=== PATIENT | female | born 1955 | race Caucasian/White ===

== ENCOUNTER 2019-03-02 10:37 | Emergency (ER) | payer BC, MEDICARE, OTHER ==
[2019-03-02 10:45] VITALS: BP 142/59; PULSE 68; RESP 18; TEMP 97.9
[2019-03-02] MEDS ORDERED: ERYTHROMYCIN 5 MG/GM OPHTH OINT 3.5 GM TUBE RIGHT EYE STA (10:59)
--- NOTE | 2019-03-02 11:01 | ED ---
Eye Problem HPI - General Chief complaint: Eye Problems Stated complaint: Eye Issues Time Seen by Provider: 03/02/19 10:48 Source: patient, RN notes reviewed, old records reviewed Mode of arrival: ambulatory Limitations: no limitations - History of Present Illness Initial comments: Patient is a 64-year-old female, she presents emergency department today with chief complaint of a red bump over her right eye for the past week. She was seen by primary care doctor and was told it was not a stye. Patient states she's been doing warm compresses with the pump seems to be getting bigger. Patient states that she has no eye pain. She denies any visual changes. - Related Data Allergies Allergy/AdvReac Type Severity Reaction Status Date / Time No Known Allergies Allergy Verified 03/02/19 10:39 Review of Systems ROS Statement: Those systems with pertinent positive or pertinent negative responses have been documented in the HPI. ROS Other: All systems not noted in ROS Statement are negative. Past Medical History Past Medical History: Cancer, Fibromyalgia, Hyperlipidemia Additional Past Medical History / Comment(s): lymphoma, esophageal CA History of Any Multi-Drug Resistant Organisms: None Reported Past Surgical History: Section, Cholecystectomy, Orthopedic Surgery, Tonsillectomy Additional Past Surgical History / Comment(s): replaced esophagus with stomach, Past Psychological History: Bipolar Smoking Status: Former smoker Past Alcohol Use History: None Reported Past Drug Use History: None Reported General Exam - General Exam Comments Initial Comments: Pleasant 64-year-old female. Alert and oriented 3. Limitations: no limitations General appearance: alert, in no apparent distress Head exam: Present: atraumatic Eye exam: Present: normal appearance, PERRL, EOMI, other (Patient has erythema and swelling over the lateral aspect of the right lower leg. The area is firm, concern for chalazion. No conjunctival injection or drainage is noted.). Absent: scleral icterus, conjunctival injection, periorbital swelling ENT exam: Present: normal exam, mucous membranes moist Neck exam: Present: normal inspection. Absent: tenderness, meningismus, lymphad enopathy Respiratory exam: Present: normal lung sounds bilaterally. Absent: respiratory distress, wheezes, rales, rhonchi, stridor Cardiovascular Exam: Present: regular rate, normal rhythm, normal heart sounds. Absent: systolic murmur, diastolic murmur, rubs, gallop, clicks Neurological exam: Present: alert, oriented X3 Psychiatric exam: Present: normal affect, normal mood Skin exam: Present: warm, dry, intact, normal color. Absent: rash Course Vital Signs 03/02/19 10:40 Temperature 97.9 F Pulse Rate 68 Respiratory 18 Rate Blood Pressure 142/59 O2 Sat by Pulse 100 Oximetry Medical Decision Making - Medical Decision Making 64-year-old female presents today for redness and swelling of her right lower eyelid. Patient reports she's had this for a week. She has a firm bump over the lower eyelid concern for [place]'s and. No signs of drainage or actual eye irritation. I discussed the Patient needs to use warm compresses. Discussed included a thin film of ice ointment however this is unlikely to treat for any infection but more prevent secondary infection and she continues to touch the area. I discussed she can follow-up with ophthalmology may need to have injection from the eye or have surgical removal. Patient understands treatment plan will comply. Return parameters were discussed. Disposition Clinical Impression: Chalazion of right eye Disposition: HOME SELF-CARE Condition: Good Instructions (If sedation given, give patient instructions): Vikasion (ED) Additional Instructions: Patient and follow-up with ophthalmology a after few weeks of symptoms continue to persist. Patient should continue to apply warm compresses frequently. Patient should discard all makeup that has been used. Is patient prescribed a controlled substance at d/c from ED?: No Referrals: Belen Finch MD [Primary Care Provider] - 1-2 days Frandy Montgomery MD [STAFF PHYSICIAN] - 1-2 days Time of Disposition: 10:59
== END 2019-03-02 11:09 | disposition home or self-care (01) ==
LOC: EC 10:37
DX: H00.12 Chalazion right lower eyelid (principal); Z87.891 Personal history of nicotine dependence; Z85.01 Personal history of malignant neoplasm of esophagus
CPT/HCPCS: 99283

== ENCOUNTER → 2019-03-02 | Outpatient (CLI) | payer BC, MEDICARE ==
--- NOTE | 2019-03-05 07:59 | PE ---
Nuclear medicine PET/CT HISTORY: Esophageal carcinoma, lymphoma, subsequent Patient received 12.6 mCi F-18 FDG intravenously in delayed scanning was performed from the skull bas e to the mid thighs. Localization and attenuation correction CT scan was performed. No comparisons Neck and chest: There is no evident cervical, supraclavicular, mediastinal, axillary, or hilar adenop athy. Dense coronary artery calcifications are present. Patient is status post esophagectomy and tucker lou pull-through. Port-A-Cath is present in the right pectoral region, tip of the catheter courses vi a the right subclavian approach to the level of the cavoatrial junction. There is no evident lung mas s. No pleural or pericardial effusion. No hypermetabolic uptake is evident. ABDOMEN: Adrenal glands are unremarkable. No evident liver mass or retroperitoneal adenopathy. Patien t is post cholecystectomy. Colonic interposition noted anterior to the liver. No suspicious hypermeta bolic uptake. Uptake along the bowel is likely physiologic. Dense atheromatous changes within the aor ta. There is an umbilical hernia containing fat. Osseous structures show degenerative disc change in the visualized spine. Facet arthropathy changes a lso noted the lower lumbar spine. No suspicious hypermetabolic uptake. IMPRESSION: No suspicious uptake is evident.
== END ==
LOC: RADPETMAIN 08:01
PROVIDERS: ATTEND Internal Medicine Hematology & Oncology
DX: C15.5 Malignant neoplasm of lower third of esophagus (principal); C83.30 Diffuse large B-cell lymphoma, unspecified site
CPT/HCPCS: 78815; A9552

== ENCOUNTER → 2019-03-27 | Outpatient (CLI) | payer BC, MEDICARE, OTHER | END | disposition home or self-care (01) | LOC: CPPFTMAIN 08:51 | PROVIDERS: ATTEND Internal Medicine Critical Care Medicine | DX: J98.4 Other disorders of lung (principal) | CPT/HCPCS: 94060; 94726; 94729 ==

== ENCOUNTER 2019-11-26 23:54 | Emergency (ER) | payer MEDICARE, BC ==
[2019-11-27] VITALS: BP 121/70; PULSE 80; RESP 16; TEMP 98.5
[2019-11-27] MEDS ORDERED: SODIUM CHLORIDE 0.9% 500 ML 500 ML IV STA (00:04)
[2019-11-27] MEDS ORDERED: MIDAZOLAM 2 MG/2 ML VIAL IV STA (00:04)
--- NOTE | 2019-11-27 00:43 | ED ---
Fall HPI - General Chief Complaint: Fall Stated Complaint: Fall Time Seen by Provider: 11/26/19 23:58 Source: patient, EMS Mode of arrival: EMS - History of Present Illness Initial Comments: Gege is a 64-year-old female who presents to ER today for evaluation of right shoulder pain. Patient reports that she was attempting to get some boxes off her front porch while trying to carefully keep her door shut to prevent her cast from getting out of her house. She reports that she turned and felt funny landing on her right shoulder. She did not strike her head she did not lose consciousness. She immediately felt pain in her right arm. - Related Data Allergies Allergy/AdvReac Type Severity Reaction Status Date / Time No Known Allergies Allergy Verified 11/27/19 00:00 Review of Systems ROS Statement: Those systems with pertinent positive or pertinent negative responses have been documented in the HPI. ROS Other: All systems not noted in ROS Statement are negative. Past Medical History Past Medical History: Cancer, Fibromyalgia, Hyperlipidemia Additional Past Medical History / Comment(s): lymphoma, esophageal CA History of Any Multi-Drug Resistant Organisms: None Reported Past Surgical History: Section, Cholecystectomy, Orthopedic Surgery, Tonsillectomy Additional Past Surgical History / Comment(s): replaced esophagus with stomach, R radial head and elbow "removed", port placement, 2CA surgeries lymphoma in brain and esophagous Past Psychological History: Bipolar Smoking Status: Former smoker Past Alcohol Use History: None Reported Past Drug Use History: None Reported General Exam - General Exam Comments Initial Comments: Physical Exam GENERAL: Patient is well-developed and well-nourished. Patient is nontoxic and well-hydrated and is in no distress. HENT: Normocephalic, Atraumatic. EYES: PERRL, EOMI PULMONARY: Unlabored respirations. CARDIOVASCULAR: RRR Warm and well perfused extremities ABDOMEN: Non-distended SKIN: No rashes or bruising : Deferred NEUROLOGIC: Alert and oriented Normal speech Normal gait MUSCULOSKELETAL: Decreased range of motion of the right shoulder secondary to pain, obvious deformity noted Right arm is neurovascularly intact PSYCHIATRIC: No SI/HI Limitations: no limitations Course Vital Signs 11/26/19 23:55 Temperature 98.5 F Pulse Rate 80 Respiratory 16 Rate Blood Pressure 121/70 O2 Sat by Pulse 97 Oximetry Medical Decision Making - Medical Decision Making Patient was seen and evaluated history is obtained from patient History and physical exam are concerning for injury to the right upper extremity X-ray confirmed a impacted humeral fracture Patient will be placed in a sling she was given Dilaudid for pain Patient currently has a pain contract with a pain management doctor and cannot accept prescription for pain medication, she will contact orthopedics and her pain management doctor tomorrow Disposition Clinical Impression: Closed right humeral fracture Disposition: HOME SELF-CARE Condition: Stable Instructions (If sedation given, give patient instructions): Proximal Humerus Fracture (ED) Is patient prescribed a controlled substance at d/c from ED?: No Referrals: Yari Astorga NPC [Primary Care Provider] - 1-2 days Cornelius Mcghee MD [STAFF PHYSICIAN] - 1-2 days
--- NOTE | 2019-11-27 00:57 | XR ---
EXAMINATION TYPE: XR shoulder complete RT DATE OF EXAM: 11/27/2019 COMPARISON: NONE HISTORY: Fall. Pain. TECHNIQUE: 3 views FINDINGS: There is impacted comminuted humeral neck fracture. There is no dislocation. There is proba kaushik 3 cm of impaction. There is right-sided central venous catheter. Scapula appears intact. IMPRESSION: Displaced impacted humeral neck fracture.
--- NOTE | 2019-11-27 01:01 | XR ---
EXAMINATION TYPE: XR chest 1V DATE OF EXAM: 11/27/2019 COMPARISON: NONE HISTORY: Fall. Pain. TECHNIQUE: Single view FINDINGS: There is no heart failure nor confluent pneumonic infiltrate. There is right-sided central venous catheter. There is slight blunting right costophrenic angle. Heart size is normal. There is im pacted right humeral neck fracture. There is no sign of a pneumothorax. There is old fracture right p osterior fifth rib. IMPRESSION: Slight elevation of the right diaphragm and pleural diaphragmatic reaction right lung bas e. No heart failure. Old right side healed rib fracture. Impacted right humeral neck fracture.
[2019-11-27] MEDS ORDERED: HYDROmorphone 1 MG/ML 1 ML SYRINGE IVP STA (01:13)
--- NOTE | 2019-11-28 06:05 | CDI ---
Dear Liset Velasquez, DO Please provide procedure done related to midazolam administered. Thank you, Rudy Alejandro Wood Caulker If you have any questions, please contact [facility] at [phone] [facility]
== END 2019-11-27 01:53 | disposition home or self-care (01) ==
LOC: EC 23:54
DX: S42.291A Other displaced fracture of upper end of right humerus, initial encounter for closed fracture (principal); Z85.01 Personal history of malignant neoplasm of esophagus; Z85.72 Personal history of non-Hodgkin lymphomas; Z87.891 Personal history of nicotine dependence; W19.XXXA Unspecified fall, initial encounter; Y92.009 Unspecified place in unspecified non-institutional (private) residence as the place of occurrence of the external cause; Y93.01 Activity, walking, marching and hiking
CPT/HCPCS: 99283; 96374; 96375; 96361; 73030; 71045; J2250; J1170

== ENCOUNTER → 2020-02-14 | Outpatient (CLI) | payer MEDICARE, BC ==
--- NOTE | 2020-02-14 16:26 | XR ---
EXAMINATION TYPE: XR elbow complete RT DATE OF EXAM: 02/14/2020 CLINICAL HISTORY: Fractured right humerus 2.5 months ago, persistent pain. History of radial head rem oval from fracture years ago. TECHNIQUE: Frontal, lateral and oblique images of the right elbow are obtained. COMPARISON: None FINDINGS: There is resection of the right radial head, consistent with patient history of prior inju ry and surgery. There is no acute fracture/dislocation evident in the right elbow. Osseous demineral ization. There is mild degenerative change of the medial elbow and olecranon fossa. No abnormal fat p ad signs are seen. The overlying soft tissue appears unremarkable. IMPRESSION: 1. No acute fracture or dislocation in the right elbow. 2. Postsurgical and degenerative changes. 3. Osseous demineralization.
--- NOTE | 2020-02-14 16:30 | XR ---
EXAMINATION TYPE: XR shoulder complete RT DATE OF EXAM: 02/14/2020 CLINICAL HISTORY: Fractured right humerus 2.5 months ago, persistent pain. TECHNIQUE: Three views of the right shoulder are obtained. COMPARISON: Right shoulder radiograph 11/27/2019 FINDINGS: There is redemonstrated incompletely healed impacted chronic fracture deformity of the rig ht humeral neck, with evidence of interval periosteal reaction and osseous bridging. There is no new acute fracture/dislocation evident in the right shoulder. The acromioclavicular and glenohumeral moises nt spaces appear within normal limits. The visualized ribs are intact and unremarkable. Right-sided MediPort incompletely visualized. IMPRESSION: Persistent impacted chronic fracture deformity of the right humerus, with evidence of sig nificant interval healing versus 11/27/2019. Fracture healing is incomplete.
== END | disposition home or self-care (01) ==
LOC: LABWHC1 08:26
PROVIDERS: ATTEND Orthopaedic Surgery Orthopaedic Trauma
DX: M19.021 Primary osteoarthritis, right elbow (principal); M84.421A Pathological fracture, right humerus, initial encounter for fracture; M21.921 Unspecified acquired deformity of right upper arm; Z98.890 Other specified postprocedural states

== ENCOUNTER → 2020-05-01 | Outpatient (CLI) | payer MEDICARE, BC ==
[2020-05-01 12:41] LABS: African American GFR (CKD) >90 (>60 ml/min/1.73 sqM); Blood Urea Nitrogen 19 mg/dL (7-17); Non-African American GFR(CKD) >90 (>60 ml/min/1.73 sqM)
--- NOTE | 2020-05-02 20:08 | CT ---
EXAMINATION TYPE: CT chest w con DATE OF EXAM: 05/01/2020 COMPARISON: PET/CT 03/02/2019. HISTORY: Non Hodgkin lymphoma. CT DLP: 561 mGycm Automated exposure control for dose reduction was used. CONTRAST: CT scan of the chest is performed with IV Contrast, patient injected with 100 mL of Isovue M300. FINDINGS: LUNGS: There is mild bibasilar linear opacities, consistent atelectasis and/or scarring. Otherwise no significant patchy airspace opacity, consolidation or suspicious nodules. There is no pleural effu torres or pneumothorax seen. The tracheobronchial tree is patent. MEDIASTINUM: There are no greater than 1 cm hilar or mediastinal lymph nodes. No pericardial effusi on is seen. There is mild thoracic aorta and moderate to advanced coronary atherosclerotic disease. OTHER: Redemonstrated are post surgical changes related to esophagectomy and gastric pull-up. Chroni c nonunion right proximal humeral fracture. There is a right IJ port catheter in place. IMPRESSION: No evidence of recurrent or metastatic disease. No acute cardiopulmonary abnormality. Stable esophagotomy and gastric pull-up.
== END | disposition home or self-care (01) ==
LOC: RADCTMAIN 11:49
PROVIDERS: ATTEND Internal Medicine Critical Care Medicine
DX: C85.90 Non-Hodgkin lymphoma, unspecified, unspecified site (principal)
CPT/HCPCS: 82565; 84520; 71260; 36415; Q9967

== ENCOUNTER → 2020-06-03 | Outpatient (CLI) | payer MEDICARE, BC | END | disposition home or self-care (01) | LOC: LABWHC1 12:26 | PROVIDERS: ATTEND Nurse Practitioner Family | DX: U07.1 COVID-19 (principal) | CPT/HCPCS: U0003; C9803; U0005 ==

== ENCOUNTER → 2020-06-26 | Outpatient (CLI) | payer MEDICARE, BC ==
--- NOTE | 2020-06-26 12:24 | PE ---
EXAMINATION TYPE: PET CT fusion skull to thigh DATE OF EXAM: 06/26/2020 COMPARISON: PET CT March 02, [address] May 01, 2020 HISTORY: Lymphoma and esophageal cancer TECHNIQUE: Following the intravenous administration of 10.733 mCi of F-18 FDG, whole body images are performed from the skull base to the midthigh. Images are reviewed on the computer in the coronal, axial, and sagittal planes. Reconstructed rotating images are created on independent workstation and reviewed on the computer. A localization and attenuation correction CT is performed in conjunction with the PET scan. Blood glucose level equals 107. SCAN: Subsequent Scan FINDINGS: SKULL BASE AND NECK: New hypermetabolic 9 x 10 mm left posterior cervical triangle lymph node at the inferior level of the maxillary sinuses above the hyoid bone axial image 36, max SUV is 7.93. Mild increased uptake right shoulder involving glenohumeral and acromioclavicular joints presumed inf lammatory, correlate clinically. CHEST, MEDIASTINUM, AND HILAR REGION: Surgical changes from esophagectomy and gastric pull-up redemon strated. No suspicious basilar pulmonary nodules greatest in the left lung base. For reference there is 9 x 8 mm posterior left basilar nodule axial image 92. Some misregistration at this level. One area shows a bnormal hypermetabolic uptake. Max SUV is 5.15 ABDOMEN AND PELVIS: New hypermetabolic hypodense masses in the liver, right-sided mass measures 3.8 c m long axis image 115, max SUV is 9.99. Just adjacent to this medial segment left hepatic lobe there is 3.6 cm irregular hypodense hypermetabolic mass on image 117, max SUV is 6.76. OSSEOUS STRUCTURES: New suspicious hypermetabolic subtle sclerotic lesion right axial image 24, max S UV is 6.26. OTHER CT: Mild to moderate generalized atrophy and chronic small vessel schema change in brain parenc hyma. Stable right subclavian Mediport catheter. Moderate to severe three-vessel coronary artery calcificat ion redemonstrated. Moderate to severe calcified plaque of the aorta extends into branch vessels. Sca ttered bilateral pelvic phleboliths. Slight scoliotic curvature. IMPRESSION: New metastatic disease. There is left-sided neck adenopathy, there are new hepatic metast atic lesions, there is osseous metastatic lesion right sacrum, there is early hematogenous metastatic disease to the lung bases.
== END | disposition home or self-care (01) ==
LOC: RADPETMAIN 08:56
PROVIDERS: ATTEND Internal Medicine Hematology & Oncology
DX: C78.00 Secondary malignant neoplasm of unspecified lung (principal); C78.7 Secondary malignant neoplasm of liver and intrahepatic bile duct; C79.51 Secondary malignant neoplasm of bone; C83.30 Diffuse large B-cell lymphoma, unspecified site; C15.5 Malignant neoplasm of lower third of esophagus
CPT/HCPCS: 78815; A9552

== ENCOUNTER 2020-07-06 09:42 | Day surgery (SDC) | payer MEDICARE, BC ==
[2020-07-06] MEDS ORDERED: ALPRAZolam 0.5 MG TAB PO STA (10:19)
[2020-07-06 10:38] VITALS: RESP 18; TEMP 97.7
--- NOTE | 2020-07-06 12:03 | US ---
ULTRASOUND GUIDED CORE BIOPSY LEFT NECK LYMPH NODE CLINICAL HISTORY: FINDINGS: The procedure was explained to the patient. The risks, complications, benefits and alternatives were discussed and any questions were answered. Informed consent was obtained. Patient was placed supin e on the ultrasound table and prepped and draped in the usual sterile fashion. Utilizing a 18-gauge needle, five passes were made into the left neck lymph node. Patient was stable throughout the procedure. Pathology is pending. All elements of maximal barrier technique were utilized. IMPRESSION: 1. Successful ultrasound guided core biopsy of left neck lymph node.
[2020-07-06 12:28] VITALS: BP 157/70; PULSE 77
== END 2020-07-06 12:00 | disposition home or self-care (01) ==
LOC: RADPROMAIN 09:42
PROVIDERS: ATTEND Internal Medicine Hematology & Oncology
DX: C83.30 Diffuse large B-cell lymphoma, unspecified site (principal); C15.5 Malignant neoplasm of lower third of esophagus; M06.9 Rheumatoid arthritis, unspecified; F31.9 Bipolar disorder, unspecified; Z79.899 Other long term (current) drug therapy; Z98.890 Other specified postprocedural states
CPT/HCPCS: 38505; 76942; 88305

== ENCOUNTER → 2020-08-04 | Outpatient (CLI) | payer MEDICARE, BC ==
[2020-08-04 14:42] LABS: HCT 45.4 % (34.0-46.0); HGB 14.9 gm/dL (11.4-16.0); MCH 31.2 pg (25.0-35.0); MCHC 32.9 g/dL (31.0-37.0); MCV 94.7 fL (80.0-100.0); Mean Platelet Volume 7.4; Platelet Count 173 k/uL (150-450); RBC 4.79 m/uL (3.80-5.40); WBC 4.8 k/uL (3.8-10.6)
[2020-08-04 14:50] LABS: Prothrombin Time 10.4 sec (9.0-12.0)
== END | disposition home or self-care (01) ==
LOC: LABWHC1 13:09
PROVIDERS: ATTEND Radiology Diagnostic Radiology
DX: R69 Illness, unspecified (principal)
CPT/HCPCS: 36415; 85027; 85610; 85730

== ENCOUNTER 2020-10-02 08:38 | Inpatient (IN) | payer MEDICARE, BC ==
[2020-10-02] MEDS ORDERED: ONDANSETRON 4 MG/2 ML VIAL IVP PRN (09:00)
[2020-10-02 10:27] LABS: Basophils % (A) 1 %; Eosinophils % (A) 1 %; HCT 37.4 % (34.0-46.0); HGB 12.4 gm/dL (11.4-16.0); Lymphocytes # (A) 0.4 k/uL (1.0-4.8); Lymphocytes % (A) 10 %; MCH 29.3 pg (25.0-35.0); MCHC 33.2 g/dL (31.0-37.0); MCV 88.3 fL (80.0-100.0); Mean Platelet Volume 7.1; Monocytes # (A) 0.4 k/uL (0-1.0); Monocytes % (A) 10 %; Neutrophils # (A) 2.9 k/uL (1.3-7.7); Neutrophils % (A) 76 %; Platelet Count 142 k/uL (150-450); RBC 4.24 m/uL (3.80-5.40); RDW 13.5 % (11.5-15.5); WBC 3.8 k/uL (3.8-10.6)
[2020-10-02 10:29] LABS: ALT <6 U/L (4-34); AST 15 U/L (14-36); African American GFR (CKD) >90 (>60 ml/min/1.73 sqM); Albumin 3.8 g/dL (3.5-5.0); Albumin/Globulin Ratio 1.7; Alkaline Phosphatase 55 U/L (38-126); Anion Gap 6 mmol/L; Blood Urea Nitrogen 9 mg/dL (7-17); Calcium 8.9 mg/dL (8.4-10.2); Carbon Dioxide 33 mmol/L (22-30); Chloride 94 mmol/L (98-107); Globulin 2.3 g/dL; Glucose 132 mg/dL (74-99); Non-African American GFR(CKD) >90 (>60 ml/min/1.73 sqM); Phosphorus 3.1 mg/dL (2.5-4.5); Potassium 4.3 mmol/L (3.5-5.1); Sodium 133 mmol/L (137-145); Total Bilirubin 0.5 mg/dL (0.2-1.3); Total Protein 6.1 g/dL (6.3-8.2); Uric Acid 2.8 mg/dL (3.7-7.4)
[2020-10-02] MEDS: FENOFIBRATE 160 MG TAB PO SCH (11:38)
[2020-10-02] MEDS: FOLIC ACID 1 MG TAB PO SCH (11:38)
[2020-10-02] MEDS: SODIUM CHLORIDE 0.9% 1,000 ML IV SCH ×2 (11:41→19:36)
[2020-10-02] MEDS: oxyCODONE ER 20 MG TAB.ER.12H PO SCH ×2 (12:08→19:36)
[2020-10-02] MEDS: PANTOPRAZOLE 40 MG TABLET PO SCH (12:09)
[2020-10-02] MEDS: PROPRANOLOL 40 MG TAB PO SCH (12:10)
[2020-10-02] MEDS: DEXAMETHASONE SOD PHOSPHATE 10 MG/ML 1 ML VIAL IV SCH (12:59)
[2020-10-02] MEDS: ONDANSETRON 16 MG in SODIUM CHLORIDE 0.9% 50 ML IVPB SCH (12:59)
[2020-10-02] MEDS: FAMOTIDINE 20 MG/2 ML VIAL IV SCH (12:59)
[2020-10-02] MEDS: ETOPOSIDE 180 MG in SODIUM CHLORIDE 0.9% 500 ML 500 ML IV SCH (13:18)
--- NOTE | 2020-10-02 17:07 | P.HPIM ---
History of Present Illness H&P Date: 10/02/20 Chief Complaint: relapsed diffuse large B-cell lymphoma. Admitted for high-dose chemo This is a 65 yr old WF, pt of Dr May, who was initially diagnosed with diffuse large B cell lymphoma,in 2008,when she presented with right large inguinal mass,she had 3 cycles of RCHOP followed by radiation therapy. In 2016,she had a new a new lesion in right popliteal fossa,which was positive for large B cell lymphoma,follicular center.She had treatment with BR regimen,completed on 01/12/2017 followed by XRT. A follow up PET scan in September/2017,identified a lesion at GE junction,EUS and biopsy confirmed adenocarcinoma of GEJ,she had esophgectomy on 12/18/2018,also the PET scan showed RML lung nodule. She was also diagnosed with RA and fibromyalgia. Her treatment were in [place] thus far. She moved to [place] on 01/18/[address] Muñiz on 01/25/2019 to establish with an oncologist locally. She had a PET scan on 03/02/2019 which was negative. On 06/26/2020,repeat PET sc an revealed suspicious uptake in left cervical node,new liver lesions and right sacrum. On 07/07/2020,U/S guided biopsy of left neck mass at [facility] was not diagnostic,she was referred to [facility],repeat biopsy on 08/11/2020 was positive for germinal center,DLBCL,double expressor. She reported feeling tired,she has her chronic generalized bone pain,no fever,chills or night sweats,her weight is relatively stable,no dysphagia, She was referred to the [facility], [place], and met with Dr Harris on 09/02/20. she also met with the bone marrow transplant team. It was recommended that she proceed with salvage R-ICE chemotherapy. She is being admitted for cycle #1 of the same. Review of Systems Constitutional: Reports chronic pain, Reports fatigue, Reports weakness Eyes: denies blurred vision, denies pain Ears: deny: decreased hearing, ear discharge, earache, tinnitus Ears, nose, mouth and throat: Denies headache, Denies sore throat Cardiovascular: Reports decreased exercise tolerance Respiratory: Denies cough Gastrointestinal: Denies abdominal pain, Denies diarrhea, Denies nausea, Denies vomiting Genitourinary: Denies dysuria, Denies hematuria Menstruation: Reports postmenopausal Musculoskeletal: Reports as per HPI, Reports muscle weakness Integumentary: Denies pruritus, Denies rash Neurological: Reports weakness Psychiatric: Denies anxiety, Denies depression Endocrine: Reports fatigue Hematologic/Lymphatic: Reports as per HPI, Reports easy bleeding Past Medical History Past Medical History: Cancer, COPD, Fibromyalgia, Hyperlipidemia, Osteoarthritis (OA) Additional Past Medical History / Comment(s): 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 06/2020 pet scan showed mets to L neck/liver/sacrum per pt. 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 History of Any Multi-Drug Resistant Organisms: None Reported Past Surgical History: Section, Cholecystectomy, Orthopedic Surgery, Tonsillectomy Additional Past Surgical History / Comment(s): 2008 R groin tumor removed, extensive esophageal surgery/esophagectomy/stomach brought up and attached, R sided port, R elbow fracture/radial head removed, colonoscopy. Past Anesthesia/Blood Transfusion Reactions: No Reported Reaction Additional Past Anesthesia/Blood Transfusion Reaction / Comment(s): Pt received blood with esophagectomy surgery without reaction. Smoking Status: Former smoker - Past Family History Mother History Unknown: Yes Additional Family Medical History / Comment(s): patient adopted and does not know family history Medications and Allergies Home Medications Medication Instructions Recorded Confirmed Type Atorvastatin [Lipitor] 20 mg PO HS 07/01/20 10/02/20 History Divalproex [Depakote] 1,000 mg PO HS 07/01/20 10/02/20 History Fenofibrate Nanocrystallized 145 mg PO DAILY 07/01/20 10/02/20 History [Tricor] Folic Acid 1 mg PO DAILY 07/01/20 10/02/20 History Omeprazole 40 mg PO DAILY 07/01/20 10/02/20 History Propranolol [Inderal] 40 mg PO DAILY@1200 07/01/20 10/02/20 History Cholecalciferol [Vitamin D3 (25 50 mcg PO DAILY 10/02/20 10/02/20 History Mcg = 1000 Iu)] FLUoxetine HCL [PROzac] 20 mg PO DAILY 10/02/20 10/02/20 History LORazepam [Ativan] 0.5 mg PO BID 10/02/20 10/02/20 History hydrOXYzine HCL [Atarax] 50 mg PO HS 10/02/20 10/02/20 History oxyCODONE HCL [OxyCONTIN] 20 mg PO Q8H 10/02/20 10/02/20 History traZODone HCL [Desyrel] 50 - 100 mg PO HS PRN 10/02/20 10/02/20 History Allergies Allergy/AdvReac Type Severity Reaction Status Date / Time [facility] AdvReac Itching Verified 10/02/20 09:17 Physical Exam Vitals: Vital Signs Temp Pulse Resp BP Pulse Ox 10/02/20 13:00 97.5 F L 63 16 154/61 100 10/02/20 09:00 97.6 F 68 12 129/80 98 Intake and Output 10/01/20 10/02/20 10/02/20 22:59 06:59 14:59 Other: Weight 76.7 kg - Constitutional General appearance: no acute distress - EENT Eyes: EOMI, PERRLA ENT: hearing grossly normal, normal oropharynx - Neck Neck: no lymphadenopathy Thyroid: bilateral: normal size - Respiratory Respiratory: bilateral: CTA - Cardiovascular Rhythm: regular Heart sounds: normal: S1, S2 - Gastrointestinal General gastrointestinal: normal bowel sounds, soft - Integumentary Integumentary: normal - Neurologic Neurologic: CNII-XII intact - Musculoskeletal Musculoskeletal: generalized weakness, strength equal bilaterally - Psychiatric Psychiatric: A&O x's 3, appropriate affect Results CBC & Chem 7: 10/02/20 09:50 10/02/20 09:50 Labs: Abnormal Lab Results - Last 24 Hours (Table) 10/02/20 10/02/20 Range/Units 09:50 09:50 Plt Count 142 L (150-450) k/uL Lymphocytes # 0.4 L (1.0-4.8) k/uL Sodium 133 L (137-145) mmol/L Chloride 94 L (98-107) mmol/L Carbon Dioxide 33 H (22-30) mmol/L Glucose 132 H (74-99) mg/dL Uric Acid 2.8 L (3.7-7.4) mg/dL Total Protein 6.1 L (6.3-8.2) g/dL Thrombosis Risk Factor Assmnt - DVT/VTE Prophylaxis DVT/VTE Prophylaxis: Pharmacologic Prophylaxis ordered - Choose All That Apply Any of the Below Risk Factors Present?: Yes Each Factor Represents 1 point: Abnormal pulmonary function (COPD) Other Risk Factors: Yes Each Risk Factor Represents 2 Points: Age 61-74 years, Malignancy Other congenital or acquired thrombophilia - If yes, enter type in comment: No Thrombosis Risk Factor Assessment Total Risk Factor Score: 5 Thrombosis Risk Factor Assessment Level: High Risk Assessment and Plan (1) Diffuse large B cell lymphoma Narrative/Plan: diagnostic and therapeutic circumstances as described. The patient is being admitted for relapsed diffuse large B-cell lymphoma, to receive high-dose infusional salvage chemotherapy with the R-ICE regimen. This is in accordance with recommendations from [facility]. - The patient received Rituxan yesterday in the office, and will receive ICE per protocol during this admission. She will be monitored with physical exam and labs, which have been ordered. Current Visit: Yes Status: Acute Code(s): C83.30 - DIFFUSE LARGE B-CELL LYMPHOMA, UNSPECIFIED SITE SNOMED Code(s): 215558781 Plan: The patient has multiple other medical problems, including chronic pain due to DJD and neuropathy, hypertension and hyperlipidemia. Home medications have been reconciled and re ordered - Consult [facility] hospitalist service for medical management DVT prophylaxis
[2020-10-02] MEDS: ACETAMINOPHEN TAB 500 MG TAB PO PRN (17:21)
[2020-10-02] MEDS: ENOXAPARIN 40 MG/0.4 ML SYRINGE SQ SCH (17:24)
[2020-10-02] MEDS: DIVALPROEX 500 MG TABLET.DR PO SCH (22:17)
[2020-10-02] MEDS: hydrOXYzine HCL 25 MG TAB PO SCH (22:17)
[2020-10-02] MEDS: traZODone HCL 100 MG TAB PO SCH (22:17)
[2020-10-02] MEDS: CHOLECALCIFEROL 25 MCG (1000 IU) TABLET PO SCH (22:17)
[2020-10-02] MEDS: ATORVASTATIN 20 MG TAB PO SCH (22:17)
[2020-10-02] MEDS: LORazepam 0.5 MG TAB PO SCH (22:17)
[2020-10-02] MEDS: FLUoxetine HCL 20 MG CAP PO SCH (22:17)
--- NOTE | 2020-10-02 23:30 | P.CONS ---
History of Present Illness - Reason for Consult Consult date: 10/02/20 medical management Requesting physician: Siva Pedro - Chief Complaint admission for chemotherapy - History of Present Illness 65 year old female with OA, and relapsing B cell lymphoma patient was first diagnosed with B cell lymphoma back in 2008 , she received treatment including chemo and radiation therapy while she was residing in [place] until 2018, after moving to [place], PET scan 02/2019 was negative. Jun 2020, her PET scan was suspicious for left cervical node, new liver lesion, and right sacrum . her biopsy was positive for relapse disease July 2020. patient reports night sweats, but denies any fever, or abd pain , weight has been stable , denies any changes in bowel habits or GI bleeding . Review of Systems Pertinent positives as noted in HPI. All other systems were reviewed and are negative Past Medical History Past Medical History: Cancer, COPD, Fibromyalgia, Hyperlipidemia, Osteoarthritis (OA) Additional Past Medical History / Comment(s): 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 06/2020 pet scan showed mets to L neck/liver/sacrum per pt. 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 History of Any Multi-Drug Resistant Organisms: None Reported Past Surgical History: Section, Cholecystectomy, Orthopedic Surgery, Tonsillectomy Additional Past Surgical History / Comment(s): 2008 R groin tumor removed, extensive esophageal surgery/esophagectomy/stomach brought up and attached, R sided port, R elbow fracture/radial head removed, colonoscopy. Past Anesthesia/Blood Transfusion Reactions: No Reported Reaction Additional Past Anesthesia/Blood Transfusion Reaction / Comm: Pt received blood with esophagectomy surgery without reaction. Smoking Status: Former smoker - Past Family History Mother History Unknown: Yes Additional Family Medical History / Comment(s): patient adopted and does not know family history Medications and Allergies Home Medications Medication Instructions Recorded Confirmed Type Atorvastatin [Lipitor] 20 mg PO HS 07/01/20 10/02/20 History Divalproex [Depakote] 1,000 mg PO HS 07/01/20 10/02/20 History Fenofibrate Nanocrystallized 145 mg PO DAILY 07/01/20 10/02/20 History [Tricor] Folic Acid 1 mg PO DAILY 07/01/20 10/02/20 History Omeprazole 40 mg PO DAILY 07/01/20 10/02/20 History Propranolol [Inderal] 40 mg PO DAILY@1200 07/01/20 10/02/20 History Cholecalciferol [Vitamin D3 (25 50 mcg PO DAILY 10/02/20 10/02/20 History Mcg = 1000 Iu)] FLUoxetine HCL [PROzac] 20 mg PO DAILY 10/02/20 10/02/20 History LORazepam [Ativan] 0.5 mg PO BID 10/02/20 10/02/20 History hydrOXYzine HCL [Atarax] 50 mg PO HS 10/02/20 10/02/20 History oxyCODONE HCL [OxyCONTIN] 20 mg PO Q8H 10/02/20 10/02/20 History traZODone HCL [Desyrel] 50 - 100 mg PO HS PRN 10/02/20 10/02/20 History Allergies Allergy/AdvReac Type Severity Reaction Status Date / Time bendamustine [From [facility]] AdvReac Itching Verified 10/02/20 09:17 Physical Exam Vitals: Vital Signs Temp Pulse Resp BP Pulse Ox 10/02/20 19:43 97.7 F 62 18 138/72 97 10/02/20 16:00 97.5 F L 64 16 153/84 96 10/02/20 13:00 97.5 F L 63 16 154/61 100 10/02/20 09:00 97.6 F 68 12 129/80 98 Intake and Output 10/02/20 10/02/20 10/02/20 06:59 14:59 22:59 Intake Total 1300 Balance 1300 Intake: Intake, IV Titration 1300 Amount Etoposide 180 mg In 500 Sodium Chloride 0.9% 500 ml 500 ml @ 509 mls/hr IV Q24H MARCELO Rx#:[id number] Sodium Chloride 0.9% 1, 800 000 ml @ 100 mls/hr IV . Q10H MARCELO Rx#:[id number] Other: # Voids 2 Weight 76.7 kg Constitutional: No acute distress, conversant, pleasant Eyes: Anicteric sclerae, moist conjunctiva, Pupils equal round reactive to light ENMT: NC/AT Oropharynx clear, no erythema, or exudates Neck: Supple, FROM, no masses, or JVD No carotid bruits No thyromegaly Lungs: Clear to auscultation Clear to percussion Normal respiratory effort, no accessory muscle use Cardiovascular: Heart regular in rate and rhythm, No murmurs, gallops, or rubs No peripheral edema Abdominal: Soft Nontender, no guarding, rebound or rigidity Abdomen moving with respiration Normoactive bowel sounds No hepatomegaly, No splenomegaly No palpable mass No abdominal wall hernia noted Skin: Normal temperature, tone, texture, turgor No induration No subcutaneous nodules No rash, lesions No ulcers Extremities: No digital cyanosis No clubbing Pedal pulses intact and symmetrical Radial pulses intact and symmetrical No calf tenderness Psychiatric: Alert and oriented to person, place and time Appropriate affect fair judgement Neuro Muscles Strength 5/5 in all 4 extremities Sensation to light touch grossly present throughout Cranial nerves II-XII grossly intact No focal sensory deficits Lymphatics: no palpable cervical or supraclavicular , or inguinal lymph nodes Results CBC & Chem 7: 10/02/20 09:50 10/02/20 09:50 Labs: Abnormal Lab Results - Last 24 Hours (Table) 10/02/20 10/02/20 Range/Units 09:50 09:50 Plt Count 142 L (150-450) k/uL Lymphocytes # 0.4 L (1.0-4.8) k/uL Sodium 133 L (137-145) mmol/L Chloride 94 L (98-107) mmol/L Carbon Dioxide 33 H (22-30) mmol/L Glucose 132 H (74-99) mg/dL Uric Acid 2.8 L (3.7-7.4) mg/dL Total Protein 6.1 L (6.3-8.2) g/dL Assessment and Plan Assessment: recurrent B cell lymphoma management per primary team chemo therapy monitor for side effects symptomatic control of side effects follow up electrolytes, uric acid and CBC OA pain control as needed hyperlipidemia resume homemeds possible COPD, compensated , not currently on treatment PRN duoneb if needed full code DVT PPX on heparin sc Thank you for allowing us to participate in the care of this patient. Do not hesitate to contact us with questions. Someone can be reached from the [facility]– [place]Note 2[place] hospitalist group at all hours of the day at [phone].
[2020-10-03] MEDS: oxyCODONE ER 20 MG TAB.ER.12H PO SCH ×3 (03:45→19:49)
[2020-10-03] MEDS: SODIUM CHLORIDE 0.9% 1,000 ML IV SCH ×2 (05:23→19:07)
[2020-10-03 05:29] LABS: Basophils % (A) 0 %; Eosinophils % (A) 0 %; HCT 38.6 % (34.0-46.0); HGB 12.5 gm/dL (11.4-16.0); Lymphocytes # (A) 0.5 k/uL (1.0-4.8); Lymphocytes % (A) 12 %; MCH 28.6 pg (25.0-35.0); MCHC 32.3 g/dL (31.0-37.0); MCV 88.4 fL (80.0-100.0); Monocytes # (A) 0.3 k/uL (0-1.0); Monocytes % (A) 7 %; Neutrophils % (A) 78 %; Platelet Count 154 k/uL (150-450); RBC 4.37 m/uL (3.80-5.40); RDW 13.6 % (11.5-15.5); WBC 3.8 k/uL (3.8-10.6)
[2020-10-03] MEDS: FENOFIBRATE 160 MG TAB PO SCH (08:59)
[2020-10-03] MEDS: ENOXAPARIN 40 MG/0.4 ML SYRINGE SQ SCH (08:59)
[2020-10-03] MEDS: PANTOPRAZOLE 40 MG TABLET PO SCH (09:00)
[2020-10-03] MEDS: FOLIC ACID 1 MG TAB PO SCH (09:00)
[2020-10-03 10:03] LABS: African American GFR (CKD) 105.4 (60.0-200.0); Albumin 4.2 g/dL (3.80-4.90); Albumin/Globulin Ratio 2.1 (1.60-3.17); BUN/Creat Ratio 11.43 Ratio (12.00-20.00); Non-African American GFR(CKD) 90.9 (60.0-200.0); Phosphorus 3.9 mg/dL (2.4-5.1); Potassium 4.6 mmol/L (3.5-5.5); Total Bilirubin 0.4 mg/dL (0.2-1.2); Total Protein 6.2 g/dL (6.2-8.2); Uric Acid 2.4 mg/dL (2.9-7.7)
[2020-10-03] MEDS: PROPRANOLOL 40 MG TAB PO SCH (11:42)
[2020-10-03] MEDS: DEXAMETHASONE SOD PHOSPHATE 10 MG/ML 1 ML VIAL IV SCH (12:25)
[2020-10-03] MEDS: ONDANSETRON 16 MG in SODIUM CHLORIDE 0.9% 50 ML IVPB SCH (12:25)
[2020-10-03] MEDS: FAMOTIDINE 20 MG/2 ML VIAL IV SCH (12:25)
[2020-10-03] MEDS ORDERED: SODIUM CHLORIDE 0.9% IV ONE ×3 (13:00→14:00)
[2020-10-03] MEDS ORDERED: CARBOPLATIN IV ONE (13:00)
[2020-10-03] MEDS: ETOPOSIDE 180 MG in SODIUM CHLORIDE 0.9% 500 ML 500 ML IV SCH (13:29)
--- NOTE | 2020-10-03 13:39 | P.PN ---
Subjective Progress Note Date: 10/03/20 Principal diagnosis: Lymphoma Patient doing well. No complaints currently. No new pain, no sob. No fevers or chills. No nausea or vomiting. Objective - Vital Signs Vital signs: Vital Signs Temp 98 F 10/03/20 12:00 Pulse 62 10/03/20 12:00 Resp 17 10/03/20 12:00 BP 118/72 10/03/20 12:00 Pulse Ox 100 10/03/20 12:00 Intake & Output 10/02/20 10/03/20 10/03/20 18:59 06:59 18:59 Intake Total 1300 2200 Balance 1300 2200 Weight 76.7 kg Intake: Intake, IV Titration 1300 1200 Amount Etoposide 180 mg In 500 Sodium Chloride 0.9% 500 ml 500 ml @ 509 mls/hr IV Q24H MARCELO Rx#:[id number] Sodium Chloride 0.9% 1, 800 1200 000 ml @ 100 mls/hr IV . Q10H MARCELO Rx#:[id number] Oral 1000 Other: Voiding Method Toilet Toilet # Voids 2 5 - Exam Constitutional: No acute distress, conversant, pleasant Eyes:Anicteric sclerae, moist conjunctiva, no lid-lag, PERRLA, ENMT: Oropharynx clear, no erythema, exudates Neck: Supple, FROM, no masses, or JVD, No carotid bruits, No thyromegaly Lungs: Clear to auscultation, Clear to percussion, Normal respiratory effort, no accessory muscle use Cardiovascular: Heart regular in rate and rhythm, No murmurs, gallops, or rubs, No peripheral edema Abdominal: Soft, no guarding, rebound or rigidity, Normoactive bowel sounds, No hepatomegaly, No splenomegaly, No palpable mass Skin: Normal temperature, tone, texture, turgor, no induration, No subcutaneous nodules, No rash, lesions, No ulcers Extremities: No digital cyanosis, No clubbing, Pedal pulses intact and symmetrical, Radial pulses intact and symmetrical, No calf tenderness Psychiatric: Alert and oriented to person, place and time, appropriate affect, intact judgement Neuro: Muscles Strength 5/5 in all 4 extremities, Sensation to light touch grossly present throughout, Cranial nerves II-XII grossly intact, no focal sensory deficits - Labs CBC & Chem 7: 10/03/20 05:15 10/03/20 05:15 Labs: Abnormal Lab Results - Last 24 Hours (Table) 10/03/20 10/03/20 Range/Units 05:15 05:15 Lymphocytes # 0.5 L (1.0-4.8) k/uL Carbon Dioxide 33.0 H (21.6-31.8) mmol/L BUN 8.0 L (9.0-27.0) mg/dL BUN/Creatinine Ratio 11.43 L (12.00-20.00) Ratio Glucose 148 H (70-110) mg/dL Uric Acid 2.4 L (2.9-7.7) mg/dL AST 11 L (13-35) U/L Assessment and Plan Plan: Recurrent diffuse large B cell lymphoma management per primary team Initiate chemo therapy monitor for side effects symptomatic control of side effects follow up electrolytes, uric acid and CBC OA pain control as needed hyperlipidemia resume homemeds possible COPD, compensated , not currently on treatment PRN duoneb if needed full code DVT PPX on heparin sc
[2020-10-03] MEDS ORDERED: IFOSFAMIDE IV ONE (14:00)
[2020-10-03] MEDS ORDERED: MESNA IV ONE (14:00)
[2020-10-03] MEDS: ACETAMINOPHEN TAB 500 MG TAB PO PRN (15:38)
--- NOTE | 2020-10-03 19:10 | PN ---
PROGRESS NOTE DATE OF SERVICE: 10/03/2020 CHIEF COMPLAINT: Muscle ache. Gege seen today as a followup. She has generalized muscle ache related to her known fibromyalgia, but otherwise she is tolerating chemotherapy fairly well. No nausea or vomiting and no fever or chills. MEDICATION: Her medication and chemotherapy reviewed in her electronic medical record. PHYSICAL EXAMINATION: She is alert, oriented x3. Does not appear to be in distress. Her vital signs: Temperature 98.4 afebrile, pulse 66 regular, respiration 18, blood pressure 134/81, pulse ox 97% on room air. HEENT: Normocephalic, atraumatic. No obvious icterus. NECK: Supple. CHEST: Equal expansion bilaterally. LUNGS: Clear to auscultation. HEART: Regular rate and rhythm. ABDOMEN: Soft. No tenderness or organomegaly. EXTREMITIES: Reveal no edema. IMPRESSION: 1. Recurrent diffuse large B-cell lymphoma, currently on salvage RICE regimen. She is tolerating it fairly well. 2. Previous history of early stage esophageal carcinoma status post surgery without any evidence of recurrence. 3. Fibromyalgia. RECOMMENDATION: 1. Proceed with chemotherapy as scheduled. 2. Continue to monitor blood count and electrolytes very closely. 3. Continue supportive care. 4. DVT prophylaxis. MMODL / IJN: [id number] /
[2020-10-03] MEDS: ATORVASTATIN 20 MG TAB PO SCH (19:49)
[2020-10-03] MEDS: CHOLECALCIFEROL 25 MCG (1000 IU) TABLET PO SCH (19:49)
[2020-10-03] MEDS: LORazepam 0.5 MG TAB PO SCH ×2 (21:57)
[2020-10-03] MEDS: hydrOXYzine HCL 25 MG TAB PO SCH (21:57)
[2020-10-03] MEDS: DIVALPROEX 500 MG TABLET.DR PO SCH (21:57)
[2020-10-03] MEDS: traZODone HCL 100 MG TAB PO SCH (21:58)
[2020-10-03] MEDS: FLUoxetine HCL 20 MG CAP PO SCH (21:58)
[2020-10-04] MEDS: SODIUM CHLORIDE 0.9% 1,000 ML IV SCH ×3 (01:00→19:40)
[2020-10-04] MEDS: oxyCODONE ER 20 MG TAB.ER.12H PO SCH ×3 (03:50→19:38)
[2020-10-04 06:04] LABS: Basophils % (A) 0 %; Eosinophils % (A) 0 %; HCT 34.5 % (34.0-46.0); HGB 11.5 gm/dL (11.4-16.0); Lymphocytes # (A) 0.5 k/uL (1.0-4.8); Lymphocytes % (A) 13 %; MCH 29.3 pg (25.0-35.0); MCHC 33.3 g/dL (31.0-37.0); MCV 88.2 fL (80.0-100.0); Monocytes # (A) 0.3 k/uL (0-1.0); Monocytes % (A) 8 %; Neutrophils # (A) 2.7 k/uL (1.3-7.7); Neutrophils % (A) 77 %; Platelet Count 135 k/uL (150-450); RBC 3.92 m/uL (3.80-5.40); WBC 3.5 k/uL (3.8-10.6)
[2020-10-04] MEDS: ENOXAPARIN 40 MG/0.4 ML SYRINGE SQ SCH (09:02)
[2020-10-04] MEDS: FOLIC ACID 1 MG TAB PO SCH (09:02)
[2020-10-04] MEDS: PANTOPRAZOLE 40 MG TABLET PO SCH (09:02)
[2020-10-04] MEDS: FENOFIBRATE 160 MG TAB PO SCH (09:03)
[2020-10-04 10:37] LABS: ALT <8 U/L (8-44); AST 9 U/L (13-35); African American GFR (CKD) 110.9 (60.0-200.0); Albumin/Globulin Ratio 2.17 (1.60-3.17); Alkaline Phosphatase 51 U/L (41-126); BUN/Creat Ratio 13.33 Ratio (12.00-20.00); Calcium 8.6 mg/dL (8.7-10.3); Carbon Dioxide 30.9 mmol/L (21.6-31.8); Chloride 98 mmol/L (96-109); Globulin 1.8 g/dL (1.6-3.3); Glucose 138 mg/dL (70-110); Non-African American GFR(CKD) 95.7 (60.0-200.0); Phosphorus 3.3 mg/dL (2.4-5.1); Potassium 4.1 mmol/L (3.5-5.5); Sodium 138 mmol/L (135-145); Total Bilirubin 0.4 mg/dL (0.2-1.2); Total Protein 5.7 g/dL (6.2-8.2); Uric Acid 1.8 mg/dL (2.9-7.7)
[2020-10-04] MEDS: PROPRANOLOL 40 MG TAB PO SCH (13:00)
[2020-10-04] MEDS ORDERED: LOPERAMIDE 2 MG CAP PO PRN (13:40)
[2020-10-04] MEDS: FAMOTIDINE 20 MG/2 ML VIAL IV SCH (15:38)
[2020-10-04] MEDS: ONDANSETRON 16 MG in SODIUM CHLORIDE 0.9% 50 ML IVPB SCH (15:39)
[2020-10-04] MEDS: DEXAMETHASONE SOD PHOSPHATE 10 MG/ML 1 ML VIAL IV SCH (15:39)
[2020-10-04] MEDS: ETOPOSIDE 180 MG in SODIUM CHLORIDE 0.9% 500 ML 500 ML IV SCH (16:10)
--- NOTE | 2020-10-04 16:46 | PN ---
PROGRESS NOTE DATE OF SERVICE: 10/04/2020 CHIEF COMPLAINT: Tired. Gege is seen today as a followup. She feels a little tired. She has some stable generalized musculoskeletal pain from her fibromyalgia. Otherwise, she is tolerating chemotherapy very well. No nausea or vomiting and no fever or chills. MEDICATION: Reviewed in her electronic medical record. PHYSICAL EXAMINATION: She is alert and oriented x3. She does not appear to be in distressed. VITAL SIGNS: Temperature 98.1 afebrile, pulse 57 regular, respiration 18, blood pressure 169/78, pulse ox 100% on room air. HEENT: Normocephalic, atraumatic. No icterus. NECK: Supple. CHEST: Equal expansion bilaterally. LUNGS: Clear to auscultation. HEART: Regular rate and rhythm. ABDOMEN: Soft. No tenderness. EXTREMITIES: Reveal no edema. LABORATORY DATA: From today, WBC of 3.5, hemoglobin 11.5, hematocrit 34.5, the platelets are 135. Sodium 138, potassium 4.1, chloride is 98, CO2 of 30.9, BUN is 8, creatinine 0.6, AST 9, ALT is 8 alkaline phosphate 5.1. IMPRESSION: 1. Recurrent diffuse large B-cell lymphoma, currently on salvage with RICE regimen. 2. Previous history of esophageal carcinoma, early stage, status post surgery without any recurrence. Of note, she has metastatic lymphoma to her liver. RECOMMENDATION: 1. Proceed with chemotherapy as scheduled. 2. Continue to monitor blood count. 3. Continue supportive care. 4. Continue DVT prophylaxis. MMODL / IJN: [id number] /
[2020-10-04] MEDS: ACETAMINOPHEN TAB 500 MG TAB PO PRN ×2 (17:02→22:38)
[2020-10-04] MEDS: LORazepam 0.5 MG TAB PO SCH ×2 (17:43→21:53)
--- NOTE | 2020-10-04 18:30 | P.PN ---
Subjective Progress Note Date: 10/04/20 (delayed charting seen at 1310) Principal diagnosis: chemo initiation Patient is a 65-year-old female with recurrent diffuse large B-cell lymphoma, osteoarthritis, dyslipidemia, and possible COPD who presented to the hospital for initiation of chemotherapy. Patient seen and examined at bedside. She reports that she has had 4 loose bowel movements today. She is feeling somewhat tired. Her appetite remains low but is still intact. She denies any chest pain, shortness of breath, or nausea. She is excited about the possibility of going home tomorrow. General: non toxic, no distress, appears at stated age Derm: warm, dry Head: atraumatic, normocephalic, symmetric Eyes: EOMI, no lid lag, anicteric sclera Mouth: no lip lesion, mucus membranes moist Cardiovascular: S1S2 reg, no murmur, positive posterior tibial pulse bilateral, Lungs: CTA bilateral, no rhonchi, no rales , no accessory muscle use Abdominal: soft, nontender to palpation, no guarding, no appreciable o rganomegaly Ext: no gross muscle atrophy, no edema, no contractures Neuro: CN II-XI grossly intact, no focal neuro deficits Psych: Alert, oriented, appropriate affect Recurrent diffuse large B cell lymphoma with intractable cancer pain -Management per oncology, on RICE for salvage therapry -Increasing amount of loose stools. Imodium added as needed - pain is well controlled on oral home regiment Thrombocytopenia, mild -Follow CBC, no indication for transfusion Osteoarthritis - prn pain medications Dyslipidemia - statin, fenofibrate Possible chronic COPD -When necessary DuoNeb Objective - Vital Signs Vital signs: Vital Signs Temp 97.8 F 10/04/20 16:00 Pulse 82 10/04/20 16:00 Resp 18 10/04/20 16:00 BP 123/72 10/04/20 16:00 Pulse Ox 96 10/04/20 16:00 Intake & Output 10/03/20 10/04/20 10/04/20 18:59 06:59 18:59 Intake Total 1200 1200 1200 Balance 1200 1200 1200 Intake: Intake, IV Titration 1200 1200 1200 Amount Sodium Chloride 0.9% 1, 1200 1200 1200 000 ml @ 100 mls/hr IV . Q10H MARCELO Rx#:[id number] Other: Voiding Method Toilet Toilet Toilet # Voids 3 5 3 - Labs CBC & Chem 7: 10/04/20 05:06 10/04/20 05:06 Labs: Abnormal Lab Results - Last 24 Hours (Table) 10/04/20 10/04/20 Range/Units 05:06 05:06 WBC 3.5 L (3.8-10.6) k/uL Plt Count 135 L (150-450) k/uL Lymphocytes # 0.5 L (1.0-4.8) k/uL BUN 8.0 L (9.0-27.0) mg/dL Glucose 138 H (70-110) mg/dL Uric Acid 1.8 L (2.9-7.7) mg/dL Calcium 8.6 L (8.7-10.3) mg/dL AST 9 L (13-35) U/L ALT <8 L (8-44) U/L Total Protein 5.7 L (6.2-8.2) g/dL
[2020-10-04] MEDS: CHOLECALCIFEROL 25 MCG (1000 IU) TABLET PO SCH (21:53)
[2020-10-04] MEDS: ATORVASTATIN 20 MG TAB PO SCH (21:53)
[2020-10-04] MEDS: DIVALPROEX 500 MG TABLET.DR PO SCH (21:54)
[2020-10-04] MEDS: hydrOXYzine HCL 25 MG TAB PO SCH (21:54)
[2020-10-04] MEDS: traZODone HCL 100 MG TAB PO SCH (21:55)
[2020-10-04] MEDS: FLUoxetine HCL 20 MG CAP PO SCH (22:38)
[2020-10-05] MEDS: oxyCODONE ER 20 MG TAB.ER.12H PO SCH ×2 (03:47→11:30)
[2020-10-05] MEDS: SODIUM CHLORIDE 0.9% 1,000 ML IV SCH (05:35)
[2020-10-05 06:15] LABS: Basophils % (A) 0 %; Eosinophils % (A) 0 %; HCT 35.1 % (34.0-46.0); HGB 11.7 gm/dL (11.4-16.0); Lymphocytes # (A) 0.5 k/uL (1.0-4.8); Lymphocytes % (A) 17 %; MCH 29.6 pg (25.0-35.0); MCHC 33.5 g/dL (31.0-37.0); MCV 88.3 fL (80.0-100.0); Mean Platelet Volume 7.3; Monocytes # (A) 0.2 k/uL (0-1.0); Monocytes % (A) 6 %; Neutrophils # (A) 2.1 k/uL (1.3-7.7); Neutrophils % (A) 76 %; Platelet Count 123 k/uL (150-450); RBC 3.97 m/uL (3.80-5.40); RDW 13.1 % (11.5-15.5); WBC 2.7 k/uL (3.8-10.6)
[2020-10-05] MEDS: LORazepam 0.5 MG TAB PO SCH (08:51)
[2020-10-05] MEDS: FENOFIBRATE 160 MG TAB PO SCH (08:51)
[2020-10-05] MEDS: ENOXAPARIN 40 MG/0.4 ML SYRINGE SQ SCH ×2 (08:51→08:52)
[2020-10-05] MEDS: PANTOPRAZOLE 40 MG TABLET PO SCH (08:51)
[2020-10-05] MEDS: FOLIC ACID 1 MG TAB PO SCH (08:51)
[2020-10-05 10:00] LABS: ALT <8 U/L (8-44); AST 9 U/L (13-35); African American GFR (CKD) 110.9 (60.0-200.0); Albumin/Globulin Ratio 1.89 (1.60-3.17); Alkaline Phosphatase 48 U/L (41-126); BUN/Creat Ratio 16.67 Ratio (12.00-20.00); Calcium 8.8 mg/dL (8.7-10.3); Chloride 100 mmol/L (96-109); Globulin 1.9 g/dL (1.6-3.3); Glucose 114 mg/dL (70-110); Non-African American GFR(CKD) 95.7 (60.0-200.0); Phosphorus 3.6 mg/dL (2.4-5.1); Potassium 4.3 mmol/L (3.5-5.5); Sodium 138 mmol/L (135-145); Total Bilirubin 0.7 mg/dL (0.2-1.2); Total Protein 5.5 g/dL (6.2-8.2); Uric Acid 2.1 mg/dL (2.9-7.7)
[2020-10-05] MEDS: PROPRANOLOL 40 MG TAB PO SCH (11:31)
[2020-10-05 12:10] VITALS: BP 164/78; PULSE 58; RESP 16; TEMP 97.4
--- NOTE | 2020-10-05 15:59 | P.PN ---
Subjective Progress Note Date: 10/05/20 (delayed charting seen at 0845) Principal diagnosis: chemo initiation Patient is a 65-year-old female with recurrent diffuse large B-cell lymphoma, osteoarthritis, dyslipidemia, and possible COPD who presented to the hospital for initiation of chemotherapy. Patient seen and examined at bedside. Imodium helped with loose stools, no chest pain, no nausea, no shortness of breath, + fatigued General: non toxic, no distress, appears at stated age Derm: warm, dry Head: atraumatic, normocephalic, symmetric Eyes: EOMI, no lid lag, anicteric sclera Mouth: no lip lesion, mucus membranes moist Cardiovascular: S1S2 reg, no murmur, positive posterior tibial pulse bilateral, Lungs: Decreased bs bilateral, no rhonchi, no rales , no accessory muscle use Abdominal: soft, nontender to palpation, no guarding, no appreciable organomegaly Ext: no gross muscle atrophy, no edema, no contractures Neuro: CN II-XI grossly intact, no focal neuro deficits Psych: Alert, oriented, appropriate affect Recurrent diffuse large B cell lymphoma with intractable cancer pain -Management per oncology, on RICE for salvage therapry -Increasing amount of loose stools. Imodium over the counter - pain is well controlled on oral home regiment Thrombocytopenia, mild -Follow CBC, no indication for transfusion Osteoarthritis - prn pain medications Dyslipidemia - statin, fenofibrate Possible chronic COPD -When necessary DuoNeb Objective - Vital Signs Vital signs: Vital Signs Temp 97.4 F L 10/05/20 12:00 Pulse 58 L 10/05/20 12:00 Resp 16 10/05/20 12:00 BP 164/78 10/05/20 12:00 Pulse Ox 97 10/05/20 12:00 Intake & Output 10/04/20 10/05/20 10/05/20 18:59 06:59 18:59 Intake Total 1200 2000 Balance 1200 2000 Intake: Intake, IV Titration 1200 1200 Amount Sodium Chloride 0.9% 1, 1200 1200 000 ml @ 100 mls/hr IV . Q10H MARCELO Rx#:[id number] Oral 800 Other: Voiding Method Toilet Toilet Toilet # Voids 3 4 # Bowel Movements 1 - Labs CBC & Chem 7: 10/05/20 05:21 10/05/20 05:21 Labs: Abnormal Lab Results - Last 24 Hours (Table) 10/05/20 10/05/20 Range/Units 05:21 05:21 WBC 2.7 L (3.8-10.6) k/uL Plt Count 123 L (150-450) k/uL Lymphocytes # 0.5 L (1.0-4.8) k/uL Glucose 114 H (70-110) mg/dL Uric Acid 2.1 L (2.9-7.7) mg/dL AST 9 L (13-35) U/L ALT <8 L (8-44) U/L Total Protein 5.5 L (6.2-8.2) g/dL Albumin 3.60 L (3.80-4.90) g/dL
--- NOTE | 2020-10-07 | P.DS ---
Providers Date of admission: 10/02/20 08:38 Expected date of discharge: 10/05/20 Attending physician: Yvonne Muñiz Consults: 10/02/20 17:07 Consult Physician Routine Consulting Provider: Trisha Haas Consult Reason/Comments: Medical management Do you want consulting provider notified?: Yes Primary care physician: Yvonne Muñiz - Discharge Diagnosis(es) (1) Diffuse large B cell lymphoma Status: Acute Hospital Course: This is a 65 yr old WF, pt of Dr Muñiz's, who was initially diagnosed with diffuse large B cell lymphoma,in 2008,when she presented with right large inguinal mass,she had 3 cycles of RCHOP followed by radiation therapy. In 2016,she had a new a new lesion in right popliteal fossa,which was positive for large B cell lymphoma,follicular center.She had treatment with BR regimen,completed on 01/12/2017 followed by XRT. A follow up PET scan in September/2017,identified a lesion at GE junction,EUS and bio psy confirmed adenocarcinoma of GEJ,she had esophgectomy on 12/18/2018,also the PET scan showed RML lung nodule. She was also diagnosed with RA and fibromyalgia. Her treatment were in [place] thus far. She moved to [place] on 01/18/[address] Muñiz on 01/25/2019 to establish with an oncologist locally. She had a PET scan on 03/02/2019 which was negative. On 06/26/2020,repeat PET scan revealed suspicious uptake in left cervical node,new liver lesions and right sacrum. On 07/07/2020,U/S guided biopsy of left neck mass at [facility] was not diagnostic,she was referred to [facility],repeat biopsy on 08/11/2020 was positive for germinal center,DLBCL,double expressor. She reported feeling tired,she has her chronic generalized bone pain,no fever,chills or night sweats,her weight is relatively stable,no dysphagia, She was referred to the [facility], [place], and met with Dr Harris on 09/02/20. she also met with the bone marrow transplant team. It was recommended that she proceed with salvage R-ICE chemotherapy. She was admitted for cycle #1 of the same. patient received treatment per protocol. She tolerated treatment overall well without any untoward side effects. She is monitored with physical exam and labs. No major abnormalities, including evidence of tumor lysis were noted. The patient continued to have complains of muscular skeletal pains, which chronic for her during her admission. After completion of chemotherapy to decided discharged home. she will follow- up in the office on 10/08/20 to receive PEG- G-CSF Assessment: vitals normal. Physical exam essentially stable compared to admission Procedures: high dose infusional chemotherapy Patient Condition at Discharge: Fair Plan - Discharge Summary Discharge Rx Participant: No New Discharge Prescriptions: New HYDROcodone/APAP 7.5-325MG [Lynco 7.5-325] 1 tab PO Q4H PRN 3 Days #18 tab PRN Reason: Pain No Action Propranolol [Inderal] 40 mg PO DAILY@1200 Omeprazole 40 mg PO DAILY Folic Acid 1 mg PO DAILY Divalproex [Depakote] 1,000 mg PO HS Fenofibrate Nanocrystallized [Tricor] 145 mg PO DAILY Atorvastatin [Lipitor] 20 mg PO HS traZODone HCL [Desyrel] 50 - 100 mg PO HS PRN PRN Reason: Insomnia hydrOXYzine HCL [Atarax] 50 mg PO HS Cholecalciferol [Vitamin D3 (25 Mcg = 1000 Iu)] 50 mcg PO DAILY oxyCODONE HCL [OxyCONTIN] 20 mg PO Q8H LORazepam [Ativan] 0.5 mg PO BID FLUoxetine HCL [PROzac] 20 mg PO DAILY Discharge Medication List Atorvastatin [Lipitor] 20 mg PO HS 07/01/20 [History] Divalproex [Depakote] 1,000 mg PO HS 07/01/20 [History] Fenofibrate Nanocrystallized [Tricor] 145 mg PO DAILY 07/01/20 [History] Folic Acid 1 mg PO DAILY 07/01/20 [History] Omeprazole 40 mg PO DAILY 07/01/20 [History] Propranolol [Inderal] 40 mg PO DAILY@1200 07/01/20 [History] Cholecalciferol [Vitamin D3 (25 Mcg = 1000 Iu)] 50 mcg PO DAILY 10/02/20 [History] FLUoxetine HCL [PROzac] 20 mg PO DAILY 10/02/20 [History] LORazepam [Ativan] 0.5 mg PO BID 10/02/20 [History] hydrOXYzine HCL [Atarax] 50 mg PO HS 10/02/20 [History] oxyCODONE HCL [OxyCONTIN] 20 mg PO Q8H 10/02/20 [History] traZODone HCL [Desyrel] 50 - 100 mg PO HS PRN 10/02/20 [History] HYDROcodone/APAP 7.5-325MG [Lynco 7.5-325] 1 tab PO Q4H PRN 3 Days #18 tab 10/05/20 [Rx] Follow up Appointment(s)/Referral(s): Siva Pedro MD [STAFF PHYSICIAN] - 10/06/20 9:30 am (This is at the [facility] 2nd floor. White blood cell booster shot. Pt will get more appts at that time. ) Discharge Disposition: HOME SELF-CARE Pending Studies Pending Results: none
== END 2020-10-05 14:38 | disposition home or self-care (01) | DRG 847 ==
LOC: 5NMEDONC 08:38
PROVIDERS: ADMIT Internal Medicine Hematology & Oncology; ATTEND Internal Medicine Hematology & Oncology
DX: Z51.11 Encounter for antineoplastic chemotherapy (principal); C78.7 Secondary malignant neoplasm of liver and intrahepatic bile duct; C83.30 Diffuse large B-cell lymphoma, unspecified site; D69.6 Thrombocytopenia, unspecified; E78.5 Hyperlipidemia, unspecified; G62.9 Polyneuropathy, unspecified; G89.3 Neoplasm related pain (acute) (chronic); I10 Essential (primary) hypertension; J44.9 Chronic obstructive pulmonary disease, unspecified; M19.90 Unspecified osteoarthritis, unspecified site; M79.7 Fibromyalgia; M85.80 Other specified disorders of bone density and structure, unspecified site; Z79.899 Other long term (current) drug therapy; Z85.01 Personal history of malignant neoplasm of esophagus; Z87.891 Personal history of nicotine dependence; Z90.89 Acquired absence of other organs; G56.03 Carpal tunnel syndrome, bilateral upper limbs; Z92.3 Personal history of irradiation; Z88.8 Allergy status to other drugs, medicaments and biological substances; Z90.49 Acquired absence of other specified parts of digestive tract; Z79.891 Long term (current) use of opiate analgesic
CPT/HCPCS: 80053; 84100; 84550; 85025

== ENCOUNTER 2020-10-30 08:30 | Inpatient (IN) | payer MEDICARE, BC ==
[~2020-10-30 08:30] MED LIST: SODIUM CHLORIDE 0.9% 1,000 ML IV SCH
[2020-10-30] MEDS ORDERED: HYDROcodone/APAP 7.5-325MG 1 EACH TAB PO PRN (09:52)
[2020-10-30] MEDS: SODIUM CHLORIDE 0.9% 1,000 ML IV SCH ×2 (10:17→23:32)
--- NOTE | 2020-10-30 10:22 | P.HPIM ---
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 In 2016,she had a new a new lesion in right popliteal fossa,which was positive for large B cell lymphoma,follicular center.She had treatment with BR regimen,completed on 01/12/2017 followed by XRT. A follow up PET scan in September/2017,identified a lesion at GE junction,EUS and biopsy confirmed adenocarcinoma of GEJ,she had esophgectomy on 12/18/2018,also the PET scan showed RML lung nodule. She was also diagnosed with RA and fibromyalgia. Her treatment were in [place] thus far. She moved to [place] on 01/18/[address] Muñiz on 01/25/2019 to establish with an oncologist locally. She had a PET scan on 03/02/2019 which was negative. On 06/26/2020,repeat PET scan revealed suspicious uptake in left cervical node,new liver lesions and right sacrum. On 07/07/2020,U/S guided biopsy of left neck mass at [facility] was not diagnostic,she was referred to [facility],repeat biopsy on 08/11/2020 was positive for germinal center,DLBCL,double expressor. She reported feeling tired,she has her chronic generalized bone pain,no fever,chills or night sweats,her weight is relatively stable,no dysphagia, She was referred to the [facility], [place], and met with Dr Harris on 09/02/20. she also met with the bone marrow transplant team. It was recommended that she proceed with salvage R-ICE chemotherapy. She is being admitted for cycle #2 of the same. She tolerated cycle one well, did have a decrease in platelet count near h er te, this will be monitored closely during follow-ups. Review of Systems All systems: negative Constitutional: Reports as per HPI Past Medical History Past Medical History: Cancer, COPD, Fibromyalgia, Hyperlipidemia, Osteoarthritis (OA) Additional Past Medical History / Comment(s): 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 06/2020 pet scan showed mets to L neck/liver/sacrum per pt. 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 History of Any Multi-Drug Resistant Organisms: None Reported Past Surgical History: Section, Cholecystectomy, Orthopedic Surgery, Tonsillectomy Additional Past Surgical History / Comment(s): 2008 R groin tumor removed, extensive esophageal surgery/esophagectomy/stomach brought up and attached, R sided port, R elbow fracture/radial head removed, colonoscopy. Past Anesthesia/Blood Transfusion Reactions: No Reported Reaction Additional Past Anesthesia/Blood Transfusion Reaction / Comment(s): Pt received blood with esophagectomy surgery without reaction. Smoking Status: Former smoker - Past Family History Mother History Unknown: Yes Additional Family Medical History / Comment(s): patient adopted and does not know family history Medications and Allergies Home Medications Medication Instructions Recorded Confirmed Type Atorvastatin [Lipitor] 20 mg PO HS 07/01/20 10/30/20 History Divalproex [Depakote] 1,000 mg PO HS 07/01/20 10/30/20 History Fenofibrate Nanocrystallized 145 mg PO DAILY 07/01/20 10/30/20 History [Tricor] Folic Acid 1 mg PO DAILY 07/01/20 10/30/20 History Omeprazole 40 mg PO DAILY 07/01/20 10/30/20 History Propranolol [Inderal] 40 mg PO DAILY@1200 07/01/20 10/30/20 History Cholecalciferol [Vitamin D3 (25 50 mcg PO DAILY 10/02/20 10/30/20 History Mcg = 1000 Iu)] FLUoxetine HCL [PROzac] 20 mg PO DAILY 10/02/20 10/30/20 History LORazepam [Ativan] 0.5 mg PO BID 10/02/20 10/30/20 History hydrOXYzine HCL [Atarax] 50 mg PO HS 10/02/20 10/30/20 History oxyCODONE HCL [OxyCONTIN] 20 mg PO Q8H 10/02/20 10/30/20 History traZODone HCL [Desyrel] 50 - 100 mg PO HS PRN 10/02/20 10/30/20 History HYDROcodone/APAP 7.5-325MG [[place] 1 tab PO Q4H PRN 3 Days #18 tab 10/05/20 10/30/20 Rx 7.5-325] Allergies Allergy/AdvReac Type Severity Reaction Status Date / Time bendamustine [From [facility]] AdvReac Itching Verified 10/02/20 09:17 Physical Exam Vitals: Vital Signs Temp Pulse Resp BP Pulse Ox 10/30/20 08:50 98.1 F 73 16 125/74 95 Intake and Output 10/29/20 10/30/20 10/30/20 22:59 06:59 14:59 Other: Weight 77.564 kg - Constitutional General appearance: no acute distress - EENT Eyes: EOMI, PERRLA ENT: hearing grossly normal, normal oropharynx - Neck Neck: no lymphadenopathy Thyroid: bilateral: normal size - Respiratory Respiratory: bilateral: CTA - Cardiovascular Rhythm: regular Heart sounds: normal: S1, S2 - Gastrointestinal General gastrointestinal: normal bowel sounds, soft - Integumentary Integumentary: normal - Neurologic Neurologic: CNII-XII intact - Musculoskeletal Musculoskeletal: generalized weakness, strength equal bilaterally - Psychiatric Psychiatric: A&O x's 3, appropriate affect Results CBC & Chem 7: 10/30/20 10:45 10/30/20 10:45 Thrombosis Risk Factor Assmnt - DVT/VTE Prophylaxis DVT/VTE Prophylaxis: Pharmacologic Prophylaxis ordered - Choose All That Apply Any of the Below Risk Factors Present?: Yes Each Factor Represents 1 point: Obesity (BMI >25) Other Risk Factors: Yes Each Risk Factor Represents 2 Points: Age 61-74 years, Malignancy Other congenital or acquired thrombophilia - If yes, enter type in comment: No Thrombosis Risk Factor Assessment Total Risk Factor Score: 5 Thrombosis Risk Factor Assessment Level: High Risk Assessment and Plan Plan: Diffuse large B cell lymphoma Diagnostic and therapeutic circumstances as in HPI The patient is being admitted for relapsed diffuse large B-cell lymphoma - Cycle Two of High Dose R-ICE salvage chemotherapy , this admission is for Cycle Number 2 Plan of care developed in accordance with recommendations from [facility]. - The patient received Rituxan yesterday in the office, and will receive ICE per protocol during this admission. She will be monitored with physical exam and labs, which have been ordered. Current Visit: Yes Status: Acute Code(s): C83.30 - DIFFUSE LARGE B-CELL LYMPHOMA, UNSPECIFIED SITE SNOMED Code(s): 010172434 Plan: - She will receive Neulasta injection in office on Monday - [facility] have been asked to follow along for medical management Physician Attest: I have completed the full history and physical and developed the complete impression and plan, agree with dictation, dictated as a ascribe.
[2020-10-30] MEDS: oxyCODONE ER 20 MG TAB.ER.12H PO SCH ×3 (10:28→23:31)
[2020-10-30 11:10] LABS: Basophils % (A) 0 %; Eosinophils % (A) 0 %; HCT 32.2 % (34.0-46.0); Lymphocytes # (A) 0.4 k/uL (1.0-4.8); Lymphocytes % (A) 7 %; MCH 30.8 pg (25.0-35.0); MCHC 34.2 g/dL (31.0-37.0); MCV 89.9 fL (80.0-100.0); Mean Platelet Volume 7.1; Monocytes # (A) 0.9 k/uL (0-1.0); Monocytes % (A) 15 %; Neutrophils # (A) 4.4 k/uL (1.3-7.7); Neutrophils % (A) 73 %; RBC 3.58 m/uL (3.80-5.40); RDW 15.7 % (11.5-15.5)
[2020-10-30] MEDS ORDERED: oxyCODONE ER 20 MG TAB.ER.12H PO STA (11:22)
[2020-10-30 11:29] LABS: Platelet Count 273 k/uL (150-450)
[2020-10-30 11:30] LABS: ALT 8 U/L (4-34); AST 16 U/L (14-36); African American GFR (CKD) >90 (>60 ml/min/1.73 sqM); Albumin 3.8 g/dL (3.5-5.0); Albumin/Globulin Ratio 1.7; Alkaline Phosphatase 57 U/L (38-126); Anion Gap 9 mmol/L; Blood Urea Nitrogen 9 mg/dL (7-17); Calcium 8.8 mg/dL (8.4-10.2); Carbon Dioxide 27 mmol/L (22-30); Chloride 95 mmol/L (98-107); Globulin 2.2 g/dL; Glucose 255 mg/dL (74-99); LDH 417 U/L (313-618); Magnesium 1.9 mg/dL (1.6-2.3); Non-African American GFR(CKD) >90 (>60 ml/min/1.73 sqM); Phosphorus 3.4 mg/dL (2.5-4.5); Potassium 4.1 mmol/L (3.5-5.1); Sodium 131 mmol/L (137-145); Total Bilirubin 0.6 mg/dL (0.2-1.3); Uric Acid 2.3 mg/dL (3.7-7.4)
[2020-10-30] MEDS: ONDANSETRON 16 MG in SODIUM CHLORIDE 0.9% 50 ML IVPB SCH (13:04)
[2020-10-30] MEDS: FAMOTIDINE 20 MG/2 ML VIAL IV SCH (13:04)
[2020-10-30] MEDS: DEXAMETHASONE SOD PHOSPHATE 10 MG/ML 1 ML VIAL IV SCH (13:04)
[2020-10-30] MEDS: PROPRANOLOL 20 MG TAB PO SCH (13:50)
[2020-10-30] MEDS: ETOPOSIDE 180 MG in SODIUM CHLORIDE 0.9% 500 ML 500 ML IV SCH (13:50)
[2020-10-30] MEDS: HYDROcodone/APAP 7.5-325MG 1 EACH TAB PO PRN ×3 (14:24→22:30)
[2020-10-30] MEDS: ONDANSETRON 4 MG/2 ML VIAL IVP PRN (16:58)
--- NOTE | 2020-10-30 17:52 | P.CONS ---
History of Present Illness - Reason for Consult Consult date: 10/30/20 HLD Requesting physician: Siva Pedro - Chief Complaint cancer - History of Present Illness Patient is a 65-year-old female with diffuse large B cell lymphoma, germinal center who is here for her second round of RICE chemotherapy. She is a direct admission to Dr. Pedro's service. Patient seen and examined at bedside. She is well-known to me from her last hospital stay here for initiation of her chemo. She reports that she has been doing well at home. She states that her appetite has been low but she has not had any weight loss. She denies any nausea, vomiting, diarrhea. She has not had any mouth sores. She states she's been doing most of her activities of daily living living without difficulty. She does have help with the major cooking and cleaning. She reports that her pain had been well controlled at home but she missed her dose of oxycodone this morning and her back pain is worse than usual. It is her chronic pain but just exacerbated. She denies any recent cough, cold, fever, flu Pertinent positives and negatives as discussed in HPI, a complete review of systems was performed and all other systems are negative. General: non toxic, no distress, appears at stated age Derm: warm, dry Head: atraumatic, normocephalic, symmetric Eyes: EOMI, no lid lag, anicteric sclera, pupils equal round reactive to light ENT: Nose and ears atraumatic, no thrush, no pharyngeal erythema Neck: No thyromegaly, no cervical lymphadenopathy, trachea midline, supple Mouth: no lip lesion, mucus membranes dry, no oral lesions Cardiovascular: S1S2 reg, no murmur, positive posterior tibial pulse bilateral, no edema, capillary refill less than 2 seconds Lungs: clear to ascultation bilateral, no ronchi, no rales, no wheeze, no accessory muscle use Abdominal: soft, nontender to palpation, no guarding, no appreciable organomegaly, normal bowel sounds Ext: no gross muscle atrophy, muscle strength muscle strength 5 out of 5 in all 4 extremities, no contractures Neuro: CN II-XI grossly intact, light touch intact all 4 extremities, finger to nose within normal limits, Psych: Alert, oriented, appropriate affect Diffuse large B cell lymphoma, recurrent -Being initiated on second round of R-ICE therapy with oncology -Continue with fluids, half antiemetics and pain medications ordered per oncology Hypertension -Continue with propranolol - follow BP Dyslipidemia -Continue with fenofibrate and statin COPD without exacerbation -When necessary bronchodilators Fibromyalgia -Continue chronic pain regimen Thank you for allowing us to participate in the care of this pleasant patient. Do not hesitate to contact us with questions. Someone can be reached from the [facility] [place] [facility] [place] hospitalist group all hours of the day at [phone] or via [employer]. 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 06/2020 pet scan showed mets to L neck/liver/sacrum per pt. 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 History of Any Multi-Drug Resistant Organisms: None Reported Past Surgical History: Section, Cholecystectomy, Orthopedic Surgery, Tonsillectomy Additional Past Surgical History / Comment(s): 2008 R groin tumor removed, extensive esophageal surgery/esophagectomy/stomach brought up and attached, R sided port, R elbow fracture/radial head removed, colonoscopy. Past Anesthesia/Blood Transfusion Reactions: No Reported Reaction Additional Past Anesthesia/Blood Transfusion Reaction / Comm: Pt received blood with esophagectomy surgery without reaction. Smoking Status: Former smoker Additional History: has help at home with cleaning and cooking - Past Family History Mother History Unknown: Yes Additional Family Medical History / Comment(s): patient adopted and does not know family history Medications and Allergies Home Medications Medication Instructions Recorded Confirmed Type Atorvastatin [Lipitor] 20 mg PO HS 07/01/20 10/30/20 History Divalproex [Depakote] 1,000 mg PO HS 07/01/20 10/30/20 History Fenofibrate Nanocrystallized 145 mg PO DAILY 07/01/20 10/30/20 History [Tricor] Folic Acid 1 mg PO DAILY 07/01/20 10/30/20 History Omeprazole 40 mg PO DAILY 07/01/20 10/30/20 History Propranolol [Inderal] 40 mg PO DAILY@1200 07/01/20 10/30/20 History Cholecalciferol [Vitamin D3 (25 50 mcg PO DAILY 10/02/20 10/30/20 History Mcg = 1000 Iu)] FLUoxetine HCL [PROzac] 20 mg PO DAILY 10/02/20 10/30/20 History LORazepam [Ativan] 0.5 mg PO BID 10/02/20 10/30/20 History hydrOXYzine HCL [Atarax] 50 mg PO HS 10/02/20 10/30/20 History oxyCODONE HCL [OxyCONTIN] 20 mg PO Q8H 10/02/20 10/30/20 History traZODone HCL [Desyrel] 50 - 100 mg PO HS PRN 10/02/20 10/30/20 History HYDROcodone/APAP 7.5-325MG [[place] 1 tab PO Q4H PRN 3 Days #18 tab 10/05/20 10/30/20 Rx 7.5-325] Allergies Allergy/AdvReac Type Severity Reaction Status Date / Time bendamustine [From [facility]] AdvReac Itching Verified 10/02/20 09:17 Physical Exam Osteopathic Statement: *. No significant issues noted on an osteopathic stru ctural exam other than those noted in the History and Physical/Consult. Vitals: Vital Signs Temp Pulse Resp BP Pulse Ox 10/30/20 14:00 97.6 F 68 16 128/75 98 10/30/20 08:50 98.1 F 73 16 125/74 95 Intake and Output 10/30/20 10/30/20 10/30/20 06:59 14:59 22:59 Intake Total 236 Balance 236 Intake: Oral 236 Other: Weight 77.564 kg Results CBC & Chem 7: 10/30/20 10:45 10/30/20 10:45 Labs: Abnormal Lab Results - Last 24 Hours (Table) 10/30/20 10/30/20 Range/Units 10:45 10:45 RBC 3.58 L (3.80-5.40) m/uL Hgb 11.0 L (11.4-16.0) gm/dL Hct 32.2 L (34.0-46.0) % RDW 15.7 H (11.5-15.5) % Lymphocytes # 0.4 L (1.0-4.8) k/uL Sodium 131 L (137-145) mmol/L Chloride 95 L (98-107) mmol/L Glucose 255 H (74-99) mg/dL Uric Acid 2.3 L (3.7-7.4) mg/dL Total Protein 6.0 L (6.3-8.2) g/dL
[2020-10-30] MEDS: DIVALPROEX 500 MG TABLET.DR PO SCH (19:56)
[2020-10-30] MEDS: hydrOXYzine HCL 25 MG TAB PO SCH (19:56)
[2020-10-30] MEDS: LORazepam 0.5 MG TAB PO SCH (19:56)
[2020-10-30] MEDS: SENNOSIDES-DOCUSATE SODIUM 1 EACH TAB PO SCH (19:56)
[2020-10-30] MEDS: ATORVASTATIN 20 MG TAB PO SCH (19:56)
[2020-10-31] MEDS: HYDROcodone/APAP 7.5-325MG 1 EACH TAB PO PRN ×6 (02:23→22:52)
[2020-10-31 04:39] LABS: Basophils % (A) 0 %; Eosinophils % (A) 0 %; HCT 29.2 % (34.0-46.0); Lymphocytes # (A) 0.6 k/uL (1.0-4.8); Lymphocytes % (A) 9 %; MCH 30.4 pg (25.0-35.0); MCHC 34.3 g/dL (31.0-37.0); MCV 88.7 fL (80.0-100.0); Mean Platelet Volume 7.3; Monocytes # (A) 0.5 k/uL (0-1.0); Monocytes % (A) 9 %; Neutrophils # (A) 4.8 k/uL (1.3-7.7); Neutrophils % (A) 80 %; Platelet Count 246 k/uL (150-450); RBC 3.29 m/uL (3.80-5.40); RDW 15.6 % (11.5-15.5); WBC 6.1 k/uL (3.8-10.6)
[2020-10-31] MEDS: LORazepam 0.5 MG TAB PO SCH ×2 (08:07→20:32)
[2020-10-31] MEDS: FENOFIBRATE 160 MG TAB PO SCH (08:07)
[2020-10-31] MEDS: oxyCODONE ER 20 MG TAB.ER.12H PO SCH ×3 (08:07→23:47)
[2020-10-31] MEDS: SENNOSIDES-DOCUSATE SODIUM 1 EACH TAB PO SCH ×2 (08:07→20:32)
[2020-10-31] MEDS: CHOLECALCIFEROL 25 MCG (1000 IU) TABLET PO SCH (08:08)
[2020-10-31] MEDS: FOLIC ACID 1 MG TAB PO SCH (08:08)
[2020-10-31] MEDS: PANTOPRAZOLE 40 MG TABLET PO SCH (08:08)
[2020-10-31] MEDS: FLUoxetine HCL 20 MG CAP PO SCH (08:08)
[2020-10-31] MEDS: ENOXAPARIN 40 MG/0.4 ML SYRINGE SQ SCH (08:09)
[2020-10-31] MEDS: ONDANSETRON 4 MG/2 ML VIAL IVP PRN (09:16)
[2020-10-31 09:55] LABS: African American GFR (CKD) 89.7 (60.0-200.0); Albumin 3.8 g/dL (3.80-4.90); Anion Gap 9.6 mmol/L (4.00-12.00); BUN/Creat Ratio 11.25 Ratio (12.00-20.00); Calcium 9.1 mg/dL (8.7-10.3); Carbon Dioxide 26.4 mmol/L (21.6-31.8); Globulin 1.9 g/dL (1.6-3.3); Magnesium 1.8 mg/dL (1.5-2.4); Non-African American GFR(CKD) 77.4 (60.0-200.0); Phosphorus 3.3 mg/dL (2.4-5.1); Potassium 4.5 mmol/L (3.5-5.5); Total Bilirubin 0.4 mg/dL (0.2-1.2); Total Protein 5.7 g/dL (6.2-8.2); Uric Acid 2.4 mg/dL (2.9-7.7)
--- NOTE | 2020-10-31 09:57 | P.PN ---
Subjective Progress Note Date: 10/31/20 Principal diagnosis: DLBCL Started ICE. Tolerating well except for nausea after eating. She did receive zofran today. Will plan zofran prior to meals. Objective - Vital Signs Vital signs: Vital Signs Temp 97.7 F 10/31/20 07:56 Pulse 62 10/31/20 07:56 Resp 18 10/31/20 07:56 BP 150/62 10/31/20 07:56 Pulse Ox 96 10/31/20 07:56 Intake & Output 10/30/20 10/31/20 10/31/20 18:59 06:59 18:59 Intake Total 1822 Balance 1822 Weight 77.564 kg Intake: Intake, IV Titration 1350 Amount Etoposide 180 mg In 500 Sodium Chloride 0.9% 500 ml 500 ml @ 509 mls/hr IV Q24H [facility] Rx#:[id number] Ondansetron 16 mg In 50 Sodium Chloride 0.9% 50 ml @ 232 mls/hr IVPB DAILY@1300 [facility] Rx#: [id number] Sodium Chloride 0.9% 1, 800 000 ml @ 100 mls/hr IV . Q10H [facility] Rx#:[id number] Oral 472 Other: Voiding Method Toilet # Voids 1 4 - Exam Gen: No acute distress HEENT: Conjunctival pallor. Neck: Supple Lungs: No respiratory distress Heart: Normal rate Abdomen: Soft MSK: No obvious deformities Neuro: Alert and oriented 3 Psych: Appropriate affect Skin: No jaundice - Labs CBC & Chem 7: 10/31/20 03:54 10/30/20 10:45 Labs: Abnormal Lab Results - Last 24 Hours (Table) 10/30/20 10/30/20 10/31/20 Range/Units 10:45 10:45 03:54 RBC 3.58 L 3.29 L (3.80-5.40) m/uL Hgb 11.0 L 10.0 L (11.4-16.0) gm/dL Hct 32.2 L 29.2 L (34.0-46.0) % RDW 15.7 H 15.6 H (11.5-15.5) % Lymphocytes # 0.4 L 0.6 L (1.0-4.8) k/uL Sodium 131 L (137-145) mmol/L Chloride 95 L (98-107) mmol/L Glucose 255 H (74-99) mg/dL Uric Acid 2.3 L (3.7-7.4) mg/dL Total Protein 6.0 L (6.3-8.2) g/dL Assessment and Plan Assessment: DLBCL Anemia due to chemotherapy HTN HLP COPD Fibromyalgia Plan: Ms. Malik is a very pleasant 65 yo female with a history of relapsed DL BCL who is here for cycle 2 of salvage chemotherapy with R-ICE. She received rituximab outpatient was admitted yesterday at which point chemo with ICE was started. She is tolerating this well so far except for nausea with food. Encouraged her to use zofran with meals. We'll continue chemotherapy as planned. Discharge Monday and outpatient Neulasta already arranged. Medical management as per internal medicine. Trazadone for sleep, pt's home medication. Discussed with patient she is agreeable to the plan. All of her questions were answered. Discussed with nursing staff.
[2020-10-31] MEDS ORDERED: PROCHLORPERAZINE INJ 10 MG/2 ML VIAL IVP PRN (09:58)
--- NOTE | 2020-10-31 10:11 | P.PN ---
Subjective Progress Note Date: 10/31/20 Principal diagnosis: Lymphoma Patient is a 65-year-old female with diffuse large B cell lymphoma, germinal center who is here for her second round of R-ICE chemotherapy. She is a direct admission to Dr. Pedro's service. Patient seen and examined at bedside. she is having some nausea today after eating breakfast. She does not have any nausea with her first round of R-ICE. She denies any chest pain or shortness of breath. No diarrhea. Her pain is at baseline. General: ill appearing, no distress, appears at stated age Derm: warm, dry Head: atraumatic, normocephalic, symmetric Eyes: EOMI, no lid lag, anicteric sclera Mouth: no lip lesion, mucus membranes moist Cardiovascular: S1S2 reg, no murmur, positive posterior tibial pulse bilateral, Lungs: Decreased bs bilateral, no rhonchi, no rales , no accessory muscle use Abdominal: soft, nontender to palpation, no guarding, no appreciable organomegaly Ext: no gross muscle atrophy, no edema, no contractures Neuro: CN II-XI grossly intact, no focal neuro deficits Psych: Alert, oriented, appropriate affect Diffuse large B cell lymphoma, recurrent - second round of R-ICE therapy with oncology -Continue with fluids, half antiemetics and pain medications ordered per oncology Hypertension -Continue with propranolol - follow BP Dyslipidemia -Continue with fenofibrate and statin COPD without exacerbation -When necessary bronchodilators Fibromyalgia -Continue chronic pain regimen Thank you for allowing us to participate in the care of this pleasant patient. Do not hesitate to contact us with questions. Someone can be reached from the [facility] hospitalist group all hours of the day at [phone] or via [employer]. Objective - Vital Signs Vital signs: Vital Signs Temp 97.7 F 10/31/20 07:56 Pulse 62 10/31/20 07:56 Resp 18 10/31/20 07:56 BP 150/62 10/31/20 07:56 Pulse Ox 96 10/31/20 07:56 Intake & Output 10/30/20 10/31/20 10/31/20 18:59 06:59 18:59 Intake Total 1822 Balance 1822 Weight 77.564 kg Intake: Intake, IV Titration 1350 Amount Etoposide 180 mg In 500 Sodium Chloride 0.9% 500 ml 500 ml @ 509 mls/hr IV Q24H [facility] Rx#:[id number] Ondansetron 16 mg In 50 Sodium Chloride 0.9% 50 ml @ 232 mls/hr IVPB DAILY@1300 [facility] Rx#: [id number] Sodium Chloride 0.9% 1, 800 000 ml @ 100 mls/hr IV . Q10H [facility] Rx#:[id number] Oral 472 Other: Voiding Method Toilet # Voids 1 4 - Labs CBC & Chem 7: 10/31/20 03:54 10/31/20 03:54 Labs: Abnormal Lab Results - Last 24 Hours (Table) 10/30/20 10/30/20 10/31/20 Range/Units 10:45 10:45 03:54 RBC 3.58 L (3.80-5.40) m/uL Hgb 11.0 L (11.4-16.0) gm/dL Hct 32.2 L (34.0-46.0) % RDW 15.7 H (11.5-15.5) % Lymphocytes # 0.4 L (1.0-4.8) k/uL Sodium 131 L 134 L (137-145) mmol/L Chloride 95 L (98-107) mmol/L BUN/Creatinine Ratio 11.25 L (12.00-20.00) Ratio Glucose 255 H 232 H (74-99) mg/dL Uric Acid 2.3 L 2.4 L (3.7-7.4) mg/dL AST 11 L (13-35) U/L Total Protein 6.0 L 5.7 L (6.3-8.2) g/dL 10/31/20 Range/Units 03:54 RBC 3.29 L (3.80-5.40) m/uL Hgb 10.0 L (11.4-16.0) gm/dL Hct 29.2 L (34.0-46.0) % RDW 15.6 H (11.5-15.5) % Lymphocytes # 0.6 L (1.0-4.8) k/uL Sodium (137-145) mmol/L Chloride (98-107) mmol/L BUN/Creatinine Ratio (12.00-20.00) Ratio Glucose (74-99) mg/dL Uric Acid (3.7-7.4) mg/dL AST (13-35) U/L Total Protein (6.3-8.2) g/dL
[2020-10-31 10:50] LABS: Appearance,Urine Clear (Clear); Bilirubin,Urine Negative (Negative); Blood,Urine Negative (Negative); Color,Urine Light Yellow; Glucose,Urine (UA) 4+ (Negative); Ketones,Urine Negative (Negative); Leukocyte Esterase,Urine Negative (Negative); Nitrite,Urine Negative (Negative); Protein,Urine Negative (Negative); Specific Gravity,Urine 1.008 (1.001-1.035); Urobilinogen,Urine <2.0 mg/dL (<2.0)
[2020-10-31] MEDS: ONDANSETRON 16 MG in SODIUM CHLORIDE 0.9% 50 ML IVPB SCH (13:22)
[2020-10-31] MEDS: DEXAMETHASONE SOD PHOSPHATE 10 MG/ML 1 ML VIAL IV SCH (13:22)
[2020-10-31] MEDS: FAMOTIDINE 20 MG/2 ML VIAL IV SCH (13:22)
[2020-10-31] MEDS: PROPRANOLOL 20 MG TAB PO SCH (13:24)
[2020-10-31] MEDS: SODIUM CHLORIDE 0.9% 1,000 ML IV SCH ×2 (13:24→16:42)
[2020-10-31] MEDS ORDERED: SODIUM CHLORIDE 0.9% IV ONE ×3 (14:30→15:30)
[2020-10-31] MEDS ORDERED: CARBOPLATIN IV ONE (14:30)
[2020-10-31] MEDS: ETOPOSIDE 180 MG in SODIUM CHLORIDE 0.9% 500 ML 500 ML IV SCH (14:51)
[2020-10-31] MEDS ORDERED: MESNA IV ONE (15:30)
[2020-10-31] MEDS ORDERED: IFOSFAMIDE IV ONE (15:30)
[2020-10-31] MEDS: hydrOXYzine HCL 25 MG TAB PO SCH (20:32)
[2020-10-31] MEDS: ATORVASTATIN 20 MG TAB PO SCH (20:32)
[2020-10-31] MEDS: DIVALPROEX 500 MG TABLET.DR PO SCH (20:32)
[2020-10-31] MEDS: traZODone HCL 50 MG TAB PO SCH (20:33)
[2020-11-01] MEDS: HYDROcodone/APAP 7.5-325MG 1 EACH TAB PO PRN ×6 (03:14→22:55)
[2020-11-01] MEDS: SODIUM CHLORIDE 0.9% 1,000 ML IV SCH ×2 (03:16→14:51)
[2020-11-01] MEDS: SENNOSIDES-DOCUSATE SODIUM 1 EACH TAB PO SCH ×3 (08:07→22:10)
[2020-11-01] MEDS: FENOFIBRATE 160 MG TAB PO SCH (08:07)
[2020-11-01] MEDS: ENOXAPARIN 40 MG/0.4 ML SYRINGE SQ SCH (08:07)
[2020-11-01] MEDS: CHOLECALCIFEROL 25 MCG (1000 IU) TABLET PO SCH (08:08)
[2020-11-01] MEDS: LORazepam 0.5 MG TAB PO SCH ×2 (08:08→22:08)
[2020-11-01] MEDS: FLUoxetine HCL 20 MG CAP PO SCH (08:08)
[2020-11-01] MEDS: oxyCODONE ER 20 MG TAB.ER.12H PO SCH ×2 (08:08→16:06)
[2020-11-01] MEDS: PANTOPRAZOLE 40 MG TABLET PO SCH (08:08)
[2020-11-01] MEDS: FOLIC ACID 1 MG TAB PO SCH (08:09)
--- NOTE | 2020-11-01 10:12 | P.PN ---
Subjective Progress Note Date: 11/01/20 Principal diagnosis: DLBCL Continuing chemo with ICE. Tolerating well except for nausea. Better with antiemetics. Objective - Vital Signs Vital signs: Vital Signs Temp 97.6 F 11/01/20 04:50 Pulse 64 11/01/20 04:50 Resp 20 11/01/20 04:50 BP 138/81 11/01/20 04:50 Pulse Ox 99 11/01/20 04:50 Intake & Output 10/31/20 11/01/20 11/01/20 18:59 06:59 18:59 Intake Total 240 100 Balance 240 100 Intake: Oral 240 100 Other: Voiding Method Toilet Toilet # Voids 5 4 - Exam Gen: No acute distress HEENT: Conjunctival pallor. Neck: Supple Lungs: No respiratory distress Heart: Normal rate Abdomen: Soft MSK: No obvious deformities Neuro: Alert and oriented 3 Psych: Appropriate affect Skin: No jaundice - Labs CBC & Chem 7: 10/31/20 03:54 10/31/20 03:54 Labs: Abnormal Lab Results - Last 24 Hours (Table) 10/31/20 10/31/20 Range/Units 03:54 10:46 Sodium 134 L (135-145) mmol/L BUN/Creatinine Ratio 11.25 L (12.00-20.00) Ratio Glucose 232 H (70-110) mg/dL Uric Acid 2.4 L (2.9-7.7) mg/dL AST 11 L (13-35) U/L Total Protein 5.7 L (6.2-8.2) g/dL Urine Glucose (UA) 4+ H (Negative) Assessment and Plan Assessment: DLBCL Anemia due to chemotherapy HTN HLP COPD Fibromyalgia Plan: Ms. Malik is a very pleasant 65 yo female with a history of relapsed DL BCL who is here for cycle 2 of salvage chemotherapy with R-ICE. She received rituximab outpatient was admitted on 10/30/20 at which point chemo with ICE was started. She is tolerating this well so far except for nausea, which seems to be better controlled with current antiemetic regimen. We'll continue chemotherapy as planned. Discharge tomorrow, Monday and outpatient Neulasta already arranged. Medical management as per internal medicine. Trazadone for sleep, pt's home medication. Discussed with patient she is agreeable to the plan. All of her questions were answered. Discussed with nursing staff.
[2020-11-01 11:12] LABS: HCT 29.5 % (34.0-46.0); HGB 10.1 gm/dL (11.4-16.0); MCH 30.7 pg (25.0-35.0); MCHC 34.3 g/dL (31.0-37.0); MCV 89.4 fL (80.0-100.0); Mean Platelet Volume 7.4; Platelet Count 213 k/uL (150-450); RDW 15.7 % (11.5-15.5); WBC 4.7 k/uL (3.8-10.6)
[2020-11-01 11:20] LABS: ALT 6 U/L (4-34); AST 11 U/L (14-36); African American GFR (CKD) >90 (>60 ml/min/1.73 sqM); Albumin 3.3 g/dL (3.5-5.0); Albumin/Globulin Ratio 1.4; Alkaline Phosphatase 47 U/L (38-126); Anion Gap 8 mmol/L; Blood Urea Nitrogen 6 mg/dL (7-17); Calcium 8.5 mg/dL (8.4-10.2); Carbon Dioxide 29 mmol/L (22-30); Chloride 100 mmol/L (98-107); Globulin 2.3 g/dL; Glucose 148 mg/dL (74-99); Non-African American GFR(CKD) >90 (>60 ml/min/1.73 sqM); Potassium 3.9 mmol/L (3.5-5.1); Sodium 137 mmol/L (137-145); Total Bilirubin 0.4 mg/dL (0.2-1.3); Total Protein 5.6 g/dL (6.3-8.2)
[2020-11-01] MEDS: PROPRANOLOL 20 MG TAB PO SCH (11:24)
--- NOTE | 2020-11-01 13:48 | P.PN ---
Subjective Progress Note Date: 11/01/20 (delayed charting seen at 1145) Principal diagnosis: Lymphoma Patient is a 65-year-old female with diffuse large B cell lymphoma, germinal center who is here for her second round of R-ICE chemotherapy. She is a direct admission to Dr. Pedro's service. Patient seen and examined at bedside. Nausea is resolved. No diarrhea. Her pain is tolerable at this times. General: non toxic, no distress, appears at stated age Derm: warm, dry Head: atraumatic, normocephalic, symmetric Eyes: EOMI, no lid lag, anicteric sclera Mouth: no lip lesion, mucus membranes moist Cardiovascular: S1S2 reg, no murmur, positive posterior tibial pulse bilateral, Lungs: Decreased bs bilateral, no rhonchi, no rales, no accessory muscle use Abdominal: soft, nontender to palpation, no guarding, no appreciable organomegaly Ext: no gross muscle atrophy, no edema, no contractures Neuro: CN II-XI grossly intact, no focal neuro deficits Psych: Alert, oriented, appropriate affect Diffuse large B cell lymphoma, recurrent -second round of R-ICE therapy with oncology -Continue with fluids, antiemetics and pain medications ordered per oncology Hypertension -Continue with propranolol - follow BP Dyslipidemia -Continue with fenofibrate and statin COPD without exacerbation -When necessary bronchodilators Fibromyalgia -Continue chronic pain regimen Thank you for allowing us to participate in the care of this pleasant patient. Do not hesitate to contact us with questions. Someone can be reached from the [facility] hospitalist group all hours of the day at [phone] or via [employer]. Objective - Vital Signs Vital signs: Vital Signs Temp 97.6 F 11/01/20 07:52 Pulse 56 L 11/01/20 08:00 Resp 18 11/01/20 08:00 BP 144/80 11/01/20 07:52 Pulse Ox 98 11/01/20 07:52 Intake & Output 10/31/20 11/01/20 11/01/20 18:59 06:59 18:59 Intake Total 240 100 Balance 240 100 Intake: Oral 240 100 Other: Voiding Method Toilet Toilet Toilet # Voids 5 4 2 - Labs CBC & Chem 7: 11/01/20 10:39 11/01/20 10:39 Labs: Abnormal Lab Results - Last 24 Hours (Table) 11/01/20 11/01/20 Range/Units 10:39 10:39 RBC 3.30 L (3.80-5.40) m/uL Hgb 10.1 L (11.4-16.0) gm/dL Hct 29.5 L (34.0-46.0) % RDW 15.7 H (11.5-15.5) % BUN 6 L (7-17) mg/dL Creatinine 0.51 L (0.52-1.04) mg/dL Glucose 148 H (74-99) mg/dL AST 11 L (14-36) U/L Total Protein 5.6 L (6.3-8.2) g/dL Albumin 3.3 L (3.5-5.0) g/dL
[2020-11-01] MEDS: ONDANSETRON 16 MG in SODIUM CHLORIDE 0.9% 50 ML IVPB SCH (15:04)
[2020-11-01] MEDS: DEXAMETHASONE SOD PHOSPHATE 10 MG/ML 1 ML VIAL IV SCH (15:04)
[2020-11-01] MEDS: FAMOTIDINE 20 MG/2 ML VIAL IV SCH (15:04)
[2020-11-01] MEDS: ETOPOSIDE 180 MG in SODIUM CHLORIDE 0.9% 500 ML 500 ML IV SCH (16:39)
[2020-11-01] MEDS: traZODone HCL 50 MG TAB PO SCH (22:08)
[2020-11-01] MEDS: hydrOXYzine HCL 25 MG TAB PO SCH (22:08)
[2020-11-01] MEDS: DIVALPROEX 500 MG TABLET.DR PO SCH (22:08)
[2020-11-01] MEDS: ATORVASTATIN 20 MG TAB PO SCH (22:09)
[2020-11-02] MEDS: oxyCODONE ER 20 MG TAB.ER.12H PO SCH ×3 (00:28→15:03)
[2020-11-02 00:35] VITALS: RESP 14
[2020-11-02] MEDS: HYDROcodone/APAP 7.5-325MG 1 EACH TAB PO PRN ×4 (04:25→15:02)
[2020-11-02] MEDS: SODIUM CHLORIDE 0.9% 1,000 ML IV SCH ×2 (05:30→08:04)
[2020-11-02 05:46] LABS: HCT 30.5 % (34.0-46.0); HGB 10.4 gm/dL (11.4-16.0); MCH 30.9 pg (25.0-35.0); MCHC 34.1 g/dL (31.0-37.0); MCV 90.6 fL (80.0-100.0); Mean Platelet Volume 7.3; Platelet Count 231 k/uL (150-450); RBC 3.37 m/uL (3.80-5.40); RDW 15.7 % (11.5-15.5); WBC 4.1 k/uL (3.8-10.6)
[2020-11-02] MEDS: LORazepam 0.5 MG TAB PO SCH (08:03)
[2020-11-02] MEDS: PANTOPRAZOLE 40 MG TABLET PO SCH (08:03)
[2020-11-02] MEDS: SENNOSIDES-DOCUSATE SODIUM 1 EACH TAB PO SCH (08:03)
[2020-11-02] MEDS: CHOLECALCIFEROL 25 MCG (1000 IU) TABLET PO SCH (08:03)
[2020-11-02] MEDS: FENOFIBRATE 160 MG TAB PO SCH (08:03)
[2020-11-02] MEDS: FOLIC ACID 1 MG TAB PO SCH (08:03)
[2020-11-02] MEDS: ENOXAPARIN 40 MG/0.4 ML SYRINGE SQ SCH ×2 (08:04→08:22)
[2020-11-02] MEDS: FLUoxetine HCL 20 MG CAP PO SCH (08:04)
[2020-11-02 09:25] LABS: African American GFR (CKD) 110.9 (60.0-200.0); Albumin 3.7 g/dL (3.80-4.90); Albumin/Globulin Ratio 2.06 (1.60-3.17); Anion Gap 5.6 mmol/L (4.00-12.00); BUN/Creat Ratio 13.33 Ratio (12.00-20.00); Calcium 8.5 mg/dL (8.7-10.3); Carbon Dioxide 27.4 mmol/L (21.6-31.8); Globulin 1.8 g/dL (1.6-3.3); Magnesium 1.7 mg/dL (1.5-2.4); Non-African American GFR(CKD) 95.7 (60.0-200.0); Potassium 4.3 mmol/L (3.5-5.5); Total Bilirubin 0.9 mg/dL (0.2-1.2); Total Protein 5.5 g/dL (6.2-8.2); Uric Acid 2.6 mg/dL (2.9-7.7)
--- NOTE | 2020-11-02 10:07 | P.PN ---
Subjective Progress Note Date: 11/02/20 Patient is doing well today. She does not have any complaints. Objective - Vital Signs Vital signs: Vital Signs Temp 98.1 F 11/02/20 04:36 Pulse 59 L 11/02/20 04:36 Resp 14 11/02/20 04:36 BP 136/80 11/02/20 04:36 Pulse Ox 98 11/02/20 04:36 Intake & Output 11/01/20 11/02/20 11/02/20 18:59 06:59 18:59 Intake Total 360 Balance 360 Intake: Oral 360 Other: Voiding Method Toilet Toilet # Voids 6 6 - Exam General: The patient is awake and alert, in no distress Eye: there is normal conjunctiva bilaterally. Neck: The neck is supple, there is no JVD. Cardiovascular: Normal S1-S2, no S3-S4, no murmurs. Respiratory: Lungs clear to auscultation bilaterally Gastrointestinal: Abdomen is soft, nontender Musculoskeletal: There is no pedal edema. Neurological:. Speech is normal. Skin: Skin is warm and dry - Labs CBC & Chem 7: 11/02/20 04:48 11/02/20 04:48 Labs: Abnormal Lab Results - Last 24 Hours (Table) 11/01/20 11/01/20 11/02/20 Range/Units 10:39 10:39 04:48 RBC 3.30 L 3.37 L (3.80-5.40) m/uL Hgb 10.1 L 10.4 L (11.4-16.0) gm/dL Hct 29.5 L 30.5 L (34.0-46.0) % RDW 15.7 H 15.7 H (11.5-15.5) % BUN 6 L (7-17) mg/dL Creatinine 0.51 L (0.52-1.04) mg/dL Glucose 148 H (74-99) mg/dL Uric Acid (2.9-7.7) mg/dL Calcium (8.7-10.3) mg/dL AST 11 L (14-36) U/L Total Protein 5.6 L (6.3-8.2) g/dL Albumin 3.3 L (3.5-5.0) g/dL 11/02/20 Range/Units 04:48 RBC (3.80-5.40) m/uL Hgb (11.4-16.0) gm/dL Hct (34.0-46.0) % RDW (11.5-15.5) % BUN 8.0 L (7-17) mg/dL Creatinine (0.52-1.04) mg/dL Glucose (74-99) mg/dL Uric Acid 2.6 L (2.9-7.7) mg/dL Calcium 8.5 L (8.7-10.3) mg/dL AST 11 L (14-36) U/L Total Protein 5.5 L (6.3-8.2) g/dL Albumin 3.70 L (3.5-5.0) g/dL Assessment and Plan Assessment: Patient is a 65-year-old female with diffuse large B cell lymphoma, germinal center who is here for her second round of R-ICE chemotherapy. She is a direct admission to Dr. Pedro's service. Diffuse large B cell lymphoma, recurrent -second round of R-ICE therapy with oncology -Continue with fluids, antiemetics and pain medications ordered per oncology Hypertension -Continue with propranolol - follow BP Dyslipidemia -Continue with fenofibrate and statin COPD without exacerbation -When necessary bronchodilators Fibromyalgia -Continue chronic pain regimen Discharge planning today per primary team
[2020-11-02 12:15] VITALS: BP 135/80; PULSE 58; TEMP 98.6
--- NOTE | 2020-11-02 12:59 | P.DS ---
Providers Date of admission: 10/30/20 08:30 Expected date of discharge: 11/02/20 Attending physician: Siva Pedro Consults: 10/30/20 10:11 Consult Physician Routine Consulting Provider: Trisha Haas Consult Reason/Comments: medical management Do you want consulting provider notified?: Yes Placement Type Exists?: Yes Primary care physician: Stated None Hospital Course: This is a 65 yr old WF, pt of Dr Muñiz's, who was initially diagnosed with diffuse large B cell lymphoma,in 2008,when she presented with right large inguinal mass,she had 3 cycles of RCHOP followed by radiation therapy. In 2016,she had a new a new lesion in right popliteal fossa,which was positive for large B cell lymphoma,follicular center.She had treatment with BR regimen,completed on 01/12/2017 followed by XRT. A follow up PET scan in September/2017,identified a lesion at GE junction,EUS and biopsy confirmed adenocarcinoma of GEJ,she had esophgectomy on 12/18/2018,also the PET scan showed RML lung nodule. She was also diagnosed with RA and fibromyalgia. Her treatment were in [place] thus far. She moved to [place] on 01/18/[address] Muñiz on 01/25/2019 to establish with an oncologist locally. She had a PET scan on 03/02/2019 which was negative. On 06/26/2020,repeat PET scan revealed suspicious uptake in left cervical node,new liver lesions and right sacrum. On 07/07/2020,U/S guided biopsy of left neck mass at [facility] was not diagnostic,she was referred to [facility],repeat biopsy on 08/11/2020 was positive for germinal center,DLBCL,double expressor. She reported feeling tired,she has her chronic generalized bone pain,no fever,chills or night sweats,her weight is relatively stable,no dysphagia, She was [facility] [place], and met with Dr Harris on 09/02/20. she also met with the bone marrow transplant team. It was recommended that she proceed with salvage R-ICE chemotherapy. She was admitted for cycle #2 of the same. She tolerated cycle one well, did have a decrease in platelet count near her te, this will be monitored closely during follow-ups. She complained of some nausea, however no other complaints. Assessment: Alert and Oriented NAD Head NCAT HR: RRR Lungs: CTA BIla NO rash COroperative Patient Condition at Discharge: Good Plan - Discharge Summary Discharge Rx Participant: No New Discharge Prescriptions: New traZODone HCL [Desyrel] 50 mg PO HS tab Sennosides-Docusate Sodium [Senokot-S] 1 each PO BID tab Continue Propranolol [Inderal] 40 mg PO DAILY@1200 Omeprazole 40 mg PO DAILY Folic Acid 1 mg PO DAILY Divalproex [Depakote] 1,000 mg PO HS Fenofibrate Nanocrystallized [Tricor] 145 mg PO DAILY Atorvastatin [Lipitor] 20 mg PO HS traZODone HCL [Desyrel] 50 - 100 mg PO HS PRN PRN Reason: Insomnia hydrOXYzine HCL [Atarax] 50 mg PO HS Cholecalciferol [Vitamin D3 (25 Mcg = 1000 Iu)] 50 mcg PO DAILY oxyCODONE HCL [OxyCONTIN] 20 mg PO Q8H LORazepam [Ativan] 0.5 mg PO BID FLUoxetine HCL [PROzac] 20 mg PO DAILY HYDROcodone/APAP 7.5-325MG [Marion 7.5-325] 1 tab PO Q4H PRN 3 Days #18 tab PRN Reason: Pain Discharge Medication List Atorvastatin [Lipitor] 20 mg PO HS 07/01/20 [History] Divalproex [Depakote] 1,000 mg PO HS 07/01/20 [History] Fenofibrate Nanocrystallized [Tricor] 145 mg PO DAILY 07/01/20 [History] Folic Acid 1 mg PO DAILY 07/01/20 [History] Omeprazole 40 mg PO DAILY 07/01/20 [History] Propranolol [Inderal] 40 mg PO DAILY@1200 07/01/20 [History] Cholecalciferol [Vitamin D3 (25 Mcg = 1000 Iu)] 50 mcg PO DAILY 10/02/20 [History] FLUoxetine HCL [PROzac] 20 mg PO DAILY 10/02/20 [History] LORazepam [Ativan] 0.5 mg PO BID 10/02/20 [History] hydrOXYzine HCL [Atarax] 50 mg PO HS 10/02/20 [History] oxyCODONE HCL [OxyCONTIN] 20 mg PO Q8H 10/02/20 [History] traZODone HCL [Desyrel] 50 - 100 mg PO HS PRN 10/02/20 [History] HYDROcodone/APAP 7.5-325MG [Marion 7.5-325] 1 tab PO Q4H PRN 3 Days #18 tab 10/05/20 [Rx] Sennosides-Docusate Sodium [Senokot-S] 1 each PO BID tab 11/02/20 [Rx] traZODone HCL [Desyrel] 50 mg PO HS tab 11/02/20 [Rx] Follow up Appointment(s)/Referral(s): Yvonne Muñiz MD [STAFF PHYSICIAN] - 11/03/20 10:00 am (Neulasta SHot) Discharge Disposition: HOME SELF-CARE Pending Studies Pending Results: Physician Attest: I have completed the full history and physical and agree with above discharge and outpatient plan. Patient will have neulasta in office tomorrow at 10am. Above dictation dictated as a scribe.
[2020-11-02] MEDS: PROPRANOLOL 20 MG TAB PO SCH (13:24)
== END 2020-11-02 15:10 | disposition home or self-care (01) | DRG 847 ==
LOC: 5NMEDONC 08:30
PROVIDERS: ADMIT Internal Medicine Hematology & Oncology; ATTEND Internal Medicine Hematology & Oncology
DX: Z51.11 Encounter for antineoplastic chemotherapy (principal); C83.30 Diffuse large B-cell lymphoma, unspecified site; D64.81 Anemia due to antineoplastic chemotherapy; T45.1X5A Adverse effect of antineoplastic and immunosuppressive drugs, initial encounter; E78.5 Hyperlipidemia, unspecified; G89.29 Other chronic pain; I10 Essential (primary) hypertension; M19.90 Unspecified osteoarthritis, unspecified site; J44.9 Chronic obstructive pulmonary disease, unspecified; M06.9 Rheumatoid arthritis, unspecified; K76.9 Liver disease, unspecified; M79.7 Fibromyalgia; M85.80 Other specified disorders of bone density and structure, unspecified site; Z85.01 Personal history of malignant neoplasm of esophagus; Z79.899 Other long term (current) drug therapy; Z87.891 Personal history of nicotine dependence; Z90.49 Acquired absence of other specified parts of digestive tract
CPT/HCPCS: 80053; 81003; 83615; 83735; 84100; 84550; 85025; 85027; 93005

== ENCOUNTER 2020-11-13 11:48 | Emergency (ER) | payer MEDICARE, BC ==
[2020-11-13 12:03] VITALS: RESP 18; TEMP 97.9
[2020-11-13] MEDS ORDERED: LIDOCAINE/EPINEPHR/TETRACAINE 5 ML BOTTLE TOPICAL ONE (12:05)
[2020-11-13] MEDS ORDERED: TOPICAL SKIN ADHESIVE 1 EACH AMP TOPICAL ONE (12:05)
--- NOTE | 2020-11-13 12:34 | ED ---
Fall HPI - General Chief Complaint: Fall Stated Complaint: Fall Time Seen by Provider: 11/13/20 11:57 Source: patient, RN notes reviewed Mode of arrival: wheelchair Limitations: no limitations - History of Present Illness Initial Comments: This a 65-year-old female presents emergency Department chief complaint of fall, injury. She states she is leaving the hospital after having a PET scan which she states she tripped over her foot on his service and states that she fell 4 she did strike her knee, do mild right knee pain but states that she is able to family, facial injury. She has a small laceration swelling on her left eye states is mildly painful no significant headache dizziness neck pain. Patient since up-to-date. Patient offers no complaints. - Related Data Home Medications Medication Instructions Recorded Confirmed Atorvastatin [Lipitor] 20 mg PO HS 07/01/20 11/13/20 Divalproex [Depakote] 1,000 mg PO HS 07/01/20 11/13/20 Fenofibrate Nanocrystallized 145 mg PO DAILY 07/01/20 11/13/20 [Tricor] Folic Acid 1 mg PO DAILY 07/01/20 11/13/20 Omeprazole 40 mg PO DAILY 07/01/20 11/13/20 Propranolol [Inderal] 40 mg PO DAILY@1200 07/01/20 11/13/20 Cholecalciferol [Vitamin D3 (25 50 mcg PO DAILY 10/02/20 11/13/20 Mcg = 1000 Iu)] FLUoxetine HCL [PROzac] 20 mg PO DAILY 10/02/20 11/13/20 LORazepam [Ativan] 0.5 mg PO BID 10/02/20 11/13/20 hydrOXYzine HCL [Atarax] 50 mg PO HS 10/02/20 11/13/20 oxyCODONE HCL [OxyCONTIN] 20 mg PO Q8H 10/02/20 11/13/20 traZODone HCL [Desyrel] 50 - 100 mg PO HS PRN 10/02/20 11/13/20 Sennosides-Docusate Sodium 1 tab PO BID 11/13/20 11/13/20 [Senokot-S] Allergies Allergy/AdvReac Type Severity Reaction Status Date / Time bendamustine [From Bendeka] AdvReac Itching Verified 11/13/20 13:13 Review of Systems ROS Statement: Those systems with pertinent positive or pertinent negative responses have been documented in the HPI. ROS Other: All systems not noted in ROS Statement are negative. 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 06/2020 pet scan showed mets to L neck/liver/sacrum per pt. 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 History of Any Multi-Drug Resistant Organisms: None Reported Past Surgical History: Section, Cholecystectomy, Orthopedic Surgery, Tonsillectomy Additional Past Surgical History / Comment(s): 2008 R groin tumor removed, extensive esophageal surgery/esophagectomy/stomach brought up and attached, R sided port, R elbow fracture/radial head removed, colonoscopy. Past Anesthesia/Blood Transfusion Reactions: No Reported Reaction Additional Past Anesthesia/Blood Transfusion Reaction / Comment(s): Pt received blood with esophagectomy surgery without reaction. Past Psychological History: Bipolar Smoking Status: Former smoker Past Alcohol Use History: None Reported Past Drug Use History: None Reported - Past Family History Mother History Unknown: Yes Additional Family Medical History / Comment(s): patient adopted and does not know family history General Exam Limitations: no limitations General appearance: alert, in no apparent distress Head exam: Present: atraumatic, normocephalic, normal inspection Eye exam: Present: PERRL, EOMI, periorbital swelling (Moderate left with superficial inferior laceration 2 cm), periorbital tenderness. Absent: normal appearance, scleral icterus, conjunctival injection ENT exam: Present: normal exam, mucous membranes moist Neck exam: Present: normal inspection, full ROM. Absent: tenderness, meningismus, lymphadenopathy Respiratory exam: Present: normal lung sounds bilaterally. Absent: respiratory distress, wheezes, rales, rhonchi, stridor Cardiovascular Exam: Present: regular rate, normal rhythm, normal heart sounds. Absent: systolic murmur, diastolic murmur, rubs, gallop, clicks Extremities exam: Present: other (Mild right knee pain no swelling for range of motion neurovascular intact no other extremity tenderness noted) Neurological exam: Present: alert, oriented X3, CN II-XII intact, reflexes normal. Absent: motor sensory deficit Skin exam: Present: warm, dry, intact, normal color. Absent: rash Course Vital Signs 11/13/20 11:51 Temperature 97.9 F Pulse Rate 76 Respiratory 18 Rate Blood Pressure 145/74 O2 Sat by Pulse 93 L Oximetry Procedures - Laceration Laceration #1 Consent Obtained: verbal consent Indication: laceration Site: face Size (cm): 2 Description: irregular Depth: simple, single layer Pre-repair: wound explored, irrigated extensively Size of Sutures: other (exofin dermal adhesive) Medical Decision Making - Medical Decision Making CTs are unremarkable. Patient has superficial laceration her face which was closed. Patient tolerated well no complications. Disposition Clinical Impression: Fall, Facial laceration, Facial contusion Disposition: HOME SELF-CARE Condition: Stable Instructions (If sedation given, give patient instructions): Head Injury (ED) Additional Instructions: Please return to the Emergency Department if symptoms worsen or any other concerns. Is patient prescribed a controlled substance at d/c from ED?: No Referrals: Yari Valverde MD [Primary Care Provider] - 1-2 days Time of Disposition: 13:31
--- NOTE | 2020-11-13 12:45 | XR ---
EXAMINATION TYPE: XR knee complete RT DATE OF EXAM: 11/13/2020 CLINICAL HISTORY: Pain after fall TECHNIQUE: Three views of the knee are obtained. COMPARISON: Right FINDINGS: There is no acute fracture/dislocation evident in right knee. There are degenerative scott es of the lateral and patellofemoral compartments. Vascular calcifications are present. IMPRESSION: There is no acute fracture or dislocation in the right knee. Degenerative changes of the lateral and patellofemoral compartments.
--- NOTE | 2020-11-13 12:57 | CT ---
EXAMINATION TYPE: CT brain gabbie wo con DATE OF EXAM: 11/13/2020 COMPARISON: None HISTORY: Fall CT DLP: 862.5 mGycm, Automated exposure control for dose reduction was used. CONTRAST: Patient injected with 0 mL of Isovue 300. CT of the brain is performed utilizing 3 mm thick sections through the posterior fossa and 3 mm thick sections through the remaining calvarium. Study is performed within 24 hours of arrival to the hospital. No abnormal hyperdensity is present to suggest an acute intracranial hemorrhage. No mass lesion is evident. No acute infarcts are evident. Ventricles and sulci are appropriate for the patient age. Paranasal sinuses and mastoid air cells within the oqoyq-or-chog are clear. IMPRESSIONS: 1. No acute intracranial process. CT cervical spine. COMPARISON: None CT of the cervical spine is performed in the axial plane at 2 mm thick sections. Reconstructed image s in the coronal, and sagittal plane are reviewed on the computer. No acute fractures are evident. There is minimal grade 1 retrolisthesis of C5 on C4. There is loss of disc height C4-5 C5-6 C6-7. Posterior endplate spurring is present C5-6. Uncovertebr al joint hypertrophy is present C4-5 with moderate right foraminal stenosis. Uncovertebral joint hype rtrophy at C5-6 and severe left foraminal stenosis. Uncovertebral joint hypertrophy at C6-7 is mild f oraminal narrowing. Vertebral body heights are preserved. No spinal canal stenosis is evident. No neural foraminal stenosis is evident. Next unnoticed made of the debris-filled esophagus.. IMPRESSIONS: 1. Degenerative disc changes C5-6 C6-7. Endplate spurring is present C5-6. 2. Minimal retrolisthesis of C5 on C4. 3. Uncovertebral joint hypertrophy contributing to foraminal narrowing.
--- NOTE | 2020-11-13 13:10 | CT ---
EXAMINATION TYPE: CT facial bones wo con DATE OF EXAM: 11/13/2020 COMPARISON: None HISTORY: Fall CT DLP: Included in 862.5 mGycm Automated exposure control for dose reduction was used. Contrast: None Technique: Axial images 0.8 mm thick sections. FINDINGS: Maxillary spine is intact. Nasal bone appears intact. Zygomatic arches are intact. Greater wings of t he sphenoid are normal. Medial orbital mcintosh are intact. Paranasal sinuses are clear right IMPRESSION: 1. NO ACUTE FRACTURES IDENTIFIED.
[2020-11-13 14:06] VITALS: BP 157/96; PULSE 85
== END 2020-11-13 13:40 | disposition home or self-care (01) ==
LOC: EC 11:48
DX: S01.81XA Laceration without foreign body of other part of head, initial encounter (principal); M25.561 Pain in right knee; J44.9 Chronic obstructive pulmonary disease, unspecified; E78.5 Hyperlipidemia, unspecified; M79.7 Fibromyalgia; Z87.891 Personal history of nicotine dependence; Z88.8 Allergy status to other drugs, medicaments and biological substances; Z79.899 Other long term (current) drug therapy; W01.198A Fall on same level from slipping, tripping and stumbling with subsequent striking against other object, initial encounter; Y92.238 Other place in hospital as the place of occurrence of the external cause
CPT/HCPCS: 12011; 70450; 70486; 72125; 99284

== ENCOUNTER → 2020-11-13 | Outpatient (CLI) | payer MEDICARE, BC ==
--- NOTE | 2020-11-17 11:05 | PE ---
EXAMINATION TYPE: PET CT fusion skull to thigh DATE OF EXAM: 11/13/2020 COMPARISON: CT chest 05/01/2020 Prior PET/CT: 06/26/2020 HISTORY: Lymphoma and esophageal cancer TECHNIQUE: Following the intravenous administration of 12.06 mCi of F-18 FDG, whole body images are performed from the skull base to the midthigh. Images are reviewed on the computer in the coronal, a xial, and sagittal planes. Reconstructed rotating images are created on independent workstation and reviewed on the computer. A localization and attenuation correction CT is performed in conjunction with the PET scan. DLP: 403.62 mGycm SCAN: Subsequent Scan Blood glucose: 151 mg/dL Average Mediastinum SUV: 2.09 Average Liver SUV: 2.3 FINDINGS: NECK: No abnormal uptake THORAX: No abnormal uptake ABDOMEN: No abnormal uptake PELVIS: There is a focus of radiotracer accumulation within the iliac chain region with an SUV 9.5 fi ndings suspicious for suspected distal ureter. Solitary lymph node is considered less likely. OSSEOUS STRUCTURES: Extensive diffuse uptake is present throughout the axial and visualized appendicu lar skeleton. Uptake specifically can be identified within focal areas suspicious for metastatic dise ase including the left superior acetabulum. Sacroiliac joints have increased uptake within the medial weightings. Some anterior superior iliac spine uptake is present. Sacral uptake is noted. There are multiple lumbar and thoracic vertebral body levels with increased uptake. Uptake is noted diffusely w ithin ribs. Focal uptake medially in the right humeral head. Uptake is present within the left scapul a at the glenoid within the medial left scapular spine. Uptake is noted within the bilateral proximal diaphyseal humeri greater on the right. Uptake is present within the bilateral femurs greater on the left. LOCALIZATION CT: A colonic interposition is evident. Descending thoracic aorta and pulmonary is 3.5 c m the main pulmonary lesions 2.6 cm. Coronary artery calcifications present. COMPARISON: Previous uptake within the left neck appears resolved. Uptake is within the liver is not identified currently. Extensive osseous metastasis are present. IMPRESSION: 1. New diffuse osseous metastasis. 2. Nonvisualization of the previous hepatic metastases. Additionally, previous left neck uptake is vi sualized currently. 3. Uptake within the right iliac chain region is felt more likely be related to distal ureter althoug h a small lymph node with metastasis should be considered within the differential.
== END | disposition home or self-care (01) ==
LOC: RADPETMAIN 09:40
PROVIDERS: ATTEND Internal Medicine Hematology & Oncology
DX: C83.38 Diffuse large B-cell lymphoma, lymph nodes of multiple sites (principal); C79.51 Secondary malignant neoplasm of bone; Z92.21 Personal history of antineoplastic chemotherapy
CPT/HCPCS: 78815; A9552

== ENCOUNTER 2021-02-12 13:28 | Emergency (ER) | payer MEDICARE, BC ==
[2021-02-12 13:42] VITALS: TEMP 97.7
[2021-02-12] MEDS ORDERED: SODIUM CHLORIDE 0.9% 1,000 ML IV STA (13:43)
--- NOTE | 2021-02-12 13:52 | ED ---
General Adult HPI - General Chief complaint: Weakness Stated complaint: Weakness Time Seen by Provider: 02/12/21 13:42 Source: patient, family, EMS Mode of arrival: EMS Limitations: no limitations - History of Present Illness Initial comments: Dictation was produced using [employer] dictation software. please excuse any grammatical, word or spelling errors. Chief Complaint: 66-year-old female past medical history of lymphoma, COPD 5 rhe umatology presents to the emergency department for weakness and body aches History of Present Illness: It is a 66-year-old female patient at the flu vaccine yesterday. This morning she woke up with severe body aches to her whole body. Patient has history of lymphoma. Earlier this year she had chemotherapy. She is planning on having chemotherapy urine the near future once cleared by her oncologist. Patient denies any fever. No chills. No chest pain or shortness of breath. No right nose. She states that she has body aches to shoulders, back, chest and legs. The ROS documented in this emergency department record has been reviewed and confirmed by me. Those systems with pertinent positive or negative responses have been documented in the HPI. All other systems are other negative and/or noncontributory. PHYSICAL EXAM: General Impression: Alert and oriented x3, mildly lethargic HEENT: Normocephalic atraumatic, extra-ocular movements intact, pupils equal and reactive to light bilaterally, dry mucous membranes Cardiovascular: Heart regular rate and rhythm Chest: Able to complete full sentences, no retractions, no tachypnea Abdomen: abdomen soft, non-tender, non-distended, no organomegaly Musculoskeletal: Pulses present and equal in all extremities, no peripheral edema Motor: no focal deficits noted Neurological: CN II-XII grossly intact, no focal motor or sensory deficits noted Skin: Intact with no visualized rashes Psych: Normal affect and mood ED course: 66-year-old female presents to the emergency department for body aches and increased weakness. Vital signs upon arrival shows findings within acceptable limits. Patient has no localizing symptoms. So likely secondary to immune reaction to the flu vaccine. However patient does appear to be slightly ill-appearing. Laboratory evaluation unremarkable. CBC is negative. Electrolytes are normal. No signs of dehydration. Patient observed in the emergency department for approximately 1 hour 30 minutes patient is reevaluated at bedside at 3 PM found to be in stable medical condition. Disposition options were discussed patient is agreeable at home. We do have our case management associate in the emergency room now. Patient is agreeable to have home health care nurse to check on her tomorrow. Home health care nurse will be arranged by Verónica our case management associate EKG interpretation: Ventricular rate 87, normal sinus rhythm, IA interval 150, QRS 84, QTC 433. No IA prolongation, no QTC prolongation, no ST or T-wave changes noted. Overall, this EKG is unremarkable - Related Data Home Medications Medication Instructions Recorded Confirmed Atorvastatin [Lipitor] 20 mg PO HS 07/01/20 11/13/20 Divalproex [Depakote] 1,000 mg PO HS 07/01/20 11/13/20 Fenofibrate Nanocrystallized 145 mg PO DAILY 07/01/20 11/13/20 [Tricor] Folic Acid 1 mg PO DAILY 07/01/20 11/13/20 Omeprazole 40 mg PO DAILY 07/01/20 11/13/20 Propranolol [Inderal] 40 mg PO DAILY@1200 07/01/20 11/13/20 Cholecalciferol [Vitamin D3 (25 50 mcg PO DAILY 10/02/20 11/13/20 Mcg = 1000 Iu)] FLUoxetine HCL [PROzac] 20 mg PO DAILY 10/02/20 11/13/20 LORazepam [Ativan] 0.5 mg PO BID 10/02/20 11/13/20 hydrOXYzine HCL [Atarax] 50 mg PO HS 10/02/20 11/13/20 oxyCODONE HCL [OxyCONTIN] 20 mg PO Q8H 10/02/20 11/13/20 traZODone HCL [Desyrel] 50 - 100 mg PO HS PRN 10/02/20 11/13/20 Sennosides-Docusate Sodium 1 tab PO BID 11/13/20 11/13/20 [Senokot-S] Allergies Allergy/AdvReac Type Severity Reaction Status Date / Time bendamustine [From Bendeka] AdvReac Itching Verified 11/13/20 13:13 Review of Systems ROS Statement: Those systems with pertinent positive or pertinent negative responses have been documented in the HPI. ROS Other: All systems not noted in ROS Statement are negative. 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 06/2020 pet scan showed mets to L neck/liver/sacrum per pt. 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 History of Any Multi-Drug Resistant Organisms: None Reported Past Surgical History: Section, Cholecystectomy, Orthopedic Surgery, Tonsillectomy Additional Past Surgical History / Comment(s): 2008 R groin tumor removed, extensive esophageal surgery/esophagectomy/stomach brought up and attached, R sided port, R elbow fracture/radial head removed, colonoscopy. Past Anesthesia/Blood Transfusion Reactions: No Reported Reaction Additional Past Anesthesia/Blood Transfusion Reaction / Comment(s): Pt received blood with esophagectomy surgery without reaction. Past Psychological History: Bipolar Smoking Status: Former smoker Past Alcohol Use History: None Reported Past Drug Use History: None Reported - Past Family History Mother History Unknown: Yes Additional Family Medical History / Comment(s): patient adopted and does not know family history General Exam Limitations: no limitations Course Vital Signs 02/12/21 13:36 Temperature 97.7 F Pulse Rate 92 Respiratory 20 Rate Blood Pressure 121/62 O2 Sat by Pulse 95 Oximetry Medical Decision Making - Lab Data Result diagrams: 02/12/21 14:00 02/12/21 14:00 Lab Results 02/12/21 02/12/21 02/12/21 Range/Units 14:00 14:00 14:00 WBC 4.0 (3.8-10.6) k/uL RBC 4.19 (3.80-5.40) m/uL Hgb 12.9 (11.4-16.0) gm/dL Hct 36.7 (34.0-46.0) % MCV 87.8 (80.0-100.0) fL MCH 30.8 (25.0-35.0) pg MCHC 35.1 (31.0-37.0) g/dL RDW 12.6 (11.5-15.5) % MPV 7.3 Sodium 134 L (137-145) mmol/L Potassium 3.5 (3.5-5.1) mmol/L Chloride 99 (98-107) mmol/L Carbon Dioxide 26 (22-30) mmol/L Anion Gap 9 mmol/L BUN 5 L (7-17) mg/dL Creatinine 0.62 (0.52-1.04) mg/dL Est GFR (CKD-EPI)AfAm >90 (>60 ml/min/1.73 sqM) Est GFR (CKD-EPI)NonAf >90 (>60 ml/min/1.73 sqM) Glucose 162 H (74-99) mg/dL Plasma Lactic Acid Med 2.0 (0.7-2.0) mmol/L Calcium 9.1 (8.4-10.2) mg/dL Magnesium 1.6 (1.6-2.3) mg/dL Disposition Clinical Impression: Weakness Disposition: HOME SELF-CARE Condition: Good Instructions (If sedation given, give patient instructions): Weakness (ED) Is patient prescribed a controlled substance at d/c from ED?: No Referrals: Yvonne Muñiz MD [STAFF PHYSICIAN] - 1-2 days
[2021-02-12 14:22] LABS: African American GFR (CKD) >90 (>60 ml/min/1.73 sqM); Anion Gap 9 mmol/L; Blood Urea Nitrogen 5 mg/dL (7-17); Calcium 9.1 mg/dL (8.4-10.2); Carbon Dioxide 26 mmol/L (22-30); Chloride 99 mmol/L (98-107); Glucose 162 mg/dL (74-99); Magnesium 1.6 mg/dL (1.6-2.3); Non-African American GFR(CKD) >90 (>60 ml/min/1.73 sqM); Potassium 3.5 mmol/L (3.5-5.1); Sodium 134 mmol/L (137-145)
[2021-02-12 14:28] LABS: HCT 36.7 % (34.0-46.0); HGB 12.9 gm/dL (11.4-16.0); MCH 30.8 pg (25.0-35.0); MCHC 35.1 g/dL (31.0-37.0); MCV 87.8 fL (80.0-100.0); Mean Platelet Volume 7.3; RBC 4.19 m/uL (3.80-5.40); RDW 12.6 % (11.5-15.5)
[2021-02-12] MEDS ORDERED: MORPHINE SULFATE 4 MG/ML SYRINGE IM STA (14:40)
[2021-02-12 15:05] LABS: Platelet Count 98 k/uL (150-450)
[2021-02-12 15:09] LABS: Band Neutrophils % 6 %; Eosinophils # (M) 0.24 k/uL (0-0.7); Lymphocytes # (M) 0.48 k/uL (1.0-4.8); Monocytes # (M) 0.12 k/uL (0-1.0); Neutrophils % (M) 73 %; Nucleated Red Blood Cells 0 /100 WBC (0-0); Total Cells Counted 100
[2021-02-12 17:25] VITALS: BP 128/82; PULSE 82; RESP 18
== END 2021-02-12 15:31 | disposition home or self-care (01) ==
LOC: EC 13:28
DX: R53.1 Weakness (principal); J44.9 Chronic obstructive pulmonary disease, unspecified; E78.5 Hyperlipidemia, unspecified; Z87.891 Personal history of nicotine dependence; Z88.8 Allergy status to other drugs, medicaments and biological substances; Z79.899 Other long term (current) drug therapy
CPT/HCPCS: 36415; 93005; 80048; 83605; 83735; 85025; 99285; 96360; 96372; J2270

== ENCOUNTER → 2021-02-19 | Outpatient (CLI) | payer MEDICARE, BC ==
--- NOTE | 2021-02-21 06:30 | PE ---
EXAMINATION TYPE: PET CT fusion skull to thigh DATE OF EXAM: 02/19/2021 COMPARISON: Most recent PET/CT November 13, 2020 and older studies HISTORY: History of diffuse large B-cell lymphoma right groin diagnosed 2009 and esophageal cancer di agnosed 2018 completed chemotherapy 6 months ago for adenopathy recurrence left neck. TECHNIQUE: Following the intravenous administration of 13.7 mCi of F-18 FDG, whole body images are p erformed from the skull base to the midthigh. Images are reviewed on the computer in the coronal, ax ial, and sagittal planes. Reconstructed rotating images are created on independent workstation and r eviewed on the computer. A localization and attenuation correction CT is performed in conjunction w ith the PET scan. Blood glucose level equals 127 SCAN: Subsequent Scan FINDINGS: SKULL BASE AND NECK: No suspicious abnormal hypermetabolic new lymph nodes. New uptake anterior cerv ical muscular level may be inflammatory. New uptake anterior tongue base presumed contamination. Symm etric uptake level of vocal cords may be product of phonation. CHEST, MEDIASTINUM, AND HILAR REGION: No new areas of abnormal hypermetabolic uptake ABDOMEN AND PELVIS: No new areas of abnormal hypermetabolic uptake. No recurrent suspicious areas of abnormal uptake in the liver. No suspicious persistent uptake in the right pelvis. OSSEOUS STRUCTURES: Mild uptake left proximal sternum consistent with healing or subacute fracture as there is sclerosis axial image 65, correlate clinically. Mild diffuse osseous uptake from prior PET shows improvement. OTHER CT: OTHER CT: Generalized frontal and temporal lobe atrophy in the visualized brain parenchyma. Stable right subclavian Mediport catheter. Moderate to severe three-vessel coronary artery calcificat ion redemonstrated. Postesophagectomy changes with gastric pull up procedure are redemonstrated. Moderate to severe calcified plaque of the aorta extends into branch vessels. Scattered bilateral pel andrea phleboliths. Slight scoliotic curvature is redemonstrated. IMPRESSION: No new areas of abnormal hypermetabolic uptake to suggest active neoplastic recurrence. S ubacute or healing proximal left sternal fracture new from most recent PET/CT. [facility] trauma.
== END | disposition home or self-care (01) ==
LOC: RADPETMAIN 15:06
PROVIDERS: ATTEND Internal Medicine Hematology & Oncology
DX: S22.20XA Unspecified fracture of sternum, initial encounter for closed fracture (principal); C83.80 Other non-follicular lymphoma, unspecified site; C15.5 Malignant neoplasm of lower third of esophagus; X58.XXXA Exposure to other specified factors, initial encounter
CPT/HCPCS: 78815; A9552

== ENCOUNTER 2021-05-27 10:35 | Emergency (ER) | payer MEDICARE, BC ==
[2021-05-27 10:46] VITALS: RESP 18; TEMP 98.2
[2021-05-27] MEDS ORDERED: LIDOCAINE 1% INJ 10MG/ML (20 ML MDV) SQ STA (11:48)
--- NOTE | 2021-05-27 11:59 | ED ---
Fall HPI - General Chief Complaint: Fall Stated Complaint: Fall Time Seen by Provider: 05/27/21 11:46 Source: patient, EMS Mode of arrival: EMS - History of Present Illness Initial Comments: This is a pleasant 66-year-old female who arrives via EMS after having a mechanical fall at home. Patient slipped in the bathtub and hit the back of her head on tile. She did sustain a laceration. There is no loss of consciousness. She denies any vision or hearing problems. She is complaining of some pain to the back or head and neck. Patient has severe osteoarthritis of her back and spine and is on chronic pain medications. Patient usually takes oxycodone at home but apparently took too many. She is out of the medication and does not get the refill until Monday. She denied any preceding symptomology. No syncopal episodes. No chest pain. No shortness of breath. No abdominal pain. No nausea or vomiting. when she urination. Patient does use a walker at home but has generalized weakness due to long-standing osteoarthritis and previous cancer. No focal weakness. No fever or chills. Tetanus up-to-date. MD Complaint: fall - Related Data Home Medications Medication Instructions Recorded Confirmed Atorvastatin [Lipitor] 20 mg PO HS 07/01/20 05/27/21 Divalproex [Depakote] 1,000 mg PO HS 07/01/20 05/27/21 Fenofibrate Nanocrystallized 145 mg PO DAILY 07/01/20 05/27/21 [Tricor] Folic Acid 1 mg PO DAILY 07/01/20 05/27/21 Omeprazole 40 mg PO DAILY 07/01/20 05/27/21 Propranolol [Inderal] 20 mg PO BID 07/01/20 05/27/21 Cholecalciferol [Vitamin D3 (25 50 mcg PO DAILY 10/02/20 05/27/21 Mcg = 1000 Iu)] FLUoxetine HCL [PROzac] 20 mg PO DAILY 10/02/20 05/27/21 oxyCODONE HCL [OxyCONTIN] 20 mg PO Q8H 10/02/20 05/27/21 traZODone HCL [Desyrel] 50 - 100 mg PO HS PRN 10/02/20 05/27/21 LORazepam [Ativan] 1 mg PO BID PRN 05/27/21 05/27/21 hydrOXYzine HCL [Atarax] 25 mg PO TID PRN 05/27/21 05/27/21 Allergies Allergy/AdvReac Type Severity Reaction Status Date / Time bendamustine [From Bendeka] AdvReac Itching Verified 05/27/21 12:18 Review of Systems ROS Statement: Those systems with pertinent positive or pertinent negative responses have been documented in the HPI. ROS Other: All systems not noted in ROS Statement are negative. 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 06/2020 pet scan showed mets to L neck/liver/sacrum per pt. 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 History of Any Multi-Drug Resistant Organisms: None Reported Past Surgical History: Section, Cholecystectomy, Orthopedic Surgery, Tonsillectomy Additional Past Surgical History / Comment(s): 2008 R groin tumor removed, extensive esophageal surgery/esophagectomy/stomach brought up and attached, R sided port, R elbow fracture/radial head removed, colonoscopy. Past Anesthesia/Blood Transfusion Reactions: No Reported Reaction Additional Past Anesthesia/Blood Transfusion Reaction / Comment(s): Pt received blood with esophagectomy surgery without reaction. Past Psychological History: Bipolar Smoking Status: Former smoker Past Alcohol Use History: None Reported Past Drug Use History: None Reported - Past Family History Mother History Unknown: Yes Additional Family Medical History / Comment(s): patient adopted and does not know family history General Exam - General Exam Comments Initial Comments: Patient does not appear to be ill or toxic. No evidence of focal neurologic deficit. Alert and oriented. Cranial nerves II-12 grossly intact Limitations: no limitations General appearance: alert, in no apparent distress, in distress Head exam: Present: atraumatic, normocephalic, normal inspection Eye exam: Present: normal appearance, PERRL, EOMI. Absent: scleral icterus, conjunctival injection, periorbital swelling ENT exam: Present: normal exam, mucous membranes moist Neck exam: Present: normal inspection, other (Mild cervical paraspinal midline tenderness. Cervical collar in place). Absent: tenderness, meningismus, lymphadenopathy Respiratory exam: Present: normal lung sounds bilaterally. Absent: respiratory distress, wheezes, rales, rhonchi, stridor Cardiovascular Exam: Present: regular rate, normal rhythm, normal heart sounds. Absent: systolic murmur, diastolic murmur, rubs, gallop, clicks GI/Abdominal exam: Present: soft, normal bowel sounds. Absent: distended, tenderness, guarding, rebound, rigid Extremities exam: Present: normal inspection, full ROM, normal capillary refill, other (No significant tenderness throughout the remainder [place] skeletal exam. No midline tenderness of thoracic or lumbar spine. Full range of motion all major joints. Full muscle strength on major muscle groups.). Absent: te nderness, pedal edema, joint swelling, calf tenderness Back exam: Present: normal inspection Neurological exam: Present: alert, oriented X3, CN II-XII intact, motor sensory deficit, other (No focal deficits. Kianna Coma Scale is 15.) Psychiatric exam: Present: normal affect, normal mood Skin exam: Present: warm, dry, intact, normal color. Absent: rash Course Vital Signs 05/27/21 10:39 Temperature 98.2 F Pulse Rate 82 Respiratory 18 Rate Blood Pressure 121/67 O2 Sat by Pulse 98 Oximetry - Reevaluation(s) Reevaluation #1: 05/27/21 13:[address] Patient neurologically intact. No change in neurologic status. Patient is complaining of pain to her neck. Note the patient is out of her oxycodone is likely having more pain than usual. I did order 1 dose of pain medication here. Patient will need to follow up with her pain management physician for any further pain control. Procedures - Laceration Laceration #1 Indication: laceration Site: scalp Size (cm): 2 Description: irregular Depth: simple, single layer Anesthetic Used: lidocaine 1% Anesthesia Technique: local infiltration Pre-repair: wound explored, irrigated extensively, deep structures intact, wound margins revised Type of Sutures: other (tessie, #4) Complications: pain Patient Tolerated Procedure: well, no complications Medical Decision Making - Medical Decision Making Patient percents after having a mechanical fall. Laceration posterior scalp and pain to the cervical spine area. Does not appear to have any other significant injuries. Tetanus status up-to-date. CT head and neck ordered. I did agree to give the patient 1 dose of pain medication here. However she is under pain management with her physician. She'll need to obtain further pain medications through her doctor at home. I did give the patient a dose of pain medication here. CT brain and cervical spine free of acute pathology. I did review the films myself. I told the patient and her significant other that they need to follow up with the pain management physician for further options for pain control. Patient did run short on her oxycodone. Head injury instructions discussed. All other questions answered. Fall precautions discussed. Patient told to use her walker at all times. I did offer admission to the patient. Both the patient and these other wanted to be discharged. Staple removal in 10 days. The case was discussed in detail with ED attending physician. Presentation, findings, treatment plan discussed in detail. Patient was told to return to the ER for any signs or symptoms worsen. Told to return immediately if any other problems arise. All questions answered. Treatment plan discussed. Patient in agreement Disposition Clinical Impression: Closed head injury, Fall, Occipital scalp laceration, Chronic pain Disposition: HOME SELF-CARE Condition: Good Instructions (If sedation given, give patient instructions): Fall Prevention for Older Adults (ED), Staple Care (ED), Laceration (ED) Additional Instructions: Follow-up with your regular physician as directed. Return to the ER immediately if any symptoms worsen, new symptoms arise, or any other problems develop. Call your pain management physician today for further pain control options. I can only give you one dose of pain medication here. Any further pain medication/controlled substances will need to be obtained 3 regular doctor. You can use regular Tylenol for pain control in the interim. Use the Tylenol as directed on the bottle. Make sure usual walker at all times. Review the head injury instructions and the fall precautions. Staple removal in 10 days. You can wash her hair gently with regular shampoo and water. Ensure that he did not pull the tessie out. Be very gentle with the area. Return immediately if any signs or symptoms of infection develop. Is patient prescribed a controlled substance at d/c from ED?: No Referrals: Yari Valverde MD [Primary Care Provider] - 1-2 days Decision Time: 13:33
--- NOTE | 2021-05-27 12:55 | CT ---
EXAMINATION TYPE: CT brain cspine wo con DATE OF EXAM: 05/27/2021 COMPARISON: Prior exam 11/13/2020 HISTORY: Fall, injury. Trauma and pain CT DLP: 1250.4 mGycm Automated exposure control for dose reduction was used. TECHNIQUE: CT scan of the head and cervical spine are performed without contrast. FINDINGS: There is no acute intracranial hemorrhage, mass effect, or midline shift identified. The ventricles and sulci are within normal limits in size. The globes are intact and the visualized sin uses are clear. There are cerebral vascular calcifications. Cortical atrophy is present. Periventricu lar white matter shows patchy low attenuation as on prior exam. Cervical spine is visualized in its entirety from C1 through upper thoracic levels and demonstrates s table alignment without evidence of acute fracture or dislocation, there is spondylosis, anterolisthe sis grade 1 C4-5 as on prior. Loss of disc height present C4-5, C5-6 and C6-7, there is multilevel sp ondylosis, associated facet arthropathy change multilevel foraminal encroachment. Prevertebral soft t issue appears within normal limits. The C1-C2 articulation is unremarkable. Right subclavian centra l venous port is present. Dense calcifications are present within the carotid bulb region on the left . There is postop change along the esophagus, gastric pull-through, partially visualized. IMPRESSION: 1. There is no acute fracture or dislocation evident in the cervical spine. 2. No acute intracranial hemorrhage, mass effect, or midline shift is seen. 3. Carotid artery atherosclerotic disease is present.
[2021-05-27] MEDS ORDERED: HYDROcodone/APAP 5-325MG 1 EACH TAB PO STA (13:11)
[2021-05-27 14:12] VITALS: BP 111/58; PULSE 69
== END 2021-05-27 14:12 | disposition home or self-care (01) ==
LOC: EC 10:35 → SUPCPDRO 10:35 → EC 14:12
DX: S09.90XA Unspecified injury of head, initial encounter (principal); S01.01XA Laceration without foreign body of scalp, initial encounter; J44.9 Chronic obstructive pulmonary disease, unspecified; E78.5 Hyperlipidemia, unspecified; Z88.8 Allergy status to other drugs, medicaments and biological substances; Z87.891 Personal history of nicotine dependence; Z79.899 Other long term (current) drug therapy; W18.2XXA Fall in (into) shower or empty bathtub, initial encounter; Y92.009 Unspecified place in unspecified non-institutional (private) residence as the place of occurrence of the external cause
CPT/HCPCS: 72125; 70450; 99284; 12001; J2001

== ENCOUNTER → 2021-06-18 | Outpatient (CLI) | payer MEDICARE, BC ==
--- NOTE | 2021-06-21 07:14 | PE ---
EXAMINATION TYPE: PET CT fusion skull to thigh DATE OF EXAM: 06/18/2021 COMPARISON: Prior PET/CT February 19, 2021 and older studies HISTORY: Diffuse B-cell lymphoma diagnosed right groin 2008 and esophageal cancer diagnosed 2018. TECHNIQUE: Following the intravenous administration of 7.65mCi of F-18 FDG, whole body images are pe rformed from the skull base to the midthigh. Images are reviewed on the computer in the coronal, axi al, and sagittal planes. Reconstructed rotating images are created on independent workstation and re viewed on the computer. A localization and attenuation correction CT is performed in conjunction wi th the PET scan. Blood glucose level equals 1:30 SCAN: Subsequent Scan FINDINGS: Mean SUV mediastinum: 1.28 Mean SUV liver: 3.03 SKULL BASE AND NECK: No suspicious abnormal hypermetabolic new lymph nodes or new abnormal hypermeta bolic uptake. CHEST, MEDIASTINUM, AND HILAR REGION: No new areas of abnormal hypermetabolic uptake. Surgical change s from esophagectomy and gastric pull up procedure are redemonstrated. ABDOMEN AND PELVIS: No new areas of abnormal hypermetabolic uptake. No recurrent suspicious areas of abnormal focal uptake in the liver. Mild diffuse uptake is present. No new abnormal uptake in the rig ht pelvis. OSSEOUS STRUCTURES: Interval resolution of mild uptake left proximal clavicle at sternoclavicular moises nt. Mild horizontal uptake superior L2 endplate corresponds to site of mild height loss consistent wi subacute compression type fracture. OTHER CT: Generalized frontal and temporal lobe atrophy in the visualized brain parenchyma redemonstr ated. Stable right subclavian Mediport catheter. Moderate to severe three-vessel coronary artery calcificat ion redemonstrated. Moderate to severe calcified plaque of the abdominal aorta extends into branch vessels. Colonic inter position. Scattered bilateral pelvic phleboliths. Scar tissue right groin. Slight scoliotic curvature is redemonstrated. IMPRESSION: No new areas of abnormal hypermetabolic uptake to suggest active neoplastic recurrence. S ubacute mild compression type fracture L2 level is new from prior PET/CT.
== END | disposition home or self-care (01) ==
LOC: RADPETMAIN 10:25
PROVIDERS: ATTEND Internal Medicine Hematology & Oncology
DX: C83.30 Diffuse large B-cell lymphoma, unspecified site (principal); Z85.01 Personal history of malignant neoplasm of esophagus; M48.56XA Collapsed vertebra, not elsewhere classified, lumbar region, initial encounter for fracture
CPT/HCPCS: 78815; A9552

== ENCOUNTER 2022-02-01 09:10 | Day surgery (SDC) | payer MEDICARE, BC ==
[~2022-02-01 09:10] MED LIST changes: +LACTATED RINGERS 1,000 ML IV SCH; +LIDOCAINE 1% (10MG/ML) FOR IV START INTRADERMA PRN; -SODIUM CHLORIDE 0.9% 1,000 ML IV SCH
[2022-02-01 10:02] VITALS: TEMP 97.3
[2022-02-01] MEDS ORDERED: PROPOFOL 10 MG/ML 20 ML VIAL IV ONE (10:29)
--- NOTE | 2022-02-01 10:35 | P.GSHP ---
History of Present Illness H&P Date: 02/01/22 Chief Complaint: Esophageal cancer 66-year-old female here today for upper endoscopy. Patient with history of esophagus cancer. This was treated with esophagectomy in 2018. No dysphagia. No significant reflux symptoms. Here for evaluation. 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 06/2020 pet scan showed mets to L neck/liver/sacrum per pt. 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 Pt states she takes inderal for shakes not BP. History of Any Multi-Drug Resistant Organisms: None Reported Past Surgical History: Section, Cholecystectomy, Orthopedic Surgery, Tonsillectomy Additional Past Surgical History / Comment(s): 2008 R groin tumor removed, extensive esophageal surgery/esophagectomy/stomach brought up and attached, R sided port, R elbow fracture/radial head removed, colonoscopy. Past Anesthesia/Blood Transfusion Reactions: No Reported Reaction Additional Past Anesthesia/Blood Transfusion Reaction / Comment(s): Pt received blood with esophagectomy surgery without reaction. Smoking Status: Former smoker - Past Family History Mother History Unknown: Yes Additional Family Medical History / Comment(s): patient adopted and does not know family history Medications and Allergies Home Medications Medication Instructions Recorded Confirmed Type Atorvastatin [Lipitor] 20 mg PO HS 07/01/20 02/01/22 History Divalproex [Depakote] 1,000 mg PO HS 07/01/20 02/01/22 History Fenofibrate Nanocrystallized 145 mg PO DAILY 07/01/20 02/01/22 History [Tricor] Folic Acid 1 mg PO DAILY 07/01/20 02/01/22 History Omeprazole 40 mg PO DAILY 07/01/20 02/01/22 History Propranolol [Inderal] 20 mg PO BID 07/01/20 02/01/22 History Cholecalciferol [Vitamin D3 (25 50 mcg PO DAILY 10/02/20 02/01/22 History Mcg = 1000 Iu)] oxyCODONE HCL [OxyCONTIN] 20 mg PO Q8H 10/02/20 02/01/22 History LORazepam [Ativan] 1 mg PO BID PRN 05/27/21 02/01/22 History hydrOXYzine HCL [Atarax] 25 mg PO TID PRN 05/27/21 02/01/22 History Cariprazine HCl [Vraylar] 1.5 mg PO DAILY 02/01/22 02/01/22 History Allergies Allergy/AdvReac Type Severity Reaction Status Date / Time bendamustine [From Bendeka] AdvReac Itching Verified 02/01/22 09:50 Surgical - Exam Vital Signs Temp Pulse Resp BP Pulse Ox 97.3 F L 63 16 156/72 99 02/01/22 09:55 02/01/22 09:55 02/01/22 09:55 02/01/22 09:55 02/01/22 09:55 Physical exam: General: Well-developed, well-nourished HEENT: Normocephalic, sclerae nonicteric Abdomen: Nontender, nondistended Extremities: No edema Neuro: Alert and oriented Assessment and Plan (1) Esophageal cancer Narrative/Plan: Will proceed with upper endoscopy Current Visit: Yes Status: Acute Code(s): C15.9 - MALIGNANT NEOPLASM OF ESOPHAGUS, UNSPECIFIED SNOMED Code(s): 021307388
--- NOTE | 2022-02-01 10:49 | P.PCN ---
Date of Procedure: 02/01/22 Procedure(s) Performed: Preoperative Dx: Esophageal cancer Postoperative Dx: Minimal gastritis Procedure: EGD with Bx Anesthesia: Sedation Endoscopist: Dr. Diaz Specimens: The antrum Endoscopic Procedure: The patient was on the endoscopy table in the left decubitus position. The Olympus gastroscope was inserted into the oropharynx and passed under direct visualization to the region of the third portion of the duodenum. From that point the scope was slowly withdrawn inspecting all surfaces carefully. There were no neoplastic inflammatory or polypoid lesions throughout the duodenum. The pylorus was widely patent. The stomach was carefully inspected. There was minimal gastritis present. A biopsy of the antrum took place. The patient had evidence of previous esophagogastrectomy. The proximal stomach was narrowed consistent with her previous surgery. The anastomosis to the proximal to mid esophagus was widely patent and without inflammatory changes or neoplastic changes. The patient was then taken to the recovery room in stable condition per anesthesia guidelines. Recommendations: Await biopsy results. Resume diet.
[2022-02-01 11:12] VITALS: BP 130/73; PULSE 63; RESP 15
== END 2022-02-01 11:26 | disposition home or self-care (01) ==
LOC: ORWHC2ENDO 09:10
PROVIDERS: ATTEND Surgery
DX: K29.50 Unspecified chronic gastritis without bleeding (principal); J44.9 Chronic obstructive pulmonary disease, unspecified; C83.30 Diffuse large B-cell lymphoma, unspecified site; M79.7 Fibromyalgia; E78.5 Hyperlipidemia, unspecified; M19.90 Unspecified osteoarthritis, unspecified site; G89.29 Other chronic pain; G62.9 Polyneuropathy, unspecified; M85.80 Other specified disorders of bone density and structure, unspecified site; G56.03 Carpal tunnel syndrome, bilateral upper limbs; Z98.891 History of uterine scar from previous surgery; Z90.89 Acquired absence of other organs; Z98.890 Other specified postprocedural states; Z87.891 Personal history of nicotine dependence; Z84.89 Family history of other specified conditions; Z79.899 Other long term (current) drug therapy; Z88.8 Allergy status to other drugs, medicaments and biological substances; Z92.21 Personal history of antineoplastic chemotherapy; Z85.01 Personal history of malignant neoplasm of esophagus
CPT/HCPCS: 88305; 43239; J2704

== ENCOUNTER → 2023-05-11 | Outpatient (CLI) | payer MEDICARE, BC ==
--- NOTE | 2023-05-15 16:55 | PE ---
EXAMINATION TYPE: PET CT fusion skull to thigh DATE OF EXAM: 05/11/2023 COMPARISON: No pertinent recent CT Prior PET/CT: 07/01/2022 HISTORY: Esophageal cancer TECHNIQUE: Following the intravenous administration of 11.84 mCi of F-18 FDG, whole body images are performed from the skull base to the midthigh. Images are reviewed on the computer in the coronal, a xial, and sagittal planes. Reconstructed rotating images are created on independent workstation and reviewed on the computer. A localization and attenuation correction CT is performed in conjunction with the PET scan. DLP: 689.41 mGycm SCAN: Subsequent Blood glucose: 155 mg/dL Average Mediastinum SUV: 2.72 Average Liver SUV: 3.91 FINDINGS: NECK: Note is made of some mild inflammatory change in the right maxillary sinus. THORAX: Some inflammatory change appears to be at the right shoulder glenohumeral junction. No suspicious uptake through the gastric pull-through/colonic interposition region. ABDOMEN: No abnormal uptake PELVIS: No abnormal uptake OSSEOUS STRUCTURES: There is some uptake within the posterior lateral right rib, image 88. SUV 3.[address]: Coronary artery calcification is present. Vascular calcifications through the aorta. Small periumbilical fat-containing hernia is present. Diverticular changes are within the colon COMPARISON: No significant interval change IMPRESSION: 1. No suspicious abnormality to suggest metastatic or recurrent esophageal cancer.
== END | disposition home or self-care (01) ==
LOC: RADPETMAIN 06:48
PROVIDERS: ATTEND Internal Medicine Hematology & Oncology
DX: C15.5 Malignant neoplasm of lower third of esophagus (principal)
CPT/HCPCS: 78815; A9552

== ENCOUNTER → 2023-08-31 | Outpatient (CLI) | payer MEDICARE, BC ==
[2023-08-31 16:01] LABS: African American GFR (CKD) >90 (>60 ml/min/1.73 sqM); Blood Urea Nitrogen 11 mg/dL (7-17); Non-African American GFR(CKD) 84 (>60 ml/min/1.73 sqM)
--- NOTE | 2023-09-01 08:15 | CT ---
EXAMINATION TYPE: CT ChestAbdPelvis w con DATE OF EXAM: 08/31/2023 COMPARISON: CT chest 05/01/[address] fusion 05/11/2023 HISTORY: esophagus ca CT DLP: 1240 mGycm CONTRAST: CT scan of the chest, abdomen and pelvis is performed with Oral Contrast and with IV Contrast, patien t injected with 100 mL of Isovue 300. CT Chest: LUNGS: The lungs are clear and free of infiltrate or atelectasis. No pulmonary nodule or mass is det ected. No pleural effusion or CT evidence of interstitial lung disease. Radiation therapy changes le ft upper lobe. MEDIASTINUM: There is evidence of esophagectomy with gastric pull-through procedure. No evidence for recurrent mass. Thoracic aorta is of normal caliber. The heart is not enlarged. No evidence for me diastinal mass or adenopathy. HILAR STRUCTURES: No evidence for mass. No hilar adenopathy is appreciated. OTHER: No significant abnormality. CONTRAST CT ABDOMEN AND PELVIS FINDINGS: LIVER/GB: Cholecystectomy with post cholecystectomy prominence of the intra and extrahepatic biliary tree. No space occupying hepatic lesion. PANCREAS: No inflammation. No distinct mass. SPLEEN: No splenic enlargement. No lesion seen. ADRENALS: No nodule. No thickening. KIDNEYS/BLADDER: No hydronephrosis. No nephrolithiasis. No disctinct renal mass. BOWEL: Normal appendix. Normal bowel caliber. No inflammation. GENITAL ORGANS: No gross abnormality. LYMPH NODES: No greater than 1cm abdominal or pelvic lymph nodes are appreciated. AORTA: No significant abnormality. OSSEOUS STRUCTURES: No significant abnormality is seen. OTHER: No significant additional abnormality is seen. IMPRESSION: 1. No evidence for tumor recurrence or metastatic disease.
== END | disposition home or self-care (01) ==
LOC: RADCTMAIN 14:50
PROVIDERS: ATTEND Internal Medicine Hematology & Oncology
DX: C15.5 Malignant neoplasm of lower third of esophagus (principal); C83.30 Diffuse large B-cell lymphoma, unspecified site; R91.1 Solitary pulmonary nodule; M06.9 Rheumatoid arthritis, unspecified; Z71.3 Dietary counseling and surveillance
CPT/HCPCS: 82565; 84520; 71260; 74177; 36415; Q9967

== ENCOUNTER 2023-09-04 10:15 | Emergency (ER) | payer MEDICARE, BC ==
[2023-09-04 10:33] VITALS: TEMP 98
--- NOTE | 2023-09-04 10:43 | ED ---
Fall HPI - General Chief Complaint: Fall Stated Complaint: Fall Time Seen by Provider: 09/04/23 10:18 Source: patient, EMS, RN notes reviewed Mode of arrival: EMS Limitations: no limitations - History of Present Illness Initial Comments: This is a 68 year old female who presents to the emergency department for a fall. Patient presents from home where she fell from a standing position, landing on her back. States that she tripped over her own feet. Denies any chest pain or shortness of breath prior to the fall. She also denies of any dizziness before the fall. She did hit her head. Denies any loss of consciousness. Not taking any blood thinners. Currently complaining of pain to her head, both shoulders, and both hips. MD Complaint: fall - Related Data Home Medications Medication Instructions Recorded Confirmed Divalproex [Depakote] 1,000 mg PO HS 07/01/20 09/01/23 Omeprazole 40 mg PO DAILY 07/01/20 09/01/23 Propranolol [Inderal] 20 mg PO BID 07/01/20 09/01/23 Cholecalciferol [Vitamin D3 (25 50 mcg PO DAILY 10/02/20 09/01/23 Mcg = 1000 Iu)] oxyCODONE HCL [OxyCONTIN] 20 mg PO Q8H 10/02/20 09/01/23 LORazepam [Ativan] 1 mg PO BID PRN 05/27/21 09/01/23 hydrOXYzine HCL [Atarax] 25 mg PO TID PRN 05/27/21 09/01/23 Cariprazine HCl [Vraylar] 1.5 mg PO DAILY 02/01/22 09/01/23 Allergies Allergy/AdvReac Type Severity Reaction Status Date / Time bendamustine [From Bendeka] AdvReac Itching Verified 09/01/23 09:26 Review of Systems ROS Statement: Those systems with pertinent positive or pertinent negative responses have been documented in the HPI. ROS Other: All systems not noted in ROS Statement are negative. 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 06/2020 pet scan showed mets to L neck/liver/sacrum per pt. 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 Pt states she takes inderal for shakes not BP. History of Any Multi-Drug Resistant Organisms: None Reported Past Surgical History: Section, Cholecystectomy, Orthopedic Surgery, Tonsillectomy Additional Past Surgical History / Comment(s): 2008 R groin tumor removed, extensive esophageal surgery/esophagectomy/stomach brought up and attached, R sided port, R elbow fracture/radial head removed, colonoscopy. Past Anesthesia/Blood Transfusion Reactions: No Reported Reaction Additional Past Anesthesia/Blood Transfusion Reaction / Comment(s): Pt received blood with esophagectomy surgery without reaction. Past Psychological History: Bipolar Smoking Status: Former smoker - Past Family History Mother History Unknown: Yes Additional Family Medical History / Comment(s): patient adopted and does not know family history General Exam Limitations: no limitations General appearance: alert, in no apparent distress Head exam: Present: other (Large hematoma over the occiput with superficial abrasion) Eye exam: Present: normal appearance, PERRL, EOMI. Absent: scleral icterus, conjunctival injection, periorbital swelling Respiratory exam: Present: normal lung sounds bilaterally. Absent: respiratory distress, wheezes, rales, rhonchi, stridor Cardiovascular Exam: Present: regular rate, normal rhythm, normal heart sounds. Absent: systolic murmur, diastolic murmur, rubs, gallop, clicks Extremities exam: Present: other (No deformities to the bilateral upper or lower extremities. Full ROM. 2+ radial pulses and 2+ DP and PT pulses bilaterally) Neurological exam: Present: alert, oriented X3, CN II-XII intact Psychiatric exam: Present: normal affect, normal mood Course Vital Signs 09/04/23 09/04/23 10:19 12:43 Temperature 98 F Pulse Rate 94 74 Respiratory 16 14 Rate Blood Pressure 108/59 103/64 O2 Sat by Pulse 95 97 Oximetry Medical Decision Making - Medical Decision Making This is a 68 year old female who presents to the emergency department for a fall. Was pt. sent in by a medical professional or institution? @ -No Did you speak to anyone other than the patient for history? @ -No Did you review nursing and triage notes? @ -Yes, and I agree, it is accurate with regards to the patient's symptoms. Were old charts reviewed? @ -No Differential Diagnosis? @ -Differential Diagnosis Head Injury: Contusion, hematoma, intracranial hemorrhage, skull fracture, whiplash, concussion, this is not meant to be an all-inclusive list. EKG interpreted by me (3pts min.)? @ -Not obtained X-rays interpreted by me (1pt min.)? @ -Stray of the bilateral shoulders and bilateral hips obtained. Interpretation identifies no acute fractures. Chest x-ray obtained as well. I interpretation identifies no acute rib fractures. CT interpreted by me (1pt min.)? @ -Computed tomography scan of the brain and c-spine obtained. My interpretation identifies no evidence of an acute intracranial hemorrhage, skull fracture, or cervical spine fracture.` U/S interpreted by me (1pt. min.)? @ -Not obtained What testing was considered but not performed? (CT, X-rays, U/S, labs)? Why? @ -None What meds were considered but not given? Why? @ -None Did you discuss the management of the patient with other professionals? @ -No Did you reconcile home meds? @ -No Was smoking cessation discussed for >3mins.? @ -No Was critical care preformed (if so, how long)? @ -No Were there social determinants of health that impacted care today? How? (Homelessness, low income, unemployed, alcoholism, drug addiction, transportation, low edu. Level, literacy, decrease access to med. care, care home, rehab)? @ -No Was there de-escalation of care discussed even if they declined? (Discuss DNR or withdrawal of care, Hospice)? @ -No What co-morbidities impacted this encounter? (DM, HTN, Smoking, COPD, CAD, Cancer, CVA, Hep., AIDS, mental health diagnosis, sleep apnea, morbid obesity)? @ -Fibromyalgia Was patient admitted / discharged? @ -Discharged. CT scan of the brain and c-spine obtained demonstrating a moderate right posterior scalp contusion without any signs of an acute intracranial process or cervical fracture identified. Patient's c-spine was cleared. Toradol and Tylenol administered for pain relief. X-ray of the chest, bilateral hips, and bilateral shoulders obtained revealing no acute process. Patient was able to ambulate on her own in the emergency department. She had a superficial abrasion to the hematoma, however no repair was required. Tetanus vaccine is up-to-date. Advised ibuprofen and Tylenol as needed for pain relief. Patient discharged home with in stable condition. Undiagnosed new problem with uncertain prognosis? @ -None Drug Therapy requiring intensive monitoring for toxicity (Heparin, Nitro, I nsulin, Cardizem)? @ -None Were any procedures done? @ -None Diagnosis/symptom? @ -Fall Acute, or Chronic, or Acute on Chronic? @ -Acute Uncomplicated (without systemic symptoms) or Complicated (systemic symptoms)? @ -Uncomplicated Side effects of treatment? @ -None Exacerbation, Progression, or Severe Exacerbation] @ -Not applicable Poses a threat to life or bodily function? @ -No Return precautions reviewed in depth, the patient is instructed to return to the emergency department with any new, worsening, or concerning symptoms. Patient verbalized understanding. This case was discussed in detail with the attending ED physician, Dr. Obrien. Presentation, findings, and treatment plan discussed in detail as well. - Radiology Data Radiology results: report reviewed, image reviewed Disposition Clinical Impression: Fall Disposition: HOME SELF-CARE Instructions (If sedation given, give patient instructions): Fall Prevention for Older Adults (ED) Additional Instructions: Return to the emergency department with any new, worsening, or concerning symptoms. Alternate with ibuprofen and Tylenol as needed for pain relief. Follow up with your primary care provider in 1-2 days. Is patient prescribed a controlled substance at d/c from ED?: No Referrals: Yari Valverde MD [Primary Care Provider] - 1-2 days Time of Disposition: 12:27
[2023-09-04] MEDS: ACETAMINOPHEN TAB 500 MG TAB PO STA (11:12)
[2023-09-04] MEDS: KETOROLAC 15 MG/ML 1 ML VIAL IM STA (11:14)
--- NOTE | 2023-09-04 11:23 | CT ---
EXAMINATION TYPE: CT brain gabbie zhang DATE OF EXAM: 09/04/2023 COMPARISON: None HISTORY: 68-year-old female with pain after fall, Fall, head injury CT DLP: 1483.6 mGycm Automated exposure control for dose reduction was used. Technique: Examination of the head was done in axial plane without intravenous contrast. Coronal and sagittal reconstructions performed. CT of the cervical spine was obtained in axial plane without intravenous injection of contrast mater ial. Coronal and sagittal reformatted images were obtained from the axial views for evaluation of f ractures, spinal alignment and canal. FINDINGS: Head: There is a moderate right posterior scalp contusion. No underlying calvarial fracture. Mild to moderate volume loss overlying the bilateral cerebral convexities. Mild patchy periventricula r white matter hypodensities in both cerebral hemispheres. There is no evidence of acute intracranial hemorrhage, acute ischemic changes, mass, mass-effect, or extra-axial fluid collection. There is no effacement of cerebral sulci or basal subarachnoid cister ns. There is no hydrocephalus. There is no midline shift. Kramer-white matter distinction is preserv ed. Some nonspecific minimal scattered fluid within the left mastoid air cells. Paranasal sinuses are wel l pneumatized. Orbits and globes are intact. Cervical spine: No craniocervical junction abnormality, predental space widening, or prevertebral soft tissue swellin g. Degenerative change at the C1 dens articulation. Moderate to advanced dislocation plate degenerative change especially C4-C7 levels. Disc osteophyte c omplexes contributing to mild to moderate narrowing of the spinal canal particularly at C4-C5 and C5 -C6. Degenerative grade 1 anterolisthesis C4-C5 and C7-T1. Moderate to advanced multilevel facet and uncovertebral joint arthropathy is also present. No acute fracture is identified. Moderate left-sided neuroforaminal stenosis C2-C3 and C5-C6 and C6-C7. Chronic appearing interstitial change in the visualized upper lungs. Additional partially visualized postsurgical change of esophagectomy and gastric pull-through procedure. Sagittal and coronal reformatted images confirm above findings. COMBINED IMPRESSION: 1. Moderate right posterior scalp contusion. No underlying calvarial fracture or acute intracranial a bnormality seen. 2. No acute fracture of the cervical spine. Moderate to advanced spondylotic change with degenerative grade 1 anterolisthesis at C4-C5 and C7-T1.
--- NOTE | 2023-09-04 12:14 | XR ---
EXAMINATION TYPE: XR chest 2V DATE OF EXAM: 09/04/2023 COMPARISON: 11/27/2019 INDICATION: Pain after fall TECHNIQUE: Frontal and lateral views of the chest are obtained. FINDINGS: The heart size is normal. The pulmonary vasculature is normal. The lungs are clear. Right-sided port is present with the tip in the superior vena cava region. Old humeral fracture changes are noted at the right shoulder IMPRESSION: 1. No acute pulmonary process. 2. Old right humeral neck fracture
--- NOTE | 2023-09-04 12:17 | XR ---
EXAMINATION TYPE: XR shoulder complete BILAT DATE OF EXAM: 09/04/2023 COMPARISON: NONE HISTORY: Pain fall TECHNIQUE: Bilateral shoulders are examined in 3 projections. FINDINGS: Right shoulder: The humeral head articulates with the glenoid. The acromio-clavicular junction is normal. No acute fractures or dislocations are evident. Old fracture is evident at the right humeral neck. Right-sided port is evident. Left shoulder: The humeral head articulates with the glenoid. The acromio-clavicular junction is normal. No acute fractures or dislocations are evident. A follow up study can be performed 7-10 days from acute trauma for continued pain. MRI can be perfor med if soft tissue evaluation would be of benefit. IMPRESSION: 1. Old right humeral neck fracture. 2. No acute osseous abnormalities left shoulder
--- NOTE | 2023-09-04 12:18 | XR ---
EXAMINATION TYPE: XR Hip Bilateral and AP pelvis DATE OF EXAM: 09/04/2023 COMPARISON: None HISTORY: Fall, pain TECHNIQUE: 2 view bilateral hips supplemented with an AP pelvis FINDINGS: Femoral heads articulate with the acetabulum. Joint spaces are preserved. No acute fracture s or dislocations evident. Symphysis pubis and sacroiliac joints are patent. Metallic foreign body overlies the L5 level. IMPRESSION: 1. No acute osseous abnormalities AP pelvis and bilateral hips
[2023-09-04 13:23] VITALS: BP 103/64; PULSE 74; RESP 14
== END 2023-09-04 12:48 | disposition home or self-care (01) ==
LOC: EC 10:15 → SUPCPDRO 10:15 → EC 12:48
DX: S00.03XA Contusion of scalp, initial encounter (principal); S49.92XA Unspecified injury of left shoulder and upper arm, initial encounter; S49.91XA Unspecified injury of right shoulder and upper arm, initial encounter; S79.912A Unspecified injury of left hip, initial encounter; S79.911A Unspecified injury of right hip, initial encounter; Z87.891 Personal history of nicotine dependence; Z88.8 Allergy status to other drugs, medicaments and biological substances; W01.0XXA Fall on same level from slipping, tripping and stumbling without subsequent striking against object, initial encounter; Y92.009 Unspecified place in unspecified non-institutional (private) residence as the place of occurrence of the external cause
CPT/HCPCS: 73030; 73521; 71046; 72125; 70450; 99284; 96372; J1885

== ENCOUNTER 2023-09-05 06:28 | Day surgery (SDC) | payer MEDICARE, BC ==
[2023-09-01 10:08] VITALS: BMI 28.7
[~2023-09-05 06:28] MED LIST changes: -LACTATED RINGERS 1,000 ML IV SCH
[2023-09-05 07:47] LABS: Glucose,Whole Blood 142 mg/dL (70-110)
[2023-09-05] MEDS: LACTATED RINGERS 1,000 ML IV SCH (07:49)
[2023-09-05] MEDS ORDERED: PROPOFOL 10 MG/ML 20 ML VIAL IV ONE (07:49)
[2023-09-05] MEDS: LIDOCAINE 2% INJ 20 MG/ML SQ ONE (07:57)
[2023-09-05 07:59] VITALS: TEMP 99.3
--- NOTE | 2023-09-05 08:39 | PCN ---
PROCEDURE NOTE PROCEDURE: Bone marrow aspirate and biopsy. INDICATION: Pancytopenia. DESCRIPTION OF PROCEDURE: After obtaining consent from the patient, the procedure was performed in the endoscopy suite under general anesthesia performed by anesthesia team. The patient was put in left lateral decubitus position. The right posterior iliac crest was localized. Skin was prepped with ChloraPrep, all sterile procedures were followed. A 2 mL of 2% xylocaine was used for local anesthetic. Jamshidi needle was inserted, anatomy did not permit obtaining a good sample. We tried 3 attempts, however, eventually 10 mL aspirate and a small core biopsy about 0.5 cm was obtained. Pressure applied afterwards. There was negligible blood loss. The patient tolerated procedure very well without any immediate complications. MMODL / IJN: [id number] /
[2023-09-05 08:43] VITALS: PULSE 81; RESP 16
[2023-09-05 08:57] LABS: Anisocytosis Slight; MCH 32.5 pg (25.0-35.0); MCHC 33.7 g/dL (31.0-37.0); MCV 96.5 fL (80.0-100.0); Mean Platelet Volume 10.7; RBC 2.04 m/uL (3.80-5.40); RDW 17.6 % (11.5-15.5); Reticulocyte % 2.4 % (0.5-2.0); WBC 2.3 k/uL (3.8-10.6)
[2023-09-05 09:27] VITALS: BP 93/55
[2023-09-05 09:51] LABS: HGB 6.6 gm/dL (11.4-16.0)
[2023-09-05 09:52] LABS: HCT 19.7 % (34.0-46.0); Platelet Count 28 k/uL (150-450)
[2023-09-05 10:30] LABS: Band Neutrophils % 1 %; Basophils # (M) 0.02 k/uL (0-0.2); Lymphocytes # (M) 0.69 k/uL (1.0-4.8); Monocytes # (M) 0.14 k/uL (0-1.0); Neutrophils % (M) 62 %; Nucleated Red Blood Cells 0 /100 WBC (0-0); Total Cells Counted 100
== END 2023-09-05 09:20 | disposition home or self-care (01) ==
LOC: OR 06:28
PROVIDERS: ATTEND Internal Medicine Hematology & Oncology
DX: D61.818 Other pancytopenia (principal); M06.9 Rheumatoid arthritis, unspecified; F31.9 Bipolar disorder, unspecified; J44.9 Chronic obstructive pulmonary disease, unspecified; E11.9 Type 2 diabetes mellitus without complications; M79.7 Fibromyalgia; Z88.8 Allergy status to other drugs, medicaments and biological substances; Z71.3 Dietary counseling and surveillance; Z87.891 Personal history of nicotine dependence; Z98.890 Other specified postprocedural states; Z90.89 Acquired absence of other organs; Z90.49 Acquired absence of other specified parts of digestive tract; Z79.899 Other long term (current) drug therapy; Z79.84 Long term (current) use of oral hypoglycemic drugs; Z79.51 Long term (current) use of inhaled steroids
CPT/HCPCS: 85025; 85045; 38222; J2001; J2704

== ENCOUNTER 2023-09-05 13:55 | Inpatient (IN) | payer MEDICARE, BC ==
--- NOTE | 2023-09-05 14:12 | ED ---
General Adult HPI - General Source: patient, family, RN notes reviewed, old records reviewed Mode of arrival: wheelchair Limitations: no limitations <Adele Coffey - Last Filed: 09/05/23 14:12> <Christian Bower - Last Filed: 09/05/23 17:45> - General Stated complaint: Needs blood transfusion Time Seen by Provider: 09/05/23 14:11 - History of Present Illness Initial comments: Quick note: 68-year-old female presented to the ER with chief complaint of low hemoglobin. Patient sent by Dr. Muñiz. Patient had biopsy and lab work done earlier today and was found to have a low hemoglobin. She states she is feeling weak, dizzy, lightheaded and fatigued. (Adele Coffey) Dictation was produced using [employer] dictation software. please excuse any grammatical, word or spelling errors. Chief Complaint: 68-year-old female history of lymphoma presents emergency department for anemia History of Present Illness: Patient is a 68-year-old female she has a remote history of lymphoma. She is not currently undergoing any sort of cancer treatment. She had blood test drawn by oncologist. She had a scheduled bone marrow biopsy today. She was told by her oncologist that she should come to the ER due to abnormal outpatient labs. She was found to be anemic in the sixes. Patient has been having symptoms of lightheadedness for the last several days. states that she does appear to be more pale. Denies any black or bloody stools. The ROS documented in this emergency department record has been reviewed and confirmed by me. Those systems with pertinent positive or negative responses have been documented in the HPI. All other systems are other negative and/or noncontributory. (Christian Bower) - Related Data Home Medications Medication Instructions Recorded Confirmed Divalproex [Depakote] 1,000 mg PO HS 07/01/20 09/05/23 Omeprazole 40 mg PO DAILY 07/01/20 09/05/23 Propranolol [Inderal] 20 mg PO BID 07/01/20 09/05/23 LORazepam [Ativan] 1 mg PO TID PRN 05/27/21 09/05/23 hydrOXYzine HCL [Atarax] 25 mg PO HS 05/27/21 09/05/23 Cariprazine HCl [Vraylar] 3 mg PO HS 09/05/23 09/05/23 Cholecalciferol (Vitamin D3) 50 mcg PO DAILY 09/05/23 09/05/23 [Vitamin D3 (50 Mcg = 2000 Iu)] Dicyclomine [Bentyl] 20 mg PO QID PRN 09/05/23 09/05/23 Umeclidinium Brm/Vilanterol Tr 1 puff INHALATION RT-DAILY PRN 09/05/23 09/05/23 [Anoro Ellipta 62.5-25 Mcg INH] oxyCODONE HCL [Oxycodone HCl] 20 mg PO TID 09/05/23 09/05/23 Allergies Allergy/AdvReac Type Severity Reaction Status Date / Time bendamustine [From Bendeka] AdvReac Itching Verified 09/05/23 16:04 Review of Systems ROS Other: All systems not noted in ROS Statement are negative. <Adele Coffey - Last Filed: 09/05/23 14:12> ROS Other: All systems not noted in ROS Statement are negative. <Christian Bower - Last Filed: 09/05/23 17:45> ROS Statement: Those systems with pertinent positive or pertinent negative responses have been documented in the HPI. 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 06/2020 pet scan showed mets to L neck/liver/sacrum per pt. 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 Pt states she takes inderal for shakes not BP. History of Any Multi-Drug Resistant Organisms: None Reported Past Surgical History: Section, Cholecystectomy, Orthopedic Surgery, Tonsillectomy Additional Past Surgical History / Comment(s): 2008 R groin tumor removed, extensive esophageal surgery/esophagectomy/stomach brought up and attached, R sided port, R elbow fracture/radial head removed, colonoscopy. Past Anesthesia/Blood Transfusion Reactions: No Reported Reaction Additional Past Anesthesia/Blood Transfusion Reaction / Comment(s): Pt received blood with esophagectomy surgery without reaction. Past Psychological History: Bipolar Smoking Status: Former smoker - Past Family History Mother History Unknown: Yes Additional Family Medical History / Comment(s): patient adopted and does not know family history <Adele Coffey - Last Filed: 09/05/23 14:12> General Exam <Adele Coffey - Last Filed: 09/05/23 14:12> <Christian Bower - Last Filed: 09/05/23 17:45> - General Exam Comments Initial Comments: Visual Physical Exam General: Ill-appearing and pale Head: Normocephalic, atraumatic Eyes: PERRLA, EOMI ENT: Airway patent Chest: Nonlabored breathing Skin: No visual rash, Neuro: Alert and oriented 3 Musculoskeletal: No gross abnormalities (Adele Coffey) PHYSICAL EXAM: General Impression: Alert and oriented x3, not in acute distress HEENT: Normocephalic atraumatic, extra-ocular movements intact, pupils equal and reactive to light bilaterally, mucous membranes moist. Cardiovascular: Heart regular rate and rhythm Chest: Able to complete full sentences, no retractions, no tachypnea Abdomen: abdomen soft, non-tender, non-distended, no organomegaly Musculoskeletal: Pulses present and equal in all extremities, no peripheral edema Motor: no focal deficits noted Neurological: CN II-XII grossly intact, no focal motor or sensory deficits noted Skin: Intact with no visualized rashes Psych: Normal affect and mood Exam: No gross blood (Christian Bower) Course Vital Signs 09/05/23 09/05/23 14:31 17:00 Temperature 98 F Pulse Rate 90 76 Respiratory 16 18 Rate Blood Pressure 87/59 104/54 O2 Sat by Pulse 97 97 Oximetry Medical Decision Making <Adele Coffey - Last Filed: 09/05/23 14:12> - Lab Data Result diagrams: 09/05/23 15:59 09/05/23 15:10 <Christian Bower - Last Filed: 09/05/23 17:45> - Medical Decision Making I performed the quick note portion of this chart. Electronically signed by Adele Coffey PA-C (Adele Coffey) Was pt. sent in by a medical professional or institution ([facility], SHEET CATCHER, urgent care, hospital, or shelter...) When possible be specific @ -No Did you speak to anyone other than the patient for history (EMS, parent, family, police, friend...)? What history was obtained from this source @ -No Did you review nursing and triage notes (agree or disagree)? Why? @ -I reviewed and agree with nursing and triage notes Were old charts reviewed (outside hosp., previous admission, EMS record, old EKG, old radiological studies, urgent care reports/EKG's, shelter records)? Report findings @ -No old charts were reviewed Differential Diagnosis (chest pain, altered mental status, abdominal pain women, abdominal pain men, vaginal bleeding, musculoskeletal, weakness, fever, dyspnea, syncope, headache, dizziness, GI bleed, back pain, seizure, CVA, palpatations, mental health)? @ -Differential Weakness: Hypoglycemia, shock, sepsis, hyponatremia, anemia, infection, [place], ETOH, adverse medicine reaction, overdose, stroke, this is not meant to be an all-inclusive list. EKG interpreted by me (3pts min.). @ -None done X-rays interpreted by me (1pt min.). @ -None done CT interpreted by me (1pt min.). @ -None done U/S interpreted by me (1pt. min.). @ -None done What testing was considered but not performed or refused? (CT, X-rays, U/S, labs)? Why? @ -None What meds were considered but not given or refused? Why? @ -None Did you discuss the management of the patient with other professionals (professionals i.e. [facility], SHEET CATCHER, lab, RT, psych nurse, high school social studies teacher, barbering instructor, teacher, lead security officer, pillowcase cleaner)? Give summary @ -Case discussed with hospitalist for admission Was smoking cessation discussed for >3mins.? @ -No Was critical care preformed (if so, how long)? @ -No Were there social determinants of health that impacted care today? How? (Homelessness, low income, unemployed, alcoholism, drug addiction, transportation, low edu. Level, literacy, decrease access to med. care, custodial, rehab)? @ -No Was there de-escalation of care discussed even if they declined (Discuss DNR or withdrawal of care, Hospice)? DNR status @ -No What co-morbidities impacted this encounter? (DM, HTN, Smoking, COPD, CAD, Cancer, CVA, ARF, Chemo, Hep., AIDS, mental health diagnosis, sleep apnea, morbid obesity)? @ -None Was patient admitted / discharged? Hospital course, mention meds given and route, prescriptions, significant lab abnormalities, going to OR and other pertinent info. @ -68-year-old female presents to the emergency department for abnormal outpatient lab. She is found to have a hemoglobin outpatient of 6.6. She was told to come here for blood transfusion. Initial repeat blood work showed hemoglobin of 12.1. Thought that this may have been an error repeat blood work shows hemoglobin of 6.0 which likely is patient's correct hemoglobin. Metabolic panel shows sodium of 129. So occult blood is negative. Patient ordered for 2 units of blood transfusion. Patient also given IV fluids will be admitted observation for further care. Undiagnosed new problem with uncertain prognosis? @ -No Drug Therapy requiring intensive monitoring for toxicity (Heparin, Nitro, Insulin, Cardizem)? @ -No Were any procedures done? @ -No Diagnosis/symptom? Acute, or Chronic, or Acute on Chronic? Uncomplicated (without systemic symptoms) or Complicated (systemic symptoms)? @ -Symptomatic anemia Side effects of treatment? @ -No Exacerbation, Progression, or Severe Exacerbation? @ -No Poses a threat to life or bodily function? How? (Chest pain, [place], [place], pneumonia, PE, COPD, DKA, ARF, appy, cholecystitis, CVA, Diverticulitis, Homicidal, Suicidal, threat to staff... and all critical care pts) @ -yes (Christian Bower) - Lab Data Lab Results 09/05/23 09/05/23 09/05/23 Range/Units 15:10 15:10 15:10 WBC 1.4 L* (3.8-10.6) k/uL RBC 3.72 L (3.80-5.40) m/uL Hgb 12.1 D (11.4-16.0) gm/dL Hct 36.5 (34.0-46.0) % MCV 98.1 (80.0-100.0) fL MCH 32.4 (25.0-35.0) pg MCHC 33.0 (31.0-37.0) g/dL RDW 17.4 H (11.5-15.5) % Plt Count 21 L (150-450) k/uL MPV 9.5 Neutrophils % (Manual) 67 % Band Neuts % (Manual) % Lymphocytes % (Manual) 28 % Monocytes % (Manual) 4 % Eosinophils % (Manual) % Basophils % (Manual) 1 % Neutrophils # (Manual) 0.94 L (1.3-7.7) k/uL Lymphocytes # (Manual) 0.39 L (1.0-4.8) k/uL Monocytes # (Manual) 0.06 (0-1.0) k/uL Eosinophils # (Manual) (0-0.7) k/uL Basophils # (Manual) 0.01 (0-0.2) k/uL Nucleated RBCs 0 (0-0) /100 WBC Manual Slide Review Performed Anisocytosis Slight Macrocytosis Slight PT (10.0-12.5) sec INR (<1.2) APTT (22.0-30.0) sec Sodium 129 L (137-145) mmol/L Potassium 4.4 (3.5-5.1) mmol/L Chloride 97 L (98-107) mmol/L Carbon Dioxide 31 H (22-30) mmol/L Anion Gap 1 mmol/L BUN 13 (7-17) mg/dL Creatinine 0.88 (0.52-1.04) mg/dL Est GFR (CKD-EPI)AfAm 79 (>60 ml/min/1.73 sqM) Est GFR (CKD-EPI)NonAf 68 (>60 ml/min/1.73 sqM) Glucose 149 H (74-99) mg/dL Calcium 8.0 L (8.4-10.2) mg/dL Total Bilirubin 0.7 (0.2-1.3) mg/dL AST 18 (14-36) U/L ALT 11 (4-34) U/L Alkaline Phosphatase 75 (38-126) U/L Total Protein 5.8 L (6.3-8.2) g/dL Albumin 3.2 L (3.5-5.0) g/dL Stool Occult Blood (Negative) Blood Type A Positive Blood Type Confirm Blood Type Recheck No Previous Record Bld Type Recheck Status CABO Indicated Antibody Screen NEGATIVE Spec Expiration Date 09/08/2023 - 230909/05/23 09/05/23 09/05/23 Range/Units 15:10 15:59 16:00 WBC 1.8 L (3.8-10.6) k/uL RBC 1.82 L (3.80-5.40) m/uL Hgb 6.0 L* D (11.4-16.0) gm/dL Hct 17.5 L* (34.0-46.0) % MCV 96.1 (80.0-100.0) fL MCH 33.1 (25.0-35.0) pg MCHC 34.4 (31.0-37.0) g/dL RDW 17.7 H (11.5-15.5) % Plt Count 25 L (150-450) k/uL MPV 10.0 Neutrophils % (Manual) 52 % Band Neuts % (Manual) 2 % Lymphocytes % (Manual) 35 % Monocytes % (Manual) 10 % Eosinophils % (Manual) 1 % Basophils % (Manual) % Neutrophils # (Manual) 0.90 L (1.3-7.7) k/uL Lymphocytes # (Manual) 0.63 L (1.0-4.8) k/uL Monocytes # (Manual) 0.18 (0-1.0) k/uL Eosinophils # (Manual) 0.02 (0-0.7) k/uL Basophils # (Manual) (0-0.2) k/uL Nucleated RBCs 0 (0-0) /100 WBC Manual Slide Review Performed Anisocytosis Slight Macrocytosis Slight PT 11.7 (10.0-12.5) sec INR 1.1 (<1.2) APTT 55.5 H (22.0-30.0) sec Sodium (137-145) mmol/L Potassium (3.5-5.1) mmol/L Chloride (98-107) mmol/L Carbon Dioxide (22-30) mmol/L Anion Gap mmol/L BUN (7-17) mg/dL Creatinine (0.52-1.04) mg/dL Est GFR (CKD-EPI)AfAm (>60 ml/min/1.73 sqM) Est GFR (CKD-EPI)NonAf (>60 ml/min/1.73 sqM) Glucose (74-99) mg/dL Calcium (8.4-10.2) mg/dL Total Bilirubin (0.2-1.3) mg/dL AST (14-36) U/L ALT (4-34) U/L Alkaline Phosphatase (38-126) U/L Total Protein (6.3-8.2) g/dL Albumin (3.5-5.0) g/dL Stool Occult Blood (Negative) Blood Type Blood Type Confirm A Positive Blood Type Recheck Bld Type Recheck Status Antibody Screen Spec Expiration Date 09/05/23 Range/Units 16:03 WBC (3.8-10.6) k/uL RBC (3.80-5.40) m/uL Hgb (11.4-16.0) gm/dL Hct (34.0-46.0) % MCV (80.0-100.0) fL MCH (25.0-35.0) pg MCHC (31.0-37.0) g/dL RDW (11.5-15.5) % Plt Count (150-450) k/uL MPV Neutrophils % (Manual) % Band Neuts % (Manual) % Lymphocytes % (Manual) % Monocytes % (Manual) % Eosinophils % (Manual) % Basophils % (Manual) % Neutrophils # (Manual) (1.3-7.7) k/uL Lymphocytes # (Manual) (1.0-4.8) k/uL Monocytes # (Manual) (0-1.0) k/uL Eosinophils # (Manual) (0-0.7) k/uL Basophils # (Manual) (0-0.2) k/uL Nucleated RBCs (0-0) /100 WBC Manual Slide Review Anisocytosis Macrocytosis PT (10.0-12.5) sec INR (<1.2) APTT (22.0-30.0) sec Sodium (137-145) mmol/L Potassium (3.5-5.1) mmol/L Chloride (98-107) mmol/L Carbon Dioxide (22-30) mmol/L Anion Gap mmol/L BUN (7-17) mg/dL Creatinine (0.52-1.04) mg/dL Est GFR (CKD-EPI)AfAm (>60 ml/min/1.73 sqM) Est GFR (CKD-EPI)NonAf (>60 ml/min/1.73 sqM) Glucose (74-99) mg/dL Calcium (8.4-10.2) mg/dL Total Bilirubin (0.2-1.3) mg/dL AST (14-36) U/L ALT (4-34) U/L Alkaline Phosphatase (38-126) U/L Total Protein (6.3-8.2) g/dL Albumin (3.5-5.0) g/dL Stool Occult Blood Negative (Negative) Blood Type Blood Type Confirm Blood Type Recheck Bld Type Recheck Status Antibody Screen Spec Expiration Date Disposition <Adele Coffey - Last Filed: 09/05/23 14:12> Decision Time: 17:45 <Christian Bower - Last Filed: 09/05/23 17:45> Clinical Impression: Anemia Disposition: ADMITTED IP TO THIS HOSP Condition: Fair Referrals: Yari Valverde MD [Primary Care Provider] - 1-2 days
[2023-09-05 15:26] LABS: ALT 11 U/L (4-34); AST 18 U/L (14-36); African American GFR (CKD) 79 (>60 ml/min/1.73 sqM); Albumin 3.2 g/dL (3.5-5.0); Alkaline Phosphatase 75 U/L (38-126); Anion Gap 1 mmol/L; Blood Urea Nitrogen 13 mg/dL (7-17); Carbon Dioxide 31 mmol/L (22-30); Chloride 97 mmol/L (98-107); Glucose 149 mg/dL (74-99); Non-African American GFR(CKD) 68 (>60 ml/min/1.73 sqM); Potassium 4.4 mmol/L (3.5-5.1); Sodium 129 mmol/L (137-145); Total Bilirubin 0.7 mg/dL (0.2-1.3); Total Protein 5.8 g/dL (6.3-8.2)
[2023-09-05 15:28] LABS: Anisocytosis Slight; HCT 36.5 % (34.0-46.0); MCH 32.4 pg (25.0-35.0); MCV 98.1 fL (80.0-100.0); Macrocytosis Slight; Mean Platelet Volume 9.5; Platelet Count 21 k/uL (150-450); RBC 3.72 m/uL (3.80-5.40); RDW 17.4 % (11.5-15.5)
[2023-09-05 15:41] LABS: WBC 1.4 k/uL (3.8-10.6)
[2023-09-05 16:01] LABS: INR 1.1 (<1.2); Partial Thromboplastin Time 55.5 sec (22.0-30.0); Prothrombin Time 11.7 sec (10.0-12.5)
[2023-09-05] MEDS: SODIUM CHLORIDE 0.9% 1,000 ML IV STA (16:03)
[2023-09-05 16:18] LABS: Anisocytosis Slight; MCH 33.1 pg (25.0-35.0); MCHC 34.4 g/dL (31.0-37.0); MCV 96.1 fL (80.0-100.0); Macrocytosis Slight; Platelet Count 25 k/uL (150-450); RBC 1.82 m/uL (3.80-5.40); RDW 17.7 % (11.5-15.5); WBC 1.8 k/uL (3.8-10.6)
[2023-09-05 16:43] LABS: HCT 17.5 % (34.0-46.0)
[2023-09-05 16:58] LABS: Basophils # (M) 0.01 k/uL (0-0.2); Lymphocytes # (M) 0.39 k/uL (1.0-4.8); Monocytes # (M) 0.06 k/uL (0-1.0); Neutrophils # (M) 0.94 k/uL (1.3-7.7); Neutrophils % (M) 67 %; Nucleated Red Blood Cells 0 /100 WBC (0-0); Total Cells Counted 100
[2023-09-05 17:05] LABS: HGB 12.1 gm/dL (11.4-16.0)
[2023-09-05 17:25] LABS: Band Neutrophils % 2 %; Eosinophils # (M) 0.02 k/uL (0-0.7); Lymphocytes # (M) 0.63 k/uL (1.0-4.8); Monocytes # (M) 0.18 k/uL (0-1.0); Neutrophils % (M) 52 %; Nucleated Red Blood Cells 0 /100 WBC (0-0); Total Cells Counted 100
[2023-09-05] MEDS ORDERED: NALOXONE 0.4 MG/ML 1 ML VIAL IV PRN (17:42)
[2023-09-05] MEDS: SODIUM CHLORIDE 0.9% 1,000 ML IV SCH (19:35)
[2023-09-05] MEDS ORDERED: LORazepam 1 MG TAB PO PRN (19:44)
[2023-09-05] MEDS ORDERED: DICYCLOMINE 20 MG TAB PO PRN (19:44)
[2023-09-05] MEDS ORDERED: FORMOTEROL FUMARATE 20 MCG/2 ML NEBU INHALATION PRN (19:44)
[2023-09-05] MEDS ORDERED: IPRATROPIUM 0.5 MG/2.5 ML NEBU INHALATION PRN (19:56)
[2023-09-05] MEDS: NON FORMULARY DRUG (Cariprazine Hcl [Vraylar] 3 MG Capsule) PO SCH (20:21)
[2023-09-05] MEDS: DIVALPROEX 500 MG TABLET.DR PO SCH (20:21)
[2023-09-05] MEDS: hydrOXYzine HCL 25 MG TAB PO SCH (20:37)
[2023-09-05] MEDS: PROPRANOLOL 20 MG TAB PO SCH (20:37)
--- NOTE | 2023-09-06 01:08 | P.HPIM ---
History of Present Illness H&P Date: 09/05/23 Chief Complaint: Abnormal blood work with hemoglobin of 6 68-year-old female overall healthy she has a history of lymphoma in the past not currently on chemotherapy is coming in for evaluation based on recommendations of oncology Dr. Muñiz as she was found to have very low hemoglobin white count and platelets with hemoglobin being 6 patient reports some symptoms of feeling dizzy lightheaded weak overall has been going on for several days denies any fevers chills nausea vomiting coughing shortness of breath or Patient denies tobacco smoking illicit drugs or heavy alcohol Patient considers self healthy review of systems Pertinent positives as noted in HPI. All other systems were reviewed and are negative on exam Constitutional: No acute distress, conversant, pleasant Eyes: Anicteric sclerae, moist conjunctiva, Pupils equal round reactive to light ENMT: NC/AT Oropharynx clear, no erythema, or exudates Neck: Supple, no masses, or JVD No carotid bruits No thyromegaly Lungs: Clear to auscultation Clear to percussion Normal respiratory effort, no accessory muscle use Cardiovascular: Heart regular in rate and rhythm, No murmurs, gallops, or rubs No peripheral edema Abdominal: Soft Nontender, no guarding, rebound or rigidity Abdomen moving with respiration Normoactive bowel sounds Extremities: No digital cyanosis No clubbing Pedal pulses intact and symmetrical Radial pulses intact and symmetrical No calf tenderness Psychiatric: Alert and oriented to person, place and time Appropriate affect fair judgement Neuro Muscles Strength 5/5 in all 4 extremities Sensation to light touch grossly present throughout Cranial nerves II-XII grossly intact Past Medical History Past Medical History: Cancer, COPD, Fibromyalgia, Hyperlipidemia, Osteoarthritis (OA) Additional Past Medical History / Comment(s): 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 06/2020 pet scan showed mets to L neck/liver/sacrum per pt. 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 Pt states she takes inderal for shakes not BP. History of Any Multi-Drug Resistant Organisms: None Reported Past Surgical History: Section, Cholecystectomy, Orthopedic Surgery, Tonsillectomy Additional Past Surgical History / Comment(s): 2009 R groin tumor removed, extensive esophageal surgery/esophagectomy/stomach brought up and attached, R sided port, R elbow fracture/radial head removed, colonoscopy. Past Anesthesia/Blood Transfusion Reactions: No Reported Reaction Additional Past Anesthesia/Blood Transfusion Reaction / Comment(s): Pt received blood with esophagectomy surgery without reaction. Past Psychological History: Bipolar Additional Psychological History / Comment(s): Pt resides with her spouse. She has a cane which she uses prn. She drives. Smoking Status: Former smoker Past Alcohol Use History: None Reported Additional Past Alcohol Use History / Comment(s): Pt started smoking in 1964 and quit in 2000 1 ppd Past Drug Use History: None Reported - Past Family History Mother History Unknown: Yes Additional Family Medical History / Comment(s): patient adopted and does not know family history Medications and Allergies Home Medications Medication Instructions Recorded Confirmed Type Divalproex [Depakote] 1,000 mg PO HS 07/01/20 09/05/23 History Omeprazole 40 mg PO DAILY 07/01/20 09/05/23 History Propranolol [Inderal] 20 mg PO BID 07/01/20 09/05/23 History LORazepam [Ativan] 1 mg PO TID PRN 05/27/21 09/05/23 History hydrOXYzine HCL [Atarax] 25 mg PO HS 05/27/21 09/05/23 History Cariprazine HCl [Vraylar] 3 mg PO HS 09/05/23 09/05/23 History Cholecalciferol (Vitamin D3) 50 mcg PO DAILY 09/05/23 09/05/23 History [Vitamin D3 (50 Mcg = 2000 Iu)] Dicyclomine [Bentyl] 20 mg PO QID PRN 09/05/23 09/05/23 History Umeclidinium Brm/Vilanterol Tr 1 puff INHALATION RT-DAILY PRN 09/05/23 09/05/23 History [Anoro Ellipta 62.5-25 Mcg INH] oxyCODONE HCL [Oxycodone HCl] 20 mg PO TID 09/05/23 09/05/23 History Allergies Allergy/AdvReac Type Severity Reaction Status Date / Time bendamustine [From Bendeka] AdvReac Itching Verified 09/05/23 16:04 Physical Exam Vitals: Vital Signs Temp Pulse Resp BP Pulse Ox 09/05/23 21:45 97.8 F 84 16 122/60 09/05/23 21:25 98 F 77 16 111/64 97 09/05/23 20:56 97.9 F 80 16 104/53 97 09/05/23 19:36 97.8 F 77 16 110/88 97 09/05/23 18:57 87 18 97 09/05/23 18:42 97.9 F 88 18 123/47 09/05/23 18:22 98.0 F 91 18 118/64 09/05/23 18:06 97.0 F L 82 18 111/59 09/05/23 17:00 76 18 104/54 97 09/05/23 14:31 98 F 90 16 87/59 97 Intake and Output 09/05/23 09/05/23 09/05/23 06:59 14:59 22:59 Intake Total 310 Balance 310 Intake: Blood Product 310 Rc As-1 Unit 310 [id number] Rc As-1 Unit 0 [id number] Other: Weight 80.739 kg 80.739 kg Results CBC & Chem 7: 09/05/23 15:59 09/05/23 15:10 Labs: Abnormal Lab Results - Last 24 Hours (Table) 09/05/23 09/05/23 09/05/23 Range/Units 15:10 15:10 15:10 WBC 1.4 L* (3.8-10.6) k/uL RBC 3.72 L (3.80-5.40) m/uL Hgb (11.4-16.0) gm/dL Hct (34.0-46.0) % RDW 17.4 H (11.5-15.5) % Plt Count 21 L (150-450) k/uL Neutrophils # (Manual) 0.94 L (1.3-7.7) k/uL Lymphocytes # (Manual) 0.39 L (1.0-4.8) k/uL APTT (22.0-30.0) sec Sodium 129 L (137-145) mmol/L Chloride 97 L (98-107) mmol/L Carbon Dioxide 31 H (22-30) mmol/L Glucose 149 H (74-99) mg/dL Calcium 8.0 L (8.4-10.2) mg/dL Total Protein 5.8 L (6.3-8.2) g/dL Albumin 3.2 L (3.5-5.0) g/dL Crossmatch See Detail 09/05/23 09/05/23 Range/Units 15:10 15:59 WBC 1.8 L (3.8-10.6) k/uL RBC 1.82 L (3.80-5.40) m/uL Hgb 6.0 L* D (11.4-16.0) gm/dL Hct 17.5 L* (34.0-46.0) % RDW 17.7 H (11.5-15.5) % Plt Count 25 L (150-450) k/uL Neutrophils # (Manual) 0.90 L (1.3-7.7) k/uL Lymphocytes # (Manual) 0.63 L (1.0-4.8) k/uL APTT 55.5 H (22.0-30.0) sec Sodium (137-145) mmol/L Chloride (98-107) mmol/L Carbon Dioxide (22-30) mmol/L Glucose (74-99) mg/dL Calcium (8.4-10.2) mg/dL Total Protein (6.3-8.2) g/dL Albumin (3.5-5.0) g/dL Crossmatch Thrombosis Risk Factor Assmnt - Choose All That Apply Each Factor Represents 1 point: Obesity (BMI >25) Each Risk Factor Represents 2 Points: Age 61-74 years Thrombosis Risk Factor Assessment Total Risk Factor Score: 3 Thrombosis Risk Factor Assessment Level: Moderate Risk Assessment and Plan Assessment: 68-year-old female coming in feeling generalized weakness dizziness and lighthea dedness she was found to be bradycardic with heart rate in the 40s I discussed the case with ED doctor and accepted the admission for possible placement with anticipated length of stay less than 2 midnights Sinus bradycardia symptomatic Cardiac monitoring Cardiology evaluation Troponin is negative Severe symptomatic anemia Pancytopenia Hemoglobin 6 White count 1.8 Platelets 25 Consult oncology known to patient Full code DVT prophylaxis mechanical due to severe thrombocytopenia
[2023-09-06] MEDS: ACETAMINOPHEN TAB 325 MG TAB PO PRN (02:03)
[2023-09-06 04:24] LABS: ALT 10 U/L (4-34); AST 19 U/L (14-36); African American GFR (CKD) >90 (>60 ml/min/1.73 sqM); Albumin 2.7 g/dL (3.5-5.0); Albumin/Globulin Ratio 1.2; Alkaline Phosphatase 72 U/L (38-126); Anion Gap 2 mmol/L; Blood Urea Nitrogen 12 mg/dL (7-17); Calcium 7.4 mg/dL (8.4-10.2); Carbon Dioxide 29 mmol/L (22-30); Chloride 101 mmol/L (98-107); Globulin 2.2 g/dL; Glucose 146 mg/dL (74-99); Non-African American GFR(CKD) 82 (>60 ml/min/1.73 sqM); Potassium 4.1 mmol/L (3.5-5.1); Sodium 132 mmol/L (137-145); Total Bilirubin 1.6 mg/dL (0.2-1.3); Total Protein 4.9 g/dL (6.3-8.2)
[2023-09-06 04:48] LABS: Anisocytosis Slight; HCT 25.2 % (34.0-46.0); MCH 32.1 pg (25.0-35.0); MCV 91.6 fL (80.0-100.0); Mean Platelet Volume 9.3; Platelet Count 21 k/uL (150-450); RBC 2.75 m/uL (3.80-5.40); RDW 18.1 % (11.5-15.5); WBC 2.8 k/uL (3.8-10.6)
[2023-09-06 04:50] LABS: HGB 8.8 gm/dL (11.4-16.0)
[2023-09-06 05:24] LABS: Anisocytosis (M) Present; Band Neutrophils % 19 %; Eosinophils # (M) 0.06 k/uL (0-0.7); Lymphocytes # (M) 0.45 k/uL (1.0-4.8); Monocytes # (M) 0.14 k/uL (0-1.0); Neutrophils % (M) 58 %; Nucleated Red Blood Cells 0 /100 WBC (0-0); Total Cells Counted 100
[2023-09-06 05:25] LABS: Polychromasia Present
[2023-09-06] MEDS: PANTOPRAZOLE 40 MG TABLET PO SCH (07:30)
[2023-09-06] MEDS: CHOLECALCIFEROL 25 MCG (1000 IU) TABLET PO SCH (08:22)
[2023-09-06] MEDS ORDERED: HYDROmorphone 2 MG TAB PO STA (14:46)
--- NOTE | 2023-09-06 15:01 | P.PN ---
Subjective Progress Note Date: 09/06/23 68 year old F with PMH of lymphoma, history of esophageal CA, fibromyalgia, HDL presents to the ED. Her Oncologist Dr. Muñiz recommended she come to the ED for abnormal lab work. Recently underwent bone marrow biopsy. Recently underwent PET scan and CT chest/abdomen/pelvis which did not show any signs of malignancy. She also reports generalized weakness and frequent falls leading to hitting her head from her legs giving in on her. She reports lightheadedness but no syncopal episodes. In the ED she underwent extensive evaluation. BP 87/59, HR 90, T 98F, RR 16, 97% on RA. CBC, Coag panel, CMP done significant for WBC 1.8, RBC 1.82, Hg 6.0, Hct 17.5, Plt 25, Na 129, Cl 97, bicarb 31, glu 149, Ca 8.0, alb 3.2. Stool occult blood negative. Patient was transfused 2 unit PRBC and admited for further workup and management. 09/05 Patient was seen and examined. Still complains of feeling very weak. Re ports increased pain in her head and both shoulders likely from falls prior to admission. She does take Oxycodone 20 mg PO TID for pain at home. CBC WBC 2.8, RBC 2.75, Hg 8.8, Hct 25.2, Plt 21. BMP Na 132, glu 146, Ca 7.4, T. Bili 1.6, alb 2.7. General: non toxic, no distress, appears at stated age Derm: warm, dry Head: atraumatic, normocephalic, symmetric Eyes: EOMI, no lid lag, pale sclera Mouth: no lip lesion, mucus membranes moist Cardiovascular: S1S2 reg, no murmur Lungs: CTA bilateral, no rhonchi, no rales , no accessory muscle use Ext: no gross muscle atrophy, no edema, no contractures Neuro: no focal neuro deficits Psych: Alert, oriented, appropriate affect Based on my assessment of this patient, this patient meets a high complexity level of care. Patient has an acute diagnosis of severe symptomatic anemia that poses a threat to life or bodily function. Pancytopenia: Being worked up by Oncology in the outpatient setting. Recently underwent bone marrow biopsy. Status post 2 unit PRBC. Repeat CBC tomorrow morning. Transfuse if Hg < 7. Oncology consulted. Frequent falls with head trauma: Fall precautions. PT and OT consult. Patient agreeable for CT head. Hyponatremia: Encourage hydration by mouth. Improving. Acute on chronic pain with h/o fibromyalgia and recent falls: Oxycodone 20 mg PO TID. Add Dilaudid 10 mg PO TID PRN for severe pain. History of lymphoma and esophageal CA: Oncology consult. CODE STATUS: FULL CODE. DVT Prophylaxis: SCD GI Prophylaxis: Protonix Designated medical POA if patient is not able to make medical decisions for themselves: I have reviewed the following field technical support consultant notes: I have reviewed the results of the following tests: CBC, BMP. I have ordered the following tests: CT head. I have discussed the care of this patient with the following independent historian: I have independently interpreted the following test below: I have discussed the management of this patient with the following physician: Objective - Vital Signs Vital signs: Vital Signs Temp 97.8 F 09/06/23 07:30 Pulse 78 09/06/23 12:30 Resp 16 09/06/23 12:30 BP 124/62 09/06/23 12:30 Pulse Ox 100 09/06/23 12:30 FiO2 Intake & Output 09/05/23 09/06/23 09/06/23 18:59 06:59 18:59 Intake Total 0 620 Balance 0 620 Weight 80.739 kg Intake: Blood Product 0 620 Rc As-1 Unit 0 310 [id number] Rc As-1 Unit 310 [id number] - Labs CBC & Chem 7: 09/06/23 03:45 09/06/23 03:45 Labs: Abnormal Lab Results - Last 24 Hours (Table) 09/05/23 09/05/23 09/05/23 Range/Units 15:10 15:10 15:10 WBC 1.4 L* (3.8-10.6) k/uL RBC 3.72 L (3.80-5.40) m/uL Hgb (11.4-16.0) gm/dL Hct (34.0-46.0) % RDW 17.4 H (11.5-15.5) % Plt Count 21 L (150-450) k/uL Neutrophils # (Manual) 0.94 L (1.3-7.7) k/uL Lymphocytes # (Manual) 0.39 L (1.0-4.8) k/uL APTT (22.0-30.0) sec Sodium 129 L (137-145) mmol/L Chloride 97 L (98-107) mmol/L Carbon Dioxide 31 H (22-30) mmol/L Glucose 149 H (74-99) mg/dL Calcium 8.0 L (8.4-10.2) mg/dL Total Bilirubin (0.2-1.3) mg/dL Total Protein 5.8 L (6.3-8.2) g/dL Albumin 3.2 L (3.5-5.0) g/dL Crossmatch See Detail 09/05/23 09/05/23 09/06/23 Range/Units 15:10 15:59 03:45 WBC 1.8 L 2.8 L (3.8-10.6) k/uL RBC 1.82 L 2.75 L (3.80-5.40) m/uL Hgb 6.0 L* D 8.8 L D (11.4-16.0) gm/dL Hct 17.5 L* 25.2 L (34.0-46.0) % RDW 17.7 H 18.1 H (11.5-15.5) % Plt Count 25 L 21 L (150-450) k/uL Neutrophils # (Manual) 0.90 L (1.3-7.7) k/uL Lymphocytes # (Manual) 0.63 L 0.45 L (1.0-4.8) k/uL APTT 55.5 H (22.0-30.0) sec Sodium (137-145) mmol/L Chloride (98-107) mmol/L Carbon Dioxide (22-30) mmol/L Glucose (74-99) mg/dL Calcium (8.4-10.2) mg/dL Total Bilirubin (0.2-1.3) mg/dL Total Protein (6.3-8.2) g/dL Albumin (3.5-5.0) g/dL Crossmatch 09/06/23 Range/Units 03:45 WBC (3.8-10.6) k/uL RBC (3.80-5.40) m/uL Hgb (11.4-16.0) gm/dL Hct (34.0-46.0) % RDW (11.5-15.5) % Plt Count (150-450) k/uL Neutrophils # (Manual) (1.3-7.7) k/uL Lymphocytes # (Manual) (1.0-4.8) k/uL APTT (22.0-30.0) sec Sodium 132 L (137-145) mmol/L Chloride (98-107) mmol/L Carbon Dioxide (22-30) mmol/L Glucose 146 H (74-99) mg/dL Calcium 7.4 L (8.4-10.2) mg/dL Total Bilirubin 1.6 H (0.2-1.3) mg/dL Total Protein 4.9 L (6.3-8.2) g/dL Albumin 2.7 L (3.5-5.0) g/dL Crossmatch
--- NOTE | 2023-09-06 15:51 | CT ---
EXAMINATION TYPE: CT brain wo con CT DLP: 1097.4 mGycm, Automated exposure control for dose reduction was used. DATE OF EXAM: 09/06/2023 3:15 PM COMPARISON: 09/04/2023. CLINICAL INDICATION:Female, 68 years old with history of fall , thrombocytopenia, fall , thrombocytop enia TECHNIQUE: Brain: Axial CT images of the brain were obtained with coronal and sagittal reformats created and rev iewed. Contrast used: None. Oral contrast used: None. FINDINGS: Brain: Extra-axial spaces: No abnormal extra-axial fluid collections. Ventricular system: Dilatation in proportion to cerebral atrophy. Cerebral parenchyma: Cerebral atrophy. No acute intraparenchymal hemorrhage or mass effect. The lombardo -white junction is well differentiated. Scattered hypoattenuating areas are seen within the white mat ter. Cerebellum: Unremarkable. Mass effect: No evidence of midline shift. Intracranial vasculature: Atherosclerotic calcifications of the intracranial vessels. Soft tissues: Posterior scalp hematoma noted on the right. Calvarium/osseous structures: No depressed skull fracture. Paranasal sinuses and mastoid air cells: Mild scattered paranasal sinus disease. Visualized orbits: Orbital contents are intact. IMPRESSION: 1. No acute intracranial process. 2. Right posterior scalp subcutaneous hematoma.
[2023-09-06] MEDS: HYDROmorphone 2 MG TAB PO STA (16:11)
[2023-09-06 18:08] LABS: Glucose,Whole Blood 180 mg/dL (70-110)
[2023-09-06] MEDS: HYDROmorphone 2 MG TAB PO PRN (20:49)
[2023-09-07 09:30] LABS: Basophils # (A) 0.04 X 10*3/uL (0.00-0.10); Basophils % (A) 1.9 %; Eosinophils # (A) 0.01 X 10*3/uL (0.04-0.35); Eosinophils % (A) 0.5 %; HCT 25.8 % (37.2-46.3); HGB 8.6 g/dL (12.0-15.0); Immature Platelet Fraction 7.1 % (1.1-6.1); Lymphocytes # (A) 0.67 X 10*3/uL (0.90-5.00); MCHC 33.3 g/dL (32.0-37.0); MCV 93.1 FL (80.0-97.0); Mean Platelet Volume 10.9 FL (9.5-12.2); Monocytes # (A) 0.28 X 10*3/uL (0.20-1.00); NRBC Per 100 WBC 0 X 10*3/uL (0.00-0.01); Neutrophils # (A) 1.09 X 10*3/uL (1.80-7.70); Neutrophils % (A) 50.4 %; Platelet Count 27 X 10*3/uL (140-440); RBC 2.77 X 10*6/uL (4.10-5.20); RDW 18.5 % (11.5-14.5); WBC 2.16 X 10*3/uL (4.50-10.00)
--- NOTE | 2023-09-07 11:09 | P.PN ---
Subjective Progress Note Date: 09/07/23 68 year old F with PMH of lymphoma, history of esophageal CA, fibromyalgia, HDL presents to the ED. Her Oncologist Dr. Muñiz recommended she come to the ED for abnormal lab work. Recently underwent bone marrow biopsy. Recently underwent PET scan and CT chest/abdomen/pelvis which did not show any signs of malignancy. She also reports generalized weakness and frequent falls leading to hitting her head from her legs giving in on her. She reports lightheadedness but no syncopal episodes. In the ED she underwent extensive evaluation. BP 87/59, HR 90, T 98F, RR 16, 97% on RA. CBC, Coag panel, CMP done significant for WBC 1.8, RBC 1.82, Hg 6.0, Hct 17.5, Plt 25, Na 129, Cl 97, bicarb 31, glu 149, Ca 8.0, alb 3.2. Stool occult blood negative. Patient was transfused 2 unit PRBC and admited for further workup and management. 09/05 Patient was seen and examined. Still complains of feeling very weak. Re ports increased pain in her head and both shoulders likely from falls prior to admission. She does take Oxycodone 20 mg PO TID for pain at home. CBC WBC 2.8, RBC 2.75, Hg 8.8, Hct 25.2, Plt 21. BMP Na 132, glu 146, Ca 7.4, T. Bili 1.6, alb 2.7. 09/06 Patient was seen and examined. She reports lightheadedness while sitting in bed eating breakfast. Also felt lightheaded when standing to use the commode. Orthostats obtained which were negative. CBC shows WBC 2.16 Hg 8.6 Hct 25.8 Plt 27. Oncology consult pending. Echocardiogram ordered and pending. CT brain done yesterday showed posterior scalp hematoma. General: non toxic, no distress, appears at stated age Derm: warm, dry Head: atraumatic, normocephalic, symmetric Eyes: EOMI, no lid lag, pale sclera Mouth: no lip lesion, mucus membranes moist Cardiovascular: S1S2 reg, no murmur Lungs: CTA bilateral, no rhonchi, no rales , no accessory muscle use Ext: no gross muscle atrophy, no edema, no contractures Neuro: no focal neuro deficits Psych: Alert, oriented, appropriate affect Based on my assessment of this patient, this patient meets a high complexity level of care. Patient has an acute diagnosis of severe symptomatic anemia that poses a threat to life or bodily function. Lightheadedness: Orthostats negative. CT head negative. Hg is stable. Telemetry monitoring ordered. Echo ordered. PT and OT consulted. Pancytopenia: Being worked up by Oncology in the outpatient setting. Recently underwent bone marrow biopsy. Status post 2 unit PRBC. Transfuse if Hg < 7. Oncology consulted. Frequent falls with head trauma: Fall precautions. PT and OT consult. Hyponatremia: Encourage hydration by mouth. Improving. Acute on chronic pain with h/o fibromyalgia and recent falls: Oxycodone 20 mg PO TID. Add Dilaudid 4 mg PO Q4H PRN for severe pain. History of lymphoma and esophageal CA: Oncology consult. CODE STATUS: FULL CODE. DVT Prophylaxis: SCD GI Prophylaxis: Protonix Designated medical POA if patient is not able to make medical decisions for themselves: I have reviewed the following career development consultant notes: I have reviewed the results of the following tests: CBC, CT head I have ordered the following tests: Orthostats. Echo. I have discussed the care of this patient with the following independent historian: MARGOTH. I have independently interpreted the following test below: I have discussed the management of this patient with the following physician: Objective - Vital Signs Vital signs: Vital Signs Temp 98.1 F 09/07/23 07:00 Pulse 81 09/07/23 09:57 Resp 18 09/07/23 07:00 BP 130/72 09/07/23 09:57 Pulse Ox 94 L 09/07/23 09:57 FiO2 Intake & Output 09/06/23 09/07/23 09/07/23 18:59 06:59 18:59 Intake Total 100 Balance 100 Weight 80.739 kg Intake: Oral 100 Other: # Voids 2 - Labs CBC & Chem 7: 09/07/23 06:04 09/06/23 03:45 Labs: Abnormal Lab Results - Last 24 Hours (Table) 09/06/23 09/07/23 09/07/23 Range/Units 18:07 06:04 09:37 WBC 2.16 L (4.50-10.00) X 10*3/uL RBC 2.77 L (4.10-5.20) X 10*6/uL Hgb 8.6 L (12.0-15.0) g/dL Hct 25.8 L (37.2-46.3) % RDW 18.5 H (11.5-14.5) % Plt Count 27 L (140-440) X 10*3/uL Immature Gran # 0.07 H (0.00-0.04) X 10*3/uL Neutrophils # 1.09 L (1.80-7.70) X 10*3/uL Lymphocytes # 0.67 L (0.90-5.00) X 10*3/uL Eosinophils # 0.01 L (0.04-0.35) X 10*3/uL Immature Plt Fraction 7.1 H (1.1-6.1) % Fibrinogen 609 H (200-500) mg/dL POC Glucose (mg/dL) 180 H (70-110) mg/dL
--- NOTE | 2023-09-07 17:20 | CA ---
Transthoracic Echo Report Name: Gege Malik Age: 68 Gender: F : 1955 Exam Date: 09/07/2023 14:26 Exam Location: [place] Echo Ht (in): 66 Wt (lb): 178 Ordering Physician: Ruperto Watson MD Attending/Referring Phys: Funeral Service Apprentice Priya Almanza RDCS Procedure CPT: Indications: lightheaded Cardiac Hx: Technical Quality: Fair Contrast 1: Total Dose (mL): Contrast 2: Total Dose (mL): MEASUREMENTS (Male / Female) Normal Values 2D ECHO LV Diastolic Diameter PLAX 3.9 cm 4.2 - 5.9 / 3.9 - 5.3 cm LV Systolic Diameter PLAX 2.5 cm IVS Diastolic Thickness 1.2 cm 0.6 - 1.0 / 0.6 - 0.9 cm LVPW Diastolic Thickness 1.1 cm 0.6 - 1.0 / 0.6 - 0.9 cm LV Relative Wall Thickness 0.6 RV Internal Dim ED PLAX 2.8 cm LA Volume 72.8 cm??? 18 - 58 / 22 - 52 cm??? LA Volume Index 37.1 cm???/m??? 16 - 28 cm???/m??? M-MODE Aortic Root Diameter MM 2.5 cm LA Systolic Diameter MM 4.0 cm LA Ao Ratio MM 1.6 AV Cusp Separation MM 1.7 cm DOPPLER AV Peak Velocity 160.6 cm/s AV Peak Gradient 10.3 mmHg AV Mean Velocity 105.8 cm/s AV Mean Gradient 5.2 mmHg AV Velocity Time Integral 30.2 cm LVOT Peak Velocity 107.0 cm/s LVOT Peak Gradient 4.6 mmHg LVOT Velocity Time Integral 20.6 cm MV Area PHT 3.9 cm??? Mitral E Point Velocity 121.2 cm/s Mitral A Point Velocity 127.8 cm/s Mitral E to A Ratio 0.9 MV Deceleration Time 194.4 ms MV E' Velocity 6.5 cm/s Mitral E to MV E' Ratio 18.7 TR Peak Velocity 347.4 cm/s TR Peak Gradient 48.3 mmHg Right Ventricular Systolic Press 53.0 mmHg FINDINGS Left Ventricle Mildly increased left ventricular wall thickness. Left ventricular cavity size normal. Normal left ventricular systolic function with no obvious regional wall motion abnormalities. Left ventricular ejection fraction is estimated at 55-60 %. Grade 2 diastolic dysfunction. Right Ventricle Normal right ventricular size and function. Moderate to severe pulmonary hypertension. Right ventricular systolic pressure estimated at 53 mm hg. Right Atrium Right atrium not well visualized. Left Atrium Moderately increased left atrial volume. Mildly increased left atrial area. Mitral Valve Mitral valve thickened. Mild mitral annular calcification. [id number] mitral regurgitation. Aortic Valve Trileaflet aortic valve. Thickened aortic valve without stenosis. Trace to mild aortic regurgitation. Tricuspid Valve Structurally normal tricuspid valve. Moderate tricuspid regurgitation. Pulmonic Valve Structurally normal pulmonic valve. Pericardium No pericardial effusion. Aorta Normal size aortic root and proximal ascending aorta. CONCLUSIONS Normal LV function Mild to moderate mitral regurgitation Trace aortic regurgitation Moderate tricuspid regurgitation Moderate to severe coronary hypertension Previewed by: Dr. Oneil Lua MD (Electronically Signed) Final Date: 07 September 2023 17:19
--- NOTE | 2023-09-07 19:07 | P.CONS ---
History of Present Illness - Reason for Consult Consult date: 09/07/23 pancytopenia Requesting physician: Ruperto Watson - Chief Complaint weak, falls - History of Present Illness Mrs. Rebolledo is a 68-year-old female patient of Dr. Muñiz, diagnosed with diffuse large B-cell lymphoma in 2008. She was treated with 3 cycles of R-CHOP followed by radiation. In 2016 she had a new lesion in the right popliteal fossa, positive for large B-cell lymphoma, follicular center. She had treatment with Bendamustine and Rituxan regimen, completed 01/12/2017, followed by radiation. 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 She had esophagectomy 12/18/2018. PET scan also showed a right middle lobe lung nodule. She has rheumatoid arthritis and fibromyalgia. All of her treatment took place in [place]. She established with Dr. Muñiz 01/25/2019. She had a PET scan 03/02/2019 that was negative. 06/26/2019 1 repeat PET scan revealed suspicious uptake in the left cervical node, new liver lesions and a right sacral lesion. 07/07/2020 biopsy of left neck mass was nondiagnostic. She had a repeat biopsy at [place] 08/11/2020, positive for germinal center diffuse large B-cell lymphoma, double expresser. Liver biopsy at [facility] was consistent with diffuse large B-cell lymphoma. She was seen by Dr. Harris, case presented at tumor board, recommended treatment with RICE followed by autologous stem cell transplant. She had 2 cycles, repeat PET scan 11/13/2020 showed a complete response to therapy. Transplant team felt that the patient had a poor performance status at that time so, she continued on follow-up. She continued having PET scans with no evidence of disease. Last scan 05/11/2023. She was at her primary care physician 08/22/2023, routine lab workup showed pancytopenia, B12 and folate were normal, thyroid test were normal CMP was unremarkable. Thought that possibly medications were contributing to low counts but, no toxic levels. CT CAP showed no evidence of lymphadenopathy. Patient had a bone marrow biopsy yesterday. She is currently admitted for weakness. She reports a recent fall at home, she does have a scalp hematoma. C/O dizziness, lightheadedness, she feels very weak when moving around. She reports feeling a little better after the transfusions. Denies any fevers, sweats, weight loss, acute changes in bowel or bladder habits. Review of Systems 10 point ROS is neg except as stated in HPI Past Medical History Past Medical History: Cancer, COPD, Fibromyalgia, Hyperlipidemia, Osteoarthritis (OA) Additional Past Medical History / Comment(s): 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 06/2020 pet scan showed mets to L neck/liver/sacrum per pt. 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 Pt states she takes inderal for shakes not BP. History of Any Multi-Drug Resistant Organisms: None Reported Past Surgical History: Section, Cholecystectomy, Orthopedic Surgery, Tonsillectomy Additional Past Surgical History / Comment(s): 2008 R groin tumor removed, extensive esophageal surgery/esophagectomy/stomach brought up and attached, R sided port, R elbow fracture/radial head removed, colonoscopy. Past Anesthesia/Blood Transfusion Reactions: No Reported Reaction Additional Past Anesthesia/Blood Transfusion Reaction / Comm: Pt received blood with esophagectomy surgery without reaction. Smoking Status: Former smoker - Past Family History Mother History Unknown: Yes Additional Family Medical History / Comment(s): patient adopted and does not know family history Medications and Allergies Home Medications Medication Instructions Recorded Confirmed Type Divalproex [Depakote] 1,000 mg PO HS 07/01/20 09/05/23 History Omeprazole 40 mg PO DAILY 07/01/20 09/05/23 History Propranolol [Inderal] 20 mg PO BID 07/01/20 09/05/23 History LORazepam [Ativan] 1 mg PO TID PRN 05/27/21 09/05/23 History hydrOXYzine HCL [Atarax] 25 mg PO HS 05/27/21 09/05/23 History Cariprazine HCl [Vraylar] 3 mg PO HS 09/05/23 09/05/23 History Cholecalciferol (Vitamin D3) 50 mcg PO DAILY 09/05/23 09/05/23 History [Vitamin D3 (50 Mcg = 2000 Iu)] Dicyclomine [Bentyl] 20 mg PO QID PRN 09/05/23 09/05/23 History Umeclidinium Brm/Vilanterol Tr 1 puff INHALATION RT-DAILY PRN 09/05/23 09/05/23 History [Anoro Ellipta 62.5-25 Mcg INH] oxyCODONE HCL [Oxycodone HCl] 20 mg PO TID 09/05/23 09/05/23 History Allergies Allergy/AdvReac Type Severity Reaction Status Date / Time bendamustine [From [facility]] AdvReac Itching Verified 09/05/23 16:04 Physical Exam Vitals: Vital Signs Temp Pulse Pulse Resp BP BP Pulse Ox 09/07/23 07:00 98.1 F 76 18 108/71 96 09/07/23 01:58 97.6 F 71 16 102/64 97 09/06/23 20:28 71 09/06/23 20:00 98.2 F 105 H 16 147/76 93 L 09/06/23 18:12 98 F 89 16 132/69 98 09/06/23 17:32 86 16 130/68 100 09/06/23 16:13 66 18 135/68 100 09/06/23 15:28 76 16 117/63 90 L 09/06/23 12:30 78 16 124/62 100 Intake and Output 09/06/23 09/07/23 09/07/23 22:59 06:59 14:59 Intake Total 100 Balance 100 Intake: Oral 100 Other: # Voids 1 2 Weight 80.739 kg - Constitutional General appearance: average body habitus, cooperative, no acute distress - EENT Eyes: anicteric sclerae, EOMI ENT: hearing grossly normal - Respiratory Respiratory: bilateral: CTA - Cardiovascular Rhythm: regular Heart sounds: normal: S1, S2 Abnormal Heart Sounds: no systolic murmur, no diastolic murmur, no rub, no S3 Gallop, no S4 Gallop, no click, no other leg Peripheral Edema: bilateral: Trace - Gastrointestinal General gastrointestinal: normal bowel sounds, soft - Neurologic Neurologic: CNII-XII intact - Musculoskeletal Musculoskeletal: generalized weakness - Psychiatric Psychiatric: A&O x's 3, appropriate affect, intact judgment & insight Results CBC & Chem 7: 09/07/23 06:04 09/06/23 03:45 Labs: Abnormal Lab Results - Last 24 Hours (Table) 09/06/23 09/07/23 Range/Units 18:07 06:04 WBC 2.16 L (4.50-10.00) X 10*3/uL RBC 2.77 L (4.10-5.20) X 10*6/uL Hgb 8.6 L (12.0-15.0) g/dL Hct 25.8 L (37.2-46.3) % RDW 18.5 H (11.5-14.5) % Plt Count 27 L (140-440) X 10*3/uL Immature Gran # 0.07 H (0.00-0.04) X 10*3/uL Neutrophils # 1.09 L (1.80-7.70) X 10*3/uL Lymphocytes # 0.67 L (0.90-5.00) X 10*3/uL Eosinophils # 0.01 L (0.04-0.35) X 10*3/uL Immature Plt Fraction 7.1 H (1.1-6.1) % POC Glucose (mg/dL) 180 H (70-110) mg/dL CT Scan - head: report reviewed Assessment and Plan (1) Pancytopenia Current Visit: Yes Status: Acute Priority: High Code(s): D61.818 - OTHER PANCYTOPENIA SNOMED Code(s): 048292183 (2) Diffuse large B cell lymphoma Current Visit: No Status: Chronic Priority: Low Code(s): C83.30 - DIFFUSE LARGE B-CELL LYMPHOMA, UNSPECIFIED SITE SNOMED Code(s): 197490796 Plan: Pancytopenia -New onset, unclear cause at this time -Status post bone marrow biopsy done yesterday. Patient has a follow-up with Dr. Muñiz scheduled next week for results WBC 2.1, no G-CSF at this time - hemoglobin 8.6 status post 2 units PRBCs. Transfuse for hemoglobin less than 7 or if patient is symptomatic -platelet count 27,000. No aspirin, NSAIDs or anticoagulation. Please use SCDs for DVT prophylaxis. -CBC monitoring while inpatient -Additional pancytopenia labs are ordered. DIC labs ordered. Once patient is stable she is okay from a hematology standpoint to be discharged. Her counts can be monitored in the outpatient setting. She will receive bone marrow biopsy results as soon as they are available.
[2023-09-07 21:09] LABS: HIV 2 AB Non-Reactive (Non-Reactive); HIV AB P24 Non-Reactive (Non-Reactive); HIV P24 AG Non-Reactive (Non-Reactive)
[2023-09-08 09:13] VITALS: RESP 16
--- NOTE | 2023-09-08 09:45 | P.GSCN ---
History of Present Illness Consult date: 09/08/23 Reason for Consult: Clogged Mediport Requesting physician: Ruperto Watson History of present illness: This is a pleasant 68-year-old female with a history of cancer who has a right chest Mediport placed. Patient sees Dr. Muñiz for history of diffuse large B- cell lymphoma and was sent in for anemia. Patient states it was placed 14 years ago in [place]. She gets frequent blood draws and is a difficult stick so she is kept it. Apparently they had tried to draw blood and were unable to. Vascular surgery was consulted for clogged Mediport. She does not use the Mediport for any other reason other than frequent blood draws at this time. Apparently they have not tried tPA through the Mediport. She denies any pain in her chest, no surrounding redness or drainage. Review of Systems A 14 point review systems was completed all pertinent positives and negatives as stated in the HPI. 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 06/2020 pet scan showed mets to L neck/liver/sacrum per pt. 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 Pt states she takes inderal for shakes not BP. History of Any Multi-Drug Resistant Organisms: None Reported Past Surgical History: Section, Cholecystectomy, Orthopedic Surgery, Tonsillectomy Additional Past Surgical History / Comment(s): 2008 R groin tumor removed, extensive esophageal surgery/esophagectomy/stomach brought up and attached, R sided port, R elbow fracture/radial head removed, colonoscopy. Past Anesthesia/Blood Transfusion Reactions: No Reported Reaction Additional Past Anesthesia/Blood Transfusion Reaction / Comm: Pt received blood with esophagectomy surgery without reaction. Smoking Status: Former smoker - Past Family History Mother History Unknown: Yes Additional Family Medical History / Comment(s): patient adopted and does not know family history Medications and Allergies Home Medications Medication Instructions Recorded Confirmed Type Divalproex [Depakote] 1,000 mg PO HS 07/01/20 09/05/23 History Omeprazole 40 mg PO DAILY 07/01/20 09/05/23 History Propranolol [Inderal] 20 mg PO BID 07/01/20 09/05/23 History LORazepam [Ativan] 1 mg PO TID PRN 05/27/21 09/05/23 History hydrOXYzine HCL [Atarax] 25 mg PO HS 05/27/21 09/05/23 History Cariprazine HCl [Vraylar] 3 mg PO HS 09/05/23 09/05/23 History Cholecalciferol (Vitamin D3) 50 mcg PO DAILY 09/05/23 09/05/23 History [Vitamin D3 (50 Mcg = 2000 Iu)] Dicyclomine [Bentyl] 20 mg PO QID PRN 09/05/23 09/05/23 History Umeclidinium Brm/Vilanterol Tr 1 puff INHALATION RT-DAILY PRN 09/05/23 09/05/23 History [Anoro Ellipta 62.5-25 Mcg INH] oxyCODONE HCL [oxyCODONE HCL (IR)] 20 mg PO TID 09/05/23 09/05/23 History Allergies Allergy/AdvReac Type Severity Reaction Status Date / Time bendamustine [From Bendeka] AdvReac Itching Verified 09/05/23 16:04 Surgical - Exam Vital Signs Temp Pulse Resp BP Pulse Ox 98 F 90 16 87/59 97 09/05/23 14:31 09/05/23 14:31 09/05/23 14:31 09/05/23 14:31 09/05/23 14:31 General appearance: The patient is alert, oriented, appears in no acute distress. HET: Head is normocephalic and atraumatic. Pupils are equal and reactive. Neck: Supple. Heart: Regular. Lungs: Equal expansion, normal respiratory effort. Chest: Right chest wall Mediport without any surrounding redness or drainage. Abdomen: Soft, nontender, nondistended. Extremities: Normal skin color and turgor. Neurological: No focal deficits. Strength and sensation are grossly intact. Results - Labs 09/08/23 09:49 09/06/23 03:45 Abnormal Lab Results - Last 24 Hours (Table) 09/07/23 09/07/23 Range/Units 06:04 09:37 WBC 2.16 L (4.50-10.00) X 10*3/uL RBC 2.77 L (4.10-5.20) X 10*6/uL Hgb 8.6 L (12.0-15.0) g/dL Hct 25.8 L (37.2-46.3) % RDW 18.5 H (11.5-14.5) % Plt Count 27 L (140-440) X 10*3/uL Immature Gran # 0.07 H (0.00-0.04) X 10*3/uL Neutrophils # 1.09 L (1.80-7.70) X 10*3/uL Lymphocytes # 0.67 L (0.90-5.00) X 10*3/uL Eosinophils # 0.01 L (0.04-0.35) X 10*3/uL Immature Plt Fraction 7.1 H (1.1-6.1) % Fibrinogen 609 H (200-500) mg/dL Assessment and Plan Assessment: 1. Clogged Mediport 2. Large B-cell lymphoma with Mediport 3. Pancytopenia Plan: 1. Patient with clogged Mediport used for blood draws only according to patient, Cathflo administered per Dr. Park to port. Port was easily flushed. No further intervention at this time. 2. If patient needs removal of Mediport can consult general surgery or patient can have done as an outpatient. Thank you for this consultation, we will sign off at this time. The impression and plan of care has been dictated as directed. Dr. Calhoun I performed a history and examination of this patient, discussed the same with the dictator. I agree with the dictator's note ,documented as a scribe. Any additional findings or plans will be noted.
[2023-09-08] MEDS: ALTEPLASE 2 MG VIAL (CATHFLO) IV STA (10:30)
--- NOTE | 2023-09-08 10:49 | P.DS ---
Providers Date of admission: 09/07/23 12:58 Expected date of discharge: 09/08/23 Attending physician: Agustin Resendiz MD Consults: 09/06/23 14:47 Consult Physician Routine Consulting Provider: Lb Bourgeois Consult Reason/Comments: Known patient Do you want consulting provider notified?: Yes 09/08/23 07:24 Consult Physician Routine Consulting Provider: Mary Dumont Consult Reason/Comments: clogged mediport Do you want consulting provider notified?: Yes Primary care physician: [facility] Course: 68 year old F with PMH of lymphoma, history of esophageal CA, fibromyalgia, HDL presents to the ED. Her Oncologist Dr. Muñiz recommended she come to the ED for abnormal lab work. Recently underwent bone marrow biopsy. Recently underwent PET scan and CT chest/abdomen/pelvis which did not show any signs of malignancy. She also reports generalized weakness and frequent falls leading to hitting her head from her legs giving in on her. She reports lightheadedness but no syncopal episodes. In the ED she underwent extensive evaluation. BP 87/59, HR 90, T 98F, RR 16, 97% on RA. CBC, Coag panel, CMP done significant for WBC 1.8, RBC 1.82, Hg 6.0, Hct 17.5, Plt 25, Na 129, Cl 97, bicarb 31, glu 149, Ca 8.0, alb 3.2. Stool occult blood negative. Patient was transfused 2 unit PRBC and admited for further workup and management. 09/05 Patient was seen and examined. Still complains of feeling very weak. Reports increased pain in her head and both shoulders likely from falls prior to admission. She does take Oxycodone 20 mg PO TID for pain at home. CBC WBC 2.8, RBC 2.75, Hg 8.8, Hct 25.2, Plt 21. BMP Na 132, glu 146, Ca 7.4, T. Bili 1.6, alb 2.7. 09/06 Patient was seen and examined. She reports lightheadedness while sitting in bed eating breakfast. Also felt lightheaded when standing to use the commode. Orthostats obtained which were negative. CBC shows WBC 2.16 Hg 8.6 Hct 25.8 Plt 27. Oncology consult pending. Echocardiogram ordered and pending. CT brain done yesterday showed posterior scalp hematoma. 09/07 Patient was seen and examined. She reports a clogged R chest Mediport that was inserted > 10 years ago. Vascular surgery consulted and alteplase ordered. Lightheadedness has resolved. Echo shows EF 55-60% G2DD mild-mod MR, trace AF, mod TR, mod-severe pulmonary HTN. Oncology recommends follow up with Dr. Muñiz for bone marrow biopsy results. Patient is looking forward to going home. Mediport was able to be de-clogged by Dr. Calhoun. General: non toxic, no distress, appears at stated age Derm: warm, dry Head: atraumatic, normocephalic, symmetric Eyes: EOMI, no lid lag, pale sclera Mouth: no lip lesion, mucus membranes moist Cardiovascular: S1S2 reg, no murmur, R chest Mediport Lungs: CTA bilateral, no rhonchi, no rales , no accessory muscle use Ext: no gross muscle atrophy, no edema, no contractures Neuro: no focal neuro deficits Psych: Alert, oriented, appropriate affect Discharge Diagnosis: Occluded Mediport Lightheadedness Pancytopenia Frequent falls with head trauma Hyponatremia Acute on chronic pain with h/o fibromyalgia and recent falls History of lymphoma and esophageal CA This complex discharge took 35 minutes to complete. Patient Condition at Discharge: Stable Plan - Discharge Summary Discharge Rx Participant: No New Discharge Prescriptions: Continue Propranolol [Inderal] 20 mg PO BID Omeprazole 40 mg PO DAILY Divalproex [Depakote] 1,000 mg PO HS oxyCODONE HCL [oxyCODONE HCL (IR)] 20 mg PO TID Umeclidinium Brm/Vilanterol Tr [Anoro Ellipta 62.5-25 Mcg INH] 1 puff INHALATION RT-DAILY PRN PRN Reason: Shortness Of Breath Cholecalciferol (Vitamin D3) [Vitamin D3 (50 Mcg = 2000 Iu)] 50 mcg PO DAILY Cariprazine HCl [Vraylar] 3 mg PO HS hydrOXYzine HCL [Atarax] 25 mg PO HS LORazepam [Ativan] 1 mg PO TID PRN PRN Reason: Anxiety Dicyclomine [Bentyl] 20 mg PO QID PRN PRN Reason: ABDOMINAL COLON SPASMS Discharge Medication List Divalproex [Depakote] 1,000 mg PO HS 07/01/20 [History] Omeprazole 40 mg PO DAILY 07/01/20 [History] Propranolol [Inderal] 20 mg PO BID 07/01/20 [History] LORazepam [Ativan] 1 mg PO TID PRN 05/27/21 [History] hydrOXYzine HCL [Atarax] 25 mg PO HS 05/27/21 [History] Cariprazine HCl [Vraylar] 3 mg PO HS 09/05/23 [History] Cholecalciferol (Vitamin D3) [Vitamin D3 (50 Mcg = 2000 Iu)] 50 mcg PO DAILY 09/05/23 [History] Dicyclomine [Bentyl] 20 mg PO QID PRN 09/05/23 [History] Umeclidinium Brm/Vilanterol Tr [Anoro Ellipta 62.5-25 Mcg INH] 1 puff INHALATION RT-DAILY PRN 09/05/23 [History] oxyCODONE HCL [oxyCODONE HCL (IR)] 20 mg PO TID 09/05/23 [History] Follow up Appointment(s)/Referral(s): Yari Valverde MD [Primary Care Provider] - 1-2 days Yvonne Muñiz MD [STAFF PHYSICIAN] - 09/18/23 10:45 am (This appt is at the office located in [facility], at the [facility]. [id number]) Discharge Disposition: HOME SELF-CARE
[2023-09-08 11:08] LABS: Anisocytosis Slight; HGB 9.6 gm/dL (11.4-16.0); MCH 31.1 pg (25.0-35.0); MCHC 33.1 g/dL (31.0-37.0); MCV 94.1 fL (80.0-100.0); Mean Platelet Volume 10.6; RBC 3.08 m/uL (3.80-5.40); RDW 17.3 % (11.5-15.5)
[2023-09-08 11:56] LABS: Platelet Count 25 k/uL (150-450)
[2023-09-08 14:21] VITALS: BP 112/77; PULSE 77; TEMP 97.8
--- NOTE | 2023-09-08 15:07 | XR ---
EXAMINATION TYPE: XR elbow complete RT DATE OF EXAM: 09/08/2023 3:03 PM CLINICAL INDICATION:Female, 68 years old with history of FALL, BRUISING AND SWELLING; [facility] COMPARISON: 02/14/2020 TECHNIQUE: XR elbow complete RT; elbow was examined in AP, lateral, and oblique projections. FINDINGS/IMPRESSION: Chronic deformity to the radial head with small joint effusion at the elbow. No evidence for acute fr acture.
--- NOTE | 2023-09-11 22:42 | CDI ---
Documentation Clarification Form Date: 09/11/2023 10:24:02 PM From: Sydney Ibrahim Phone: Admit Date: 09/07/2023 12:58:00 PM Patient Name: Gege Malik Visit Number: [id number] Discharge Date: 09/08/2023 05:33:00 PM ATTENTION: The Clinical Documentation Specialists (CDI) and [facility] Coding Staff appreciate your assistance in clarifying documentation. Please respond to the clarification below the line at the bottom and electronically sign. The CDI & [facility] Coding staff will review the response and follow-up if needed. Please note: Queries are made part of the Legal Health Record. If you have any questions, please contact the author of this message via ITS. Dr. Ruperto Watson Pancytopenia is documented per H&P. Additional clarification regarding the etiology of pancytopenia is requested. History/Risk factors: 68yo F, anemia, Hx chemo & rad, diffuse large B-cell lymphoma, frequent fallsposteriorscalp hematoma, hyponatremia, occludedMediport, pancytopenia, a/c painwith fibromyalgia Clinical indicators: WBC 2.1,noG-CSF at this time Hgb 8.6 Treatment: 2 units PRBCs. Transfusefor Hgb less than 7 or if patient is symptomatic; platelet count 27,000. No aspirin, NSAIDs or anticoagulation. Patient has af/uwith Dr. Muñiz scheduled next week for results Please clarify the etiology of pancytopenia, if known: [ ] Pancytopenia drug induced, specify drug [ x ] Pancytopenia due to other, please specify___myelodysplastic syndrome [ ] Anemia, please specify etiology [ ] Thrombocytopenia, please specify etiology [ ] Other condition, please specify ____ [ ] Unable to determine (Template Last Revised: July 2020) MTDD
== END 2023-09-08 17:33 | disposition home or self-care (01) | DRG 809 ==
LOC: EC 13:55 → 6NMEDSUR 17:43 → OBSVTOIN 09-07 12:58
PROVIDERS: ADMIT Student in an Organized Health Care Education/Training Program; ATTEND Student in an Organized Health Care Education/Training Program
PROC: 30233N1 Transfusion of Nonautologous Red Blood Cells into Peripheral Vein, Percutaneous Approach (ICD-10-PCS; principal; 2023-09-05)
DX: D61.818 Other pancytopenia (principal); C83.38 Diffuse large B-cell lymphoma, lymph nodes of multiple sites; E87.1 Hypo-osmolality and hyponatremia; T82.49XA Other complication of vascular dialysis catheter, initial encounter; I27.20 Pulmonary hypertension, unspecified; J44.9 Chronic obstructive pulmonary disease, unspecified; M06.9 Rheumatoid arthritis, unspecified; D46.Z Other myelodysplastic syndromes; D63.0 Anemia in neoplastic disease; I08.1 Rheumatic disorders of both mitral and tricuspid valves; R29.6 Repeated falls; E78.5 Hyperlipidemia, unspecified; M79.7 Fibromyalgia; G89.29 Other chronic pain; R00.1 Bradycardia, unspecified; S00.03XA Contusion of scalp, initial encounter; Y71.1 Therapeutic (nonsurgical) and rehabilitative cardiovascular devices associated with adverse incidents; Y92.009 Unspecified place in unspecified non-institutional (private) residence as the place of occurrence of the external cause; Z91.81 History of falling; Z85.01 Personal history of malignant neoplasm of esophagus; Z87.891 Personal history of nicotine dependence; Z85.028 Personal history of other malignant neoplasm of stomach; Z92.21 Personal history of antineoplastic chemotherapy; Z85.05 Personal history of malignant neoplasm of liver; Z85.830 Personal history of malignant neoplasm of bone; Z79.899 Other long term (current) drug therapy; Z92.3 Personal history of irradiation
CPT/HCPCS: 36415; 36430; 70450; 80053; 80164; 82272; 83921; 85025; 85027; 85384; 85610; 85730; 86850; 86900; 86901; 86920; 87390; 93306; 96360; 96361; 99285

== ENCOUNTER 2023-09-11 17:59 | Inpatient (IN) | payer MEDICARE, BC ==
--- NOTE | 2023-09-11 18:51 | ED ---
Recheck HPI - General Chief Complaint: Weakness Stated Complaint: Weakness, chest pain Time Seen by Provider: 09/11/23 18:31 Source: patient, RN notes reviewed, old records reviewed Mode of arrival: wheelchair Limitations: no limitations - History of Present Illness Initial Comments: This is a 68 female to ER for evaluation today. Patient presents today for evaluation regards to significant and persistent weakness and inability to ambulate, increasing weakness and lumbar with persistent weakness. Patient does have recent inpatient causation for anemia. MD Complaint: other (Persistent weakness and increasing weakness and debility) -: days(s) Symptoms Since Prior Visit: no new symptoms Associated Symptoms: none Treatments Prior to Arrival: home treatments - Related Data Home Medications Medication Instructions Recorded Confirmed Divalproex [Depakote] 1,000 mg PO HS 07/01/20 09/05/23 Omeprazole 40 mg PO DAILY 07/01/20 09/05/23 Propranolol [Inderal] 20 mg PO BID 07/01/20 09/05/23 hydrOXYzine HCL [Atarax] 25 mg PO HS 05/27/21 09/05/23 Cariprazine HCl [Vraylar] 3 mg PO HS 09/05/23 09/05/23 Cholecalciferol (Vitamin D3) 50 mcg PO DAILY 09/05/23 09/05/23 [Vitamin D3 (50 Mcg = 2000 Iu)] Dicyclomine [Bentyl] 20 mg PO QID PRN 09/05/23 09/05/23 Umeclidinium Brm/Vilanterol Tr 1 puff INHALATION RT-DAILY PRN 09/05/23 09/05/23 [Anoro Ellipta 62.5-25 Mcg INH] Previous Rx's Medication Instructions Recorded LORazepam [Ativan] 1 mg PO TID PRN #9 tab 09/15/23 oxyCODONE HCL [oxyCODONE HCL (IR)] 20 mg PO TID #9 tab 09/15/23 Allergies Allergy/AdvReac Type Severity Reaction Status Date / Time bendamustine [From Bendeka] AdvReac Itching Verified 09/12/23 09:03 Review of Systems ROS Statement: Those systems with pertinent positive or pertinent negative responses have been documented in the HPI. ROS Other: All systems not noted in ROS Statement are negative. 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 06/2020 pet scan showed mets to L neck/liver/sacrum per pt. 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 Pt states she takes inderal for shakes not BP. History of Any Multi-Drug Resistant Organisms: None Reported Past Surgical History: Section, Cholecystectomy, Orthopedic Surgery, Tonsillectomy Additional Past Surgical History / Comment(s): 2008 R groin tumor removed, extensive esophageal surgery/esophagectomy/stomach brought up and attached, R sided port, R elbow fracture/radial head removed, colonoscopy. Past Anesthesia/Blood Transfusion Reactions: No Reported Reaction Additional Past Anesthesia/Blood Transfusion Reaction / Comment(s): Pt received blood with esophagectomy surgery without reaction. Past Psychological History: Bipolar Smoking Status: Former smoker Past Alcohol Use History: None Reported Past Drug Use History: None Reported - Past Family History Mother History Unknown: Yes Additional Family Medical History / Comment(s): patient adopted and does not know family history General Exam Limitations: no limitations General appearance: alert, in no apparent distress, anxious Head exam: Present: atraumatic, normocephalic, normal inspection Eye exam: Present: normal appearance, PERRL, EOMI. Absent: scleral icterus, conjunctival injection, periorbital swelling ENT exam: Present: normal exam, mucous membranes moist Neck exam: Present: normal inspection. Absent: tenderness, meningismus, lymphadenopathy Respiratory exam: Present: normal lung sounds bilaterally. Absent: respiratory distress, wheezes, rales, rhonchi, stridor Cardiovascular Exam: Present: regular rate, normal rhythm, normal heart sounds. Absent: systolic murmur, diastolic murmur, rubs, gallop, clicks GI/Abdominal exam: Present: soft, normal bowel sounds. Absent: distended, tenderness, guarding, rebound, rigid Extremities exam: Present: normal inspection, full ROM, normal capillary refill. Absent: tenderness, pedal edema, joint swelling, calf tenderness Back exam: Present: normal inspection Neurological exam: Present: alert, oriented X3, CN II-XII intact Psychiatric exam: Present: normal affect, normal mood Skin exam: Present: warm, dry, intact, normal color. Absent: rash Course Vital Signs 09/11/23 09/11/23 09/11/23 18:01 20:07 23:13 Temperature 98 F 98.1 F Pulse Rate 69 86 101 H Respiratory 20 14 18 Rate Blood Pressure 140/69 107/71 125/78 O2 Sat by Pulse 99 100 99 Oximetry 09/12/23 09/12/23 09/12/23 05:00 07:00 08:00 Temperature 98.3 F 97.9 F Pulse Rate 84 87 82 Respiratory 16 16 16 Rate Blood Pressure 108/72 114/70 110/72 O2 Sat by Pulse 98 97 96 Oximetry 09/12/23 09/12/23 09:00 10:48 Temperature Pulse Rate 84 84 Respiratory 18 16 Rate Blood Pressure 104/64 112/56 O2 Sat by Pulse 95 94 L Oximetry - Reevaluation(s) Reevaluation #1: 09/11/23 23:14 Medical record is reviewed Reevaluation #2: 09/11/23 23:14 Patient symptoms are unchanged Reevaluation #3: 09/11/23 23:14 Patient informed of results and questions answered Reevaluation #4: Was pt. sent in by a medical professional or institution (, PA, [facility], urgent care, hospital, or [facility]...) When possible be specific @ -no Did you speak to anyone other than the patient for history (EMS, parent, family, police, friend...)? What history was obtained from this source @ -no Did you review nursing and triage notes (agree or disagree)? Why? @ -agree Are old charts reviewed (outside hosp., previous admission, EMS record, old EKG, old radiological studies, urgent care reports/EKG's, [facility] records)? Report findings @ -yes Differential Diagnosis (chest pain, altered mental status, abdominal pain women, abdominal pain men, vaginal bleeding, weakness, fever, dyspnea, syncope, h eadache, dizziness, GI bleed, back pain, seizure, CVA, palpatations, mental health, musculoskeletal)? @ -prior EKG interpreted by me (3pts min.). @ -yes X-rays interpreted by me (1pt min.). @ -yes negative for acute disease CT interpreted by me (1pt min.). @ -no U/S interpreted by me (1pt. min.). @ -no What testing was considered but not performed or refused? (CT, X-rays, U/S, labs)? Why? @ -none What meds were considered but not given or refused? Why? @ -none Did you discuss the management of the patient with other professionals (professionals i.e. Dr., PA, [facility], lab, RT, psych nurse, mental health social worker, teaching associate, teacher, chief fundraising officer, piano case and bench assembler)? Give summary @ -no Was smoking cessation discussed for >3mins.? @ -no Was critical care preformed (if so, how long)? @ -no Were there social determinants of health that impacted care today? How? (Homelessness, low income, unemployed, alcoholism, drug addiction, transportation, low edu. Level, literacy, decrease access to med. care, group home, rehab)? @ -none Was there de-escalation of care discussed even if they declined (Discuss DNR or withdrawal of care, Hospice)? DNR status @ -no What co-morbidities impacted this encounter? (DM, HTN, Smoking, COPD, CAD, Cancer, CVA, ARF, Chemo, Hep., AIDS, mental health diagnosis, sleep apnea, morbid obesity)? @ -none Was patient admitted / discharged? Hospital course, mention meds given and route, prescriptions, significant lab abnormalities, going to OR and other pertinent info. @ - 68 female to ER for evaluation of significant weakness and increasing debility. Patient will be admitted for PT OT and possible need for rehabilitation Admitted Undiagnosed new problem with uncertain prognosis? @ -no Drug Therapy requiring intensive monitoring for toxicity (Heparin, Nitro, Insulin, Cardizem)? @ -no Were any procedures done? @ -no Diagnosis/symptom? @ -Weakness with debility Acute, or Chronic, or Acute on Chronic? @ -Acute Uncomplicated (without systemic symptoms) or Complicated (systemic symptoms)? @ -Complicated Side effects of treatment? @ -no Exacerbation, Progression, or Severe Exacerbation? @ -exacerbation Poses a threat to life or bodily function? How? (Chest pain, USA, OK, pneumonia, PE, COPD, DKA, ARF, appy, cholecystitis, CVA, Diverticulitis, Homicidal, Suic idal, threat to staff... and all critical care pts) @ -yes extended debility and weakness Reevaluation #5: Differential Weakness: Hypoglycemia, shock, sepsis, hyponatremia, anemia, infection, OK, ETOH, adverse medicine reaction, overdose, stroke, this is not meant to be an all-inclusive list. - Consultations Consultation #1: With admitting physicians who agreed with this patient Medical Decision Making - Medical Decision Making 68 female to ER for evaluation of significant weakness and increasing debility. Patient will be admitted for PT OT and possible need for rehabilitation - Lab Data Result diagrams: 09/15/23 06:35 09/15/23 06:35 Lab Results 09/11/23 09/11/23 09/11/23 Range/Units 19:14 19:14 19:14 WBC 2.0 L (3.8-10.6) k/uL RBC 2.85 L (3.80-5.40) m/uL Hgb 9.0 L (11.4-16.0) gm/dL Hct 27.3 L (34.0-46.0) % MCV 95.6 (80.0-100.0) fL MCH 31.5 (25.0-35.0) pg MCHC 32.9 (31.0-37.0) g/dL RDW 16.8 H (11.5-15.5) % Plt Count 35 L (150-450) k/uL MPV 9.4 Neutrophils % (Manual) 55 % Band Neuts % (Manual) 3 % Lymphocytes % (Manual) 23 % Monocytes % (Manual) 18 % Eosinophils % (Manual) 1 % Basophils % (Manual) 1 % Neutrophils # (Manual) 1.10 L (1.3-7.7) k/uL Lymphocytes # (Manual) 0.46 L (1.0-4.8) k/uL Monocytes # (Manual) 0.36 (0-1.0) k/uL Eosinophils # (Manual) 0.02 (0-0.7) k/uL Basophils # (Manual) 0.02 (0-0.2) k/uL Nucleated RBCs 0 (0-0) /100 WBC Manual Slide Review Performed Anisocytosis Slight PT 10.7 (10.0-12.5) sec INR 1.0 (<1.2) APTT 23.7 (22.0-30.0) sec Sodium 134 L (137-145) mmol/L Potassium 3.3 L (3.5-5.1) mmol/L Chloride 98 (98-107) mmol/L Carbon Dioxide 31 H (22-30) mmol/L Anion Gap 5 mmol/L BUN 13 (7-17) mg/dL Creatinine 0.69 (0.52-1.04) mg/dL Est GFR (CKD-EPI)AfAm >90 (>60 ml/min/1.73 sqM) Est GFR (CKD-EPI)NonAf 90 (>60 ml/min/1.73 sqM) Glucose 138 H (74-99) mg/dL Plasma Lactic Acid Med (0.7-2.0) mmol/L Calcium 8.0 L (8.4-10.2) mg/dL Phosphorus 3.8 (2.5-4.5) mg/dL Magnesium 1.7 (1.6-2.3) mg/dL Total Bilirubin 0.9 (0.2-1.3) mg/dL AST 18 (14-36) U/L ALT 12 (4-34) U/L Alkaline Phosphatase 89 (38-126) U/L Troponin I (0.000-0.034) ng/mL NT-Pro-B Natriuret Pep 4540 pg/mL Total Protein 5.6 L (6.3-8.2) g/dL Albumin 3.2 L (3.5-5.0) g/dL TSH 6.940 H (0.465-4.680) mIU/L Free T4 (0.78-2.19) ng/dL Urine Color Urine Appearance (Clear) Urine pH (5.0-8.0) Ur Specific [place] (1.001-1.035) Urine Protein (Negative) Urine Glucose (UA) (Negative) Urine Ketones (Negative) Urine Blood (Negative) Urine Nitrite (Negative) Urine Bilirubin (Negative) Urine Urobilinogen (<2.0) mg/dL Ur Leukocyte Esterase (Negative) Urine RBC (0-5) /hpf Urine WBC (0-5) /hpf Ur Squamous Epith Cells (0-4) /hpf Urine Bacteria (None) /hpf Hyaline Casts (0-2) /lpf Urine Mucus (None) /hpf 09/11/23 09/11/23 09/11/23 Range/Units 19:14 19:14 19:14 WBC (3.8-10.6) k/uL RBC (3.80-5.40) m/uL Hgb (11.4-16.0) gm/dL Hct (34.0-46.0) % MCV (80.0-100.0) fL MCH (25.0-35.0) pg MCHC (31.0-37.0) g/dL RDW (11.5-15.5) % Plt Count (150-450) k/uL MPV Neutrophils % (Manual) % Band Neuts % (Manual) % Lymphocytes % (Manual) % Monocytes % (Manual) % Eosinophils % (Manual) % Basophils % (Manual) % Neutrophils # (Manual) (1.3-7.7) k/uL Lymphocytes # (Manual) (1.0-4.8) k/uL Monocytes # (Manual) (0-1.0) k/uL Eosinophils # (Manual) (0-0.7) k/uL Basophils # (Manual) (0-0.2) k/uL Nucleated RBCs (0-0) /100 WBC Manual Slide Review Anisocytosis PT (10.0-12.5) sec INR (<1.2) APTT (22.0-30.0) sec Sodium (137-145) mmol/L Potassium (3.5-5.1) mmol/L Chloride (98-107) mmol/L Carbon Dioxide (22-30) mmol/L Anion Gap mmol/L BUN (7-17) mg/dL Creatinine (0.52-1.04) mg/dL Est GFR (CKD-EPI)AfAm (>60 ml/min/1.73 sqM) Est GFR (CKD-EPI)NonAf (>60 ml/min/1.73 sqM) Glucose (74-99) mg/dL Plasma Lactic Acid Med 1.7 (0.7-2.0) mmol/L Calcium (8.4-10.2) mg/dL Phosphorus (2.5-4.5) mg/dL Magnesium (1.6-2.3) mg/dL Total Bilirubin (0.2-1.3) mg/dL AST (14-36) U/L ALT (4-34) U/L Alkaline Phosphatase (38-126) U/L Troponin I <0.012 (0.000-0.034) ng/mL NT-Pro-B Natriuret Pep pg/mL Total Protein (6.3-8.2) g/dL Albumin (3.5-5.0) g/dL TSH (0.465-4.680) mIU/L Free T4 1.42 (0.78-2.19) ng/dL Urine Color Urine Appearance (Clear) Urine pH (5.0-8.0) Ur Specific [place] (1.001-1.035) Urine Protein (Negative) Urine Glucose (UA) (Negative) Urine Ketones (Negative) Urine Blood (Negative) Urine Nitrite (Negative) Urine Bilirubin (Negative) Urine Urobilinogen (<2.0) mg/dL Ur Leukocyte Esterase (Negative) Urine RBC (0-5) /hpf Urine WBC (0-5) /hpf Ur Squamous Epith Cells (0-4) /hpf Urine Bacteria (None) /hpf Hyaline Casts (0-2) /lpf Urine Mucus (None) /hpf 09/11/23 09/12/23 09/12/23 Range/Units 21:29 07:45 07:45 WBC 1.5 L (3.8-10.6) k/uL RBC 2.47 L (3.80-5.40) m/uL Hgb 7.8 L (11.4-16.0) gm/dL Hct 23.2 L (34.0-46.0) % MCV 93.9 (80.0-100.0) fL MCH 31.6 (25.0-35.0) pg MCHC 33.7 (31.0-37.0) g/dL RDW 16.8 H (11.5-15.5) % Plt Count 26 L (150-450) k/uL MPV 9.4 Neutrophils % (Manual) 40 % Band Neuts % (Manual) 2 % Lymphocytes % (Manual) 43 % Monocytes % (Manual) 15 % Eosinophils % (Manual) % Basophils % (Manual) % Neutrophils # (Manual) 0.60 L (1.3-7.7) k/uL Lymphocytes # (Manual) 0.65 L (1.0-4.8) k/uL Monocytes # (Manual) 0.23 (0-1.0) k/uL Eosinophils # (Manual) (0-0.7) k/uL Basophils # (Manual) (0-0.2) k/uL Nucleated RBCs 0 (0-0) /100 WBC Manual Slide Review Performed Anisocytosis Slight PT (10.0-12.5) sec INR (<1.2) APTT (22.0-30.0) sec Sodium 129 L (137-145) mmol/L Potassium 3.7 (3.5-5.1) mmol/L Chloride 95 L (98-107) mmol/L Carbon Dioxide 32 H (22-30) mmol/L Anion Gap 2 mmol/L BUN 10 (7-17) mg/dL Creatinine 0.61 (0.52-1.04) mg/dL Est GFR (CKD-EPI)AfAm >90 (>60 ml/min/1.73 sqM) Est GFR (CKD-EPI)NonAf >90 (>60 ml/min/1.73 sqM) Glucose 110 H (74-99) mg/dL Plasma Lactic Acid Med (0.7-2.0) mmol/L Calcium 7.8 L (8.4-10.2) mg/dL Phosphorus 3.1 (2.5-4.5) mg/dL Magnesium 1.6 (1.6-2.3) mg/dL Total Bilirubin 0.9 (0.2-1.3) mg/dL AST 17 (14-36) U/L ALT 10 (4-34) U/L Alkaline Phosphatase 90 (38-126) U/L Troponin I (0.000-0.034) ng/mL NT-Pro-B Natriuret Pep pg/mL Total Protein 5.1 L (6.3-8.2) g/dL Albumin 2.8 L (3.5-5.0) g/dL TSH (0.465-4.680) mIU/L Free T4 (0.78-2.19) ng/dL Urine Color Yellow Urine Appearance Cloudy H (Clear) Urine pH 5.5 (5.0-8.0) Ur Specific [place] 1.023 (1.001-1.035) Urine Protein Trace H (Negative) Urine Glucose (UA) Trace H (Negative) Urine Ketones Negative (Negative) Urine Blood Negative (Negative) Urine Nitrite Negative (Negative) Urine Bilirubin Negative (Negative) Urine Urobilinogen 4.0 (<2.0) mg/dL Ur Leukocyte Esterase Trace H (Negative) Urine RBC 3 (0-5) /hpf Urine WBC 4 (0-5) /hpf Ur Squamous Epith Cells 4 (0-4) /hpf Urine Bacteria Occasional H (None) /hpf Hyaline Casts 17 H (0-2) /lpf Urine Mucus Rare H (None) /hpf - EKG Data -: EKG Interpreted by Ma - Radiology Data Radiology results: report reviewed (Chest x-ray is negative for acute disease), image reviewed Disposition Clinical Impression: Dehydration, Debility, Weakness, Anemia Disposition: ADMITTED IP TO [facility] Condition: Stable Is patient prescribed a controlled substance at d/c from ED?: No Time of Disposition: 21:55
[2023-09-11 19:32] LABS: Anisocytosis Slight; HCT 27.3 % (34.0-46.0); MCH 31.5 pg (25.0-35.0); MCHC 32.9 g/dL (31.0-37.0); MCV 95.6 fL (80.0-100.0); Mean Platelet Volume 9.4; RBC 2.85 m/uL (3.80-5.40); RDW 16.8 % (11.5-15.5)
--- NOTE | 2023-09-11 19:33 | XR ---
EXAMINATION TYPE: XR chest 2V DATE OF EXAM: 09/11/2023 COMPARISON: 09/04/2023 HISTORY: Weakness TECHNIQUE: Frontal and lateral views of the chest are obtained. FINDINGS: The graft there is a Mediport catheter on the right. The lungs are clear. There is no pleural effusion or pneumothorax. The heart and pulmonary vasculature are normal. There is a moderate hiatal hernia. There is marked deformity of the right humeral head otherwise the osseous structures are intact IMPRESSION: No acute cardiopulmonary process.
[2023-09-11 19:45] LABS: ALT 12 U/L (4-34); AST 18 U/L (14-36); African American GFR (CKD) >90 (>60 ml/min/1.73 sqM); Albumin 3.2 g/dL (3.5-5.0); Alkaline Phosphatase 89 U/L (38-126); Anion Gap 5 mmol/L; Blood Urea Nitrogen 13 mg/dL (7-17); Carbon Dioxide 31 mmol/L (22-30); Chloride 98 mmol/L (98-107); Glucose 138 mg/dL (74-99); Magnesium 1.7 mg/dL (1.6-2.3); Non-African American GFR(CKD) 90 (>60 ml/min/1.73 sqM); Phosphorus 3.8 mg/dL (2.5-4.5); Potassium 3.3 mmol/L (3.5-5.1); Sodium 134 mmol/L (137-145); Total Bilirubin 0.9 mg/dL (0.2-1.3); Total Protein 5.6 g/dL (6.3-8.2)
[2023-09-11 19:46] LABS: Partial Thromboplastin Time 23.7 sec (22.0-30.0); Prothrombin Time 10.7 sec (10.0-12.5)
[2023-09-11 19:53] LABS: NT-Pro-B-Type Natriuretic Pept 4540 pg/mL
[2023-09-11] MEDS: SODIUM CHLORIDE 0.9% 1,000 ML IV STA (20:02)
[2023-09-11 20:28] LABS: Band Neutrophils % 3 %; Basophils # (M) 0.02 k/uL (0-0.2); Eosinophils # (M) 0.02 k/uL (0-0.7); Lymphocytes # (M) 0.46 k/uL (1.0-4.8); Monocytes # (M) 0.36 k/uL (0-1.0); Neutrophils % (M) 55 %; Nucleated Red Blood Cells 0 /100 WBC (0-0); Total Cells Counted 200
[2023-09-11 20:29] LABS: Platelet Count 35 k/uL (150-450)
[2023-09-11] MEDS: POTASSIUM BICARBONATE/CIT AC 20 MEQ TABLET.EFF PO ONE (21:18)
[2023-09-11 21:37] LABS: Appearance,Urine Cloudy (Clear); Bacteria,Urine Occasional /hpf; Bilirubin,Urine Negative (Negative); Blood,Urine Negative (Negative); Color,Urine Yellow; Glucose,Urine (UA) Trace (Negative); Hyaline Casts,Urine 17 /lpf (0-2); Ketones,Urine Negative (Negative); Leukocyte Esterase,Urine Trace (Negative); Mucus,Urine Rare /hpf; Nitrite,Urine Negative (Negative); PH, Urine 5.5 (5.0-8.0); Protein,Urine Trace (Negative); RBC,Urine 3 /hpf (0-5); Specific Gravity,Urine 1.023 (1.001-1.035); Squamous Epithelial Cell,Urine 4 /hpf (0-4); WBC,Urine 4 /hpf (0-5)
[2023-09-11] MEDS ORDERED: NALOXONE 0.4 MG/ML 1 ML VIAL IV PRN (21:52)
[2023-09-11] MEDS: SODIUM CHLORIDE 0.9% 1,000 ML IV SCH (22:05)
[2023-09-11] MEDS: MORPHINE SULFATE 4 MG/ML SYRINGE IV PRN (23:09)
[2023-09-11] MEDS: ONDANSETRON 4 MG/2 ML VIAL IVP PRN (23:10)
--- NOTE | 2023-09-12 01:37 | P.HPIM ---
History of Present Illness H&P Date: 09/11/23 Chief Complaint: Generalized weakness 68-year-old female with history of COPD lymphoma. Patient coming to the hospital for evaluation of generalized weakness which got worse since her last discharge from the hospital. Patient was hospitalized earlier last week for severe anemia she was admitted and was given blood transfusion. Patient has no active source of bleeding, bone marrow biopsy suggestive of myelodysplastic syndrome Currently patient denies any headache changes in vision or hearing denies any focal neurodeficits denies any chest pain trouble breathing nausea vomiting abdominal pain changes in bowel or urinary habit denies any GI bleeding Patient denies tobacco smoking illicit drugs or heavy alcohol Patient having difficulty taking care of herself at home and her unable to help her or assist her she presented back to the hospital hoping for some placement or home care to help her gain some strength back review of systems Pertinent positives as noted in HPI. All other systems were reviewed and are negative on exam Constitutional: No acute distress, conversant, pleasant Eyes: Anicteric sclerae, moist conjunctiva, Pupils equal round reactive to light ENMT: NC/AT Oropharynx clear, no erythema, or exudates Neck: Supple, no masses, or JVD No carotid bruits No thyromegaly Lungs: Clear to auscultation Clear to percussion Normal respiratory effort, no accessory muscle use Cardiovascular: Heart regular in rate and rhythm, No murmurs, gallops, or rubs No peripheral edema Abdominal: Soft Nontender, no guarding, rebound or rigidity Abdomen moving with respiration Normoactive bowel sounds Extremities: No digital cyanosis No clubbing Pedal pulses intact and symmetrical Radial pulses intact and symmetrical No calf tenderness Psychiatric: Alert and oriented to person, place and time Appropriate affect fair judgement Neuro Muscles Strength 5/5 in all 4 extremities Sensation to light touch grossly present throughout Cranial nerves II-XII grossly intact Lymphatics: no palpable cervical or supraclavicular lymph nodes Past Medical History Past Medical History: Cancer, COPD, Fibromyalgia, Hyperlipidemia, Osteoarthritis (OA) Additional Past Medical History / Comment(s): 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 06/2020 pet scan showed mets to L neck/liver/sacrum per pt. 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 Pt states she takes inderal for shakes not BP. History of Any Multi-Drug Resistant Organisms: None Reported Past Surgical History: Section, Cholecystectomy, Orthopedic Surgery, Tonsillectomy Additional Past Surgical History / Comment(s): 2008 R groin tumor removed, extensive esophageal surgery/esophagectomy/stomach brought up and attached, R sided port, R elbow fracture/radial head removed, colonoscopy. Past Anesthesia/Blood Transfusion Reactions: No Reported Reaction Additional Past Anesthesia/Blood Transfusion Reaction / Comment(s): Pt received blood with esophagectomy surgery without reaction. Past Psychological History: Bipolar Smoking Status: Former smoker Past Alcohol Use History: None Reported Past Drug Use History: None Reported - Past Family History Mother History Unknown: Yes Additional Family Medical History / Comment(s): patient adopted and does not know family history Medications and Allergies Home Medications Medication Instructions Recorded Confirmed Type Divalproex [Depakote] 1,000 mg PO HS 07/01/20 09/05/23 History Omeprazole 40 mg PO DAILY 07/01/20 09/05/23 History Propranolol [Inderal] 20 mg PO BID 07/01/20 09/05/23 History LORazepam [Ativan] 1 mg PO TID PRN 05/27/21 09/05/23 History hydrOXYzine HCL [Atarax] 25 mg PO HS 05/27/21 09/05/23 History Cariprazine HCl [Vraylar] 3 mg PO HS 09/05/23 09/05/23 History Cholecalciferol (Vitamin D3) 50 mcg PO DAILY 09/05/23 09/05/23 History [Vitamin D3 (50 Mcg = 2000 Iu)] Dicyclomine [Bentyl] 20 mg PO QID PRN 09/05/23 09/05/23 History Umeclidinium Brm/Vilanterol Tr 1 puff INHALATION RT-DAILY PRN 09/05/23 09/05/23 History [Anoro Ellipta 62.5-25 Mcg INH] oxyCODONE HCL [oxyCODONE HCL (IR)] 20 mg PO TID 09/05/23 09/05/23 History Allergies Allergy/AdvReac Type Severity Reaction Status Date / Time bendamustine [From Bendeka] AdvReac Itching Verified 09/11/23 18:03 Physical Exam Vitals: Vital Signs Temp Pulse Resp BP Pulse Ox 09/11/23 23:13 101 H 18 125/78 99 09/11/23 20:07 98.1 F 86 14 107/71 100 09/11/23 18:01 98 F 69 20 140/69 99 Intake and Output 09/11/23 09/11/23 09/12/23 14:59 22:59 06:59 Other: Weight 79.379 kg Results CBC & Chem 7: 09/11/23 19:14 09/11/23 19:14 Labs: Abnormal Lab Results - Last 24 Hours (Table) 09/11/23 09/11/23 09/11/23 Range/Units 19:14 19:14 21:29 WBC 2.0 L (3.8-10.6) k/uL RBC 2.85 L (3.80-5.40) m/uL Hgb 9.0 L (11.4-16.0) gm/dL Hct 27.3 L (34.0-46.0) % RDW 16.8 H (11.5-15.5) % Plt Count 35 L (150-450) k/uL Neutrophils # (Manual) 1.10 L (1.3-7.7) k/uL Lymphocytes # (Manual) 0.46 L (1.0-4.8) k/uL Sodium 134 L (137-145) mmol/L Potassium 3.3 L (3.5-5.1) mmol/L Carbon Dioxide 31 H (22-30) mmol/L Glucose 138 H (74-99) mg/dL Calcium 8.0 L (8.4-10.2) mg/dL Total Protein 5.6 L (6.3-8.2) g/dL Albumin 3.2 L (3.5-5.0) g/dL TSH 6.940 H (0.465-4.680) mIU/L Urine Appearance Cloudy H (Clear) Urine Protein Trace H (Negative) Urine Glucose (UA) Trace H (Negative) Ur Leukocyte Esterase Trace H (Negative) Urine Bacteria Occasional H (None) /hpf Hyaline Casts 17 H (0-2) /lpf Urine Mucus Rare H (None) /hpf Assessment and Plan Assessment: 68-year-old female with myelodysplastic syndrome, COPD, history of lymphoma coming in for generalized weakness post recent hospital stay with symptoms getting worse over the past couple days I discussed the case with ED doctor and accepted the admission for debility and generalized weakness for PT/OT evaluation for possible placement with anticipated length of stay less than 2 midnights Generalized weakness high risk of falling Fall precautions PT OT evaluation Newly diagnosed myelodysplastic syndrome History of lymphoma Continue follow-up outpatient with oncology Current hemoglobin 9 above her baseline Pain controlled continue with home medication oxycodone COPD compensated continue with DuoNeb inhalers as needed Full code DVT prophylaxis mechanical secondary to thrombocytopenia Subclinical hypothyroidism with TSH of 6.9 however free T4 within normal limits 1.4 Hypokalemia Potassium 3.3 Replace orally and follow-up levels Renal function unremarkable sodium 134 BUN 13 creatinine 0.96
[2023-09-12] MEDS ORDERED: IPRATROPIUM-ALBUTEROL 3 ML NEB INHALATION PRN (01:39)
[2023-09-12] MEDS: DIVALPROEX 500 MG TABLET.DR PO SCH (02:21)
[2023-09-12] MEDS: PROPRANOLOL 20 MG TAB PO SCH (02:21)
[2023-09-12 08:06] LABS: Anisocytosis Slight; HCT 23.2 % (34.0-46.0); HGB 7.8 gm/dL (11.4-16.0); MCH 31.6 pg (25.0-35.0); MCHC 33.7 g/dL (31.0-37.0); MCV 93.9 fL (80.0-100.0); Mean Platelet Volume 9.4; RBC 2.47 m/uL (3.80-5.40); RDW 16.8 % (11.5-15.5); WBC 1.5 k/uL (3.8-10.6)
[2023-09-12] MEDS: PANTOPRAZOLE 40 MG TABLET PO SCH (08:06)
[2023-09-12 08:21] LABS: Platelet Count 26 k/uL (150-450)
[2023-09-12 09:16] LABS: ALT 10 U/L (4-34); AST 17 U/L (14-36); African American GFR (CKD) >90 (>60 ml/min/1.73 sqM); Albumin 2.8 g/dL (3.5-5.0); Alkaline Phosphatase 90 U/L (38-126); Anion Gap 2 mmol/L; Blood Urea Nitrogen 10 mg/dL (7-17); Calcium 7.8 mg/dL (8.4-10.2); Carbon Dioxide 32 mmol/L (22-30); Chloride 95 mmol/L (98-107); Glucose 110 mg/dL (74-99); Magnesium 1.6 mg/dL (1.6-2.3); Non-African American GFR(CKD) >90 (>60 ml/min/1.73 sqM); Phosphorus 3.1 mg/dL (2.5-4.5); Potassium 3.7 mmol/L (3.5-5.1); Sodium 129 mmol/L (137-145); Total Bilirubin 0.9 mg/dL (0.2-1.3); Total Protein 5.1 g/dL (6.3-8.2)
[2023-09-12 09:18] LABS: Band Neutrophils % 2 %; Lymphocytes # (M) 0.65 k/uL (1.0-4.8); Monocytes # (M) 0.23 k/uL (0-1.0); Neutrophils % (M) 40 %; Nucleated Red Blood Cells 0 /100 WBC (0-0); Total Cells Counted 100
--- NOTE | 2023-09-12 12:58 | P.PN ---
Subjective Progress Note Date: 09/12/23 68 year old F with PMH of lymphoma, history of esophageal CA, fibromyalgia, HDL presents to the ED. Recently admitted from 09/05-09/07 for symptomatic anemia with Hg of 6 requiring 2 unit PRBC. Recently underwent a bone marrow biopsy which shows myelodysplastic syndrome. She presents back to the ED for difficulty taking care of her ADL and IADLs. In the ED she underwent extensive evaluation. BP 140/69, HR 69, T98F, RR 20, 99% on RA. CBC, Coag panel, CMP performed significant for WBC 2, Hg 9, Hct 27.3, Plt 35, Na 134, K 3.3, bicarb 31, glu 138, Ca 8, alb 3.2. Troponin < 0.012. BNP 4540. TSH 6.94 FT4 1.42. UA trace LE with 4 WBCs. CXR negative. Patient is admitted for generalized weakness and PT/OT consult. 09/11 Patient was seen and examined. She reports generalized weakness. CBC WBC 1.5, Hg 7.8, Hct 23.2, Plt 26. BMP Na 129, Cl 95, bicarb 32, glu 110, alb 2.8. General: non toxic, no distress, appears at stated age Derm: warm, dry Head: atraumatic, normocephalic, symmetric Eyes: EOMI, no lid lag, pale sclera Mouth: no lip lesion, mucus membranes moist Cardiovascular: S1S2 reg, no murmur Lungs: CTA bilateral, no rhonchi, no rales , no accessory muscle use Ext: no gross muscle atrophy, no edema, no contractures Neuro: no focal neuro deficits Psych: Alert, oriented, appropriate affect Based on my assessment of this patient, this patient meets a high complexity level of care. Patient has an acute diagnosis of debility with inability to do her ADLs and IADLs that poses a threat to life or bodily function. Generalized weakness: Hg is stable. Fall precuations. Discussed with case management. PT and OT consulted. Pancytopenia due to myelodysplastic syndrome: Transfuse PRBC if Hg < 7. Monitor Hyponatremia: Discontinue IVF. Repeat BMP tomorrow. Acute on chronic pain with h/o fibromyalgia and recent falls: Oxycodone 20 mg PO TID. Morphine 4 mg IV Q4H PRN for severe pain. History of lymphoma and esophageal CA CODE STATUS: FULL CODE. DVT Prophylaxis: SCD GI Prophylaxis: Designated medical POA if patient is not able to make medical decisions for themselves: I have reviewed the following [employer] consultant notes: I have reviewed the results of the following tests: CBC, BMP. I have ordered the following tests: I have discussed the care of this patient with the following independent historian: I have independently interpreted the following test below: I have discussed the management of this patient with the following physician: Objective - Vital Signs Vital signs: Vital Signs Temp 97.9 F 09/12/23 07:00 Pulse 84 09/12/23 10:48 Resp 16 09/12/23 10:48 BP 112/56 09/12/23 10:48 Pulse Ox 94 L 09/12/23 10:48 FiO2 Intake & Output 09/11/23 09/12/23 09/12/23 18:59 06:59 18:59 Weight 79.379 kg - Labs CBC & Chem 7: 09/12/23 07:45 09/12/23 07:45 Labs: Abnormal Lab Results - Last 24 Hours (Table) 09/11/23 09/11/23 09/11/23 Range/Units 19:14 19:14 21:29 WBC 2.0 L (3.8-10.6) k/uL RBC 2.85 L (3.80-5.40) m/uL Hgb 9.0 L (11.4-16.0) gm/dL Hct 27.3 L (34.0-46.0) % RDW 16.8 H (11.5-15.5) % Plt Count 35 L (150-450) k/uL Neutrophils # (Manual) 1.10 L (1.3-7.7) k/uL Lymphocytes # (Manual) 0.46 L (1.0-4.8) k/uL Sodium 134 L (137-145) mmol/L Potassium 3.3 L (3.5-5.1) mmol/L Chloride (98-107) mmol/L Carbon Dioxide 31 H (22-30) mmol/L Glucose 138 H (74-99) mg/dL Calcium 8.0 L (8.4-10.2) mg/dL Total Protein 5.6 L (6.3-8.2) g/dL Albumin 3.2 L (3.5-5.0) g/dL TSH 6.940 H (0.465-4.680) mIU/L Urine Appearance Cloudy H (Clear) Urine Protein Trace H (Negative) Urine Glucose (UA) Trace H (Negative) Ur Leukocyte Esterase Trace H (Negative) Urine Bacteria Occasional H (None) /hpf Hyaline Casts 17 H (0-2) /lpf Urine Mucus Rare H (None) /hpf 09/12/23 09/12/23 Range/Units 07:45 07:45 WBC 1.5 L (3.8-10.6) k/uL RBC 2.47 L (3.80-5.40) m/uL Hgb 7.8 L (11.4-16.0) gm/dL Hct 23.2 L (34.0-46.0) % RDW 16.8 H (11.5-15.5) % Plt Count 26 L (150-450) k/uL Neutrophils # (Manual) 0.60 L (1.3-7.7) k/uL Lymphocytes # (Manual) 0.65 L (1.0-4.8) k/uL Sodium 129 L (137-145) mmol/L Potassium (3.5-5.1) mmol/L Chloride 95 L (98-107) mmol/L Carbon Dioxide 32 H (22-30) mmol/L Glucose 110 H (74-99) mg/dL Calcium 7.8 L (8.4-10.2) mg/dL Total Protein 5.1 L (6.3-8.2) g/dL Albumin 2.8 L (3.5-5.0) g/dL TSH (0.465-4.680) mIU/L Urine Appearance (Clear) Urine Protein (Negative) Urine Glucose (UA) (Negative) Ur Leukocyte Esterase (Negative) Urine Bacteria (None) /hpf Hyaline Casts (0-2) /lpf Urine Mucus (None) /hpf
[2023-09-13 09:47] LABS: Anisocytosis Slight; HGB 7.7 gm/dL (11.4-16.0); MCH 32.1 pg (25.0-35.0); MCHC 33.4 g/dL (31.0-37.0); MCV 96.3 fL (80.0-100.0); Macrocytosis Slight; Mean Platelet Volume 9.5; RBC 2.39 m/uL (3.80-5.40); WBC 2.9 k/uL (3.8-10.6)
[2023-09-13 09:56] LABS: Platelet Count 27 k/uL (150-450)
[2023-09-13 10:42] LABS: African American GFR (CKD) >90 (>60 ml/min/1.73 sqM); Anion Gap 6 mmol/L; Blood Urea Nitrogen 9 mg/dL (7-17); Calcium 7.7 mg/dL (8.4-10.2); Carbon Dioxide 29 mmol/L (22-30); Chloride 93 mmol/L (98-107); Glucose 175 mg/dL (74-99); Non-African American GFR(CKD) >90 (>60 ml/min/1.73 sqM); Potassium 3.6 mmol/L (3.5-5.1); Sodium 128 mmol/L (137-145)
--- NOTE | 2023-09-13 11:29 | P.PN ---
Subjective Progress Note Date: 09/13/23 68 year old F with PMH of lymphoma, history of esophageal CA, fibromyalgia, HDL presents to the ED. Recently admitted from 09/05-09/07 for symptomatic anemia with Hg of 6 requiring 2 unit PRBC. Recently underwent a bone marrow biopsy which shows myelodysplastic syndrome. She presents back to the ED for difficulty taking care of her ADL and IADLs. In the ED she underwent extensive evaluation. BP 140/69, HR 69, T98F, RR 20, 99% on RA. CBC, Coag panel, CMP performed significant for WBC 2, Hg 9, Hct 27.3, Plt 35, Na 134, K 3.3, bicarb 31, glu 138, Ca 8, alb 3.2. Troponin < 0.012. BNP 4540. TSH 6.94 FT4 1.42. UA trace LE with 4 WBCs. CXR negative. Patient is admitted for generalized weakness and PT/OT consult. 09/11 Patient was seen and examined. She reports generalized weakness. CBC WBC 1.5, Hg 7.8, Hct 23.2, Plt 26. BMP Na 129, Cl 95, bicarb 32, glu 110, alb 2.8. 09/12 Patient was seen and examined. She reports no complaints. CBC WBC 2.9, Hg 7.7, Hct 23, Plt 27. BMP Na 128, Cl 93, glu 175, Ca 7.7. General: non toxic, no distress, appears at stated age Derm: warm, dry Head: atraumatic, normocephalic, symmetric Eyes: EOMI, no lid lag, pale sclera Mouth: no lip lesion, mucus membranes moist Cardiovascular: good distal perfusion in all 4 extremities Lungs: breathing comfortably, no accessory muscle use Ext: no gross muscle atrophy, no edema, no contractures Neuro: no focal neuro deficits Psych: Alert, oriented, appropriate affect Based on my assessment of this patient, this patient meets a moderate complexity level of care. Patient has an acute diagnosis of debility with inability to do her ADLs and IADLs that poses a threat to life or bodily function. Generalized weakness: Hg is stable. Fall precuations. Discussed with case management. PT and OT consulted. Pancytopenia due to myelodysplastic syndrome: Transfuse PRBC if Hg < 7. Monitor Hyponatremia: Worsening. Start NS at 50 c/hr. Obtain serum Osm, urine Osm, urine Na. Repeat BMP tomorrow. Acute on chronic pain with h/o fibromyalgia and recent falls: Oxycodone 20 mg PO TID. Morphine 4 mg IV Q4H PRN for severe pain. History of lymphoma and esophageal CA CODE STATUS: FULL CODE. DVT Prophylaxis: Lovenox SQ GI Prophylaxis: Designated medical POA if patient is not able to make medical decisions for themselves: I have reviewed the following access consultant notes: I have reviewed the results of the following tests: CBC, BMP. I have ordered the following tests: Serum and Urine Osm, Urine Na. I have discussed the care of this patient with the following independent historian: . I have independently interpreted the following test below: I have discussed the management of this patient with the following physician: Objective - Vital Signs Vital signs: Vital Signs Temp 98.0 F 09/13/23 07:06 Pulse 103 H 09/13/23 07:06 Resp 18 09/13/23 07:06 BP 103/60 09/13/23 07:06 Pulse Ox 94 L 09/13/23 07:06 FiO2 Intake & Output 09/12/23 09/13/23 09/13/23 18:59 06:59 18:59 Intake Total 240 Balance 240 Weight 79.379 kg Intake: Oral 240 Other: Voiding Method Toilet # Voids 1 1 # Bowel Movements 1 - Labs CBC & Chem 7: 09/13/23 09:22 09/13/23 09:22 Labs: Abnormal Lab Results - Last 24 Hours (Table) 09/13/23 09/13/23 Range/Units 09:22 09:22 WBC 2.9 L (3.8-10.6) k/uL RBC 2.39 L (3.80-5.40) m/uL Hgb 7.7 L (11.4-16.0) gm/dL Hct 23.0 L (34.0-46.0) % RDW 17.0 H (11.5-15.5) % Plt Count 27 L (150-450) k/uL Sodium 128 L (137-145) mmol/L Chloride 93 L (98-107) mmol/L Glucose 175 H (74-99) mg/dL Calcium 7.7 L (8.4-10.2) mg/dL
--- NOTE | 2023-09-13 12:03 | XR ---
EXAMINATION TYPE: XR chest 1V portable DATE OF EXAM: 09/13/2023 Comparison: 09/11/2023 Clinical History: 68-year-old female with hypoxia and dizziness Findings: Right anterior chest wall injection port with subclavian access and catheter tip at the cavoatrial ju nction. Underlying moderate to large hiatal hernia redemonstrated projecting behind the heart. Some a symmetric elevation right hemidiaphragm may be positional. If concern for hemidiaphragmatic paralysis , a fluoroscopic sniff test could be performed. Old healed right posterior rib fracture deformities. The heart is borderline enlarged. Diffuse interstitial density persists. Old healed fracture deformit y proximal right humerus. Impression: 1. Some asymmetric elevation of the right hemidiaphragm. This may be positional. If concern for hemid iaphragmatic paralysis, a fluoroscopic sniff test may performed. 2. Similar interstitial densities, possible bronchitis or asthma. 3. Redemonstrated moderate to large hiatal hernia.
[2023-09-13] MEDS: SODIUM CHLORIDE 0.9% 1,000 ML IV SCH (17:04)
[2023-09-14] MEDS: ENOXAPARIN 40 MG/0.4 ML SYRINGE SQ SCH (08:40)
--- NOTE | 2023-09-14 12:47 | P.PN ---
Subjective Progress Note Date: 09/14/23 68 year old F with PMH of lymphoma, history of esophageal CA, fibromyalgia, HDL presents to the ED. Recently admitted from 09/05-09/07 for symptomatic anemia with Hg of 6 requiring 2 unit PRBC. Recently underwent a bone marrow biopsy which shows myelodysplastic syndrome. She presents back to the ED for difficulty taking care of her ADL and IADLs. In the ED she underwent extensive evaluation. BP 140/69, HR 69, T98F, RR 20, 99% on RA. CBC, Coag panel, CMP performed significant for WBC 2, Hg 9, Hct 27.3, Plt 35, Na 134, K 3.3, bicarb 31, glu 138, Ca 8, alb 3.2. Troponin < 0.012. BNP 4540. TSH 6.94 FT4 1.42. UA trace LE with 4 WBCs. CXR negative. Patient is admitted for generalized weakness and PT/OT consult. 09/11 Patient was seen and examined. She reports generalized weakness. CBC WBC 1.5, Hg 7.8, Hct 23.2, Plt 26. BMP Na 129, Cl 95, bicarb 32, glu 110, alb 2.8. 09/12 Patient was seen and examined. She reports no complaints. CBC WBC 2.9, Hg 7.7, Hct 23, Plt 27. BMP Na 128, Cl 93, glu 175, Ca 7.7. 09/13 Patient was seen and examined. No specific complaints. Wondering about bone marrow biopsy results. Serum Osm 276. Urine Osm 542. General: non toxic, no distress, appears at stated age Derm: warm, dry Head: atraumatic, normocephalic, symmetric Eyes: EOMI, no lid lag, pale sclera Mouth: no lip lesion, mucus membranes moist Cardiovascular: good distal perfusion in all 4 extremities Lungs: breathing comfortably, no accessory muscle use Ext: no gross muscle atrophy, no edema, no contractures Neuro: no focal neuro deficits Psych: Alert, oriented, appropriate affect Based on my assessment of this patient, this patient meets a moderate complexity level of care. Patient has an acute diagnosis of debility with inability to do her ADLs and IADLs that poses a threat to life or bodily function. Generalized weakness: Hg is stable. Fall precuations. Discussed with case management. PT and OT consulted. Pancytopenia due to myelodysplastic syndrome: Transfuse PRBC if Hg < 7. 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 Fluid restriction ordered. Repeat BMP tomorrow. Acute on chronic pain with h/o fibromyalgia and recent falls: Oxycodone 20 mg PO TID. Morphine 4 mg IV Q4H PRN for severe pain. History of lymphoma and esophageal CA CODE STATUS: FULL CODE. DVT Prophylaxis: Lovenox SQ GI Prophylaxis: Designated medical POA if patient is not able to make medical decisions for themselves: I have reviewed the following corporate consultant notes: I have reviewed the results of the following tests: Serum and Urine Osm I have ordered the following tests: Urine Na pending. CBC, BMP tomorrow morning. I have discussed the care of this patient with the following independent historian: I have independently interpreted the following test below: I have discussed the management of this patient with the following physician: Objective - Vital Signs Vital signs: Vital Signs Temp 98.3 F 09/14/23 06:54 Pulse 87 09/14/23 07:55 Resp 17 09/14/23 07:55 BP 110/71 09/14/23 06:54 Pulse Ox 93 L 09/14/23 06:54 FiO2 Intake & Output 09/13/23 09/14/23 09/14/23 18:59 06:59 18:59 Intake Total 950 Balance 950 Intake: Intake, IV Titration 50 Amount Sodium Chloride 0.9% 1, 50 000 ml @ 50 mls/hr IV . Q20H MARCELO Rx#:[id number] Oral 900 Other: Voiding Method Toilet Bedside Commode Bedside Commode # Voids 2 3 # Bowel Movements 0 - Labs CBC & Chem 7: 09/13/23 09:22 09/13/23 09:22
[2023-09-15 06:59] LABS: Anisocytosis Slight; HCT 22.1 % (34.0-46.0); HGB 7.2 gm/dL (11.4-16.0); MCH 31.1 pg (25.0-35.0); MCHC 32.6 g/dL (31.0-37.0); MCV 95.4 fL (80.0-100.0); Mean Platelet Volume 9.1; RBC 2.31 m/uL (3.80-5.40); RDW 16.9 % (11.5-15.5); WBC 2.7 k/uL (3.8-10.6)
[2023-09-15 07:09] LABS: Platelet Count 35 k/uL (150-450)
[2023-09-15 07:18] LABS: African American GFR (CKD) >90 (>60 ml/min/1.73 sqM); Anion Gap 3 mmol/L; Blood Urea Nitrogen 8 mg/dL (7-17); Carbon Dioxide 33 mmol/L (22-30); Chloride 93 mmol/L (98-107); Glucose 137 mg/dL (74-99); Non-African American GFR(CKD) >90 (>60 ml/min/1.73 sqM); Potassium 3.8 mmol/L (3.5-5.1); Sodium 129 mmol/L (137-145)
[2023-09-15 08:07] VITALS: RESP 18
--- NOTE | 2023-09-15 12:01 | P.DS ---
Providers Date of admission: 09/12/23 13:16 Expected date of discharge: 09/15/23 Attending physician: Tamie Jimenez MD Primary care physician: Y[facility] Course: 68 year old F with PMH of lymphoma, history of esophageal CA, fibromyalgia, HDL presents to the ED. Recently admitted from 09/05-09/07 for symptomatic anemia with Hg of 6 requiring 2 unit PRBC. Recently underwent a bone marrow biopsy which shows myelodysplastic syndrome. She presents back to the ED for difficulty taking care of her ADL and IADLs. In the ED she underwent extensive evaluation. BP 140/69, HR 69, T98F, RR 20, 99% on RA. CBC, Coag panel, CMP performed significant for WBC 2, Hg 9, Hct 27.3, Plt 35, Na 134, K 3.3, bicarb 31, glu 138, Ca 8, alb 3.2. Troponin < 0.012. BNP 4540. TSH 6.94 FT4 1.42. UA trace LE with 4 WBCs. CXR negative. Patient is admitted for generalized weakness and PT/OT consult. Patient was agreeable for SNF. She required a 3 midnight stay. Her sodium was noted to be persistently low. Serum Osm 276. Urine Osm 542. Thought to be SIADH from Depokote, she was started on fluid restriction. Sodium on the day of discharge was 129. Her Hg on the day of discharge is 7.2. I did discuss the diagnosis of myelodysplasia with the patient. She will need to follow up with Oncology in the outpatient setting for further workup and management of this conditions. Repeat CBC in 3 days to be followed up with the PCP. Advised 2L fluid restriction. 09/14 Patient was seen and examined. Unfortunately [facility] has 10 cases of COVID and given her immunocompromised state, she is hesitant about going there. [facility] is able to accept the patient. CBC WBC 2.7, Hg 7.2, Hct 22.1, Plt 35. BMP Na 129, Cl 93, bicarb 33, glu 137, Ca 8.0. Plans for discharge to SNF. Repeat CBC in 3 days. Follow up with Oncology within 1 week of discharge. Pat ient advised 2L fluid restriction. General: non toxic, no distress, appears at stated age Derm: warm, dry Head: atraumatic, normocephalic, symmetric Eyes: EOMI, no lid lag, pale sclera Mouth: no lip lesion, mucus membranes moist Cardiovascular: good distal perfusion in all 4 extremities Lungs: breathing comfortably, no accessory muscle use Ext: no gross muscle atrophy, no edema, no contractures Neuro: no focal neuro deficits Psych: Alert, oriented, appropriate affect Discharge Diagnosis: Generalized weakness Pancytopenia due to myelodysplastic syndrome Hyponatremia Acute on chronic pain with h/o fibromyalgia and recent falls History of lymphoma and esophageal CA This complex discharge took 35 minutes to complete. Patient Condition at Discharge: Stable Plan - Discharge Summary New Discharge Prescriptions: Continue Propranolol [Inderal] 20 mg PO BID Omeprazole 40 mg PO DAILY Divalproex [Depakote] 1,000 mg PO HS Umeclidinium Brm/Vilanterol Tr [Anoro Ellipta 62.5-25 Mcg INH] 1 puff INHALATION RT-DAILY PRN PRN Reason: Shortness Of Breath Cholecalciferol (Vitamin D3) [Vitamin D3 (50 Mcg = 2000 Iu)] 50 mcg PO DAILY Cariprazine HCl [Vraylar] 3 mg PO HS LORazepam [Ativan] 1 mg PO TID PRN #9 tab PRN Reason: Anxiety hydrOXYzine HCL [Atarax] 25 mg PO HS Dicyclomine [Bentyl] 20 mg PO QID PRN PRN Reason: ABDOMINAL COLON SPASMS oxyCODONE HCL [oxyCODONE HCL (IR)] 20 mg PO TID #9 tab Discharge Medication List Divalproex [Depakote] 1,000 mg PO HS 07/01/20 [History] Omeprazole 40 mg PO DAILY 07/01/20 [History] Propranolol [Inderal] 20 mg PO BID 07/01/20 [History] hydrOXYzine HCL [Atarax] 25 mg PO HS 05/27/21 [History] Cariprazine HCl [Vraylar] 3 mg PO HS 09/05/23 [History] Cholecalciferol (Vitamin D3) [Vitamin D3 (50 Mcg = 2000 Iu)] 50 mcg PO DAILY 09/05/23 [History] Dicyclomine [Bentyl] 20 mg PO QID PRN 09/05/23 [History] Umeclidinium Brm/Vilanterol Tr [Anoro Ellipta 62.5-25 Mcg INH] 1 puff INHALATION RT-DAILY PRN 09/05/23 [History] LORazepam [Ativan] 1 mg PO TID PRN #9 tab 09/15/23 [Rx] oxyCODONE HCL [oxyCODONE HCL (IR)] 20 mg PO TID #9 tab 09/15/23 [Rx] Follow up Appointment(s)/Referral(s): Siva Pedro [STAFF PHYSICIAN] - 1 Week Yari Valverde MD [Primary Care Provider] - 1-2 days Elaine Shafer [NON-STAFF] - As Needed Ambulatory/Diagnostic Orders: Complete Blood Count w/diff [LAB.AMB] Time Frame: 3 Days, Location: None Selected Activity/Diet/Wound Care/Special Instructions: 2L fluid restriction Discharge Disposition: TRANSFER TO SNF/ECF
[2023-09-15 14:58] VITALS: BP 104/69; PULSE 82; TEMP 98.2
--- NOTE | 2023-09-21 09:57 | CDI ---
Documentation Clarification Form Date: 09/21/23 From: Hafsa Bauer Admit Date: 09/12/2023 01:16:00 PM Patient Name: Gege Malik Visit Number: [id number] Discharge Date: 09/15/2023 06:11:00 PM ATTENTION: The Clinical Documentation Specialists (CDI) and [facility] Coding Staff appreciate your assistance in clarifying documentation. Please respond to the clarification below the line at the bottom and electronically sign. The CDI & [facility] Coding staff will review the response and follow-up if needed. Please note: Queries are made part of the Legal Health Record. If you have any questions, please contact the author of this message via ITS. Dr. Ruperto Watson, Conflicting documentation has been found in the medical record. As attending physician, please provide clarification Per your 09/13 PN- Hyponatremia:LikelySIADHfrom Depokote. Fluidrestrictionordered. RepeatBMP Per your discharge summary you document hyponatremia. History/Risk Factors: Hx of lymphoma and esophageal cancer. Acute on chronic pain with h/o fibromyalgia and recent falls, pancytopenia due to Clinical Indicators: Sodium: 134, 129, 128, 129 Treatment: IV hydration, Depakote was held and then continued at discharge. Please clarify which diagnosis is most appropriate: [ x ] SIADH due to Depakote [ ] Hyponatremia [ ] Other (please specify) [ ] Unable to determine MTDD
== END 2023-09-15 18:11 | DRG 644 ==
LOC: EC 17:59 → 5NMEDONC 21:53 → OBSVTOIN 09-12 13:16 → 1SOBS 09-12 14:39 → 4SSUR 09-13 17:37
PROVIDERS: ADMIT Internal Medicine; ATTEND Internal Medicine
DX: E22.2 Syndrome of inappropriate secretion of antidiuretic hormone (principal); C78.7 Secondary malignant neoplasm of liver and intrahepatic bile duct; D61.818 Other pancytopenia; D84.9 Immunodeficiency, unspecified; E86.0 Dehydration; D46.9 Myelodysplastic syndrome, unspecified; E03.8 Other specified hypothyroidism; F31.9 Bipolar disorder, unspecified; J44.9 Chronic obstructive pulmonary disease, unspecified; Z28.310 Unvaccinated for COVID-19; M79.7 Fibromyalgia; E78.5 Hyperlipidemia, unspecified; M85.80 Other specified disorders of bone density and structure, unspecified site; G62.9 Polyneuropathy, unspecified; E87.6 Hypokalemia; G89.29 Other chronic pain; G56.03 Carpal tunnel syndrome, bilateral upper limbs; R29.6 Repeated falls; S42.401D Unspecified fracture of lower end of right humerus, subsequent encounter for fracture with routine healing; M19.90 Unspecified osteoarthritis, unspecified site; Z79.891 Long term (current) use of opiate analgesic; Z79.899 Other long term (current) drug therapy; Z85.01 Personal history of malignant neoplasm of esophagus; Z85.72 Personal history of non-Hodgkin lymphomas; Z87.891 Personal history of nicotine dependence; Z88.8 Allergy status to other drugs, medicaments and biological substances
CPT/HCPCS: 36415; 71045; 71046; 80048; 80053; 81001; 83605; 83735; 83880; 83930; 83935; 84100; 84300; 84439; 84443; 84484; 85025; 85027; 85610; 85730; 93005; 96361; 96374; 96375; 96376; 99285

== ENCOUNTER 2023-09-23 00:04 | Emergency (ER) | payer MEDICARE, BC ==
[2023-09-23] MEDS: MORPHINE SULFATE 4 MG/ML SYRINGE IV STA (00:48)
[2023-09-23 01:43] LABS: Anisocytosis Slight; MCH 32.1 pg (25.0-35.0); MCHC 34.7 g/dL (31.0-37.0); MCV 92.5 fL (80.0-100.0); Mean Platelet Volume 8.8; RBC 2.02 m/uL (3.80-5.40); RDW 17.3 % (11.5-15.5); WBC 2.1 k/uL (3.8-10.6)
[2023-09-23 01:48] LABS: African American GFR (CKD) >90 (>60 ml/min/1.73 sqM); Anion Gap 0 mmol/L; Blood Urea Nitrogen 9 mg/dL (7-17); Calcium 7.4 mg/dL (8.4-10.2); Carbon Dioxide 35 mmol/L (22-30); Chloride 96 mmol/L (98-107); Glucose 166 mg/dL (74-99); Non-African American GFR(CKD) >90 (>60 ml/min/1.73 sqM); Potassium 3.6 mmol/L (3.5-5.1); Sodium 131 mmol/L (137-145)
[2023-09-23 02:20] LABS: HCT 18.7 % (34.0-46.0); HGB 6.5 gm/dL (11.4-16.0)
[2023-09-23 02:21] LABS: Platelet Count 31 k/uL (150-450)
[2023-09-23 03:23] VITALS: RESP 18
[2023-09-23 03:42] LABS: Band Neutrophils % 4 %; Eosinophils # (M) 0.02 k/uL (0-0.7); Metamyelocytes # (M) 0.02 k/uL (0); Metamyelocytes % 1 %; Monocytes # (M) 0.06 k/uL (0-1.0); Neutrophils % (M) 50 %; Nucleated Red Blood Cells 0 /100 WBC (0-0); Total Cells Counted 200
[2023-09-23 03:43] LABS: Ovalocytes Present
--- NOTE | 2023-09-23 04:05 | ED ---
Recheck HPI - General Chief Complaint: Recheck/Abnormal Lab/Rx Stated Complaint: Abnormal Labs Time Seen by Provider: 09/23/23 00:15 Source: EMS Mode of arrival: EMS - History of Present Illness Initial Comments: This patient is a 68-year-old woman who presents with complaint that they found her to have low hemoglobin routine follow-up blood testing from September 21. The patient has been having problems with anemia and therefore had scheduled blood draw. custodial was informed that her hemoglobin was below 7 so they sent her for further evaluation. Patient denies having any active bleeding. No bloody or tarry stools. She states she does have generalized fatigue. No chest pain, dyspnea, palpitations, diaphoresis. The patient is currently seeing oncology MD Complaint: abnormal lab Onset/Timin -: days(s) Returns Today for: Called Because of Abnormal Lab/Test Symptoms Since Prior Visit: no new symptoms Context: called for abnormal lab result Associated Symptoms: none - Related Data Home Medications Medication Instructions Recorded Confirmed Divalproex [Depakote] 1,000 mg PO HS 07/01/20 09/05/23 Omeprazole 40 mg PO DAILY 07/01/20 09/05/23 Propranolol [Inderal] 20 mg PO BID 07/01/20 09/05/23 hydrOXYzine HCL [Atarax] 25 mg PO HS 05/27/21 09/05/23 Cariprazine HCl [Vraylar] 3 mg PO HS 09/05/23 09/05/23 Cholecalciferol (Vitamin D3) 50 mcg PO DAILY 09/05/23 09/05/23 [Vitamin D3 (50 Mcg = 2000 Iu)] Dicyclomine [Bentyl] 20 mg PO QID PRN 09/05/23 09/05/23 Umeclidinium Brm/Vilanterol Tr 1 puff INHALATION RT-DAILY PRN 09/05/23 09/05/23 [Anoro Ellipta 62.5-25 Mcg INH] Previous Rx's Medication Instructions Recorded LORazepam [Ativan] 1 mg PO TID PRN #9 tab 09/15/23 oxyCODONE HCL [oxyCODONE HCL (IR)] 20 mg PO TID #9 tab 09/15/23 Allergies Allergy/AdvReac Type Severity Reaction Status Date / Time bendamustine [From Bendeka] AdvReac Itching Verified 09/25/23 03:09 Review of Systems ROS Statement: Those systems with pertinent positive or pertinent negative responses have been documented in the HPI. ROS Other: All systems not noted in ROS Statement are negative. Constitutional: Reports: weakness. Denies: fever, chills Respiratory: Denies: cough, dyspnea, wheezes Cardiovascular: Denies: chest pain, palpitations, orthopnea, edema Endocrine: Reports: fatigue Gastrointestinal: Denies: abdominal pain, diarrhea, melena, hematochezia Genitourinary: Denies: dysuria, hematuria Musculoskeletal: Reports: as per HPI, myalgia (Chronic). 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 06/2020 pet scan showed mets to L neck/liver/sacrum per pt. 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 Pt states she takes inderal for shakes not BP. 09/12/2023: Pt states last chemo "1 year ago". History of Any Multi-Drug Resistant Organisms: None Reported Past Surgical History: Section, Cholecystectomy, Orthopedic Surgery, Tonsillectomy Additional Past Surgical History / Comment(s): 2008 R groin tumor removed, extensive esophageal surgery/esophagectomy/stomach brought up and attached, R sided port, R elbow fracture/radial head removed, colonoscopy. Past Anesthesia/Blood Transfusion Reactions: No Reported Reaction Additional Past Anesthesia/Blood Transfusion Reaction / Comment(s): Pt received blood with esophagectomy surgery without reaction. Past Psychological History: Bipolar Smoking Status: Former smoker Past Alcohol Use History: None Reported Past Drug Use History: None Reported - Past Family History Mother History Unknown: Yes Additional Family Medical History / Comment(s): patient adopted and does not know family history General Exam General appearance: alert, in no apparent distress Head exam: Present: atraumatic, normocephalic Eye exam: Present: normal appearance ENT exam: Present: other (Mucosal pallor) Respiratory exam: Present: normal lung sounds bilaterally. Absent: respiratory distress, wheezes, rales, rhonchi, stridor, accessory muscle use Cardiovascular Exam: Present: regular rate, normal rhythm, normal heart sounds. Absent: systolic murmur, diastolic murmur, rubs, gallop GI/Abdominal exam: Present: soft. Absent: distended, tenderness, guarding, rebound, rigid, mass Extremities exam: Present: normal inspection, normal capillary refill. Absent: pedal edema, calf tenderness Neurological exam: Present: alert Skin exam: Present: warm, dry, intact, pallor. Absent: rash Course Vital Signs 09/23/23 09/23/23 09/23/23 00:08 01:00 02:50 Temperature 97.8 F Pulse Rate 101 H 96 87 Respiratory 18 17 18 Rate Blood Pressure 138/86 137/89 105/65 O2 Sat by Pulse 98 95 100 Oximetry 09/23/23 09/23/23 09/23/23 03:10 03:30 05:00 Temperature 98.4 F 98.5 F Pulse Rate 87 85 87 Respiratory 18 18 18 Rate Blood Pressure 108/55 112/57 125/52 O2 Sat by Pulse 96 95 Oximetry 09/23/23 09/23/23 05:53 05:55 Temperature 98.3 F Pulse Rate 78 86 Respiratory 18 18 Rate Blood Pressure 110/56 106/53 O2 Sat by Pulse 95 Oximetry Medical Decision Making - Medical Decision Making Patient is 68-year-old woman who is sent here to have evaluation in relation to worsening of chronic anemia. The patient is found to be significantly anemic and transfusion was ordered. The patient tolerated this well and stable for discharge back to long-term care facility. Was pt. sent in by a medical professional or institution (, PA, DATA ANALYST, urgent care, hospital, or assisted...) When possible be specific @ -Sent in by assisted Did you speak to anyone other than the patient for history (EMS, parent, family, police, friend...)? What history was obtained from this source @ -[No] Did you review nursing and triage notes (agree or disagree)? Why? @ -[I reviewed and agree with nursing and triage notes] Were old charts reviewed (outside hosp., previous admission, EMS record, old EKG, old radiological studies, urgent care reports/EKG's, assisted records)? Report findings @ -[The transfer paperwork was reviewed] Differential Diagnosis (chest pain, altered mental status, abdominal pain women, abdominal pain men, vaginal bleeding, weakness, fever, dyspnea, syncope, headache, dizziness, GI bleed, back pain, seizure, CVA, palpatations, mental health, musculoskeletal)? @ -[Differential Weakness: Hypoglycemia, shock, sepsis, hyponatremia, anemia, infection, UT, ETOH, adverse medicine reaction, overdose, stroke, this is not meant to be an all-inclusive list. EKG interpreted by me (3pts min.). @ -[As above] X-rays interpreted by me (1pt min.). @ -[None done] CT interpreted by me (1pt min.). @ -[None done] U/S interpreted by me (1pt. min.). @ -[None done] What testing was considered but not performed or refused? (CT, X-rays, U/S, labs)? Why? @ -[None] What meds were considered but not given or refused? Why? @ -[None] Did you discuss the management of the patient with other professionals (professionals i.e. , PA, DATA ANALYST, lab, RT, psych nurse, manager social responsibility, alterations workroom clerk, teacher, community relations officer, correctional case manager)? Give summary @ -[No] Was smoking cessation discussed for >3mins.? @ -[No] Was critical care preformed (if so, how long)? @ -[Yes, 30 minutes Were there social determinants of health that impacted care today? How? (Homelessness, low income, unemployed, alcoholism, drug addiction, transportation, low edu. Level, literacy, decrease access to med. care, group home, rehab)? @ -[No] Was there de-escalation of care discussed even if they declined (Discuss DNR or withdrawal of care, Hospice)? DNR status @ -[No] What co-morbidities impacted this encounter? (DM, HTN, Smoking, COPD, CAD, Cancer, CVA, ARF, Chemo, Hep., AIDS, mental health diagnosis, sleep apnea, morbid obesity)? @ -[None] Was patient admitted / discharged? Hospital course, mention meds given and route, prescriptions, significant lab abnormalities, going to OR and other pertinent info. @ -[As above Undiagnosed new problem with uncertain prognosis? @ -[No] Drug Therapy requiring intensive monitoring for toxicity (Heparin, Nitro, Insulin, Cardizem)? @ -[Transfusion administered requiring monitoring for reaction Were any procedures done? @ -[No] Diagnosis/symptom? @ -[Acute on chronic anemia Acute, or Chronic, or Acute on Chronic? @ -[default] Uncomplicated (without systemic symptoms) or Complicated (systemic symptoms)? @ -[Uncomplicated Side effects of treatment? @ -[No] Exacerbation, Progression, or Severe Exacerbation? @ -[No] Poses a threat to life or bodily function? How? (Chest pain, USA, UT, pneumonia, PE, COPD, DKA, ARF, appy, cholecystitis, CVA, Diverticulitis, Homicidal, Suicidal, threat to staff... and all critical care pts) @ -[No] - Lab Data Result diagrams: 09/23/23 00:22 09/23/23 00:22 Lab Results 09/23/23 09/23/23 09/23/23 Range/Units 00:18 00:22 00:22 WBC 2.1 L (3.8-10.6) k/uL RBC 2.02 L (3.80-5.40) m/uL Hgb 6.5 L* (11.4-16.0) gm/dL Hct 18.7 L* (34.0-46.0) % MCV 92.5 (80.0-100.0) fL MCH 32.1 (25.0-35.0) pg MCHC 34.7 (31.0-37.0) g/dL RDW 17.3 H (11.5-15.5) % Plt Count 31 L (150-450) k/uL MPV 8.8 Neutrophils % (Manual) 50 % Band Neuts % (Manual) 4 % Lymphocytes % (Manual) 43 % Monocytes % (Manual) 3 % Eosinophils % (Manual) 1 % Metamyelocytes % 1 % Neutrophils # (Manual) 1.10 L (1.3-7.7) k/uL Lymphocytes # (Manual) 0.90 L (1.0-4.8) k/uL Monocytes # (Manual) 0.06 (0-1.0) k/uL Eosinophils # (Manual) 0.02 (0-0.7) k/uL Metamyelocytes # (Man) 0.02 H (0) k/uL Nucleated RBCs 0 (0-0) /100 WBC Manual Slide Review Performed Anisocytosis Slight Ovalocytes Present Sodium 131 L (137-145) mmol/L Potassium 3.6 (3.5-5.1) mmol/L Chloride 96 L (98-107) mmol/L Carbon Dioxide 35 H (22-30) mmol/L Anion Gap 0 mmol/L BUN 9 (7-17) mg/dL Creatinine 0.52 (0.52-1.04) mg/dL Est GFR (CKD-EPI)AfAm >90 (>60 ml/min/1.73 sqM) Est GFR (CKD-EPI)NonAf >90 (>60 ml/min/1.73 sqM) Glucose 166 H (74-99) mg/dL Calcium 7.4 L (8.4-10.2) mg/dL Blood Type A Positive Blood Type Recheck A Pos Bld Type Recheck Status No Antibody Screen NEGATIVE Crossmatch See Detail Spec Expiration Date 09/26/20232317 Disposition Clinical Impression: Anemia Disposition: HOME SELF-CARE Condition: Fair Instructions (If sedation given, give patient instructions): Anemia (ED) Is patient prescribed a controlled substance at d/c from ED?: No Referrals: Miky Delgado [Primary Care Provider] - 1-2 days
[2023-09-23 06:16] VITALS: BP 106/53; PULSE 86; TEMP 98.3
== END 2023-09-23 06:30 | disposition home or self-care (01) ==
LOC: EC 00:04
DX: D64.9 Anemia, unspecified (principal); Z87.891 Personal history of nicotine dependence; Z90.49 Acquired absence of other specified parts of digestive tract; Z88.8 Allergy status to other drugs, medicaments and biological substances
CPT/HCPCS: 36415; 86900; 86901; 80048; 85025; 86850; 86920; 99291; 36430; P9016; J2270

== ENCOUNTER 2023-09-25 03:03 | Emergency (ER) | payer MEDICARE, BC ==
--- NOTE | 2023-09-25 03:17 | ED ---
Fall HPI - General Chief Complaint: Fall Stated Complaint: Fall Time Seen by Provider: 09/25/23 03:08 Source: EMS, RN notes reviewed, old records reviewed Mode of arrival: EMS Limitations: no limitations - History of Present Illness Initial Comments: This is a 68-year-old female to the ER for evaluation of fall fall in the bathroom fall in the bathtub. No significant traumatic injuries noted, patient sent in from extended-care facility for evaluation of hitting her head. 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 Witnessed: yes, by bystander Place Fall Occurred: home Loss of Consciousness: none Prolonged Down Time?: no Symptoms Prior to Fall: none Location: head, neck Severity: moderate Context: tripped/slipped Associated Symptoms: denies - Related Data Home Medications Medication Instructions Recorded Confirmed Divalproex [Depakote] 1,000 mg PO HS 07/01/20 09/05/23 Omeprazole 40 mg PO DAILY 07/01/20 09/05/23 Propranolol [Inderal] 20 mg PO BID 07/01/20 09/05/23 hydrOXYzine HCL [Atarax] 25 mg PO HS 05/27/21 09/05/23 Cariprazine HCl [Vraylar] 3 mg PO HS 09/05/23 09/05/23 Cholecalciferol (Vitamin D3) 50 mcg PO DAILY 09/05/23 09/05/23 [Vitamin D3 (50 Mcg = 2000 Iu)] Dicyclomine [Bentyl] 20 mg PO QID PRN 09/05/23 09/05/23 Umeclidinium Brm/Vilanterol Tr 1 puff INHALATION RT-DAILY PRN 09/05/23 09/05/23 [Anoro Ellipta 62.5-25 Mcg INH] Previous Rx's Medication Instructions Recorded LORazepam [Ativan] 1 mg PO TID PRN #9 tab 09/15/23 oxyCODONE HCL [oxyCODONE HCL (IR)] 20 mg PO TID #9 tab 09/15/23 Allergies Allergy/AdvReac Type Severity Reaction Status Date / Time bendamustine [From Bendeka] AdvReac Itching Verified 09/25/23 03:09 Review of Systems ROS Statement: Those systems with pertinent positive or pertinent negative responses have been documented in the HPI. ROS Other: All systems not noted in ROS Statement are negative. 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 06/2020 pet scan showed mets to L neck/liver/sacrum per pt. 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 Pt states she takes inderal for shakes not BP. 09/12/2023: Pt states last chemo "1 year ago". History of Any Multi-Drug Resistant Organisms: None Reported Past Surgical History: Section, Cholecystectomy, Orthopedic Surgery, Tonsillectomy Additional Past Surgical History / Comment(s): 2008 R groin tumor removed, extensive esophageal surgery/esophagectomy/stomach brought up and attached, R sided port, R elbow fracture/radial head removed, colonoscopy. Past Anesthesia/Blood Transfusion Reactions: No Reported Reaction Additional Past Anesthesia/Blood Transfusion Reaction / Comment(s): Pt received blood with esophagectomy surgery without reaction. Past Psychological History: Bipolar Smoking Status: Former smoker Past Alcohol Use History: None Reported Past Drug Use History: None Reported - Past Family History Mother History Unknown: Yes Additional Family Medical History / Comment(s): patient adopted and does not know family history General Exam Limitations: no limitations, altered mental status, physical limitation General appearance: alert, anxious, obtunded, in distress Head exam: Present: atraumatic, normocephalic, normal inspection Eye exam: Present: normal appearance, PERRL, EOMI. Absent: scleral icterus, conjunctival injection, periorbital swelling ENT exam: Present: normal exam, mucous membranes moist Neck exam: Present: normal inspection. Absent: tenderness, meningismus, lymphadenopathy Respiratory exam: Present: normal lung sounds bilaterally. Absent: respiratory distress, wheezes, rales, rhonchi, stridor Cardiovascular Exam: Present: regular rate, normal rhythm, normal heart sounds. Absent: systolic murmur, diastolic murmur, rubs, gallop, clicks GI/Abdominal exam: Present: soft, normal bowel sounds. Absent: distended, tenderness, guarding, rebound, rigid Extremities exam: Present: normal inspection, full ROM, normal capillary refill. Absent: tenderness, pedal edema, joint swelling, calf tenderness Back exam: Present: normal inspection Neurological exam: Present: alert, oriented X3, CN II-XII intact Psychiatric exam: Present: normal affect, normal mood Skin exam: Present: warm, dry, intact, normal color. Absent: rash Course Vital Signs 09/25/23 09/25/23 09/25/23 03:08 07:41 09:14 Temperature 97.9 F 97.5 F L 98.0 F Pulse Rate 97 80 86 Respiratory 18 16 18 Rate Blood Pressure 123/77 101/54 116/94 O2 Sat by Pulse 93 L 98 95 Oximetry - Reevaluation(s) Reevaluation #1: 09/25/23 03:15 Medical records reviewed Reevaluation #2: 09/25/23 06:45 Patient has no complaints here in the ER Reevaluation #3: 09/25/23 06:45 Patient informed of results and questions answered Reevaluation #4: Was pt. sent in by a medical professional or institution (, PA, VET ASSISTANT, urgent care, hospital, or [facility]...) When possible be specific @ -no Did you speak to anyone other than the patient for history (EMS, parent, family, police, friend...)? What history was obtained from this source @ -no Did you review nursing and triage notes (agree or disagree)? Why? @ -agree Are old charts reviewed (outside hosp., previous admission, EMS record, old EKG, old radiological studies, urgent care reports/EKG's, [facility] records)? Report findings @ -yes Differential Diagnosis (chest pain, altered mental status, abdominal pain women, abdominal pain men, vaginal bleeding, weakness, fever, dyspnea, syncope, headache, dizziness, GI bleed, back pain, seizure, CVA, palpatations, mental health, musculoskeletal)? @ -prior EKG interpreted by me (3pts min.). @ -yes X-rays interpreted by me (1pt min.). @ -yes negative for acute disease CT interpreted by me (1pt min.). @ -Yes positive for ICH U/S interpreted by me (1pt. min.). @ -no What testing was considered but not performed or refused? (CT, X-rays, U/S, labs)? Why? @ -none What meds were considered but not given or refused? Why? @ -none Did you discuss the management of the patient with other professionals (professionals i.e. , PA, VET ASSISTANT, lab, RT, psych nurse, social media editor, code enforcement supervisor, teacher, chief credit officer, high risk case manager)? Give summary @ -no Was smoking cessation discussed for >3mins.? @ -no Was critical care preformed (if so, how long)? @ -yes31 Were there social determinants of health that impacted care today? How? (Eileen elessness, low income, unemployed, alcoholism, drug addiction, transportation, low edu. Level, literacy, decrease access to med. care, prison, rehab)? @ -none Was there de-escalation of care discussed even if they declined (Discuss DNR or withdrawal of care, Hospice)? DNR status @ -no What co-morbidities impacted this encounter? (DM, HTN, Smoking, COPD, CAD, Cancer, CVA, ARF, Chemo, Hep., AIDS, mental health diagnosis, sleep apnea, morbid obesity)? @ -none Was patient admitted / discharged? Hospital course, mention meds given and route, prescriptions, significant lab abnormalities, going to OR and other pertinent info. @ - 68 female to ER for mechanical fall with subdural hematoma. Patient be transferred for neurosurgical evaluation and treatment Transferred for inpatient neurological surgical treatment Admitted Undiagnosed new problem with uncertain prognosis? @ -no Drug Therapy requiring intensive monitoring for toxicity (Heparin, Nitro, Insulin, Cardizem)? @ -no Were any procedures done? @ -no Diagnosis/symptom? @ -Subdural hematoma Acute, or Chronic, or Acute on Chronic? @ -Acute Uncomplicated (without systemic symptoms) or Complicated (systemic symptoms)? @ -Complicated Side effects of treatment? @ -no Exacerbation, Progression, or Severe Exacerbation? @ -exacerbation Poses a threat to life or bodily function? How? (Chest pain, [place], [place], pneumonia, PE, COPD, DKA, ARF, appy, cholecystitis, CVA, Diverticulitis, Homicidal, Suicidal, threat to staff... and all critical care pts) @ -yes with intracranial hemorrhage Reevaluation #5: Differential Headache: Migraine, tension, cluster, carbon monoxide, central venous thrombosis, pension karma temporal arteritis, acute closure glaucoma, intercranial hemorrhage, mastoiditis, sinusitis, head injury, this is not meant to be an all-inclusive list. - Consultations Consultation #1: Spoke with Carrie Romero who accept the patient for transfer Medical Decision Making - Medical Decision Making 68 female to ER for mechanical fall with subdural hematoma. Patient be transferred for neurosurgical evaluation and treatment - Lab Data Result diagrams: 09/25/23 07:12 09/25/23 07:12 Lab Results 09/25/23 09/25/23 09/25/23 Range/Units 07:12 07:12 07:12 WBC 2.1 L (3.8-10.6) k/uL RBC 2.41 L (3.80-5.40) m/uL Hgb 7.7 L (11.4-16.0) gm/dL Hct 22.4 L (34.0-46.0) % MCV 93.0 (80.0-100.0) fL MCH 32.2 (25.0-35.0) pg MCHC 34.6 (31.0-37.0) g/dL RDW 15.9 H (11.5-15.5) % Plt Count 28 L (150-450) k/uL MPV 8.5 Neutrophils % (Manual) 53 % Band Neuts % (Manual) 2 % Lymphocytes % (Manual) 31 % Monocytes % (Manual) 12 % Eosinophils % (Manual) 1 % Myelocytes % 3 % Neutrophils # (Manual) 1.10 L (1.3-7.7) k/uL Lymphocytes # (Manual) 0.65 L (1.0-4.8) k/uL Monocytes # (Manual) 0.25 (0-1.0) k/uL Eosinophils # (Manual) 0.02 (0-0.7) k/uL Myelocytes # (Manual) 0.06 H (0) k/uL Nucleated RBCs 0 (0-0) /100 WBC Manual Slide Review Performed PT 11.5 (10.0-12.5) sec INR 1.1 (<1.2) APTT 27.3 (22.0-30.0) sec Sodium 129 L (137-145) mmol/L Potassium 3.9 (3.5-5.1) mmol/L Chloride 94 L (98-107) mmol/L Carbon Dioxide 35 H (22-30) mmol/L Anion Gap 0 mmol/L BUN 13 (7-17) mg/dL Creatinine 0.63 (0.52-1.04) mg/dL Est GFR (CKD-EPI)AfAm >90 (>60 ml/min/1.73 sqM) Est GFR (CKD-EPI)NonAf >90 (>60 ml/min/1.73 sqM) Glucose 184 H (74-99) mg/dL Plasma Lactic Acid Med (0.7-2.0) mmol/L Calcium 7.9 L (8.4-10.2) mg/dL Total Bilirubin 0.9 (0.2-1.3) mg/dL AST 21 (14-36) U/L ALT 9 (4-34) U/L Alkaline Phosphatase 90 (38-126) U/L Troponin I (0.000-0.034) ng/mL Total Protein 4.6 L (6.3-8.2) g/dL Albumin 2.4 L (3.5-5.0) g/dL 09/25/23 09/25/23 Range/Units 07:12 07:12 WBC (3.8-10.6) k/uL RBC (3.80-5.40) m/uL Hgb (11.4-16.0) gm/dL Hct (34.0-46.0) % MCV (80.0-100.0) fL MCH (25.0-35.0) pg MCHC (31.0-37.0) g/dL RDW (11.5-15.5) % Plt Count (150-450) k/uL MPV Neutrophils % (Manual) % Band Neuts % (Manual) % Lymphocytes % (Manual) % Monocytes % (Manual) % Eosinophils % (Manual) % Myelocytes % % Neutrophils # (Manual) (1.3-7.7) k/uL Lymphocytes # (Manual) (1.0-4.8) k/uL Monocytes # (Manual) (0-1.0) k/uL Eosinophils # (Manual) (0-0.7) k/uL Myelocytes # (Manual) (0) k/uL Nucleated RBCs (0-0) /100 WBC Manual Slide Review PT (10.0-12.5) sec INR (<1.2) APTT (22.0-30.0) sec Sodium (137-145) mmol/L Potassium (3.5-5.1) mmol/L Chloride (98-107) mmol/L Carbon Dioxide (22-30) mmol/L Anion Gap mmol/L BUN (7-17) mg/dL Creatinine (0.52-1.04) mg/dL Est GFR (CKD-EPI)AfAm (>60 ml/min/1.73 sqM) Est GFR (CKD-EPI)NonAf (>60 ml/min/1.73 sqM) Glucose (74-99) mg/dL Plasma Lactic Acid Med 0.8 (0.7-2.0) mmol/L Calcium (8.4-10.2) mg/dL Total Bilirubin (0.2-1.3) mg/dL AST (14-36) U/L ALT (4-34) U/L Alkaline Phosphatase (38-126) U/L Troponin I 0.027 (0.000-0.034) ng/mL Total Protein (6.3-8.2) g/dL Albumin (3.5-5.0) g/dL - EKG Data -: EKG Interpreted by Me (EG is sinus 80 SD 156 QRS 84 QTc 391) - Radiology Data Radiology results: report reviewed (Brain and C-spine positive for subdural hematoma), image reviewed Critical Care Time Critical Care Time: Yes Total Critical Care Time: 31 Disposition Clinical Impression: Fall, Weakness, Debility, Subdural hematoma Disposition: OTHER INSTITUTION NOT DEFINED Condition: Serious Instructions (If sedation given, give patient instructions): Fall Prevention for Older Adults (ED) Is patient prescribed a controlled substance at d/c from ED?: No Referrals: Cm Lima DO [STAFF PHYSICIAN] - 1-2 days Time of Disposition: 06:40 - Out of Hospital Transfer - Req. Specs Out of Hospital Transfer - Requested Specifics: Other Emergency Center ([facility]
--- NOTE | 2023-09-25 06:30 | CT ---
EXAM: CT Head Without Intravenous Contrast CLINICAL HISTORY: ITS.REASON CT Reason: fall TECHNIQUE: Axial computed tomography images of the head/brain without intravenous contrast. CTDI is 57.4 mGy and DLP is 1202.1 mGy-cm. This CT exam was performed using one or more of the following dose reduction techniques: automated exposure control, adjustment of the mA and/or kV according to patient size, and/or use of iterative reconstruction technique. COMPARISON: No relevant prior studies available. FINDINGS: Brain: There is a tiny acute subdural hematoma over the right frontal convexity measuring 3.5 mm in diameter. Mild nonspecific white matter changes. No edema. Ventricles: Moderate ventriculomegaly. Bones/joints: Unremarkable. No acute fracture. Soft tissues: Mild soft tissue swelling about the right posterior occiput. Sinuses: Unremarkable as visualized. No acute sinusitis. Mastoid air cells: Unremarkable as visualized. No mastoid effusion. IMPRESSION: There is a tiny acute subdural hematoma over the right frontal convexity measuring 3.5 mm in diameter. Recommend short-term interval follow-up to evaluate for stability. EXAM: CT Cervical Spine Without Intravenous Contrast CLINICAL HISTORY: ITS.REASON CT Reason: fall TECHNIQUE: Axial computed tomography images of the cervical spine without intravenous contrast. CTDI is 15.7 mGy and DLP is 340.8 mGy-cm. This CT exam was performed using one or more of the following dose reduction techniques: automated exposure control, adjustment of the mA and/or kV according to patient size, and/or use of iterative reconstruction technique. COMPARISON: No relevant prior studies available. FINDINGS: Vertebrae: Unremarkable. No acute fracture. Discs/spinal canal/neural foramina: No acute findings. There is a severe spinal canal stenosis at C5-6. Soft tissues: Unremarkable. IMPRESSION: No evidence of acute cervical spine pathology. <MYCVCSECTION> Communications: 09/25/23 06:39 Call Doctor Regarding Above results, called Dr. Hendricks on 09/24 06:39 (-04:00)
[2023-09-25] MEDS: MORPHINE SULFATE 4 MG/ML SYRINGE IV STA (07:09)
[2023-09-25] MEDS: ONDANSETRON 4 MG/2 ML VIAL IVP STA (07:10)
[2023-09-25] MEDS: traMADol 50 MG TAB PO STA (07:10)
[2023-09-25] MEDS: SODIUM CHLORIDE 0.9% 1,000 ML IV STA (07:10)
[2023-09-25 07:42] LABS: INR 1.1 (<1.2); Partial Thromboplastin Time 27.3 sec (22.0-30.0); Prothrombin Time 11.5 sec (10.0-12.5)
[2023-09-25 07:48] LABS: ALT 9 U/L (4-34); AST 21 U/L (14-36); African American GFR (CKD) >90 (>60 ml/min/1.73 sqM); Albumin 2.4 g/dL (3.5-5.0); Alkaline Phosphatase 90 U/L (38-126); Anion Gap 0 mmol/L; Blood Urea Nitrogen 13 mg/dL (7-17); Calcium 7.9 mg/dL (8.4-10.2); Carbon Dioxide 35 mmol/L (22-30); Chloride 94 mmol/L (98-107); Glucose 184 mg/dL (74-99); Non-African American GFR(CKD) >90 (>60 ml/min/1.73 sqM); Potassium 3.9 mmol/L (3.5-5.1); Sodium 129 mmol/L (137-145); Total Bilirubin 0.9 mg/dL (0.2-1.3); Total Protein 4.6 g/dL (6.3-8.2)
[2023-09-25 08:03] LABS: HCT 22.4 % (34.0-46.0); HGB 7.7 gm/dL (11.4-16.0); MCH 32.2 pg (25.0-35.0); MCHC 34.6 g/dL (31.0-37.0); Mean Platelet Volume 8.5; RBC 2.41 m/uL (3.80-5.40); RDW 15.9 % (11.5-15.5); WBC 2.1 k/uL (3.8-10.6)
[2023-09-25 08:05] LABS: Platelet Count 28 k/uL (150-450)
[2023-09-25] MEDS: MORPHINE SULFATE 4 MG/ML SYRINGE IVP STA (09:11)
[2023-09-25 09:47] VITALS: BP 116/94; PULSE 86; RESP 18; TEMP 98
[2023-09-25 09:53] LABS: Band Neutrophils % 2 %; Eosinophils # (M) 0.02 k/uL (0-0.7); Lymphocytes # (M) 0.65 k/uL (1.0-4.8); Monocytes # (M) 0.25 k/uL (0-1.0); Myelocytes # (M) 0.06 k/uL (0); Myelocytes % 3 %; Neutrophils % (M) 53 %; Nucleated Red Blood Cells 0 /100 WBC (0-0); Total Cells Counted 200
== END 2023-09-25 09:19 | disposition other institution (70) ==
LOC: EC 03:03
DX: S06.5X0A Traumatic subdural hemorrhage without loss of consciousness, initial encounter (principal); Z87.891 Personal history of nicotine dependence; Z88.8 Allergy status to other drugs, medicaments and biological substances; W18.2XXA Fall in (into) shower or empty bathtub, initial encounter; Y92.002 Bathroom of unspecified non-institutional (private) residence as the place of occurrence of the external cause
CPT/HCPCS: 36415; 93005; 80053; 83605; 84484; 85025; 85610; 85730; 72125; 70450; 99291; 96374; 96375; 96376; 96361 ×2; J2270; J2405

== ENCOUNTER 2023-10-07 09:00 | Inpatient (IN) | payer MEDICARE, BC ==
--- NOTE | 2023-10-07 09:10 | ED ---
General Adult HPI - General Chief complaint: Recheck/Abnormal Lab/Rx Stated complaint: Abn labs Time Seen by Provider: 10/07/23 09:01 Source: patient, EMS, RN notes reviewed Mode of arrival: EMS Limitations: no limitations - History of Present Illness Initial comments: Patient is a 68-year-old female present to the emergency department with concerns for anemia. Patient had recent blood work and was told her blood level was 5.1. Patient does have history of myelodysplasia as well as lymphoma. Patient also complains of chronic bone pain. Patient states she is on morphine and oxycodone at home. Patient complains of feeling fatigued and having ex ertional dyspnea. Patient states her leg edema is chronic. Patient denies any bleeding. Patient denies any black tarry stools. - Related Data Home Medications Medication Instructions Recorded Confirmed Divalproex [Depakote] 1,000 mg PO HS 07/01/20 09/05/23 Omeprazole 40 mg PO DAILY 07/01/20 09/05/23 Propranolol [Inderal] 20 mg PO BID 07/01/20 09/05/23 hydrOXYzine HCL [Atarax] 25 mg PO HS 05/27/21 09/05/23 Cariprazine HCl [Vraylar] 3 mg PO HS 09/05/23 09/05/23 Cholecalciferol (Vitamin D3) 50 mcg PO DAILY 09/05/23 09/05/23 [Vitamin D3 (50 Mcg = 2000 Iu)] Dicyclomine [Bentyl] 20 mg PO QID PRN 09/05/23 09/05/23 Umeclidinium Brm/Vilanterol Tr 1 puff INHALATION RT-DAILY PRN 09/05/23 09/05/23 [Anoro Ellipta 62.5-25 Mcg INH] Previous Rx's Medication Instructions Recorded LORazepam [Ativan] 1 mg PO TID PRN #9 tab 09/15/23 oxyCODONE HCL [oxyCODONE HCL (IR)] 20 mg PO TID #9 tab 09/15/23 Allergies Allergy/AdvReac Type Severity Reaction Status Date / Time bendamustine [From [facility]] AdvReac Itching Verified 10/07/23 09:07 Review of Systems ROS Statement: Those systems with pertinent positive or pertinent negative responses have been documented in the HPI. ROS Other: All systems not noted in ROS Statement are negative. 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 06/2020 pet scan showed mets to L neck/liver/sacrum per pt. 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 Pt states she takes inderal for shakes not BP. 09/12/2023: Pt states last chemo "1 year ago". Anemia History of Any Multi-Drug Resistant Organisms: None Reported Past Surgical History: Section, Cholecystectomy, Orthopedic Surgery, Tonsillectomy Additional Past Surgical History / Comment(s): 2008 R groin tumor removed, extensive esophageal surgery/esophagectomy/stomach brought up and attached, R sided port, R elbow fracture/radial head removed, colonoscopy. Past Anesthesia/Blood Transfusion Reactions: No Reported Reaction Additional Past Anesthesia/Blood Transfusion Reaction / Comment(s): Pt received blood with esophagectomy surgery without reaction. Past Psychological History: Bipolar Smoking Status: Former smoker Past Alcohol Use History: None Reported Past Drug Use History: None Reported - Past Family History Mother History Unknown: Yes Additional Family Medical History / Comment(s): patient adopted and does not know family history General Exam Limitations: no limitations General appearance: alert, in no apparent distress Head exam: Present: normocephalic Eye exam: Present: normal appearance ENT exam: Present: mucous membranes dry Respiratory exam: Present: normal lung sounds bilaterally Cardiovascular Exam: Present: regular rate, normal rhythm GI/Abdominal exam: Present: soft. Absent: distended, tenderness Extremities exam: Present: pedal edema. Absent: calf tenderness Neurological exam: Present: alert Psychiatric exam: Present: normal affect, normal mood Skin exam: Present: pallor Course Vital Signs 10/07/23 10/07/2324 09:02 09:30 10:03 Temperature 98.4 F Pulse Rate 92 89 84 Respiratory 18 17 18 Rate Blood Pressure 111/50 94/60 98/53 O2 Sat by Pulse 95 96 97 Oximetry 10/07/23 10/07/23 11:10 12:03 Temperature Pulse Rate 82 84 Respiratory 17 17 Rate Blood Pressure 95/55 109/53 O2 Sat by Pulse 99 96 Oximetry EKG Findings - EKG Results: EKG: interpreted by ERMD, sinus rhythm, normal axis, normal QRS, normal ST/T Medical Decision Making - Medical Decision Making Was pt. sent in by a medical professional or institution (, PA, SUGAR [employer]E PLANTING EQUIPMENT OPERATOR, urgent care, hospital, or long-term...) When possible be specific @ -Patient was sent from nursing facility Did you speak to anyone other than the patient for history (EMS, parent, family, police, friend...)? What history was obtained from this source @ -No Did you review nursing and triage notes (agree or disagree)? Why? @ -I reviewed and agree with nursing and triage notes Were old charts reviewed (outside hosp., previous admission, EMS record, old EKG, old radiological studies, urgent care reports/EKG's, long-term records)? Report findings @ -Hemoglobin reviewed yesterday 5.7. Differential Diagnosis (chest pain, altered mental status, abdominal pain women, abdominal pain men, vaginal bleeding, weakness, fever, dyspnea, syncope, headache, dizziness, GI bleed, back pain, seizure, CVA, palpatations, mental health, musculoskeletal)? @ -Differential Weakness: Hypoglycemia, shock, sepsis, hyponatremia, anemia, infection, CA, ETOH, adverse medicine reaction, overdose, stroke, this is not meant to be an all-inclusive list. Chest x-ray does not reveal EKG interpreted by me (3pts min.). @ -As above X-rays interpreted by me (1pt min.). @ -Chest x-ray does not feel acute abnormality. Previous humeral fracture CT interpreted by me (1pt min.). @ -None done U/S interpreted by me (1pt. min.). @ -None done What testing was considered but not performed or refused? (CT, X-rays, U/S, labs)? Why? @ -Blood count still pending despite lab being called twice What meds were considered but not given or refused? Why? @ -None Did you discuss the management of the patient with other professionals (professionals i.e. Dr., PA, [employer]ANTING EQUIPMENT OPERATOR, lab, RT, psych nurse, nursing home social worker, radio interference investigator, te acher, conservation science officer, behavioral health case manager)? Give summary @ -Case was discussed with Dr. Mchugh who will admit covering Dr. Dick he Was smoking cessation discussed for >3mins.? @ -No Was critical care preformed (if so, how long)? @ -No Were there social determinants of health that impacted care today? How? (Homelessness, low income, unemployed, alcoholism, drug addiction, transportation, low edu. Level, literacy, decrease access to med. care, [facility], rehab)? @ -No Was there de-escalation of care discussed even if they declined (Discuss DNR or withdrawal of care, Hospice)? DNR status @ -No What co-morbidities impacted this encounter? (DM, HTN, Smoking, COPD, CAD, Cancer, CVA, ARF, Chemo, Hep., AIDS, mental health diagnosis, sleep apnea, morbid obesity)? @ -Recent diagnosis of dysplastic disease Was patient admitted / discharged? Hospital course, mention meds given and route, prescriptions, significant lab abnormalities, going to OR and other pertinent info. @ -Patient reevaluated and updated. Patient will be admitted and received blood transfusion. Platelet count still pending. Patient will be admitted with heme-onc consult. Blood transfusion ordered. Undiagnosed new problem with uncertain prognosis? @ -No Drug Therapy requiring intensive monitoring for toxicity (Heparin, Nitro, Insulin, Cardizem)? @ -Blood transfusion Were any procedures done? @ -No Diagnosis/symptom? @ -Anemia Acute, or Chronic, or Acute on Chronic? @ -Acute Uncomplicated (without systemic symptoms) or Complicated (systemic symptoms)? @ -Complicated with concerns for possible thrombocytopenia, platelet count pending. Side effects of treatment? @ -No Exacerbation, Progression, or Severe Exacerbation? @ -No Poses a threat to life or bodily function? How? (Chest pain, USA, CA, pneumonia, PE, COPD, DKA, ARF, appy, cholecystitis, CVA, Diverticulitis, Homicidal, Suicidal, threat to staff... and all critical care pts) @ -No - Lab Data Result diagrams: 10/07/23 09:24 10/07/23 09:24 Lab Results 10/07/23 10/07/23 10/07/23 Range/Units 09:20 09: 09:24 WBC 1.3 L* (3.8-10.6) k/uL RBC 2.13 L (3.80-5.40) m/uL Hgb 6.7 L* (11.4-16.0) gm/dL Hct 19.4 L* (34.0-46.0) % MCV 91.0 (80.0-100.0) fL MCH 31.4 (25.0-35.0) pg MCHC 34.5 (31.0-37.0) g/dL RDW 15.5 (11.5-15.5) % MPV 8.9 PT 10.9 (10.0-12.5) sec INR 1.0 (<1.2) APTT 26.1 (22.0-30.0) sec Sodium (137-145) mmol/L Potassium (3.5-5.1) mmol/L Chloride (98-107) mmol/L Carbon Dioxide (22-30) mmol/L Anion Gap mmol/L BUN (7-17) mg/dL Creatinine (0.52-1.04) mg/dL Est GFR (CKD-EPI)AfAm (>60 ml/min/1.73 sqM) Est GFR (CKD-EPI)NonAf (>60 ml/min/1.73 sqM) Glucose (74-99) mg/dL Plasma Lactic Acid Med (0.7-2.0) mmol/L Calcium (8.4-10.2) mg/dL Magnesium (1.6-2.3) mg/dL Total Bilirubin (0.2-1.3) mg/dL AST (14-36) U/L ALT (4-34) U/L Alkaline Phosphatase (38-126) U/L Total Protein (6.3-8.2) g/dL Albumin (3.5-5.0) g/dL Blood Type A Positive Blood Type Recheck A Pos Bld Type Recheck Status No Antibody Screen NEGATIVE Spec Expiration Date 10/10/2023231910/07/23 10/07/23 Range/Units 09:24 09:24 WBC (3.8-10.6) k/uL RBC (3.80-5.40) m/uL Hgb (11.4-16.0) gm/dL Hct (34.0-46.0) % MCV (80.0-100.0) fL MCH (25.0-35.0) pg MCHC (31.0-37.0) g/dL RDW (11.5-15.5) % MPV PT (10.0-12.5) sec INR (<1.2) APTT (22.0-30.0) sec Sodium 131 L (137-145) mmol/L Potassium 3.6 (3.5-5.1) mmol/L Chloride 98 (98-107) mmol/L Carbon Dioxide 32 H (22-30) mmol/L Anion Gap 1 mmol/L BUN 12 (7-17) mg/dL Creatinine 0.55 (0.52-1.04) mg/dL Est GFR (CKD-EPI)AfAm >90 (>60 ml/min/1.73 sqM) Est GFR (CKD-EPI)NonAf >90 (>60 ml/min/1.73 sqM) Glucose 275 H (74-99) mg/dL Plasma Lactic Acid Med 1.5 (0.7-2.0) mmol/L Calcium 7.7 L (8.4-10.2) mg/dL Magnesium 1.8 (1.6-2.3) mg/dL Total Bilirubin 0.9 (0.2-1.3) mg/dL AST 22 (14-36) U/L ALT 14 (4-34) U/L Alkaline Phosphatase 131 H (38-126) U/L Total Protein 5.0 L (6.3-8.2) g/dL Albumin 2.6 L (3.5-5.0) g/dL Blood Type Blood Type Recheck Bld Type Recheck Status Antibody Screen Spec Expiration Date Disposition Clinical Impression: Anemia Disposition: ADMITTED IP TO THIS HOSP Is patient prescribed a controlled substance at d/c from ED?: No Referrals: Yari Valverde MD [Primary Care Provider] - 1-2 days Time of Disposition: 12:13
[2023-10-07] MEDS: MORPHINE SULFATE 4 MG/ML SYRINGE IV STA (09:43)
[2023-10-07 09:55] LABS: MCH 31.4 pg (25.0-35.0); MCHC 34.5 g/dL (31.0-37.0); Mean Platelet Volume 8.9; RBC 2.13 m/uL (3.80-5.40); RDW 15.5 % (11.5-15.5)
[2023-10-07 10:07] LABS: Partial Thromboplastin Time 26.1 sec (22.0-30.0); Prothrombin Time 10.9 sec (10.0-12.5)
[2023-10-07 10:08] LABS: ALT 14 U/L (4-34); AST 22 U/L (14-36); African American GFR (CKD) >90 (>60 ml/min/1.73 sqM); Albumin 2.6 g/dL (3.5-5.0); Alkaline Phosphatase 131 U/L (38-126); Anion Gap 1 mmol/L; Blood Urea Nitrogen 12 mg/dL (7-17); Calcium 7.7 mg/dL (8.4-10.2); Carbon Dioxide 32 mmol/L (22-30); Chloride 98 mmol/L (98-107); Glucose 275 mg/dL (74-99); Magnesium 1.8 mg/dL (1.6-2.3); Non-African American GFR(CKD) >90 (>60 ml/min/1.73 sqM); Potassium 3.6 mmol/L (3.5-5.1); Sodium 131 mmol/L (137-145); Total Bilirubin 0.9 mg/dL (0.2-1.3)
--- NOTE | 2023-10-07 10:09 | XR ---
EXAMINATION TYPE: XR chest 2V DATE OF EXAM: 10/07/2023 9:37 AM CLINICAL INDICATION:Female, 68 years old with history of Weakness; [facility] COMPARISON: Chest radiographs from 09/13/2023 TECHNIQUE: XR chest 2V Frontal and lateral views of the chest. FINDINGS: Lungs/Pleura: There is no evidence of pleural effusion, focal consolidation, or pneumothorax. Pulmonary vascularity: Unremarkable. Heart/mediastinum: Cardiomediastinal silhouette is unremarkable. Musculoskeletal: No acute osseous pathology. Prior right proximal humerus fracture. Remote rib fractu res. Other findings: None Lines/Tubes: [id number] projecting over the right hemithorax with distal tip at the cavoatrial junction. IMPRESSION: No acute cardiopulmonary disease/process.
[2023-10-07 10:11] LABS: HCT 19.4 % (34.0-46.0); HGB 6.7 gm/dL (11.4-16.0); WBC 1.3 k/uL (3.8-10.6)
[2023-10-07 12:11] LABS: Platelet Count 21 k/uL (150-450)
[2023-10-07] MEDS ORDERED: NALOXONE 0.4 MG/ML 1 ML VIAL IV PRN (12:13)
[2023-10-07] MEDS: MORPHINE SULFATE 4 MG/ML SYRINGE IV PRN (12:27)
[2023-10-07 13:02] LABS: Band Neutrophils % 3 %; Basophils # (M) 0.01 k/uL (0-0.2); Lymphocytes # (M) 0.48 k/uL (1.0-4.8); Monocytes # (M) 0.13 k/uL (0-1.0); Neutrophils % (M) 49 %; Nucleated Red Blood Cells 0 /100 WBC (0-0); Total Cells Counted 100
[2023-10-07 13:03] LABS: RBC Morphology Normal
[2023-10-07] MEDS ORDERED: SENNOSIDES 8.6 MG TAB PO PRN (16:07)
[2023-10-07] MEDS ORDERED: DEXTROSE 50% SYRINGE 50 ML IVP PRN ×2 (16:11)
[2023-10-07] MEDS: LORazepam 0.5 MG TAB PO PRN (17:22)
[2023-10-07 17:40] LABS: Glucose,Whole Blood 131 mg/dL (70-110)
[2023-10-07] MEDS: INSULIN ASPART (NovoLOG) 100 UNIT/ML VIAL SQ SCH (17:50)
--- NOTE | 2023-10-07 18:19 | P.HPIM ---
History of Present Illness H&P Date: 10/07/23 Chief Complaint: Low hemoglobin Patient is a 68-year-old female with a past medical history of lymphoma status post chemotherapy and now in remission per family, chronic pain, myelodysplasia who presents from the care home due to low hemoglobin. At the care home patient's hemoglobin was apparently 5.1. In the ED on admission patient's hemoglobin was 6.7. 1 unit of PRBC was ordered. Per daughter patient has received at least 4 transfusions in the past 3 weeks. Per daughter the plan as per the oncologist is for bone transplant once patient's strength improves. 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 Eye: [PERRL, EOMI, normal conjunctiva]. HENT: [Normocephalic, clear tympanic membranes, normal hearing, moist oral mucosa, no scleral icterus, no sinus tenderness]. Neck: [Supple, non-tender, no carotid bruits, no JVD, no lymphadenopathy]. Lungs: [Clear to auscultation and percussion, non-labored respiration]. Heart: [Normal rate, regular rhythm, no murmur, gallop or edema]. Abdomen: [Soft, non-tender, non-distended, normal bowel sounds, no masses]. Musculoskeletal: [Normal range of motion and strength, no tenderness or swelling]. Skin: [Skin is warm, dry and pink, no rashes or lesions]. Neurologic: [Awake, alert, and oriented X3, CN II-XII intact]. Psychiatric: [Cooperative, appropriate mood and affect]. Assessment and plan Acute blood loss anemia Symptomatic anemia Myelodysplastic syndrome with pancytopenia Will transfuse 1 unit of PRBC Monitor CBC No indication for platelet transfusion Hematology consult Chronic pain Will resume patient's pain medications Anxiety Will continue with patient's Ativan History of lymphoma Per family this is in remission DVT prophylaxis: No anticoagulation in the setting of thrombocytopenia Past Medical History Past Medical History: Blood Disorder, Cancer, COPD, Fibromyalgia, Hyper lipidemia, Osteoarthritis (OA) Additional Past Medical History / Comment(s): 2008-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 2009-R groin cancerous tumor with surgical r emoval/chemo and radiation. 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 2016-esophageal cancer with surgery. 06/2020 pet scan showed mets to L neck/liver/sacrum-chemo/radiation. 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 Pt states she takes inderal for shakes not BP. 09/12/2023: Pt states last chemo "1 year ago". History of Any Multi-Drug Resistant Organisms: None Reported Past Surgical History: Section, Cholecystectomy, Orthopedic Surgery, Tonsillectomy Additional Past Surgical History / Comment(s): 2008 R groin tumor removed, extensive esophageal surgery/esophagectomy/stomach brought up and attached, R sided port, R elbow fracture/radial head removed, colonoscopy. Past Anesthesia/Blood Transfusion Reactions: No Reported Reaction Additional Past Anesthesia/Blood Transfusion Reaction / Comment(s): Pt received blood with esophagectomy surgery without reaction. Past Psychological History: Bipolar Additional Psychological History / Comment(s): Pt resides with her spouse. She has a cane which she uses prn. She drives. Smoking Status: Former smoker Past Alcohol Use History: None Reported Additional Past Alcohol Use History / Comment(s): Pt started smoking in 1964 and quit in 2000 1 ppd Past Drug Use History: None Reported - Past Family History Mother History Unknown: Yes Additional Family Medical History / Comment(s): patient adopted and does not know family history Medications and Allergies Home Medications Medication Instructions Recorded Confirmed Type Divalproex [Depakote] 500 mg PO TID 07/01/20 10/07/23 History Omeprazole 40 mg PO DAILY@0800 07/01/20 10/07/23 History Propranolol [Inderal] 20 mg PO BID@0800,1600 07/01/20 10/07/23 History Cariprazine HCl [Vraylar] 3 mg PO DAILY@0800 09/05/23 10/07/23 History Acetaminophen Tab [Tylenol] 975 mg PO Q8HR@0500,1300,2100 10/07/23 10/07/23 His tory Atorvastatin [Lipitor] 20 mg PO HS 10/07/23 10/07/23 History Gabapentin 600 mg PO TID 10/07/23 10/07/23 History LORazepam [Ativan] 0.5 mg PO TID 10/07/23 10/07/23 History Multivitamins, Thera [Multivitamin 1 tab PO DAILY@0800 10/07/23 10/07/23 History (formulary)] Naloxone HCl [Narcan] 4 mg NASAL DIRECTED PRN 10/07/23 10/07/23 History Nutritional Juice 1 dose PO BID-W/MEALS 10/07/23 10/07/23 History Ondansetron [Zofran] 4 mg PO Q6H PRN 10/07/23 10/07/23 History Sennosides [Senokot] 17.2 mg PO Q12H PRN 10/07/23 10/07/23 History oxyCODONE HCL [oxyCODONE HCL (IR)] 20 mg PO Q8H PRN 10/07/23 10/07/23 History Allergies Allergy/AdvReac Type Severity Reaction Status Date / Time bendamustine [From [facility]] AdvReac Itching Verified 10/07/23 13:25 Physical Exam Osteopathic Statement: *. No significant issues noted on an osteopathic structural exam other than those noted in the History and Physical/Consult. Vitals: Vital Signs Temp Pulse Pulse Resp BP BP Pulse Ox 10/07/23 15:50 97.5 F L 105 H 18 133/84 95 10/07/23 14:00 97.6 F 80 18 118/75 97 10/07/23 13:22 97.7 F 82 18 111/60 97 10/07/23 13:02 97.9 F 81 16 109/65 97 10/07/23 12:51 98.5 F 80 17 100/54 96 10/07/23 12:03 84 17 109/53 96 10/07/23 11:10 82 17 95/55 99 10/07/23 10:03 84 18 98/53 97 10/07/23 09:30 89 17 94/60 96 10/07/23 09:02 98.4 F 92 18 111/50 95 Intake and Output 10/07/23 10/07/23 10/07/23 06:59 14:59 22:59 Intake Total 0 310 Balance 0 310 Intake: Blood Product 0 310 Rc As-1 Unit 0 310 [id number] Other: Weight 79.379 kg Results CBC & Chem 7: 10/07/23 09:24 10/07/23 09:24 Labs: Abnormal Lab Results - Last 24 Hours (Table) 10/07/23 10/07/23 10/07/23 Range/Units 09:20 09:24 09:24 WBC 1.3 L* (3.8-10.6) k/uL RBC 2.13 L (3.80-5.40) m/uL Hgb 6.7 L* (11.4-16.0) gm/dL Hct 19.4 L* (34.0-46.0) % Plt Count 21 L (150-450) k/uL Neutrophils # (Manual) 0.60 L (1.3-7.7) k/uL Lymphocytes # (Manual) 0.48 L (1.0-4.8) k/uL Sodium 131 L (137-145) mmol/L Carbon Dioxide 32 H (22-30) mmol/L Glucose 275 H (74-99) mg/dL POC Glucose (mg/dL) (70-110) mg/dL Calcium 7.7 L (8.4-10.2) mg/dL Alkaline Phosphatase 131 H (38-126) U/L Total Protein 5.0 L (6.3-8.2) g/dL Albumin 2.6 L (3.5-5.0) g/dL Crossmatch See Detail 10/07/23 Range/Units 17:37 WBC (3.8-10.6) k/uL RBC (3.80-5.40) m/uL Hgb (11.4-16.0) gm/dL Hct (34.0-46.0) % Plt Count (150-450) k/uL Neutrophils # (Manual) (1.3-7.7) k/uL Lymphocytes # (Manual) (1.0-4.8) k/uL Sodium (137-145) mmol/L Carbon Dioxide (22-30) mmol/L Glucose (74-99) mg/dL POC Glucose (mg/dL) 131 H (70-110) mg/dL Calcium (8.4-10.2) mg/dL Alkaline Phosphatase (38-126) U/L Total Protein (6.3-8.2) g/dL Albumin (3.5-5.0) g/dL Crossmatch Thrombosis Risk Factor Assmnt - Choose All That Apply Any of the Below Risk Factors Present?: Yes Each Factor Represents 1 point: Abnormal pulmonary function (COPD), Obesity (BMI >25) Other Risk Factors: No Other congenital or acquired thrombophilia - If yes, enter type in comment: No Thrombosis Risk Factor Assessment Total Risk Factor Score: 2 Thrombosis Risk Factor Assessment Level: Low Risk
[2023-10-07] MEDS ORDERED: VANCOMYCIN IV PER PHARMACY 1 EACH MISC MISCELLANE PRN (18:21)
--- NOTE | 2023-10-07 18:21 | P.PN ---
Progress Note - Text Progress Note Date: 10/07/23 I was called by the nurse to evaluate the patient as patient is tachycardic after her blood transfusion. When I went to go evaluate the patient she was shaking. Patient did not have any fever or rash. I am concerned that patient could possibly be withdrawing as she is on Ativan. The nurse had just given the patient Ativan orally. I told the nurse to give an additional IV Ativan 0.25 mg. Also with the shaking and the tachycardia I am concerned about possible transfusion reaction. I will order for IV Solu-Medrol Benadryl. Will also rule out infection. Will obtain blood cultures and start the patient on cefepime. Patient does have a port so I will also start the patient on vancomycin.
[2023-10-07] MEDS: LORazepam 1 MG/0.5 ML VIAL IV STA (18:22)
[2023-10-07] MEDS: diphenhydrAMINE 50 MG/ML 1 ML VIAL IVP STA (18:28)
[2023-10-07] MEDS: methylPREDNISolone SOD SUCCI 125 MG/2 ML VIAL IV STA (18:28)
[2023-10-07] MEDS: CEFEPIME 2 GM in SODIUM CHLORIDE 0.9% 100 ML IVPB SCH (20:38)
[2023-10-07] MEDS: VANCOMYCIN 1,500 MG in SODIUM CHLORIDE 0.9% 500 ML 500 ML IVPB SCH (20:40)
[2023-10-07] MEDS: ATORVASTATIN 20 MG TAB PO SCH (20:42)
[2023-10-07] MEDS: ACETAMINOPHEN TAB 325 MG TAB PO SCH (20:42)
[2023-10-07] MEDS: GABAPENTIN 300 MG CAP PO SCH (20:43)
[2023-10-07] MEDS: DIVALPROEX 500 MG TABLET.DR PO SCH (20:43)
[2023-10-07 20:54] LABS: Glucose,Whole Blood 223 mg/dL (70-110)
[2023-10-07 21:18] LABS: Anisocytosis Slight; HCT 23.5 % (34.0-46.0); HGB 8.1 gm/dL (11.4-16.0); MCH 30.7 pg (25.0-35.0); MCHC 34.6 g/dL (31.0-37.0); MCV 88.8 fL (80.0-100.0); Mean Platelet Volume 9.2; RBC 2.64 m/uL (3.80-5.40); RDW 16.2 % (11.5-15.5); WBC 1.5 k/uL (3.8-10.6)
[2023-10-07 21:34] LABS: Platelet Count 18 k/uL (150-450)
[2023-10-08 07:02] LABS: Glucose,Whole Blood 327 mg/dL (70-110)
[2023-10-08] MEDS: PATIENT'S OWN (Cariprazine Hcl [Vraylar] 3 MG Capsule) PO SCH (08:40)
[2023-10-08] MEDS: PANTOPRAZOLE 40 MG TABLET PO SCH (08:50)
[2023-10-08] MEDS: MULTIVITAMINS, THERA 1 EACH TAB PO SCH (08:50)
[2023-10-08] MEDS: PROPRANOLOL 20 MG TAB PO SCH (08:51)
[2023-10-08 10:03] LABS: Basophils # (A) 0 X 10*3/uL (0.00-0.10); Basophils % (A) 0 %; Elliptocytes 2+; Eosinophils # (A) 0 X 10*3/uL (0.04-0.35); Eosinophils % (A) 0 %; HCT 20.2 % (37.2-46.3); HGB 6.7 g/dL (12.0-15.0); Immature Platelet Fraction 3.7 % (1.1-6.1); Lymphocytes # (A) 0.64 X 10*3/uL (0.90-5.00); Lymphocytes % (A) 38.6 %; MCH 29.5 pg (27.0-32.0); MCHC 33.2 g/dL (32.0-37.0); Monocytes # (A) 0.12 X 10*3/uL (0.20-1.00); Monocytes % (A) 7.2 %; NRBC Per 100 WBC 0 X 10*3/uL (0.00-0.01); Neutrophils # (A) 0.82 X 10*3/uL (1.80-7.70); Neutrophils % (A) 49.4 %; Platelet Count 16 X 10*3/uL (140-440); RBC 2.27 X 10*6/uL (4.10-5.20); RDW 16.1 % (11.5-14.5); WBC 1.66 X 10*3/uL (4.50-10.00)
[2023-10-08] MEDS ORDERED: ZINC OXIDE PASTE (Z-GUARD) 1 APPLIC TOPICAL PRN (11:23)
[2023-10-08 11:54] LABS: ALT 16 U/L (8-44); AST 28 U/L (13-35); Albumin 2.8 g/dL (3.8-4.9); Albumin/Globulin Ratio 1.47 Ratio (1.60-3.17); Alkaline Phosphatase 126 U/L (41-126); Blood Urea Nitrogen 13.2 mg/dL (9.0-27.0); Calcium 7.9 mg/dL (8.7-10.3); Carbon Dioxide 27.5 mmol/L (21.6-31.8); Chloride 97 mmol/L (96-109); Globulin 1.9 g/dL (1.6-3.3); Glucose 352 mg/dL (70-110); Potassium 4.8 mmol/L (3.5-5.5); Sodium 133 mmol/L (135-145); Total Bilirubin 0.6 mg/dL (0.3-1.2); Total Protein 4.7 g/dL (6.2-8.2)
--- NOTE | 2023-10-08 11:55 | P.PN ---
Subjective Progress Note Date: 10/08/23 Patient is a 68-year-old female with a past medical history of lymphoma status post chemotherapy and now in remission per family, chronic pain, myelodysplasia who presents from the [facility] due to low hemoglobin. At the [facility] patient's hemoglobin was apparently 5.1. In the ED on admission patient's hemoglobin was 6.7. 1 unit of PRBC was ordered. Per daughter patient has received at least 4 transfusions in the past 3 weeks. Per daughter the plan as per the oncologist is for bone transplant once patient's strength improves. Patient is complaining of fatigue tiredness. After patient received a unit of blood she started shaking and was tachycardic and was confused. I suspect patient may have had a blood transfusion reaction. Patient was given Solu- Medrol and Benadryl and her symptoms did improve. I also initiated infectious workup as well. I empirically started the patient on vancomycin and cefepime. Patient seen this morning. Patient is awake and alert. She states that she is doing much better overall. Physical exam General examination - Alert and Oriented 3 in NAD Heart - + S1S2 no murmurs Lungs - Clear to auscultation Abdomen soft NT ND +ve BS Extremities -chronic lower extremity edema bilaterally ALGEBRAIST - Moving all 4 extremities spontaneously Psych - Calm and cooperative Assessment and plan Acute blood loss anemia Symptomatic anemia Myelodysplastic syndrome with pancytopenia Patient was given 1 unit of PRBC on admission and hemoglobin did improve to 8.1. Hemoglobin this morning dropped down to 6.7 Monitor CBC Will defer platelet transfusion to hematology. Platelets are decreasing Hematology consult Episode of encephalopathy tachycardia and shaking after blood transfusion on 10/07/2023 Suspect transfusion reaction Symptoms improved with IV Solu-Medrol and Benadryl I empirically started the patient on vancomycin and cefepime as she met sepsis criteria If blood cultures are negative we will discontinue the antibiotics I notified blood bank about transfusion reaction Chronic pain Will resume patient's pain medications Anxiety Will continue with patient's Ativan History of lymphoma Per family this is in remission DVT prophylaxis: No anticoagulation in the setting of thrombocytopenia Objective - Vital Signs Vital signs: Vital Signs Temp 97.4 F L 10/08/23 07:45 Pulse 76 10/08/23 07:45 Resp 18 10/08/23 07:45 BP 96/59 10/08/23 07:45 Pulse Ox 96 10/08/23 07:45 FiO2 Intake & Output 10/07/23 10/08/23 10/08/23 18:59 06:59 18:59 Intake Total 460 710 Output Total 0 1000 Balance 460 -290 Weight 79.379 kg Intake: Oral 150 710 Blood Product 310 Rc As-1 Unit 310 [id number] Output: Urine 0 1000 Other: Voiding Method External Catheter External Catheter # Voids 1 # Bowel Movements 1 - Labs CBC & Chem 7: 10/08/23 03:25 10/07/23 09:24 Labs: Abnormal Lab Results - Last 24 Hours (Table) 10/07/23 10/07/23 10/07/23 Range/Units 09:20 09:24 17:37 WBC (3.8-10.6) k/uL RBC (3.80-5.40) m/uL Hgb (11.4-16.0) gm/dL Hct (34.0-46.0) % RDW (11.5-15.5) % Plt Count 21 L (150-450) k/uL Immature Gran # (0.00-0.04) X 10*3/uL Neutrophils # (1.80-7.70) X 10*3/uL Neutrophils # (Manual) 0.60 L (1.3-7.7) k/uL Lymphocytes # (0.90-5.00) X 10*3/uL Lymphocytes # (Manual) 0.48 L (1.0-4.8) k/uL Monocytes # (0.20-1.00) X 10*3/uL Eosinophils # (0.04-0.35) X 10*3/uL Elliptocytes POC Glucose (mg/dL) 131 H (70-110) mg/dL Hemoglobin A1c (<=6.0) % Crossmatch See Detail 10/07/23 10/07/23 10/08/23 Range/Units 20:24 20:53 03:25 WBC 1.5 L (3.8-10.6) k/uL RBC 2.64 L (3.80-5.40) m/uL Hgb 8.1 L (11.4-16.0) gm/dL Hct 23.5 L (34.0-46.0) % RDW 16.2 H (11.5-15.5) % Plt Count 18 L* (150-450) k/uL Immature Gran # (0.00-0.04) X 10*3/uL Neutrophils # (1.80-7.70) X 10*3/uL Neutrophils # (Manual) (1.3-7.7) k/uL Lymphocytes # (0.90-5.00) X 10*3/uL Lymphocytes # (Manual) (1.0-4.8) k/uL Monocytes # (0.20-1.00) X 10*3/uL Eosinophils # (0.04-0.35) X 10*3/uL Elliptocytes POC Glucose (mg/dL) 223 H (70-110) mg/dL Hemoglobin A1c 6.8 H (<=6.0) % Crossmatch 10/08/23 10/08/23 Range/Units 03:25 06:59 WBC 1.66 L (3.8-10.6) k/uL RBC 2.27 L (3.80-5.40) m/uL Hgb 6.7 A* (11.4-16.0) gm/dL Hct 20.2 L (34.0-46.0) % RDW 16.1 H (11.5-15.5) % Plt Count 16 A* (150-450) k/uL Immature Gran # 0.08 H (0.00-0.04) X 10*3/uL Neutrophils # 0.82 L (1.80-7.70) X 10*3/uL Neutrophils # (Manual) (1.3-7.7) k/uL Lymphocytes # 0.64 L (0.90-5.00) X 10*3/uL Lymphocytes # (Manual) (1.0-4.8) k/uL Monocytes # 0.12 L (0.20-1.00) X 10*3/uL Eosinophils # 0 L (0.04-0.35) X 10*3/uL Elliptocytes 2+ A POC Glucose (mg/dL) 327 H (70-110) mg/dL Hemoglobin A1c (<=6.0) % Crossmatch
[2023-10-08 12:47] LABS: Glucose,Whole Blood 301 mg/dL (70-110)
[2023-10-08] MEDS: methylPREDNISolone SOD SUCCI 125 MG/2 ML VIAL IV STA (15:15)
--- NOTE | 2023-10-08 15:28 | P.CONS ---
History of Present Illness - Reason for Consult Consult date: 10/08/23 MDS with EB-1 - Chief Complaint Fatigue - History of Present Illness Ms. 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 She does note having persistent fatigue. On presentation, she was noted to have tachycardia with heart rates in the 100s and systolic blood pressures ranging from the 90s to 100s and saturating well on room air. Labs noted WBC 1.3 (ANC 0.6), hemoglobin 6.7 (MCV 91), platelets 21. CMP noted blood glucose of 352 with no other acute metabolic abnormalities. Coagulation studies were within normal limits. Chest x-ray reviewed no acute cardiopulmonary process. She received 1 unit packed red blood cells and was admitted for additional management. Her hospital course was complicated by confusion along with chills/rigors during packed red blood cell transfusion concerning for transfusion reaction. She did receive Benadryl and Solu-Medrol with resolution of her symptoms and completed the 1 unit of packed red blood cells. Her hemoglobin did respond to 8.5, but is 6.7 on today's labs. Currently, she denies any fevers, chills, anorexia, lymphadenopathy, or focal bone pain. She did have some loose stool secondary to laxatives she was taking for constipation. She is at [facility], where she is doing physical rehabilitation. She did have a fall since her last hospitalization in August 2023 on 09/25/2023 revealing tiny subdural hematoma. She is continuing to gain strength overall while at [facility]. Review of Systems 14 point review of systems was conducted with pertinent positives negatives as noted per HPI Past Medical History Past Medical History: Blood Disorder, Cancer, COPD, Fibromyalgia, Hyperlipidemia, Osteoarthritis (OA) Additional Past Medical History / Comment(s): 2008-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 2017-esophageal cancer with surgery. 06/2020 pet scan showed mets to L neck/liver/sacrum-chemo/radiation. 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 Pt states she takes inderal for shakes not BP. 09/12/2023: Pt states last chemo "1 year ago". History of Any Multi-Drug Resistant Organisms: None Reported Past Surgical History: Section, Cholecystectomy, Orthopedic Surgery, Tonsillectomy Additional Past Surgical History / Comment(s): 2008 R groin tumor removed, extensive esophageal surgery/esophagectomy/stomach brought up and attached, R sided port, R elbow fracture/radial head removed, colonoscopy. Past Anesthesia/Blood Transfusion Reactions: No Reported Reaction Additional Past Anesthesia/Blood Transfusion Reaction / Comm: Pt received blood with esophagectomy surgery without reaction. Past Psychological History: Bipolar Additional Psychological History / Comment(s): Pt resides with her spouse. She has a cane which she uses prn. She drives. Smoking Status: Former smoker Past Alcohol Use History: None Reported Additional Past Alcohol Use History / Comment(s): Pt started smoking in 1964 and quit in 2000 1 ppd Past Drug Use History: None Reported - Past Family History Mother History Unknown: Yes Additional Family Medical History / Comment(s): patient adopted and does not know family history Medications and Allergies Home Medications Medication Instructions Recorded Confirmed Type Divalproex [Depakote] 500 mg PO TID 07/01/20 10/07/23 History Omeprazole 40 mg PO DAILY@0800 07/01/20 10/07/23 History Propranolol [Inderal] 20 mg PO BID@0800,1600 07/01/20 10/07/23 History Cariprazine HCl [Vraylar] 3 mg PO DAILY@0800 09/05/23 10/07/23 History Acetaminophen Tab [Tylenol] 975 mg PO Q8HR@0500,1300,2100 10/07/23 10/07/23 History Atorvastatin [Lipitor] 20 mg PO HS 10/07/23 10/07/23 History Gabapentin 600 mg PO TID 10/07/23 10/07/23 History LORazepam [Ativan] 0.5 mg PO TID 10/07/23 10/07/23 History Multivitamins, Thera [Multivitamin 1 tab PO DAILY@0800 10/07/23 10/07/23 History (formulary)] Naloxone HCl [Narcan] 4 mg NASAL DIRECTED PRN 10/07/23 10/07/23 History Nutritional Juice 1 dose PO BID-W/MEALS 10/07/23 10/07/23 History Ondansetron [Zofran] 4 mg PO Q6H PRN 10/07/23 10/07/23 History Sennosides [Senokot] 17.2 mg PO Q12H PRN 10/07/23 10/07/23 History oxyCODONE HCL [oxyCODONE HCL (IR)] 20 mg PO Q8H PRN 10/07/23 10/07/23 History Allergies Allergy/AdvReac Type Severity Reaction Status Date / Time bendamustine [From [facility]] AdvReac Itching Verified 10/07/23 13:25 Physical Exam Vitals: Vital Signs Temp Pulse Pulse Resp BP BP BP 10/08/23 12:04 97.9 F 83 18 107/64 10/08/23 07:45 97.4 F L 76 18 96/59 10/08/23 01:53 97.8 F 92 16 100/62 10/07/23 19:40 98.2 F 104 H 16 97/60 10/07/23 18:55 98.8 F 105 H 18 104/64 10/07/23 18:00 98.9 F 108 H 20 127/77 10/07/23 15:50 97.5 F L 105 H 18 133/84 10/07/23 14:00 97.6 F 80 18 118/75 10/07/23 13:22 97.7 F 82 18 111/60 Pulse Ox 10/08/23 12:04 99 10/08/23 07:45 96 10/08/23 01:53 91 L 10/07/23 19:40 100 10/07/23 18:55 98 10/07/23 18:00 95 10/07/23 15:50 95 10/07/23 14:00 97 10/07/23 13:22 97 Intake and Output 10/07/23 10/08/23 10/08/23 22:59 06:59 14:59 Intake Total 580 590 Output Total 0 1000 Balance 580 -410 Intake: Oral 270 590 Blood Product 310 Rc As-1 Unit 310 [id number] Output: Urine 0 1000 Other: Voiding Method External Catheter External Catheter # Voids 1 # Bowel Movements 1 - Constitutional General appearance: cooperative, no acute distress - EENT Eyes: EOMI ENT: normal oropharynx - Neck Neck: no lymphadenopathy - Respiratory Respiratory: bilateral: CTA - Cardiovascular Rhythm: regular Heart sounds: normal: S1, S2 leg Peripheral Edema: bilateral: 2+, Pitting - Gastrointestinal General gastrointestinal: no distended, normal bowel sounds, soft, no tenderness - Integumentary Petchiae in legs bilaterally Integumentary: pale, no rash - Neurologic Neurologic: CNII-XII intact Results CBC & Chem 7: 10/08/23 03:25 10/08/23 03:25 Labs: Abnormal Lab Results - Last 24 Hours (Table) 10/07/23 10/07/23 10/07/23 Range/Units 09:20 17:37 20:24 WBC 1.5 L (3.8-10.6) k/uL RBC 2.64 L (3.80-5.40) m/uL Hgb 8.1 L (11.4-16.0) gm/dL Hct 23.5 L (34.0-46.0) % RDW 16.2 H (11.5-15.5) % Plt Count 18 L* (150-450) k/uL Immature Gran # (0.00-0.04) X 10*3/uL Neutrophils # (1.80-7.70) X 10*3/uL Lymphocytes # (0.90-5.00) X 10*3/uL Monocytes # (0.20-1.00) X 10*3/uL Eosinophils # (0.04-0.35) X 10*3/uL Elliptocytes Sodium (135-145) mmol/L BUN/Creatinine Ratio (12.00-20.00) Ratio Glucose (70-110) mg/dL POC Glucose (mg/dL) 131 H (70-110) mg/dL Hemoglobin A1c (<=6.0) % Calcium (8.7-10.3) mg/dL Total Protein (6.2-8.2) g/dL Albumin (3.8-4.9) g/dL Albumin/Globulin Ratio (1.60-3.17) Ratio Crossmatch See Detail 10/07/23 10/08/23 10/08/23 Range/Units 20:53 03:25 03:25 WBC 1.66 L (3.8-10.6) k/uL RBC 2.27 L (3.80-5.40) m/uL Hgb 6.7 A* (11.4-16.0) gm/dL Hct 20.2 L (34.0-46.0) % RDW 16.1 H (11.5-15.5) % Plt Count 16 A* (150-450) k/uL Immature Gran # 0.08 H (0.00-0.04) X 10*3/uL Neutrophils # 0.82 L (1.80-7.70) X 10*3/uL Lymphocytes # 0.64 L (0.90-5.00) X 10*3/uL Monocytes # 0.12 L (0.20-1.00) X 10*3/uL Eosinophils # 0 L (0.04-0.35) X 10*3/uL Elliptocytes 2+ A Sodium (135-145) mmol/L BUN/Creatinine Ratio (12.00-20.00) Ratio Glucose (70-110) mg/dL POC Glucose (mg/dL) 223 H (70-110) mg/dL Hemoglobin A1c 6.8 H (<=6.0) % Calcium (8.7-10.3) mg/dL Total Protein (6.2-8.2) g/dL Albumin (3.8-4.9) g/dL Albumin/Globulin Ratio (1.60-3.17) Ratio Crossmatch 10/08/23 10/08/23 10/08/23 Range/Units 03:25 06:59 12:46 WBC (3.8-10.6) k/uL RBC (3.80-5.40) m/uL Hgb (11.4-16.0) gm/dL Hct (34.0-46.0) % RDW (11.5-15.5) % Plt Count (150-450) k/uL Immature Gran # (0.00-0.04) X 10*3/uL Neutrophils # (1.80-7.70) X 10*3/uL Lymphocytes # (0.90-5.00) X 10*3/uL Monocytes # (0.20-1.00) X 10*3/uL Eosinophils # (0.04-0.35) X 10*3/uL Elliptocytes Sodium 133 L (135-145) mmol/L BUN/Creatinine Ratio 22.00 H (12.00-20.00) Ratio Glucose 352 H (70-110) mg/dL POC Glucose (mg/dL) 327 H 301 H (70-110) mg/dL Hemoglobin A1c (<=6.0) % Calcium 7.9 L (8.7-10.3) mg/dL Total Protein 4.7 L (6.2-8.2) g/dL Albumin 2.8 L (3.8-4.9) g/dL Albumin/Globulin Ratio 1.47 L (1.60-3.17) Ratio Crossmatch Assessment and Plan Plan: #MDS EB-1, therapy related -Bone marrow biopsy performed on 09/05/2023 noted hypercellular bone marrow (50 to 6%) with 8 to 9% myeloblasts -NGS noted 2 TP53 mutations (VAF 34.3%, 9.9%) with PPM1D (VAF 1.6%) and TET2 (VAF 22.4%) and complex cytogenetics -IPPS-R score of 9, consistent with very high risk disease -4 units of pRBCs have been transfused since 09/05/2023 -Prior workup in August 2023 noted iron saturation around 14% -She is currently at [facility], where her strength is slowly improving. She did have a fall on 09/25/2023 resulting in a small subdural hematoma -They have spoken to their primary poultry hatchery laborer Dr. Muñiz. Clinical course was discussed with her daughter Amanda over the phone -Based on their discussion with Dr. Muñiz, she is of the understanding of trying to proceed with allogenic stem cell transplant -We discussed this is the ultimate goal, but typically we would proceed with treatment prior to this to obtain better disease control to enhance outcomes at transplant -We did discuss the need for treatment such as decitabine with venetoclax, which could be dose reduced due to decreased bone marrow reserve due to prior treatment -The treatment was outlined today with venetoclax being an oral pill for 14 to 21 days along with decitabine being an injectable medication for 5 days. Oral decitabine could also be considered -However, she is at [facility], which could complicate treatment as she would not be able to take venetoclax. Even if she were treated with decitabine inpatient, she would need frequent cell count checks and possible transfusions thereafter, which would be extremely difficult to arrange at [facility] -Will plan on discussing this further with her primary poultry hatchery laborer Dr. Muñiz -In the meantime, we will recheck iron studies. If her iron saturation remains low, IV iron can be given -She will likely need scheduled transfusions at least once a week given her requirements over the past month #Anemia, thrombocytopenia, mild neutropenia -Due to underlying MDS outlined above -Recommend transfusion for hemoglobin less than 7 and platelets less than or equal to 10,000 and/or bleeding -She did have likely transfusion reaction during her hospital course with transfusion workup pending -As she is already taking Tylenol, I did recommend adding Solu-Medrol 50 mg IV prior to packed red blood cell transfusion Riley Bourgeois MD Time with Patient: Greater than 30
[2023-10-08 17:28] LABS: Glucose,Whole Blood 250 mg/dL (70-110)
[2023-10-08 20:08] LABS: Glucose,Whole Blood 427 mg/dL (70-110)
[2023-10-08 23:32] LABS: % Iron Saturation 28.03 (12.00-45.00)
[2023-10-09 07:25] LABS: Glucose,Whole Blood 225 mg/dL (70-110)
[2023-10-09 10:34] LABS: HCT 28.4 % (37.2-46.3); HGB 9.4 g/dL (12.0-15.0); Immature Platelet Fraction 5.4 % (1.1-6.1); MCH 29.1 pg (27.0-32.0); MCHC 33.1 g/dL (32.0-37.0); MCV 87.9 FL (80.0-97.0); Mean Platelet Volume 11.1 FL (9.5-12.2); NRBC Per 100 WBC 0 X 10*3/uL (0.00-0.01); Platelet Count 21 X 10*3/uL (140-440); RBC 3.23 X 10*6/uL (4.10-5.20); RDW 15.7 % (11.5-14.5)
[2023-10-09 10:41] LABS: BUN/Creat Ratio 21.33 Ratio (12.00-20.00); Blood Urea Nitrogen 12.8 mg/dL (9.0-27.0); Calcium 8.5 mg/dL (8.7-10.3); Carbon Dioxide 28.8 mmol/L (21.6-31.8); Chloride 100 mmol/L (96-109); Glucose 195 mg/dL (70-110); Potassium 4.2 mmol/L (3.5-5.5); Sodium 136 mmol/L (135-145)
[2023-10-09 11:16] LABS: Basophils # (A) 0.01 X 10*3/uL (0.00-0.10); Basophils % (A) 0.5 %; Eosinophils # (A) 0 X 10*3/uL (0.04-0.35); Eosinophils % (A) 0 %; Lymphocytes # (A) 0.54 X 10*3/uL (0.90-5.00); Lymphocytes % (A) 25.7 %; Monocytes # (A) 0.22 X 10*3/uL (0.20-1.00); Monocytes % (A) 10.5 %; Neutrophils # (A) 1.24 X 10*3/uL (1.80-7.70); RBC Morphology Normal (Normal)
[2023-10-09 12:29] LABS: Glucose,Whole Blood 278 mg/dL (70-110)
--- NOTE | 2023-10-09 15:29 | P.PN ---
Subjective Progress Note Date: 10/09/23 Principal diagnosis: Anemia In follow-up today patient is sitting in the chair, she has no complaints. She did receive premeds prior to her blood transfusion with no complications. She is awaiting return to [facility]. Objective - Vital Signs Vital signs: Vital Signs Temp 97.5 F L 10/09/23 07:32 Pulse 80 10/09/23 07:32 Resp 18 10/09/23 07:32 BP 121/76 10/09/23 07:32 Pulse Ox 96 10/09/23 07:32 FiO2 Intake & Output 10/08/23 10/09/23 10/09/23 18:59 06:59 18:59 Intake Total 310 720 Output Total 750 Balance 310 -30 Intake: Oral 720 Blood Product 310 Rc As-1 Unit 310 [id number] Output: Urine 750 Other: Voiding Method External Catheter External Catheter # Voids 1 3 1 # Bowel Movements 1 - Constitutional General appearance: Present: average body habitus, cooperative, no acute distress - EENT Eyes: Present: anicteric sclerae, EOMI ENT: Present: hearing grossly normal - Respiratory Details: resp even and unlabored at rest - Cardiovascular Details: skin warm and dry, well perfused - Peripheral edema foot Peripheral Edema: bilateral: Trace - Integumentary Integumentary: Present: pale - Neurologic Neurologic: Present: CNII-XII intact - Musculoskeletal Musculoskeletal Comment(s): joint deformities of the toes - Psychiatric Psychiatric: Present: A&O x's 3, appropriate affect, intact judgment & insight - Labs CBC & Chem 7: 10/09/23 08:13 10/09/23 08:13 Labs: Abnormal Lab Results - Last 24 Hours (Table) 10/07/23 10/07/23 10/08/23 Range/Units 09:20 20:28 03:25 WBC (4.50-10.00) X 10*3/uL RBC (4.10-5.20) X 10*6/uL Hgb (12.0-15.0) g/dL Hct (37.2-46.3) % RDW (11.5-14.5) % Plt Count (140-440) X 10*3/uL Immature Gran # (0.00-0.04) X 10*3/uL Neutrophils # (1.80-7.70) X 10*3/uL Lymphocytes # (0.90-5.00) X 10*3/uL Eosinophils # (0.04-0.35) X 10*3/uL Sodium 133 L (135-145) mmol/L BUN/Creatinine Ratio 22.00 H (12.00-20.00) Ratio Glucose 352 H (70-110) mg/dL POC Glucose (mg/dL) (70-110) mg/dL Calcium 7.9 L (8.7-10.3) mg/dL Transferrin 171.0 L (204.0-354.0) mg/dL Ferritin 1041.0 H (10.0-291.0) ng/mL Total Protein 4.7 L (6.2-8.2) g/dL Albumin 2.8 L (3.8-4.9) g/dL Albumin/Globulin Ratio 1.47 L (1.60-3.17) Ratio Crossmatch See Detail 10/08/23 10/08/23 10/08/23 Range/Units 12:46 17:26 20:05 WBC (4.50-10.00) X 10*3/uL RBC (4.10-5.20) X 10*6/uL Hgb (12.0-15.0) g/dL Hct (37.2-46.3) % RDW (11.5-14.5) % Plt Count (140-440) X 10*3/uL Immature Gran # (0.00-0.04) X 10*3/uL Neutrophils # (1.80-7.70) X 10*3/uL Lymphocytes # (0.90-5.00) X 10*3/uL Eosinophils # (0.04-0.35) X 10*3/uL Sodium (135-145) mmol/L BUN/Creatinine Ratio (12.00-20.00) Ratio Glucose (70-110) mg/dL POC Glucose (mg/dL) 301 H 250 H 427 H (70-110) mg/dL Calcium (8.7-10.3) mg/dL Transferrin (204.0-354.0) mg/dL Ferritin (10.0-291.0) ng/mL Total Protein (6.2-8.2) g/dL Albumin (3.8-4.9) g/dL Albumin/Globulin Ratio (1.60-3.17) Ratio Crossmatch 10/09/23 10/09/23 10/09/23 Range/Units 07:23 08:13 08:13 WBC 2.10 L (4.50-10.00) X 10*3/uL RBC 3.23 L (4.10-5.20) X 10*6/uL Hgb 9.4 L (12.0-15.0) g/dL Hct 28.4 L (37.2-46.3) % RDW 15.7 H (11.5-14.5) % Plt Count 21 L (140-440) X 10*3/uL Immature Gran # 0.09 H (0.00-0.04) X 10*3/uL Neutrophils # 1.24 L (1.80-7.70) X 10*3/uL Lymphocytes # 0.54 L (0.90-5.00) X 10*3/uL Eosinophils # 0 L (0.04-0.35) X 10*3/uL Sodium (135-145) mmol/L BUN/Creatinine Ratio 21.33 H (12.00-20.00) Ratio Glucose 195 H (70-110) mg/dL POC Glucose (mg/dL) 225 H (70-110) mg/dL Calcium 8.5 L (8.7-10.3) mg/dL Transferrin (204.0-354.0) mg/dL Ferritin (10.0-291.0) ng/mL Total Protein (6.2-8.2) g/dL Albumin (3.8-4.9) g/dL Albumin/Globulin Ratio (1.60-3.17) Ratio Crossmatch Assessment and Plan (1) MDS (myelodysplastic syndrome) Current Visit: Yes Status: Acute Priority: High Code(s): D46.9 - MYELODYSPLASTIC SYNDROME, UNSPECIFIED SNOMED Code(s): 336411468 (2) Pancytopenia Current Visit: Yes Status: Acute Priority: High Code(s): D61.818 - OTHER PANCYTOPENIA SNOMED Code(s): 192946240 (3) Diffuse large B cell lymphoma Current Visit: No Status: Chronic Priority: Low Code(s): C83.30 - DIFFUSE LARGE B-CELL LYMPHOMA, UNSPECIFIED SITE SNOMED Code(s): 549221199 Plan: MDS EB-1, therapy related -Bone marrow biopsy performed on 09/05/2023 noted hypercellular bone marrow (50 to 6%) with 8 to 9% myeloblasts. NGS noted 2 TP53 mutations (VAF 34.3%, 9.9%) with PPM1D (VAF 1.6%) and TET2 (VAF 22.4%) and complex cytogenetics. IPPS-R score of 9, consistent with very high risk disease -Pt is currently transfusion dependent almost 1 unit weekly. -She is currently at [facility], where her strength is slowly improving. She did have a fall on 09/25/2023 resulting in a small subdural hematoma -Plan at this time is to get pt assessed by BMT and to proceed with allogenic stem cell transplant, if appropriate -Pt would need to start some kind of treatment to bridge her until transplant can be planned. This was discussed with her and her family previously. Treatment plan discussed: decitabine, injection or oral, days 1-5, venetoclax oral days 14 to 21. -Treatment cannot be started until pt is released from [facility]. -Recheck iron studies, no deficiency no, no iron at this time. General medical debility, rehab post subdural hematoma -Pt has been in rehab. She is hospitalized every time she needs a transfusion -Pt is going to be transfusion dependent for now. Have discussed with packaging manager-will see if CBC can be sched weekly and transfuse outpt vs being ad mitted each time as this is interfering with her rehab. Anemia, thrombocytopenia, mild neutropenia -Due to underlying MDS -Recommend transfusion for hemoglobin < 7 and platelets <10,000 or if symp tomatic -Pt had transfusion reaction. Plans for premeds prior to transfusions in the future. Doctor attests: I performed a history and physical examination of this patient, developed impression and plan of care. Discussed with dictator. I agree with dictators note, documented as a scribe.
[2023-10-09 17:20] LABS: Glucose,Whole Blood 216 mg/dL (70-110)
--- NOTE | 2023-10-09 17:40 | P.PN ---
Subjective Progress Note Date: 10/09/23 Hospital course: Patient is a very pleasant 68-year-old female with a past medical history of lymphoma status post chemotherapy and now in remission per family, chronic pain, and myelodysplasia. She presented to the emergency department on 10/07/2023 from the care home due to low hemoglobin. At the care home patient's hemoglobin was reported to be 5.1. Upon arrival to our facility, patient underwent evaluation in the emergency department. Vital signs upon arrival show blood pressure 111/50, heart rate 92, respiratory rate 18, temp 98.4 F, and SpO2 of 95% on room air. EKG was completed showing normal sinus rhythm at 86 bpm with T wave inversion in lead III and no other noted T wave or ST abnormalities showing no signs of acute ischemia upon personal review and interpretation. Chest x-ray completed negative for acute cardiopulmonary process. Labs completed and reviewed. CBC showing pancytopenia with WBC count of 1.3, hemoglobin 6.7, platelet count of 21 with neutrophils of 0.60. Patient profile was normal findings. BMP revealed hyponatremia with sodium of 131 and hypercarbia with bicarb of 32. Blood glucose was 275. Magnesium was 1.8. Liver profile showed elevated alkaline phosphatase of 131. Iron profile showing transferrin of 171.0 and ferritin of 1041.0. Orders were placed for transfusion of 1 unit PRBCs and patient was admitted under our services with consultation to oncology. Status post transfusion of RBCs patient had episode of tachycardia, shaking, and confusion, it was suspected patient had a reaction to the blood transfusion and was given Solu-Medrol and Benadryl resulting in resolution of her symptoms. At this time infectious workup was also initiated and patient was empirically started on IV antibiotics with vancomycin and cefepime. Physical exam: Vital signs reviewed and stable. General: Nontoxic, no distress and appears stated age. Derm: Skin warm and dry, normal coloration for ethnicity. Head: Atraumatic, normocephalic and symmetric. Eyes: EOMs intact, no lid lag, and anicteric sclera Mouth: no lip lesions, mucus membranes moist Cardiovascular: regular rate and rhythm with normal S1S2, no murmur, positive posterior tibial pulses bilaterally, and cap refill < 2 seconds. Lungs: Respirations even, regular, and unlabored on room air. Lungs CTA bilaterally, no rhonchi, no rales, no wheezing, and no accessory muscle usage. Abdominal: soft, nontender to palpation, no guarding, no appreciable organomegaly Ext: ROM intact. No gross muscle atrophy, no edema, no contractures Neuro: Speech clear, face symmetrical and CN II-XII grossly intact with no noted focal neuro deficits Psych: Alert and oriented to person, place, time, and situation. Appropriate and pleasant affect. Assessment and Plan of Care: Acute blood loss anemia Symptomatic anemia Myelodysplastic syndrome with pancytopenia -Status post transfusion of 2 units PRBCs, hemoglobin currently stable at 9.4. -Continued close monitoring of hemoglobin levels and transfuse as indicated for hemoglobin less than 7. -Per recommendations of hematology, platelets to be transfused if less than or equal to 10,000 and/or patient develops active bleeding. Currently platelets 21,000. -Hematology/oncology following. Episode of encephalopathy accompanied by tachycardia and shaking after blood transfusion on 10/07/2023 -Suspect transfusion reaction symptoms improved after administration of Solu- Medrol and Benadryl. -Patient was empirically started on vancomycin and cefepime. -Blood cultures obtained, if negative may discontinue IV antibiotics. -Blood bank was notified of suspected transfusion reaction. Chronic pain -Continue symptomatic care and pain management with Tylenol for mild pain and oxycodone for moderate to severe pain, Anxiety -Continue Ativan 0.5 mg 3 times daily as needed for anxiety. History of lymphoma -Per family, this is in remission Newly Diagnosed type II diabetes mellitus with hemoglobin A1c of 6.8%. -Patient will require being started on metformin at time of discharge along with glucometer and diabetes teaching. Data and imaging reviewed: Vital signs reviewed. Blood pressure 121/76, heart rate 80, respiratory rate 18, temp 97.5 F, and SpO2 of 96% on room air. Labs completed and reviewed. CBC showing pancytopenia with WBC count of 2.10, hemoglobin 9.4, platelet count of 21 with neutrophils of 1.24. Blood Cultures pending. CODE STATUS: Full Code DVT prophylaxis: LONNIE samuels and SCDs Anticipated discharge date: Clinical course to determine Anticipated discharge place: Clinical course to determine Patient was seen independently by Nurse Pracitioner. This document was prepared using [employer] dictation software. Please allow for errors in material control supervisor, while rare they do occur. Frankie Pino NP rendered care for this patient independently, reviewed the findings and plan as documented in the note above. I did not physically speak with or examine the patient on this date. Objective - Vital Signs Vital signs: Vital Signs Temp 97.5 F L 10/09/23 07:32 Pulse 80 10/09/23 07:32 Resp 18 10/09/23 07:32 BP 121/76 10/09/23 07:32 Pulse Ox 96 10/09/23 07:32 FiO2 Intake & Output 10/08/23 10/09/23 10/09/23 18:59 06:59 18:59 Intake Total 310 720 Output Total 750 Balance 310 -30 Intake: Oral 720 Blood Product 310 Rc As-1 Unit 310 [id number] Output: Urine 750 Other: Voiding Method External Catheter External Catheter # Voids 1 3 1 # Bowel Movements 1 - Labs CBC & Chem 7: 10/09/23 08:13 10/09/23 08:13 Labs: Abnormal Lab Results - Last 24 Hours (Table) 10/07/23 10/07/23 10/08/23 Range/Units 09:20 20:28 03:25 Sodium 133 L (135-145) mmol/L BUN/Creatinine Ratio 22.00 H (12.00-20.00) Ratio Glucose 352 H (70-110) mg/dL POC Glucose (mg/dL) (70-110) mg/dL Calcium 7.9 L (8.7-10.3) mg/dL Transferrin 171.0 L (204.0-354.0) mg/dL Ferritin 1041.0 H (10.0-291.0) ng/mL Total Protein 4.7 L (6.2-8.2) g/dL Albumin 2.8 L (3.8-4.9) g/dL Albumin/Globulin Ratio 1.47 L (1.60-3.17) Ratio Crossmatch See Detail 10/08/23 10/08/23 10/08/23 Range/Units 12:46 17:26 20:05 Sodium (135-145) mmol/L BUN/Creatinine Ratio (12.00-20.00) Ratio Glucose (70-110) mg/dL POC Glucose (mg/dL) 301 H 250 H 427 H (70-110) mg/dL Calcium (8.7-10.3) mg/dL Transferrin (204.0-354.0) mg/dL Ferritin (10.0-291.0) ng/mL Total Protein (6.2-8.2) g/dL Albumin (3.8-4.9) g/dL Albumin/Globulin Ratio (1.60-3.17) Ratio Crossmatch 10/09/23 Range/Units 07:23 Sodium (135-145) mmol/L BUN/Creatinine Ratio (12.00-20.00) Ratio Glucose (70-110) mg/dL POC Glucose (mg/dL) 225 H (70-110) mg/dL Calcium (8.7-10.3) mg/dL Transferrin (204.0-354.0) mg/dL Ferritin (10.0-291.0) ng/mL Total Protein (6.2-8.2) g/dL Albumin (3.8-4.9) g/dL Albumin/Globulin Ratio (1.60-3.17) Ratio Crossmatch
[2023-10-09] MEDS: VANCOMYCIN TROUGH DUE 1 EACH MISC MISCELLANE ONE (19:55)
[2023-10-09 20:23] LABS: Glucose,Whole Blood 224 mg/dL (70-110)
[2023-10-10 06:28] LABS: African American GFR (CKD) >90 (>60 ml/min/1.73 sqM); Non-African American GFR(CKD) >90 (>60 ml/min/1.73 sqM)
[2023-10-10 07:28] LABS: Glucose,Whole Blood 160 mg/dL (70-110)
[2023-10-10] MEDS: VANCOMYCIN 1,250 MG in SODIUM CHLORIDE 0.9% 250 ML IVPB SCH (08:56)
[2023-10-10] MEDS ORDERED: ALBUTEROL NEBULIZED 2.5 MG/3 ML INHALATION PRN (09:23)
[2023-10-10 12:08] LABS: Glucose,Whole Blood 209 mg/dL (70-110)
[2023-10-10 13:30] VITALS: BP 148/83; PULSE 86; RESP 18; TEMP 97.8
[2023-10-10 13:55] LABS: HCT 26.7 % (34.0-46.0); HGB 8.8 gm/dL (11.4-16.0); MCH 29.3 pg (25.0-35.0); MCV 88.8 fL (80.0-100.0); Mean Platelet Volume 8.7; RDW 15.4 % (11.5-15.5)
[2023-10-10 14:10] LABS: ALT 18 U/L (4-34); AST 20 U/L (14-36); African American GFR (CKD) >90 (>60 ml/min/1.73 sqM); Albumin 2.4 g/dL (3.5-5.0); Alkaline Phosphatase 125 U/L (38-126); Anion Gap 3 mmol/L; Blood Urea Nitrogen 11 mg/dL (7-17); Calcium 7.8 mg/dL (8.4-10.2); Carbon Dioxide 31 mmol/L (22-30); Chloride 99 mmol/L (98-107); Globulin 2.3 g/dL; Glucose 208 mg/dL (74-99); Magnesium 1.7 mg/dL (1.6-2.3); Non-African American GFR(CKD) >90 (>60 ml/min/1.73 sqM); Potassium 3.4 mmol/L (3.5-5.1); Sodium 133 mmol/L (137-145); Total Bilirubin 0.8 mg/dL (0.2-1.3); Total Protein 4.7 g/dL (6.3-8.2)
[2023-10-10 14:17] LABS: Platelet Count 19 k/uL (150-450); WBC 1.4 k/uL (3.8-10.6)
--- NOTE | 2023-10-10 14:57 | P.DS ---
Providers Date of admission: 10/09/23 11:16 Expected date of discharge: 10/10/23 Attending physician: Agustin Resendiz MD Consults: 10/07/23 12:13 Consult Physician Routine Consulting Provider: Siva Pedro Consult Reason/Comments: anemia Do you want consulting provider notified?: Yes Primary care physician: [facility] Course: Acute blood loss anemia Symptomatic anemia Myelodysplastic syndrome with pancytopenia Episode of encephalopathy accompanied by tachycardia and shaking after blood transfusion on 10/07/2023 Chronic pain Anxiety History of lymphoma Newly Diagnosed type II diabetes mellitus with hemoglobin A1c of 6.8%. Hospital course: Patient is a very pleasant 68-year-old female with a past medical history of lymphoma status post chemotherapy and now in remission per family, chronic pain, and myelodysplasia. She presented to the emergency department on 10/07/2023 from the detention due to low hemoglobin. At the detention patient's hemoglobin was reported to be 5.1. Upon arrival to our facility, patient underwent evaluation in the emergency department. Vital signs upon arrival show blood pressure 111/50, heart rate 92, respiratory rate 18, temp 98.4 F, and SpO2 of 95% on room air. EKG was completed showing normal sinus rhythm at 86 bpm with T wave inversion in lead III and no other noted T wave or ST abnormalities showing no signs of acute ischemia upon personal review and interpretation. Chest x-ray completed negative for acute cardiopulmonary process. Labs completed and reviewed. CBC showing pancytopenia with WBC count of 1.3, hemoglobin 6.7, platelet count of 21 with neutrophils of 0.60. Patient profile was normal findings. BMP revealed hyponatremia with sodium of 131 and hypercarbia with bicarb of 32. Blood glucose was 275. Magnesium was 1.8. Liver profile showed elevated alkaline phosphatase of 131. Iron profile showing transferrin of 171.0 and ferritin of 1041.0. Orders were placed for transfusion of 1 unit PRBCs and patient was admitted under our services with consultation to oncology. Status post transfusion of RBCs patient had episode of tachycardia, shaking, and confusion, it was suspected patient had a reaction to the blood transfusion and was given Solu-Medrol and Benadryl resulting in resolution of her symptoms. At this time infectious workup was also initiated and patient was empirically started on IV antibiotics with vancomycin and cefepime. Pt was noted to have NGTD on BCx and abx were de-esclated. Hgb remained stable after blood transfusion. Pt transferred back to SNF with plans to f/u with PCP and hematology. Physical exam: Gen: In NAD, non-toxic HEENT: normocephalic, atraumatic, hearing acuity is intant, mucous membranes moist CVS: perfusing all extremities well, no pitting edema, Respiratory: symmetric chest expansion, no accessory muscle use, GI: soft, NTTP, ND, : no suprapubic tenderness, no CVA tenderness MSK/Derm: no rashes, cyanosis Neuro: CN II-XII intact, no motor weakness, Psych: cooperative, euthymic mood, judgment and insight is intact Patient Condition at Discharge: Good Plan - Discharge Summary Discharge Rx Participant: No New Discharge Prescriptions: New Albuterol Nebulized [Ventolin Nebulized] 2.5 mg INHALATION RT-Q2H PRN ml PRN Reason: Shortness Of Breath Or Wheezing Continue Propranolol [Inderal] 20 mg PO BID@0800,1600 Omeprazole 40 mg PO DAILY@0800 Divalproex [Depakote] 500 mg PO TID Cariprazine HCl [Vraylar] 3 mg PO DAILY@0800 oxyCODONE HCL [oxyCODONE HCL (IR)] 20 mg PO Q8H PRN PRN Reason: Pain Naloxone HCl [Narcan] 4 mg NASAL DIRECTED PRN PRN Reason: Opioid Reversal Acetaminophen Tab [Tylenol] 975 mg PO Q8HR@0500,1300,2100 Nutritional Juice 1 dose PO BID-W/MEALS Atorvastatin [Lipitor] 20 mg PO HS Sennosides [Senokot] 17.2 mg PO Q12H PRN PRN Reason: Constipation Ondansetron [Zofran] 4 mg PO Q6H PRN PRN Reason: Nausea And Vomiting LORazepam [Ativan] 0.5 mg PO TID Gabapentin 600 mg PO TID Multivitamins, Thera [Multivitamin (formulary)] 1 tab PO DAILY@0800 Discharge Medication List Divalproex [Depakote] 500 mg PO TID 07/01/20 [History] Omeprazole 40 mg PO DAILY@0800 07/01/20 [History] Propranolol [Inderal] 20 mg PO BID@0800,1600 07/01/20 [History] Cariprazine HCl [Vraylar] 3 mg PO DAILY@0800 09/05/23 [History] Acetaminophen Tab [Tylenol] 975 mg PO Q8HR@0500,1300,2100 10/07/23 [History] Atorvastatin [Lipitor] 20 mg PO HS 10/07/23 [History] Gabapentin 600 mg PO TID 10/07/23 [History] LORazepam [Ativan] 0.5 mg PO TID 10/07/23 [History] Multivitamins, Thera [Multivitamin (formulary)] 1 tab PO DAILY@0800 10/07/23 [History] Naloxone HCl [Narcan] 4 mg NASAL DIRECTED PRN 10/07/23 [History] Nutritional Juice 1 dose PO BID-W/MEALS 10/07/23 [History] Ondansetron [Zofran] 4 mg PO Q6H PRN 10/07/23 [History] Sennosides [Senokot] 17.2 mg PO Q12H PRN 10/07/23 [History] oxyCODONE HCL [oxyCODONE HCL (IR)] 20 mg PO Q8H PRN 10/07/23 [History] Albuterol Nebulized [Ventolin Nebulized] 2.5 mg INHALATION RT-Q2H PRN ml 10/10/23 [Rx] Follow up Appointment(s)/Referral(s): Yari Valverde MD [Primary Care Provider] - 1-2 days Discharge Disposition: TRANSFER TO SNF/ECF
[2023-10-10 15:24] VITALS: BMI 28.2
--- NOTE | 2023-10-10 21:27 | P.PN ---
Subjective Progress Note Date: 10/10/23 Principal diagnosis: Anemia In follow-up today patient is anxiously awaiting to return to rehab. She has no acute physical complaints. She is tolerating oral intake. She is getting around fairly well. Objective - Vital Signs Vital signs: Vital Signs Temp 97.9 F 10/10/23 07:35 Pulse 85 10/10/23 07:35 Resp 20 10/10/23 07:35 BP 133/82 10/10/23 07:35 Pulse Ox 95 10/10/23 07:35 FiO2 Intake & Output 10/09/23 10/10/23 10/10/23 18:59 06:59 18:59 Intake Total 840 Balance 840 Intake: Intake, IV Titration 600 Amount Cefepime 2 gm In Sodium 100 Chloride 0.9% 100 ml @ 25 mls/hr IVPB Q12HR MARCELO Rx #:[id number] Vancomycin 1,500 mg In 500 Sodium Chloride 0.9% 500 ml 500 ml @ 167 mls/hr IVPB Q12H MARCELO Rx#: [id number] Oral 240 Other: Voiding Method External Catheter # Voids 1 1 1 - Constitutional General appearance: Present: average body habitus, cooperative, no acute distress - EENT Eyes: Present: anicteric sclerae, EOMI ENT: Present: hearing grossly normal - Respiratory Details: resp unlabored ambulating short distances - Peripheral edema foot Peripheral Edema: bilateral: 1+ - Integumentary Integumentary: Present: normal - Neurologic Neurologic: Present: CNII-XII intact - Musculoskeletal Musculoskeletal: Present: generalized weakness, strength equal bilaterally - Psychiatric Psychiatric: Present: A&O x's 3, appropriate affect, intact judgment & insight - Labs CBC & Chem 7: 10/10/23 13:40 10/10/23 13:40 Labs: Abnormal Lab Results - Last 24 Hours (Table) 10/09/23 10/09/23 10/09/23 Range/Units 08:13 12:29 17:19 Immature Gran # 0.09 H (0.00-0.04) X 10*3/uL Neutrophils # 1.24 L (1.80-7.70) X 10*3/uL Lymphocytes # 0.54 L (0.90-5.00) X 10*3/uL Eosinophils # 0 L (0.04-0.35) X 10*3/uL Creatinine (0.52-1.04) mg/dL POC Glucose (mg/dL) 278 H 216 H (70-110) mg/dL 10/09/23 10/10/23 10/10/23 Range/Units 20:22 06:00 07:28 Immature Gran # (0.00-0.04) X 10*3/uL Neutrophils # (1.80-7.70) X 10*3/uL Lymphocytes # (0.90-5.00) X 10*3/uL Eosinophils # (0.04-0.35) X 10*3/uL Creatinine 0.51 L (0.52-1.04) mg/dL POC Glucose (mg/dL) 224 H 160 H (70-110) mg/dL Microbiology - Last 24 Hours (Table) 10/07/23 16:23 Blood Culture - Preliminary Blood 10/07/23 20:28 Blood Culture - Preliminary Blood Assessment and Plan (1) MDS (myelodysplastic syndrome) Status: Acute Priority: High Code(s): D46.9 - MYELODYSPLASTIC SYNDROME, UNSPECIFIED SNOMED Code(s): 635221659 (2) Pancytopenia Status: Acute Priority: High Code(s): D61.818 - OTHER PANCYTOPENIA SNOMED Code(s): 769100800 (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 NGS noted 2 TP53 mutations (VAF 34.3%, 9.9%) with PPM1D (VAF 1.6%) and TET2 (VAF 22.4%) and complex cytogenetics. IPPS-R score of 9, consistent with very high risk disease -Pt is currently transfusion dependent almost 1 unit weekly. -She is currently at [facility], where her strength is slowly improving. She did have a fall on 09/25/2023 resulting in a small subdural hematoma -Plan at this time is to get pt assessed by BMT and to proceed with allogenic stem cell transplant, if appropriate -Pt would need to start some kind of treatment to bridge her until transplant can be planned. This was discussed with her and her family previously. Treatment plan discussed: decitabine, injection or oral, days 1-5, venetoclax oral days 14 to 21. -Treatment cannot be started until pt is released from [facility]. -Recheck iron studies, no deficiency, no iron at this time. General medical debility, rehab post subdural hematoma -Pt has been in rehab. She is hospitalized every time she needs a transfusion -credit department manager discussed with [facility]. They are agreeable to a scheduled CBC weekly on Monday. Transfusion parameters given. Plans for transfusion outpatient on if needed. -Once patient is discharged from rehab CBC monitoring can continue in the outpatient setting with outpatient transfusions as needed until patient has achieved some disease control on treatment. -Plan was explained to patient, she verbalized understanding and is in agreement with the same. Anemia, thrombocytopenia, mild neutropenia -Due to underlying MDS -Recommend transfusion for hemoglobin < 7 and platelets <10,000 or if symptomatic -Pt had transfusion reaction. Plans for premeds prior to transfusions in the future. Doctor attests: I performed a history and physical examination of this patient, developed impression and plan of care. Discussed with dictator. I agree with dictators note, documented as a scribe.
--- NOTE | 2023-10-11 22:24 | CDI ---
Documentation Clarification Form Date: 10/11/2023 09:58:36 PM From: Sydney Ibrahim Phone: Admit Date: 10/09/2023 11:16:00 AM Patient Name: Gege Malik Visit Number: [id number] Discharge Date: 10/10/2023 04:58:00 PM ATTENTION: The Clinical Documentation Specialists (CDI) and [facility] Coding Staff appreciate your assistance in clarifying documentation. Please respond to the clarification below the line at the bottom and electronically sign. The CDI & [facility] Coding staff will review the response and follow-up if needed. Please note: Queries are made part of the Legal Health Record. If you have any questions, please contact the author of this message via ITS. Dr. Maty Rice Pancytopenia, anemia, thrombocytopenia, and neutropenia is documented per H&P and Progress Notes. Additional clarification regarding the etiology of pancytopenia, anemia, thrombocytopenia, and neutropenia is requested. History/Risk factors: 68yo F, ABLA, myelodysplastic syndrome, post transfusion encephalopathy, tachycardia& shaking, chronic pain, anxiety, new NIDDMII w A1C of 6. 8%, Hx lymphoma sp chemo and radiation Clinical indicators: WBC count of 1. 3, Hgb 6. 7, Plt count of 21 with neutrophils of 0. 60. Pt. profile was normal findings. BMPrevealedhyponatremiawith sodium of 131 and hypercarbiawith bicarb of 32. Blood glucose was 275. Magnesium was 1.8. Liver profile showedelevated alkaline phosphataseof 131. Iron profile showing transferrin of 171. 0 and ferritin of 1041.0. Treatment: transfusion of 1 unit PRBCsand Pt. was admitted under our services with consultation to oncology. No anticoagulation in the setting of thrombocytopenia Please clarify the etiology of pancytopenia pancytopenia, Anemia, thrombocytopenia, and neutropenia, if known: Pancytopenia etiology [ ] Pancytopenia due to chemotherapy [x] Pancytopenia due to other, please specify MDS Anemia etiology [ ] Anemia due to chemotherapy [ ] Anemia, please specify etiology Neutropenia etiology [ ] Neutropenia due to chemotherapy [ ] Neutropenia due to other, please specify [ ] Other condition, please specify [ ] Unable to determine Thrombocytopenia etiology [ ] Thrombocytopenia, please specify etiology [ ] Other condition, please specify [ ] Unable to determine (Template Last Revised: July 2020) MTDD
--- NOTE | 2023-10-11 22:32 | CDI ---
Documentation Clarification Form Date: 10/11/2023 10:25:00 PM From: Sydney Ibrahim Phone: Admit Date: 10/09/2023 11:16:00 AM Patient Name: Gege Malik Visit Number: [id number] Discharge Date: 10/10/2023 04:58:00 PM ATTENTION: The Clinical Documentation Specialists (CDI) and [facility] Coding Staff appreciate your assistance in clarifying documentation. Please respond to the clarification below the line at the bottom and electronically sign. The CDI & [facility] Coding staff will review the response and follow-up if needed. Please note: Queries are made part of the Legal Health Record. If you have any questions, please contact the author of this message via ITS. Dr. Maty Rice Diabetes is documented per Progress Note 10/08. Additional specificity regarding the diabetes diagnosis is requested. History/Risk Factors: 68yo F, ABLA, myelodysplastic syndrome, post transfusion encephalopathy, tachycardia & shaking, chronic pain, anxiety, pancytopenia, anemia, thrombocytopenia, neutropenia, NIDDMII, Hx lymphoma sp chemo and radiation Clinical Indicators: A1C of 6. 8% Glucose: 10/06 131-275 10/07 131-352 10/08 195-427 10/09 160-278 Treatment: Patient will require being started on metformin at time of discharge along with glucometer anddiabetesteaching. Please clarify the type of diabetes, if known: [ ] Diabetes Type 1 hyperglycemia [x] Other, please specify Type II [ ] Unable to Determine (Template Last Revised: July 2020) MTDD
== END 2023-10-10 16:58 | DRG 812 ==
LOC: EC 09:00 → 5NMEDONC 12:13 → OBSVTOIN 10-09 11:16
PROVIDERS: ADMIT Student in an Organized Health Care Education/Training Program; ATTEND Student in an Organized Health Care Education/Training Program
PROC: 30233N1 Transfusion of Nonautologous Red Blood Cells into Peripheral Vein, Percutaneous Approach (ICD-10-PCS; principal; 2023-10-07)
DX: D62 Acute posthemorrhagic anemia (principal); G93.49 Other encephalopathy; E87.1 Hypo-osmolality and hyponatremia; T80.89XA Other complications following infusion, transfusion and therapeutic injection, initial encounter; D70.8 Other neutropenia; E11.42 Type 2 diabetes mellitus with diabetic polyneuropathy; J44.9 Chronic obstructive pulmonary disease, unspecified; E11.65 Type 2 diabetes mellitus with hyperglycemia; D46.Z Other myelodysplastic syndromes; D61.818 Other pancytopenia; D46.4 Refractory anemia, unspecified; D69.59 Other secondary thrombocytopenia; G89.29 Other chronic pain; M89.8X9 Other specified disorders of bone, unspecified site; E78.5 Hyperlipidemia, unspecified; M79.7 Fibromyalgia; F41.9 Anxiety disorder, unspecified; R53.81 Other malaise; R60.0 Localized edema; R06.89 Other abnormalities of breathing; R00.0 Tachycardia, unspecified; Z87.820 Personal history of traumatic brain injury; Z91.81 History of falling; Z85.72 Personal history of non-Hodgkin lymphomas; Z87.891 Personal history of nicotine dependence; Z92.21 Personal history of antineoplastic chemotherapy; Z85.01 Personal history of malignant neoplasm of esophagus; Z92.3 Personal history of irradiation; Z79.899 Other long term (current) drug therapy; Z88.8 Allergy status to other drugs, medicaments and biological substances; Z85.05 Personal history of malignant neoplasm of liver; Z85.830 Personal history of malignant neoplasm of bone; S42.301D Unspecified fracture of shaft of humerus, right arm, subsequent encounter for fracture with routine healing
CPT/HCPCS: 36415; 36430; 71046; 80048; 80053; 80202; 82565; 82728; 83036; 83540; 83550; 83605; 83735; 85025; 85027; 85610; 85730; 86850; 86880; 86900; 86901; 86920; 87040; 93005; 96374; 96376; 99285

== ENCOUNTER 2023-10-14 12:15 | Emergency (ER) | payer MEDICARE, BC ==
--- NOTE | 2023-10-14 13:05 | ED ---
General Adult HPI - General Chief complaint: Recheck/Abnormal Lab/Rx Stated complaint: abnormal bloodwork Time Seen by Provider: 10/14/23 12:20 Source: EMS Mode of arrival: EMS Limitations: no limitations - History of Present Illness Initial comments: 68-year-old female with past medical history of myelodysplastic syndrome who presents emergency department with abnormal labs. She is sent in by [facility]. Patient had abnormal blood work drawn yesterday which included her potassium, sodium and hemoglobin. Patient reports that she will occasionally get blood transfusions. Last blood transfusion was less than a week ago. Patient denies having any symptoms. No chest pain or shortness of breath. No abdominal pain. She has had difficulty ambulating but this is why she is at rehab. No other alleviating, precipitating or modifying factors - Related Data Home Medications Medication Instructions Recorded Confirmed Divalproex [Depakote] 500 mg PO TID 07/01/20 10/07/23 Omeprazole 40 mg PO DAILY@0800 07/01/20 10/07/23 Propranolol [Inderal] 20 mg PO BID@0800,1600 07/01/20 10/07/23 Cariprazine HCl [Vraylar] 3 mg PO DAILY@0800 09/05/23 10/07/23 Acetaminophen Tab [Tylenol] 975 mg PO Q8HR@0500,1300,2100 10/07/23 10/07/23 Atorvastatin [Lipitor] 20 mg PO HS 10/07/23 10/07/23 Multivitamins, Thera [Multivitamin 1 tab PO DAILY@0800 10/07/23 10/07/23 (formulary)] Naloxone HCl [Narcan] 4 mg NASAL DIRECTED PRN 10/07/23 10/07/23 Nutritional Juice 1 dose PO BID-W/MEALS 10/07/23 10/07/23 Ondansetron [Zofran] 4 mg PO Q6H PRN 10/07/23 10/07/23 Sennosides [Senokot] 17.2 mg PO Q12H PRN 10/07/23 10/07/23 Previous Rx's Medication Instructions Recorded Albuterol Nebulized [Ventolin 2.5 mg INHALATION RT-Q2H PRN ml 10/10/23 Nebulized] Gabapentin 600 mg PO TID #9 tab 10/10/23 LORazepam [Ativan] 0.5 mg PO TID #9 tab 10/10/23 oxyCODONE HCL [oxyCODONE HCL (IR)] 20 mg PO Q8H PRN #9 tab 10/10/23 Allergies Allergy/AdvReac Type Severity Reaction Status Date / Time bendamustine [From Bendeka] AdvReac Itching Verified 10/07/23 13:25 Review of Systems ROS Statement: Those systems with pertinent positive or pertinent negative responses have been documented in the HPI. ROS Other: All systems not noted in ROS Statement are negative. 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 2016-esophageal cancer with surgery. 06/2020 pet scan showed mets to L neck/liver/sacrum-chemo/radiation. 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 Pt states she takes inderal for shakes not BP. 09/12/2023: Pt states last chemo "1 year ago". History of Any Multi-Drug Resistant Organisms: None Reported Past Surgical History: Section, Cholecystectomy, Orthopedic Surgery, Tonsillectomy Additional Past Surgical History / Comment(s): 2008 R groin tumor removed, ex tensive esophageal surgery/esophagectomy/stomach brought up and attached, R sided port, R elbow fracture/radial head removed, colonoscopy. Past Anesthesia/Blood Transfusion Reactions: No Reported Reaction Additional Past Anesthesia/Blood Transfusion Reaction / Comment(s): Pt received blood with esophagectomy surgery without reaction. Past Psychological History: Bipolar Smoking Status: Former smoker Past Alcohol Use History: None Reported Past Drug Use History: None Reported - Past Family History Mother History Unknown: Yes Additional Family Medical History / Comment(s): patient adopted and does not know family history General Exam Limitations: no limitations General appearance: alert, in no apparent distress, other (Patient appears fatigued) Head exam: Present: atraumatic, normocephalic, normal inspection Eye exam: Present: normal appearance, PERRL, EOMI. Absent: scleral icterus, conjunctival injection, periorbital swelling ENT exam: Present: normal exam, mucous membranes moist Neck exam: Present: normal inspection. Absent: tenderness, meningismus, lymphadenopathy Respiratory exam: Present: normal lung sounds bilaterally. Absent: respiratory distress, wheezes, rales, rhonchi, stridor Cardiovascular Exam: Present: regular rate, normal rhythm, normal heart sounds. Absent: systolic murmur, diastolic murmur, rubs, gallop, clicks GI/Abdominal exam: Present: soft, normal bowel sounds. Absent: distended, ten derness, guarding, rebound, rigid Extremities exam: Present: normal inspection, full ROM, normal capillary refill. Absent: tenderness, pedal edema, joint swelling, calf tenderness Back exam: Present: normal inspection Neurological exam: Present: alert, oriented X3, CN II-XII intact Psychiatric exam: Present: normal affect, normal mood Skin exam: Present: warm, dry, intact, normal color. Absent: rash Course Vital Signs 10/14/23 10/14/23 10/14/23 12:17 12:34 15:37 Temperature 97.5 F L Pulse Rate 89 92 Respiratory 16 17 Rate Blood Pressure 97/52 O2 Sat by Pulse 88 L 97 97 Oximetry 10/14/23 16:24 Temperature 98.0 F Pulse Rate 88 Respiratory 20 Rate Blood Pressure 112/46 O2 Sat by Pulse 96 Oximetry Medical Decision Making - Medical Decision Making Was pt. sent in by a medical professional or institution (, PA, COLLISION REPAIR TECHNICIAN, urgent care, hospital, or fci...) When possible be specific @ -Patient was sent in from [facility] Did you speak to anyone other than the patient for history (EMS, parent, family, police, friend...)? What history was obtained from this source @ -I spoke with EMS for transfer Did you review nursing and triage notes (agree or disagree)? Why? @ -I reviewed and agree with nursing and triage notes Were old charts reviewed (outside hosp., previous admission, EMS record, old EKG, old radiological studies, urgent care reports/EKG's, fci records)? Report findings @ -I reviewed patient's discharge summary on 10/09 Differential Diagnosis (chest pain, altered mental status, abdominal pain women, abdominal pain men, vaginal bleeding, weakness, fever, dyspnea, syncope, headac he, dizziness, GI bleed, back pain, seizure, CVA, palpatations, mental health, musculoskeletal)? @ -Differential Weakness: Hypoglycemia, shock, sepsis, hyponatremia, anemia, infection, IN, ETOH, adverse medicine reaction, overdose, stroke, this is not meant to be an all-inclusive list. EKG interpreted by me (3pts min.). @ -Demonstrates sinus rhythm with a rate of 80. MO interval 137. QRS 87. QTc of 378. No acute ST segment elevations or depressions X-rays interpreted by me (1pt min.). @ -None done CT interpreted by me (1pt min.). @ -None done U/S interpreted by me (1pt. min.). @ -None done What testing was considered but not performed or refused? (CT, X-rays, U/S, labs)? Why? @ -None What meds were considered but not given or refused? Why? @ -None Did you discuss the management of the patient with other professionals (professionals i.e. , PA, COLLISION REPAIR TECHNICIAN, lab, RT, psych nurse, social contact worker, bone crusher, teacher, evp chief exploration officer, case operator)? Give summary @ -No Was smoking cessation discussed for >3mins.? @ -No Was critical care preformed (if so, how long)? @ -No Were there social determinants of health that impacted care today? How? (Homelessness, low income, unemployed, alcoholism, drug addiction, transportation, low edu. Level, literacy, decrease access to med. care, snf, rehab)? @ -No Was there de-escalation of care discussed even if they declined (Discuss DNR or withdrawal of care, Hospice)? DNR status @ -No What co-morbidities impacted this encounter? (DM, HTN, Smoking, COPD, CAD, Cancer, CVA, ARF, Chemo, Hep., AIDS, mental health diagnosis, sleep apnea, morbi d obesity)? @ -Myelodysplastic syndrome Was patient admitted / discharged? Hospital course, mention meds given and route, prescriptions, significant lab abnormalities, going to OR and other pertinent info. @ -Discharge. Upon arrival patient seen and evaluated in room 9. Thorough history and physical exam was performed. Laboratory studies are repeated. Patient's labs are at her baseline. Patient has no symptoms and wants to go home. She will be returned to [facility]. Recommended that they keep an eye on her blood work and should they have any concerns the patient can be transported back to the hospital Undiagnosed new problem with uncertain prognosis? @ -No Drug Therapy requiring intensive monitoring for toxicity (Heparin, Nitro, Insulin, Cardizem)? @ -No Were any procedures done? @ -No Diagnosis/symptom? @ -Chronic pancytopenia, myelodysplastic syndrome Acute, or Chronic, or Acute on Chronic? @ -Chronic Uncomplicated (without systemic symptoms) or Complicated (systemic symptoms)? @ -Complicated Side effects of treatment? @ -No Exacerbation, Progression, or Severe Exacerbation? @ -No Poses a threat to life or bodily function? How? (Chest pain, USA, [place], pneumonia, PE, COPD, DKA, ARF, appy, cholecystitis, CVA, Diverticulitis, Homicidal, Suicidal, threat to staff... and all critical care pts) @ -No - Lab Data Result diagrams: 10/14/23 12:45 10/14/23 12:45 Lab Results 10/14/23 10/14/23 10/14/23 Range/Units 12:45 12:45 12:45 WBC 1.2 L* (3.8-10.6) k/uL RBC 2.67 L (3.80-5.40) m/uL Hgb 7.8 L (11.4-16.0) gm/dL Hct 23.9 L (34.0-46.0) % MCV 89.3 (80.0-100.0) fL MCH 29.2 (25.0-35.0) pg MCHC 32.7 (31.0-37.0) g/dL RDW 15.0 (11.5-15.5) % Plt Count 21 L (150-450) k/uL MPV 8.0 Neutrophils % (Manual) 34 % Band Neuts % (Manual) 1 % Lymphocytes % (Manual) 50 % Monocytes % (Manual) 14 % Eosinophils % (Manual) 1 % Neutrophils # COLLISION REPAIR TECHNICIAN Neutrophils # (Manual) 0.40 L* (1.3-7.7) k/uL Lymphocytes # (Manual) 0.60 L (1.0-4.8) k/uL Monocytes # (Manual) 0.17 (0-1.0) k/uL Eosinophils # (Manual) 0.01 (0-0.7) k/uL Nucleated RBCs 0 (0-0) /100 WBC Manual Slide Review Performed PT 11.2 (10.0-12.5) sec INR 1.0 (<1.2) APTT 27.4 (22.0-30.0) sec Sodium 135 L (137-145) mmol/L Potassium 3.9 (3.5-5.1) mmol/L Chloride 100 (98-107) mmol/L Carbon Dioxide 35 H (22-30) mmol/L Anion Gap 0 mmol/L BUN 9 (7-17) mg/dL Creatinine 0.47 L (0.52-1.04) mg/dL Est GFR (CKD-EPI)AfAm >90 (>60 ml/min/1.73 sqM) Est GFR (CKD-EPI)NonAf >90 (>60 ml/min/1.73 sqM) Glucose 146 H (74-99) mg/dL Plasma Lactic Acid Med (0.7-2.0) mmol/L Calcium 7.4 L (8.4-10.2) mg/dL Magnesium 1.7 (1.6-2.3) mg/dL Total Bilirubin 0.8 (0.2-1.3) mg/dL AST 17 (14-36) U/L ALT 9 (4-34) U/L Alkaline Phosphatase 143 H (38-126) U/L Troponin I (0.000-0.034) ng/mL NT-Pro-B Natriuret Pep 3900 pg/mL Total Protein 4.7 L (6.3-8.2) g/dL Albumin 2.4 L (3.5-5.0) g/dL 10/14/23 10/14/23 Range/Units 12:45 12:45 WBC (3.8-10.6) k/uL RBC (3.80-5.40) m/uL Hgb (11.4-16.0) gm/dL Hct (34.0-46.0) % MCV (80.0-100.0) fL MCH (25.0-35.0) pg MCHC (31.0-37.0) g/dL RDW (11.5-15.5) % Plt Count (150-450) k/uL MPV Neutrophils % (Manual) % Band Neuts % (Manual) % Lymphocytes % (Manual) % Monocytes % (Manual) % Eosinophils % (Manual) % Neutrophils # Neutrophils # (Manual) (1.3-7.7) k/uL Lymphocytes # (Manual) (1.0-4.8) k/uL Monocytes # (Manual) (0-1.0) k/uL Eosinophils # (Manual) (0-0.7) k/uL Nucleated RBCs (0-0) /100 WBC Manual Slide Review PT (10.0-12.5) sec INR (<1.2) APTT (22.0-30.0) sec Sodium (137-145) mmol/L Potassium (3.5-5.1) mmol/L Chloride (98-107) mmol/L Carbon Dioxide (22-30) mmol/L Anion Gap mmol/L BUN (7-17) mg/dL Creatinine (0.52-1.04) mg/dL Est GFR (CKD-EPI)AfAm (>60 ml/min/1.73 sqM) Est GFR (CKD-EPI)NonAf (>60 ml/min/1.73 sqM) Glucose (74-99) mg/dL Plasma Lactic Acid Med 0.8 (0.7-2.0) mmol/L Calcium (8.4-10.2) mg/dL Magnesium (1.6-2.3) mg/dL Total Bilirubin (0.2-1.3) mg/dL AST (14-36) U/L ALT (4-34) U/L Alkaline Phosphatase (38-126) U/L Troponin I <0.012 (0.000-0.034) ng/mL NT-Pro-B Natriuret Pep pg/mL Total Protein (6.3-8.2) g/dL Albumin (3.5-5.0) g/dL Disposition Clinical Impression: Pancytopenia, MDS (myelodysplastic syndrome) Disposition: HOME SELF-CARE Condition: Stable Instructions (If sedation given, give patient instructions): Pancytopenia (DC) Additional Instructions: Your labs are stable at this time Is patient prescribed a controlled substance at d/c from ED?: No Referrals: Yari Valverde MD [Primary Care Provider] - 1-2 days Time of Disposition: 15:45
[2023-10-14 13:16] LABS: HCT 23.9 % (34.0-46.0); HGB 7.8 gm/dL (11.4-16.0); MCH 29.2 pg (25.0-35.0); MCHC 32.7 g/dL (31.0-37.0); MCV 89.3 fL (80.0-100.0); RBC 2.67 m/uL (3.80-5.40)
[2023-10-14 13:26] LABS: Partial Thromboplastin Time 27.4 sec (22.0-30.0); Prothrombin Time 11.2 sec (10.0-12.5)
[2023-10-14 13:40] LABS: ALT 9 U/L (4-34); AST 17 U/L (14-36); African American GFR (CKD) >90 (>60 ml/min/1.73 sqM); Albumin 2.4 g/dL (3.5-5.0); Alkaline Phosphatase 143 U/L (38-126); Anion Gap 0 mmol/L; Blood Urea Nitrogen 9 mg/dL (7-17); Calcium 7.4 mg/dL (8.4-10.2); Carbon Dioxide 35 mmol/L (22-30); Chloride 100 mmol/L (98-107); Glucose 146 mg/dL (74-99); Magnesium 1.7 mg/dL (1.6-2.3); Non-African American GFR(CKD) >90 (>60 ml/min/1.73 sqM); Potassium 3.9 mmol/L (3.5-5.1); Sodium 135 mmol/L (137-145); Total Bilirubin 0.8 mg/dL (0.2-1.3); Total Protein 4.7 g/dL (6.3-8.2)
[2023-10-14 13:47] LABS: NT-Pro-B-Type Natriuretic Pept 3900 pg/mL
[2023-10-14 14:19] LABS: WBC 1.2 k/uL (3.8-10.6)
[2023-10-14 14:40] LABS: Neutrophils % (M) 34 %
[2023-10-14 14:41] LABS: Band Neutrophils % 1 %; Eosinophils # (M) 0.01 k/uL (0-0.7); Monocytes # (M) 0.17 k/uL (0-1.0); Nucleated Red Blood Cells 0 /100 WBC (0-0); Total Cells Counted 100
[2023-10-14 14:42] LABS: Platelet Count 21 k/uL (150-450)
[2023-10-14 16:38] VITALS: BP 112/46; PULSE 88; RESP 20; TEMP 98
== END 2023-10-14 18:01 | disposition home or self-care (01) ==
LOC: EC 12:15
DX: D61.818 Other pancytopenia (principal); D46.9 Myelodysplastic syndrome, unspecified; Z88.8 Allergy status to other drugs, medicaments and biological substances; Z87.891 Personal history of nicotine dependence
CPT/HCPCS: 36415; 80053; 83605; 83735; 83880; 84484; 85025; 85610; 85730; 93005; 99284

== ENCOUNTER 2023-10-20 12:27 | Inpatient (IN) | payer MEDICARE, BC ==
--- NOTE | 2023-10-20 12:48 | ED ---
General Adult HPI - General Chief complaint: Weakness Stated complaint: Possible stroke Time Seen by Provider: 10/20/23 12:29 Source: EMS Mode of arrival: EMS Limitations: no limitations - History of Present Illness Initial comments: Dictation was produced using [employer] dictation software. please excuse any grammatical, word or spelling errors. Chief Complaint: 68-year-old female presents to the emergency department for episode of unresponsiveness History of Present Illness: Patient 60-year-old female she is alert only at baseline alert oriented x 4. Patient is a poor historian. States that her whole body hurts. Patient brought in from long-term by EMS. According to EMS patient became unresponsive with her eyes open staring out into space. Patient complains of total body pain. Denies any nausea vomiting. Unable to obtain ROS secondary to mental status - Related Data Home Medications Medication Instructions Recorded Confirmed Divalproex [Depakote] 500 mg PO TID 07/01/20 10/20/23 Omeprazole 40 mg PO DAILY 07/01/20 10/20/23 Propranolol [Inderal] 20 mg PO BID@0800,1600 07/01/20 10/20/23 Cariprazine HCl [Vraylar] 3 mg PO DAILY@0800 09/05/23 10/20/23 Acetaminophen Tab [Tylenol] 975 mg PO Q8HR@0500,1300,2100 10/07/23 10/20/23 Atorvastatin [Lipitor] 20 mg PO HS 10/07/23 10/20/23 Multivitamins, Thera [Multivitamin 1 tab PO DAILY@0800 10/07/23 10/20/23 (formulary)] Naloxone HCl [Narcan] 4 mg NASAL DIRECTED PRN 10/07/23 10/20/23 Ondansetron [Zofran] 4 mg PO Q6H PRN 10/07/23 10/20/23 Sennosides [Senokot] 17.2 mg PO Q12H PRN 10/07/23 10/20/23 INSULIN ASPART (NovoLOG) [NovoLOG See Protocol SQ ACHS 10/20/23 10/20/23 (formulary)] Previous Rx's Medication Instructions Recorded Albuterol Nebulized [Ventolin 2.5 mg INHALATION RT-Q2H PRN ml 10/10/23 Nebulized] Gabapentin 600 mg PO TID #9 tab 10/10/23 LORazepam [Ativan] 0.5 mg PO TID #9 tab 10/10/23 oxyCODONE HCL [oxyCODONE HCL (IR)] 20 mg PO Q8H PRN #9 tab 10/10/23 Allergies Allergy/AdvReac Type Severity Reaction Status Date / Time bendamustine [From [facility]] Allergy Itching Verified 10/20/23 12:36 Review of Systems ROS Statement: Those systems with pertinent positive or pertinent negative responses have been documented in the HPI. ROS Other: All systems not noted in ROS Statement are negative. 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 2016-esophageal cancer with surgery. 06/2020 pet scan showed mets to L neck/liver/sacrum-chemo/radiation. 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 Pt states she takes inderal for shakes not BP. 09/12/2023: Pt states last chemo "1 year ago". History of Any Multi-Drug Resistant Organisms: None Reported Past Surgical History: Section, Cholecystectomy, Orthopedic Surgery, Tonsillectomy Additional Past Surgical History / Comment(s): 2008 R groin tumor removed, extensive esophageal surgery/esophagectomy/stomach brought up and attached, R sided port, R elbow fracture/radial head removed, colonoscopy. Past Anesthesia/Blood Transfusion Reactions: No Reported Reaction Additional Past Anesthesia/Blood Transfusion Reaction / Comment(s): Pt received blood with esophagectomy surgery without reaction. Past Psychological History: Bipolar Smoking Status: Former smoker Past Alcohol Use History: None Reported Past Drug Use History: None Reported - Past Family History Mother History Unknown: Yes Additional Family Medical History / Comment(s): patient adopted and does not know family history General Exam - General Exam Comments Initial Comments: PHYSICAL EXAM: General Impression: Lethargic, arousable HEENT: Normocephalic atraumatic, extra-ocular movements intact, pupils equal and reactive to light bilaterally, mucous membranes Cardiovascular: Heart regular rate and rhythm Chest: no retractions, no tachypnea Abdomen: abdomen soft, non-tender, non-distended, no organomegaly Musculoskeletal: Pulses present and equal in all extremities, 1+ pitting edema to bilateral lower extremities Motor: no focal deficits noted Neurological: CN II-XII grossly intact, no focal motor or sensory deficits noted Skin: Intact with no visualized rashes Limitations: no limitations Course Vital Signs 10/20/23 10/20/23 12:29 12:45 Temperature 99.0 F 102.2 F H Pulse Rate 78 Respiratory 16 Rate Blood Pressure 104/68 O2 Sat by Pulse 98 Oximetry EKG Findings - EKG Comments: EKG Findings:: My EKG interpretation: Ventricular rate 94. Artifact makes interpretation difficult. Appears to be sinus. QRS 74, QTc 346. No FL prolongation, no QTC prolongation, no ST or T-wave changes noted. EKG compared to October 14, 2023 showing no changes. Overall, this EKG is unremarkable Medical Decision Making - Medical Decision Making Was pt. sent in by a medical professional or institution (, PA, ROLLING MACHINE OPERATOR, urgent care, hospital, or long-term...) When possible be specific @ -No Did you speak to anyone other than the patient for history (EMS, parent, family, police, friend...)? What history was obtained from this source @ -No Did you review nursing and triage notes (agree or disagree)? Why? @ -I reviewed and agree with nursing and triage notes Were old charts reviewed (outside hosp., previous admission, EMS record, old EKG, old radiological studies, urgent care reports/EKG's, long-term records)? Report findings @ -No old charts were reviewed Differential Diagnosis (chest pain, altered mental status, abdominal pain women, abdominal pain men, vaginal bleeding, musculoskeletal, weakness, fever, dyspnea, syncope, headache, dizziness, GI bleed, back pain, seizure, CVA, palpatations, mental health)? @ -Differential Fever: Pneumonia, viral URI, endocarditis, myocarditis, pericarditis, otitis, sinusitis, peritonsillar Abscess, retropharyngeal Abscess, epiglottitis, peritonitis, appendicitis, Mary cystitis, diverticulitis, hepatitis, colitis, UTI, PID, TOA, pyelonephritis, prostatitis, epididymitis, meningitis, encephalitis, pulmonary embolism, CVA, thyroid storm, pancreatitis, adrenal crisis, cavernous sinus thrombosis, this is not meant to be an all-inclusive list. EKG interpreted by me (3pts min.). @ -See above X-rays interpreted by me (1pt min.). @ -Chest x-ray is nonacute CT interpreted by me (1pt min.). @ -CT scan the brain is negative U/S interpreted by me (1pt. min.). @ -None done What testing was considered but not performed or refused? (CT, X-rays, U/S, labs)? Why? @ -None What meds were considered but not given or refused? Why? @ -None Did you discuss the management of the patient with other professionals (professionals i.e. , PA, ROLLING MACHINE OPERATOR, lab, RT, psych nurse, social work nurse, rotary drier operator, teacher, armed custom protection officer, case specialist)? Give summary @ -Case discussed with hospitalist for admission Was smoking cessation discussed for >3mins.? @ -No Was critical care preformed (if so, how long)? @ -Yes, 33 minutes Were there social determinants of health that impacted care today? How? (Homelessness, low income, unemployed, alcoholism, drug addiction, tr ansportation, low edu. Level, literacy, decrease access to med. care, [facility], rehab)? @ -No Was there de-escalation of care discussed even if they declined (Discuss DNR or withdrawal of care, Hospice)? DNR status @ -No What co-morbidities impacted this encounter? (DM, HTN, Smoking, COPD, CAD, Cancer, CVA, ARF, Chemo, Hep., AIDS, mental health diagnosis, sleep apnea, morbid obesity)? @ -History of MDS Was patient admitted / discharged? Hospital course, mention meds given and route, prescriptions, significant lab abnormalities, going to OR and other pertinent info. @ -68-year-old female history of MDS, chronic anemia presents to the ER for lethargy. Vital signs upon arrival shows temperature 102.2, rest of vital signs within acceptable limits. Laboratory evaluation obtained. Leukopenia 1.9, hemoglobin 6.4. Platelet count of 19. These are all are around patient's baseline labs. Coag panel metabolic panel is within acceptable limits. Viral testing is negative. Troponin is negative. Chest x-ray nonacute. CT brain is negative. Pending urinalysis. Patient meets SIRS criteria. Started on broad- spectrum antibiotics. Patient will be admitted consultation to infectious disease and hematology. Patient has pleural effusions suspicious for heart failure. At this point we will judiciously hydrate patient. Undiagnosed new problem with uncertain prognosis? @ -No Drug Therapy requiring intensive monitoring for toxicity (Heparin, Nitro, Insulin, Cardizem)? @ -No Were any procedures done? @ -No Diagnosis/symptom? Acute, or Chronic, or Acute on Chronic? Uncomplicated (wit hout systemic symptoms) or Complicated (systemic symptoms)? @ -SIRS Side effects of treatment? @ -No Exacerbation, Progression, or Severe Exacerbation? @ -No Poses a threat to life or bodily function? How? (Chest pain, USA, IA, pneumonia, PE, COPD, DKA, ARF, appy, cholecystitis, CVA, Diverticulitis, Homicidal, Suicidal, threat to staff... and all critical care pts) @ -yes - Lab Data Result diagrams: 10/20/23 12:48 10/20/23 12:48 Lab Results 10/20/23 10/20/23 10/20/23 Range/Units 12:45 12:48 12:48 WBC 1.9 L (3.8-10.6) k/uL RBC 2.24 L (3.80-5.40) m/uL Hgb 6.4 L* (11.4-16.0) gm/dL Hct 19.5 L* (34.0-46.0) % MCV 87.2 (80.0-100.0) fL MCH 28.5 (25.0-35.0) pg MCHC 32.7 (31.0-37.0) g/dL RDW 14.9 (11.5-15.5) % Plt Count 19 L* (150-450) k/uL MPV 8.8 Neutrophils % (Manual) 56 % Band Neuts % (Manual) 2 % Lymphocytes % (Manual) 36 % Monocytes % (Manual) 5 % Eosinophils % (Manual) 1 % Neutrophils # (Manual) 1.10 L (1.3-7.7) k/uL Lymphocytes # (Manual) 0.68 L (1.0-4.8) k/uL Monocytes # (Manual) 0.10 (0-1.0) k/uL Eosinophils # (Manual) 0.02 (0-0.7) k/uL Nucleated RBCs 0 (0-0) /100 WBC Manual Slide Review Performed RBC Morphology Normal PT 11.3 (10.0-12.5) sec INR 1.0 (<1.2) APTT 21.1 L (22.0-30.0) sec Sodium (137-145) mmol/L Potassium (3.5-5.1) mmol/L Chloride (98-107) mmol/L Carbon Dioxide (22-30) mmol/L Anion Gap mmol/L BUN (7-17) mg/dL Creatinine (0.52-1.04) mg/dL Est GFR (CKD-EPI)AfAm (>60 ml/min/1.73 sqM) Est GFR (CKD-EPI)NonAf (>60 ml/min/1.73 sqM) Glucose (74-99) mg/dL POC Glucose (mg/dL) (70-110) mg/dL POC Glu Diesel Electrician ID Plasma Lactic Acid Med (0.7-2.0) mmol/L Calcium (8.4-10.2) mg/dL Magnesium (1.6-2.3) mg/dL Total Bilirubin (0.2-1.3) mg/dL AST (14-36) U/L ALT (4-34) U/L Alkaline Phosphatase (38-126) U/L Troponin I (0.000-0.034) ng/mL Total Protein (6.3-8.2) g/dL Albumin (3.5-5.0) g/dL Influenza Type A (PCR) Not Detected (Not Detectd) Influenza Type B (PCR) Not Detected (Not Detectd) RSV (PCR) Not Detected (Not Detectd) SARS-CoV-2 (PCR) Not Detected (Not Detectd) 10/20/23 10/20/23 10/20/23 Range/Units 12:48 12:48 12:48 WBC (3.8-10.6) k/uL RBC (3.80-5.40) m/uL Hgb (11.4-16.0) gm/dL Hct (34.0-46.0) % MCV (80.0-100.0) fL MCH (25.0-35.0) pg MCHC (31.0-37.0) g/dL RDW (11.5-15.5) % Plt Count (150-450) k/uL MPV Neutrophils % (Manual) % Band Neuts % (Manual) % Lymphocytes % (Manual) % Monocytes % (Manual) % Eosinophils % (Manual) % Neutrophils # (Manual) (1.3-7.7) k/uL Lymphocytes # (Manual) (1.0-4.8) k/uL Monocytes # (Manual) (0-1.0) k/uL Eosinophils # (Manual) (0-0.7) k/uL Nucleated RBCs (0-0) /100 WBC Manual Slide Review RBC Morphology PT (10.0-12.5) sec INR (<1.2) APTT (22.0-30.0) sec Sodium 132 L (137-145) mmol/L Potassium 4.6 (3.5-5.1) mmol/L Chloride 97 L (98-107) mmol/L Carbon Dioxide 34 H (22-30) mmol/L Anion Gap 1 mmol/L BUN 15 (7-17) mg/dL Creatinine 0.65 (0.52-1.04) mg/dL Est GFR (CKD-EPI)AfAm >90 (>60 ml/min/1.73 sqM) Est GFR (CKD-EPI)NonAf >90 (>60 ml/min/1.73 sqM) Glucose 173 H (74-99) mg/dL POC Glucose (mg/dL) (70-110) mg/dL POC Glu Diesel Electrician ID Plasma Lactic Acid Med 1.4 (0.7-2.0) mmol/L Calcium 7.6 L (8.4-10.2) mg/dL Magnesium 1.8 (1.6-2.3) mg/dL Total Bilirubin 1.0 (0.2-1.3) mg/dL AST 19 (14-36) U/L ALT 8 (4-34) U/L Alkaline Phosphatase 193 H (38-126) U/L Troponin I <0.012 (0.000-0.034) ng/mL Total Protein 5.4 L (6.3-8.2) g/dL Albumin 3.0 L (3.5-5.0) g/dL Influenza Type A (PCR) (Not Detectd) Influenza Type B (PCR) (Not Detectd) RSV (PCR) (Not Detectd) SARS-CoV-2 (PCR) (Not Detectd) 10/20/23 Range/Units 12:56 WBC (3.8-10.6) k/uL RBC (3.80-5.40) m/uL Hgb (11.4-16.0) gm/dL Hct (34.0-46.0) % MCV (80.0-100.0) fL MCH (25.0-35.0) pg MCHC (31.0-37.0) g/dL RDW (11.5-15.5) % Plt Count (150-450) k/uL MPV Neutrophils % (Manual) % Band Neuts % (Manual) % Lymphocytes % (Manual) % Monocytes % (Manual) % Eosinophils % (Manual) % Neutrophils # (Manual) (1.3-7.7) k/uL Lymphocytes # (Manual) (1.0-4.8) k/uL Monocytes # (Manual) (0-1.0) k/uL Eosinophils # (Manual) (0-0.7) k/uL Nucleated RBCs (0-0) /100 WBC Manual Slide Review RBC Morphology PT (10.0-12.5) sec INR (<1.2) APTT (22.0-30.0) sec Sodium (137-145) mmol/L Potassium (3.5-5.1) mmol/L Chloride (98-107) mmol/L Carbon Dioxide (22-30) mmol/L Anion Gap mmol/L BUN (7-17) mg/dL Creatinine (0.52-1.04) mg/dL Est GFR (CKD-EPI)AfAm (>60 ml/min/1.73 sqM) Est GFR (CKD-EPI)NonAf (>60 ml/min/1.73 sqM) Glucose (74-99) mg/dL POC Glucose (mg/dL) 156 H (70-110) mg/dL POC Glu Diesel Electrician ID Natalie Cash Plasma Lactic Acid Med (0.7-2.0) mmol/L Calcium (8.4-10.2) mg/dL Magnesium (1.6-2.3) mg/dL Total Bilirubin (0.2-1.3) mg/dL AST (14-36) U/L ALT (4-34) U/L Alkaline Phosphatase (38-126) U/L Troponin I (0.000-0.034) ng/mL Total Protein (6.3-8.2) g/dL Albumin (3.5-5.0) g/dL Influenza Type A (PCR) (Not Detectd) Influenza Type B (PCR) (Not Detectd) RSV (PCR) (Not Detectd) SARS-CoV-2 (PCR) (Not Detectd) Disposition Clinical Impression: Fever Disposition: ADMITTED IP TO THIS HOSP Condition: Fair Referrals: Yari Valverde MD [Primary Care Provider] - 1-2 days Decision Time: 15:55
[2023-10-20 12:58] LABS: Glucose,Whole Blood 156 mg/dL (70-110)
--- NOTE | 2023-10-20 13:24 | CT ---
EXAMINATION TYPE: CT brain wo con DATE OF EXAM: 10/20/2023 COMPARISON: 09/25/2023 HISTORY: 68-year-old female lethargy TECHNIQUE: Examination was done in axial plane without intravenous contrast. Coronal and sagittal r econstructions performed. CT DLP: 1086.4 mGycm Automated exposure control for dose reduction was used. FINDINGS: There is no evidence of acute intracranial hemorrhage, acute ischemic changes, mass, mass-effect, or extra-axial fluid collection. There is no effacement of cerebral sulci or basal subarachnoid cister ns. Mild ventricular prominence likely due to central cerebral atrophy, unchanged. There is no midlin e shift. Kramer-white matter distinction is preserved. Mild bifrontal cerebral cortical atrophy. Moderate patchy periventricular white matter hypodensities. Paranasal sinuses well pneumatized. The globes are intact. Redemonstrated fluid opacification left mastoid air cells IMPRESSION: 1. Moderate supratentorial volume loss. Similar mild ventriculomegaly likely due to central cerebral atrophy. Moderate patchy burden of chronic small vessel ischemic disease. 2. No acute intracranial abnormality seen. 3. Ongoing fluid within the left mastoid air cells. Correlate for any mass or gauge exclude mastoidit is.
--- NOTE | 2023-10-20 13:26 | XR ---
EXAMINATION TYPE: XR chest 2V DATE OF EXAM: 10/20/2023 COMPARISON: 10/07/2023 TECHNIQUE: PA and lateral views submitted. HISTORY: Lethargy FINDINGS: No pneumothorax.. Heart size normal and no overt failure. Osseous structures demonstrate hypertrophi c and degenerative changes of the spine. Mediport catheter is seen with limited inspiration is chroni c rib deformities. Remote trauma the right humerus. Arthropathy of the shoulders with diffuse osteope maged. Diffuse interstitial pattern. Small right pleural effusion and tiny left pleural effusion. IMPRESSION: 1. Bilateral pleural effusion correlate for mild venous congestion otherwise consider interstitial pn eumonitis.
[2023-10-20] MEDS: ACETAMINOPHEN TAB 500 MG TAB PO STA (13:58)
[2023-10-20] MEDS: SODIUM CHLORIDE 0.9% 1,000 ML IV STA (14:01)
[2023-10-20 14:05] LABS: MCH 28.5 pg (25.0-35.0); MCHC 32.7 g/dL (31.0-37.0); MCV 87.2 fL (80.0-100.0); Mean Platelet Volume 8.8; RBC 2.24 m/uL (3.80-5.40); RDW 14.9 % (11.5-15.5); WBC 1.9 k/uL (3.8-10.6)
[2023-10-20 14:20] LABS: Prothrombin Time 11.3 sec (10.0-12.5)
[2023-10-20 14:24] LABS: Partial Thromboplastin Time 21.1 sec (22.0-30.0)
[2023-10-20 14:31] LABS: ALT 8 U/L (4-34); AST 19 U/L (14-36); African American GFR (CKD) >90 (>60 ml/min/1.73 sqM); Alkaline Phosphatase 193 U/L (38-126); Anion Gap 1 mmol/L; Blood Urea Nitrogen 15 mg/dL (7-17); Calcium 7.6 mg/dL (8.4-10.2); Carbon Dioxide 34 mmol/L (22-30); Chloride 97 mmol/L (98-107); Glucose 173 mg/dL (74-99); Magnesium 1.8 mg/dL (1.6-2.3); Non-African American GFR(CKD) >90 (>60 ml/min/1.73 sqM); Potassium 4.6 mmol/L (3.5-5.1); Sodium 132 mmol/L (137-145); Total Protein 5.4 g/dL (6.3-8.2)
[2023-10-20 14:40] LABS: HGB 6.4 gm/dL (11.4-16.0)
[2023-10-20 14:41] LABS: HCT 19.5 % (34.0-46.0)
[2023-10-20 15:19] LABS: Band Neutrophils % 2 %; Eosinophils # (M) 0.02 k/uL (0-0.7); Lymphocytes # (M) 0.68 k/uL (1.0-4.8); Neutrophils % (M) 56 %; Nucleated Red Blood Cells 0 /100 WBC (0-0); Total Cells Counted 100
[2023-10-20 15:30] LABS: Platelet Count 19 k/uL (150-450); RBC Morphology Normal
[2023-10-20] MEDS ORDERED: VANCOMYCIN IV PER PHARMACY 1 EACH MISC MISCELLANE PRN (15:34)
[2023-10-20] MEDS ORDERED: ONDANSETRON 4 MG/2 ML VIAL IVP PRN (15:52)
[2023-10-20] MEDS ORDERED: NALOXONE 0.4 MG/ML 1 ML VIAL IV PRN (15:52)
[2023-10-20 15:57] LABS: Appearance,Urine Clear (Clear); Bilirubin,Urine Negative (Negative); Blood,Urine Negative (Negative); Color,Urine Yellow; Glucose,Urine (UA) Trace (Negative); Ketones,Urine Trace (Negative); Leukocyte Esterase,Urine Negative (Negative); Nitrite,Urine Negative (Negative); Protein,Urine Trace (Negative); Specific Gravity,Urine 1.017 (1.001-1.035); Urobilinogen,Urine >12.0 mg/dL (<2.0)
[2023-10-20] MEDS ORDERED: LORazepam 0.5 MG TAB PO PRN (16:48)
[2023-10-20] MEDS ORDERED: ALBUTEROL NEBULIZED 2.5 MG/3 ML INHALATION PRN (16:48)
[2023-10-20] MEDS ORDERED: DEXTROSE 50% SYRINGE 50 ML IVP PRN ×2 (16:54)
--- NOTE | 2023-10-20 16:58 | P.HPIM ---
History of Present Illness H&P Date: 10/20/23 Chief Complaint: syncope Patient is a 68-year-old female with a past medical history of lymphoma status postchemotherapy and now in remission per family, chronic pain, myelodysplasia who has required multiple transfusions in the past month. Patient currently tells me that she does not know why she is in the hospital. Reviewing the patient's chart it appears that patient was brought in by EMS because she was found to be unresponsive with her eyes open staring out into space. In the ED patient had a fever of 102.2, WBC 1.9, hemoglobin 6.4, platelets 19, UA negative for UTI, 4 Plex negative, chest x-ray showed bilateral pleural effusion. Patient is denying any cough dysuria. ROS: 10 ROS reviewed and are negative except as noted in HPI Physical exam General: [Alert and oriented, well nourished, no acute distress, ill-appearing and chronically debilitated]. Eye: [PERRL, EOMI, normal conjunctiva]. HENT: [Normocephalic, clear tympanic membranes, normal hearing, moist oral mucosa, no scleral icterus, no sinus tenderness]. Neck: [Supple, non-tender, no carotid bruits, no JVD, no lymphadenopathy]. Lungs: [Clear to auscultation and percussion, non-labored respiration, + Mediport in the right upper chest with no surrounding erythema or tenderness to palpation]. Heart: [Normal rate, regular rhythm, no murmur, gallop, + +3 pitting edema in bilateral lower extremities]. Abdomen: [Soft, non-tender, non-distended, normal bowel sounds, no masses]. Musculoskeletal: [Normal range of motion and strength, no tenderness or swelling]. Skin: [Petechial rash in all extremities]. Neurologic: [Awake, alert, and oriented X3, CN II-XII intact]. Psychiatric: [Cooperative, appropriate mood and affect]. Assessment and plan Pancytopenia Myelodysplastic syndrome Hemoglobin is 6.4 so we will order 1 unit of PRBC Will consult hematology Patient has no overt signs of bleeding so no clear indication for platelet transfusion Prognosis guarded SIRS criteria Patient had a fever of 102.2 and patient leukopenic UA negative for UTI Chest x-ray shows no pneumonia Patient does have a Mediport but no signs of infection Blood cultures ordered Patient empirically started on vancomycin and Zosyn Infectious disease consult Syncope episode This was reported by EMS I suspect this is due to infection as well as patient chronic debility Will treat as above Volume overload I suspect this is due to multiple blood transfusions and hypoalbuminemia Will give a one-time dose of IV Lasix 20 mg Chronic pain Continue with home pain meds Anxiety Will continue with Ativan Diabetes mellitus Sliding scale insulin Psych disorder Continue with home meds DVT prophylaxis: No anticoagulation in the setting of thrombocytopenia Past Medical History Past Medical History: Blood Disorder, Cancer, COPD, Fibromyalgia, Hyp erlipidemia, Osteoarthritis (OA) Additional Past Medical History / Comment(s): 2008-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 2016-esophageal cancer with surgery. 06/2020 pet scan showed mets to L neck/liver/sacrum-chemo/radiation. 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 Pt states she takes inderal for shakes not BP. 09/12/2023: Pt states last chemo "1 year ago". History of Any Multi-Drug Resistant Organisms: None Reported Past Surgical History: Section, Cholecystectomy, Orthopedic Surgery, Tonsillectomy Additional Past Surgical History / Comment(s): 2008 R groin tumor removed, extensive esophageal surgery/esophagectomy/stomach brought up and attached, R sided port, R elbow fracture/radial head removed, colonoscopy. Past Anesthesia/Blood Transfusion Reactions: No Reported Reaction Additional Past Anesthesia/Blood Transfusion Reaction / Comment(s): Pt received blood with esophagectomy surgery without reaction. Past Psychological History: Bipolar Smoking Status: Former smoker Past Alcohol Use History: None Reported Past Drug Use History: None Reported - Past Family History Mother History Unknown: Yes Additional Family Medical History / Comment(s): patient adopted and does not know family history Medications and Allergies Home Medications Medication Instructions Recorded Confirmed Type Divalproex [Depakote] 500 mg PO TID 07/01/20 10/20/23 History Omeprazole 40 mg PO DAILY 07/01/20 10/20/23 History Propranolol [Inderal] 20 mg PO BID@0800,1600 07/01/20 10/20/23 History Cariprazine HCl [Vraylar] 3 mg PO DAILY@0800 09/05/23 10/20/23 History Acetaminophen Tab [Tylenol] 975 mg PO Q8HR@0500,1300,2100 10/07/23 10/20/23 History Atorvastatin [Lipitor] 20 mg PO HS 10/07/23 10/20/23 History Multivitamins, Thera [Multivitamin 1 tab PO DAILY@0800 10/07/23 10/20/23 History (formulary)] Naloxone HCl [Narcan] 4 mg NASAL DIRECTED PRN 10/07/23 10/20/23 History Ondansetron [Zofran] 4 mg PO Q6H PRN 10/07/23 10/20/23 History Sennosides [Senokot] 17.2 mg PO Q12H PRN 10/07/23 10/20/23 History Albuterol Nebulized [Ventolin 2.5 mg INHALATION RT-Q2H PRN ml 10/10/23 10/20/23 Rx Nebulized] Gabapentin 600 mg PO TID #9 tab 10/10/23 10/20/23 Rx LORazepam [Ativan] 0.5 mg PO TID #9 tab 10/10/23 10/20/23 Rx oxyCODONE HCL [oxyCODONE HCL (IR)] 20 mg PO Q8H PRN #9 tab 10/10/23 10/20/23 Rx INSULIN ASPART (NovoLOG) [NovoLOG See Protocol SQ ACHS 10/20/23 10/20/23 History (formulary)] Allergies Allergy/AdvReac Type Severity Reaction Status Date / Time bendamustine [From [facility]] Allergy Itching Verified 10/20/23 12:36 Physical Exam Osteopathic Statement: *. No significant issues noted on an osteopathic structural exam other than those noted in the History and Physical/Consult. Vitals: Vital Signs Temp Pulse Resp BP Pulse Ox 10/20/23 12:45 102.2 F H 10/20/23 12:29 99.0 F 78 16 104/68 98 Intake and Output 10/20/23 10/20/23 10/20/23 06:59 14:59 22:59 Other: Weight 72.575 kg Results CBC & Chem 7: 10/20/23 12:48 10/20/23 12:48 Labs: Abnormal Lab Results - Last 24 Hours (Table) 10/20/23 10/20/23 10/20/23 Range/Units 12:48 12:48 12:48 WBC 1.9 L (3.8-10.6) k/uL RBC 2.24 L (3.80-5.40) m/uL Hgb 6.4 L* (11.4-16.0) gm/dL Hct 19.5 L* (34.0-46.0) % Plt Count 19 L* (150-450) k/uL Neutrophils # (Manual) 1.10 L (1.3-7.7) k/uL Lymphocytes # (Manual) 0.68 L (1.0-4.8) k/uL APTT 21.1 L (22.0-30.0) sec Sodium (137-145) mmol/L Chloride (98-107) mmol/L Carbon Dioxide (22-30) mmol/L Glucose (74-99) mg/dL POC Glucose (mg/dL) (70-110) mg/dL Calcium (8.4-10.2) mg/dL Alkaline Phosphatase (38-126) U/L Total Protein (6.3-8.2) g/dL Albumin (3.5-5.0) g/dL Urine Protein Trace H (Negative) Urine Glucose (UA) Trace H (Negative) Urine Ketones Trace H (Negative) 10/20/23 10/20/23 Range/Units 12:48 12:56 WBC (3.8-10.6) k/uL RBC (3.80-5.40) m/uL Hgb (11.4-16.0) gm/dL Hct (34.0-46.0) % Plt Count (150-450) k/uL Neutrophils # (Manual) (1.3-7.7) k/uL Lymphocytes # (Manual) (1.0-4.8) k/uL APTT (22.0-30.0) sec Sodium 132 L (137-145) mmol/L Chloride 97 L (98-107) mmol/L Carbon Dioxide 34 H (22-30) mmol/L Glucose 173 H (74-99) mg/dL POC Glucose (mg/dL) 156 H (70-110) mg/dL Calcium 7.6 L (8.4-10.2) mg/dL Alkaline Phosphatase 193 H (38-126) U/L Total Protein 5.4 L (6.3-8.2) g/dL Albumin 3.0 L (3.5-5.0) g/dL Urine Protein (Negative) Urine Glucose (UA) (Negative) Urine Ketones (Negative)
[2023-10-20] MEDS: PANTOPRAZOLE 40 MG/10 ML VIAL IVP STA (17:14)
[2023-10-20] MEDS: VANCOMYCIN 1,250 MG in SODIUM CHLORIDE 0.9% 250 ML IVPB STA (18:27)
[2023-10-20] MEDS: SODIUM CHLORIDE 0.9% 1,000 ML IV SCH (18:32)
[2023-10-20 18:49] LABS: Glucose,Whole Blood 240 mg/dL (70-110)
[2023-10-20] MEDS: FUROSEMIDE 10 MG/ML 2 ML VIAL IV ONE (19:01)
[2023-10-20] MEDS: INSULIN ASPART (NovoLOG) 100 UNIT/ML VIAL SQ SCH (19:01)
[2023-10-20] MEDS: PIPERACILLIN-TAZOBACTAM 3.375 GM in SODIUM CHLORIDE 0.9% 100 ML IVPB SCH (20:02)
[2023-10-20 20:58] LABS: Glucose,Whole Blood 279 mg/dL (70-110)
[2023-10-20] MEDS: DIVALPROEX 500 MG TABLET.DR PO SCH (21:08)
[2023-10-20] MEDS: GABAPENTIN 300 MG CAP PO SCH (21:09)
[2023-10-20] MEDS: ATORVASTATIN 20 MG TAB PO SCH (21:09)
--- NOTE | 2023-10-20 22:41 | P.CONS ---
History of Present Illness - Reason for Consult Consult date: 10/20/23 SIRS Requesting physician: Christian Bower - Chief Complaint Weakness and generalized bodyaches x 1 day - History of Present Illness Patient is a 68-year-old female with a past medical history significant for hyperlipidemia osteomyelitis fibromyalgia COPD patient did have a diffuse large B-cell lymphoma did have a right chest wall Mediport last use about a week ago for infusion patient presenting to the hospital concerning for generalized bodyaches apparently on arrival of EMS the patient was noticed to be unresponsive with her eyes open and staring out into space patient has been brought into the hospital no clear history of any fever and chills at home however the patient did have a temperature of 102.2 F while in the ER patient was tachycardic not hypotensive or hypoxic and no need for supplemental oxygen did have white count 1.9 hemoglobin of 6.4 creatinine 0.65 liver enzymes are normal urine is negative influenza RSV COVID testing was negative patient did have a chest x-ray bilateral effusion mild venous congestion otherwise consider interstitial pneumonitis patient was started on vancomycin and Zoalhajin infectious disease was consulted for further management, patient is time my evaluation is awake and alert she knows that she is in the hospital patient denies having any headache or URI symptoms no chest pain shortness of breath or cough no nausea vomiting abdominal pain or diarrhea no urinary symptoms no focal weakness Review of Systems Positive point and negatives has been mentioned in the HPI, complete review of systems was performed and all other systems are negative Past Medical History Past Medical History: Blood Disorder, Cancer, COPD, Fibromyalgia, Hyper lipidemia, Osteoarthritis (OA) Additional Past Medical History / Comment(s): 2008-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 2016-esophageal cancer with surgery. 06/2020 pet scan showed mets to L neck/liver/sacrum-chemo/radiation. 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 Pt states she takes inderal for shakes not BP. 09/12/2023: Pt states last chemo "1 year ago". History of Any Multi-Drug Resistant Organisms: None Reported Past Surgical History: Section, Cholecystectomy, Orthopedic Surgery, Tonsillectomy Additional Past Surgical History / Comment(s): 2009 R groin tumor removed, extensive esophageal surgery/esophagectomy/stomach brought up and attached, R sided port, R elbow fracture/radial head removed, colonoscopy. Past Anesthesia/Blood Transfusion Reactions: No Reported Reaction Additional Past Anesthesia/Blood Transfusion Reaction / Comm: Pt received blood with esophagectomy surgery without reaction. Past Psychological History: Bipolar Smoking Status: Former smoker Past Alcohol Use History: None Reported Past Drug Use History: None Reported - Past Family History Mother History Unknown: Yes Additional Family Medical History / Comment(s): patient adopted and does not know family history Medications and Allergies Home Medications Medication Instructions Recorded Confirmed Type Omeprazole 40 mg PO DAILY 07/01/20 10/20/23 History Propranolol [Inderal] 20 mg PO BID@0800,1600 07/01/20 10/20/23 History Cariprazine HCl [Vraylar] 3 mg PO DAILY@0800 09/05/23 10/20/23 History Acetaminophen Tab [Tylenol] 975 mg PO Q8HR@0500,1300,2100 10/07/23 10/20/23 History Atorvastatin [Lipitor] 20 mg PO HS 10/07/23 10/20/23 History Multivitamins, Thera [Multivitamin 1 tab PO DAILY@0800 10/07/23 10/20/23 History (formulary)] Naloxone HCl [Narcan] 4 mg NASAL DIRECTED PRN 10/07/23 10/20/23 History Ondansetron [Zofran] 4 mg PO Q6H PRN 10/07/23 10/20/23 History Sennosides [Senokot] 17.2 mg PO Q12H PRN 10/07/23 10/20/23 History Albuterol Nebulized [Ventolin 2.5 mg INHALATION RT-Q2H PRN ml 10/10/23 10/20/23 Rx Nebulized] INSULIN ASPART (NovoLOG) [NovoLOG See Protocol SQ ACHS 10/20/23 10/20/23 History (formulary)] Cyanocobalamin [Vitamin B-12] 1,000 mcg PO DAILY tab 10/25/23 Rx Divalproex [Depakote] 500 mg PO BID tab 10/25/23 Rx Folic Acid 1 mg PO DAILY tab 10/25/23 Rx Gabapentin 600 mg PO TID #9 tab 10/25/23 Rx Insulin Detemir (Levemir) [Levemir] 10 unit SQ HS each 10/25/23 Rx LORazepam [Ativan] 0.5 mg PO TID #9 tab 10/25/23 Rx cefUROXime axetiL [Ceftin] 500 mg PO BID 5 Days #10 tab 10/25/23 Rx oxyCODONE HCL [oxyCODONE HCL (IR)] 20 mg PO Q8H PRN #9 tab 10/25/23 Rx Allergies Allergy/AdvReac Type Severity Reaction Status Date / Time bendamustine [From [facility]] Allergy Itching Verified 10/20/23 12:36 Physical Exam Vitals: Vital Signs Temp Pulse Resp BP Pulse Ox 10/20/23 12:45 102.2 F H 10/20/23 12:29 99.0 F 78 16 104/68 98 Intake and Output 10/20/23 10/20/23 10/20/23 06:59 14:59 22:59 Other: Weight 72.575 kg GENERAL DESCRIPTION: Elderly female lying in bed, no distress. No tachypnea or a ccessory muscle of respiration use. HEENT: Shows Pallor , no scleral icterus. Oral mucous membrane is dry. No pharyngeal erythema or thrush NECK: Trachea central, no thyromegaly. LUNGS: Unlabored breathing. Clear to auscultation anteriorly. No wheeze or crackle. HEART: S1, S2, regular rate and rhythm. No loud murmur ABDOMEN: Soft, no tenderness , guarding or rigidity, no organomegaly EXTREMITIES: No edema of feet. SKIN: No rash, no masses palpable. NEUROLOGICAL: The patient is awake, alert, oriented x3, mood and affect normal. Results CBC & Chem 7: 10/25/23 10:42 10/25/23 10:42 Labs: Abnormal Lab Results - Last 24 Hours (Table) 10/20/23 10/20/23 10/20/23 Range/Units 12:48 12:48 12:48 WBC 1.9 L (3.8-10.6) k/uL RBC 2.24 L (3.80-5.40) m/uL Hgb 6.4 L* (11.4-16.0) gm/dL Hct 19.5 L* (34.0-46.0) % Plt Count 19 L* (150-450) k/uL Neutrophils # (Manual) 1.10 L (1.3-7.7) k/uL Lymphocytes # (Manual) 0.68 L (1.0-4.8) k/uL APTT 21.1 L (22.0-30.0) sec Sodium (137-145) mmol/L Chloride (98-107) mmol/L Carbon Dioxide (22-30) mmol/L Glucose (74-99) mg/dL POC Glucose (mg/dL) (70-110) mg/dL Calcium (8.4-10.2) mg/dL Alkaline Phosphatase (38-126) U/L Total Protein (6.3-8.2) g/dL Albumin (3.5-5.0) g/dL Urine Protein Trace H (Negative) Urine Glucose (UA) Trace H (Negative) Urine Ketones Trace H (Negative) 10/20/23 10/20/23 Range/Units 12:48 12:56 WBC (3.8-10.6) k/uL RBC (3.80-5.40) m/uL Hgb (11.4-16.0) gm/dL Hct (34.0-46.0) % Plt Count (150-450) k/uL Neutrophils # (Manual) (1.3-7.7) k/uL Lymphocytes # (Manual) (1.0-4.8) k/uL APTT (22.0-30.0) sec Sodium 132 L (137-145) mmol/L Chloride 97 L (98-107) mmol/L Carbon Dioxide 34 H (22-30) mmol/L Glucose 173 H (74-99) mg/dL POC Glucose (mg/dL) 156 H (70-110) mg/dL Calcium 7.6 L (8.4-10.2) mg/dL Alkaline Phosphatase 193 H (38-126) U/L Total Protein 5.4 L (6.3-8.2) g/dL Albumin 3.0 L (3.5-5.0) g/dL Urine Protein (Negative) Urine Glucose (UA) (Negative) Urine Ketones (Negative) Assessment and Plan (1) Pancytopenia Status: Acute Priority: High Code(s): D61.818 - OTHER PANCYTOPENIA SNOMED Code(s): 858274592 (2) Fever Status: Resolved Priority: High Code(s): R50.9 - FEVER, UNSPECIFIED SNOMED Code(s): 897374121 Plan: 1patient presented to hospital with sepsis/SIRS and this patient who did have a fever tachycardia leukopenia with initial workup negative including a negative chest x-ray UA has been negative abdominal has been soft medical examination with a source questionably Mediport site infection last was about a week ago. 2we will obtain blood cultures from the port peripheral culture has already been obtained results will be followed. 3continue with the vancomycin however switch Zosyn to cefepime due to risk of nephrotoxicity Daughter at the bedside questions were answered We will follow on clinical condition and cultures to further adjust medication if needed Thank you for this consultation we will follow the patient along with you Dictation was produced using [employer] dictation software. please excuse any grammatical, word or spelling errors. Time with Patient: Greater than 30
[2023-10-21] MEDS: CEFEPIME 2 GM in SODIUM CHLORIDE 0.9% 100 ML IVPB SCH (00:21)
[2023-10-21] MEDS: ACETAMINOPHEN TAB 325 MG TAB PO PRN (04:53)
[2023-10-21 06:06] LABS: Glucose,Whole Blood 201 mg/dL (70-110)
[2023-10-21] MEDS: PANTOPRAZOLE 40 MG TABLET PO SCH (06:35)
[2023-10-21] MEDS: VANCOMYCIN 1,250 MG in SODIUM CHLORIDE 0.9% 250 ML IVPB SCH (06:55)
[2023-10-21] MEDS: Cariprazine Hcl [Vraylar] 3 MG Capsule PO SCH (08:46)
[2023-10-21] MEDS: MULTIVITAMINS, THERA 1 EACH TAB PO SCH (08:46)
[2023-10-21] MEDS: PROPRANOLOL 20 MG TAB PO SCH (08:46)
[2023-10-21 10:25] LABS: MCH 29.6 pg (25.0-35.0); MCHC 33.2 g/dL (31.0-37.0); Mean Platelet Volume 8.3; RBC 2.12 m/uL (3.80-5.40); RDW 14.6 % (11.5-15.5); WBC 1.8 k/uL (3.8-10.6)
[2023-10-21 10:34] LABS: Platelet Count 17 k/uL (150-450)
[2023-10-21 10:35] LABS: HGB 6.3 gm/dL (11.4-16.0)
[2023-10-21 10:36] LABS: HCT 18.8 % (34.0-46.0)
[2023-10-21 10:47] LABS: Eosinophils # (M) 0.02 k/uL (0-0.7); Lymphocytes # (M) 0.72 k/uL (1.0-4.8); Monocytes # (M) 0.14 k/uL (0-1.0); Neutrophils # (M) 0.92 k/uL (1.3-7.7); Neutrophils % (M) 51 %; Nucleated Red Blood Cells 0 /100 WBC (0-0); Total Cells Counted 100
[2023-10-21 10:57] LABS: African American GFR (CKD) >90 (>60 ml/min/1.73 sqM); Anion Gap 4 mmol/L; Blood Urea Nitrogen 12 mg/dL (7-17); Calcium 7.2 mg/dL (8.4-10.2); Carbon Dioxide 29 mmol/L (22-30); Chloride 98 mmol/L (98-107); Glucose 315 mg/dL (74-99); Non-African American GFR(CKD) >90 (>60 ml/min/1.73 sqM); Potassium 3.6 mmol/L (3.5-5.1); Sodium 131 mmol/L (137-145)
[2023-10-21 11:26] LABS: C Reactive Protein 15.1 mg/dL (<1.0)
[2023-10-21 11:37] LABS: Glucose,Whole Blood 337 mg/dL (70-110)
--- NOTE | 2023-10-21 13:48 | P.CONS ---
History of Present Illness - Reason for Consult Consult date: 10/21/23 Fever, pancytopenia due to MDS - History of Present Illness Ms. 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 The patient has not been able to start any specific treatment for the MDS, due to other medical events, including hospital admission in mid 10/12 with tachycardia with heart rates in the 100s and systolic blood pressures ranging from the 90s to 100s and saturating well on room air. Labs noted WBC 1.3 (ANC 0.6), hemoglobin 6.7 (MCV 91), platelets 21. CMP noted blood glucose of 352 with no other acute metabolic abnormalities. Coagulation studies were within normal limits. Chest x-ray reviewed no acute cardiopulmonary process. She received 1 unit packed red blood cells and was admitted for additional management. Her hospital course was complicated by confusion along with chills/rigors during packed red blood cell transfusion concerning for transfusion reaction. She did receive Benadryl and Solu-Medrol with resolution of her symptoms. She also had a fall causing subdural hematoma in early 10/12. The patient is currently in an ECF. She was brought in because of decreased responsiveness and progressive weakness. In the ER she had a fever of 101.2. Pancytopenia was again noted, with ANC in the high 1000 range, platelets of 17,000, and hemoglobin of 6.3. At the time of my evaluation, the patient was more alert, and was aware that she was in the hospital, and had come in from ECF. She denies any signs or symptoms localizing for infection. No unusual bleeding. She has significant swelling of her lower abdomen and lower extremities. Review of Systems Constitutional: Reports fatigue, Reports fever, Reports poor appetite, Reports weakness Eyes: denies blurred vision, denies pain Ears: deny: decreased hearing, ear discharge, earache, tinnitus Ears, nose, mouth and throat: Denies headache, Denies sore throat Cardiovascular: Reports decreased exercise tolerance Respiratory: Denies cough Gastrointestinal: Denies abdominal pain, Denies diarrhea, Denies nausea, Denies vomiting Genitourinary: Reports as per HPI Menstruation: Reports postmenopausal Musculoskeletal: Reports muscle weakness Integumentary: Reports unusual bruising (Scattered, overall minor, on lower extremities) Neurological: Reports change in mentation, Reports weakness Psychiatric: Reports confusion Endocrine: Reports fatigue Past Medical History Past Medical History: Blood Disorder, Cancer, COPD, Fibromyalgia, Hyperlipidemia, Osteoarthritis (OA) Additional Past Medical History / Comment(s): 2008-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 2016-esophageal cancer with surgery. 06/2020 pet scan showed mets to L neck/liver/sacrum-chemo/radiation. 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 Pt states she takes inderal for shakes not BP. 09/12/2023: Pt states last chemo "1 year ago". History of Any Multi-Drug Resistant Organisms: None Reported Past Surgical History: Section, Cholecystectomy, Orthopedic Surgery, Tonsillectomy Additional Past Surgical History / Comment(s): 2008 R groin tumor removed, extensive esophageal surgery/esophagectomy/stomach brought up and attached, R sided port, R elbow fracture/radial head removed, colonoscopy. Past Anesthesia/Blood Transfusion Reactions: No Reported Reaction Additional Past Anesthesia/Blood Transfusion Reaction / Comm: Pt received blood with esophagectomy surgery without reaction. Past Psychological History: Bipolar Smoking Status: Former smoker Past Alcohol Use History: None Reported Past Drug Use History: None Reported - Past Family History Mother History Unknown: Yes Additional Family Medical History / Comment(s): patient adopted and does not know family history Medications and Allergies Home Medications Medication Instructions Recorded Confirmed Type Divalproex [Depakote] 500 mg PO TID 07/01/20 10/20/23 History Omeprazole 40 mg PO DAILY 07/01/20 10/20/23 History Propranolol [Inderal] 20 mg PO BID@0800,1600 07/01/20 10/20/23 History Cariprazine HCl [Vraylar] 3 mg PO DAILY@0800 09/05/23 10/20/23 History Acetaminophen Tab [Tylenol] 975 mg PO Q8HR@0500,1300,2100 10/07/23 10/20/23 History Atorvastatin [Lipitor] 20 mg PO HS 10/07/23 10/20/23 History Multivitamins, Thera [Multivitamin 1 tab PO DAILY@0800 10/07/23 10/20/23 History (formulary)] Naloxone HCl [Narcan] 4 mg NASAL DIRECTED PRN 10/07/23 10/20/23 History Ondansetron [Zofran] 4 mg PO Q6H PRN 10/07/23 10/20/23 History Sennosides [Senokot] 17.2 mg PO Q12H PRN 10/07/23 10/20/23 History Albuterol Nebulized [Ventolin 2.5 mg INHALATION RT-Q2H PRN ml 10/10/23 10/20/23 Rx Nebulized] Gabapentin 600 mg PO TID #9 tab 10/10/23 10/20/23 Rx LORazepam [Ativan] 0.5 mg PO TID #9 tab 10/10/23 10/20/23 Rx oxyCODONE HCL [oxyCODONE HCL (IR)] 20 mg PO Q8H PRN #9 tab 10/10/23 10/20/23 Rx INSULIN ASPART (NovoLOG) [NovoLOG See Protocol SQ ACHS 10/20/23 10/20/23 History (formulary)] Allergies Allergy/AdvReac Type Severity Reaction Status Date / Time bendamustine [From [facility]] Allergy Itching Verified 10/20/23 12:36 Physical Exam Vitals: Vital Signs Temp Pulse Pulse Resp BP BP Pulse Ox 10/21/23 08:00 97.7 F 111 H 16 114/67 94 L 10/21/23 04:00 100.6 F H 18 113/51 93 L 10/21/23 02:00 16 10/21/23 00:00 99.1 F 16 97/56 97 10/20/23 21:03 98.3 F 88 18 107/68 98 10/20/23 21:00 18 10/20/23 20:30 98 19 98/57 98 10/20/23 19:51 98.7 F 102 H 18 102/80 97 10/20/23 19:31 97.8 F 111 H 18 113/65 98 10/20/23 19:21 97.8 F 120 H 20 119/54 96 10/20/23 18:04 98.7 F 91 16 101/51 100 10/20/23 12:45 102.2 F H 10/20/23 12:29 99.0 F 78 16 104/68 98 Intake and Output 10/20/23 10/21/23 10/21/23 22:59 06:59 14:59 Intake Total 428 Output Total 600 Balance 428 -600 Intake: Oral 118 Blood Product 310 Rc As-1 Unit 310 [id number] Output: Urine 600 Other: Voiding Method External Catheter External Catheter External Catheter Weight 72.575 kg - Constitutional General appearance: no acute distress - EENT Eyes: EOMI, PERRLA ENT: hearing grossly normal, normal oropharynx - Respiratory Respiratory: bilateral: CTA - Cardiovascular Rhythm: regular Heart sounds: normal: S1, S2 - Gastrointestinal General gastrointestinal: normal bowel sounds, soft - Integumentary Significant soft tissue edema, involving lower abdomen, and both lower extremities, with scattered bruising. Degree of bruising is overall minor - Neurologic Neurologic: CNII-XII intact - Musculoskeletal Musculoskeletal: generalized weakness, strength equal bilaterally - Psychiatric Psychiatric: A&O x's 3, appropriate affect Results CBC & Chem 7: 10/21/23 10:15 10/21/23 10:15 Labs: Abnormal Lab Results - Last 24 Hours (Table) 10/20/23 10/20/23 10/20/23 Range/Units 12:48 12:48 12:48 WBC 1.9 L (3.8-10.6) k/uL RBC 2.24 L (3.80-5.40) m/uL Hgb 6.4 L* (11.4-16.0) gm/dL Hct 19.5 L* (34.0-46.0) % Plt Count 19 L* (150-450) k/uL Neutrophils # (Manual) 1.10 L (1.3-7.7) k/uL Lymphocytes # (Manual) 0.68 L (1.0-4.8) k/uL APTT 21.1 L (22.0-30.0) sec Sodium (137-145) mmol/L Chloride (98-107) mmol/L Carbon Dioxide (22-30) mmol/L Glucose (74-99) mg/dL POC Glucose (mg/dL) (70-110) mg/dL Calcium (8.4-10.2) mg/dL Alkaline Phosphatase (38-126) U/L C-Reactive Protein (<1.0) mg/dL Total Protein (6.3-8.2) g/dL Albumin (3.5-5.0) g/dL Urine Protein Trace H (Negative) Urine Glucose (UA) Trace H (Negative) Urine Ketones Trace H (Negative) Crossmatch 10/20/23 10/20/23 10/20/23 Range/Units 12:48 12:56 15:01 WBC (3.8-10.6) k/uL RBC (3.80-5.40) m/uL Hgb (11.4-16.0) gm/dL Hct (34.0-46.0) % Plt Count (150-450) k/uL Neutrophils # (Manual) (1.3-7.7) k/uL Lymphocytes # (Manual) (1.0-4.8) k/uL APTT (22.0-30.0) sec Sodium 132 L (137-145) mmol/L Chloride 97 L (98-107) mmol/L Carbon Dioxide 34 H (22-30) mmol/L Glucose 173 H (74-99) mg/dL POC Glucose (mg/dL) 156 H (70-110) mg/dL Calcium 7.6 L (8.4-10.2) mg/dL Alkaline Phosphatase 193 H (38-126) U/L C-Reactive Protein (<1.0) mg/dL Total Protein 5.4 L (6.3-8.2) g/dL Albumin 3.0 L (3.5-5.0) g/dL Urine Protein (Negative) Urine Glucose (UA) (Negative) Urine Ketones (Negative) Crossmatch See Detail 10/20/23 10/20/23 10/21/23 Range/Units 18:47 20:57 06:05 WBC (3.8-10.6) k/uL RBC (3.80-5.40) m/uL Hgb (11.4-16.0) gm/dL Hct (34.0-46.0) % Plt Count (150-450) k/uL Neutrophils # (Manual) (1.3-7.7) k/uL Lymphocytes # (Manual) (1.0-4.8) k/uL APTT (22.0-30.0) sec Sodium (137-145) mmol/L Chloride (98-107) mmol/L Carbon Dioxide (22-30) mmol/L Glucose (74-99) mg/dL POC Glucose (mg/dL) 240 H 279 H 201 H (70-110) mg/dL Calcium (8.4-10.2) mg/dL Alkaline Phosphatase (38-126) U/L C-Reactive Protein (<1.0) mg/dL Total Protein (6.3-8.2) g/dL Albumin (3.5-5.0) g/dL Urine Protein (Negative) Urine Glucose (UA) (Negative) Urine Ketones (Negative) Crossmatch 10/21/23 10/21/23 10/21/23 Range/Units 10:15 10:15 11:36 WBC 1.8 L (3.8-10.6) k/uL RBC 2.12 L (3.80-5.40) m/uL Hgb 6.3 L* (11.4-16.0) gm/dL Hct 18.8 L* (34.0-46.0) % Plt Count 17 L* (150-450) k/uL Neutrophils # (Manual) 0.92 L (1.3-7.7) k/uL Lymphocytes # (Manual) 0.72 L (1.0-4.8) k/uL APTT (22.0-30.0) sec Sodium 131 L (137-145) mmol/L Chloride (98-107) mmol/L Carbon Dioxide (22-30) mmol/L Glucose 315 H (74-99) mg/dL POC Glucose (mg/dL) 337 H (70-110) mg/dL Calcium 7.2 L (8.4-10.2) mg/dL Alkaline Phosphatase (38-126) U/L C-Reactive Protein 15.1 H (<1.0) mg/dL Total Protein (6.3-8.2) g/dL Albumin (3.5-5.0) g/dL Urine Protein (Negative) Urine Glucose (UA) (Negative) Urine Ketones (Negative) Crossmatch Chest x-ray: report reviewed CT Scan - head: report reviewed Assessment and Plan (1) Fever Narrative/Plan: The patient does not have any localizing symptoms. She has been seen by ID, and is on broad-spectrum antibiotics, with concern for possible central venous access related infection. Will await results of cultures. Urine and chest x- ray did not show any definite evidence of infection. -It was discussed with the patient that if infection workup is negative, and fevers persist despite antibiotics, we would need to consider progression of her primary marrow process as a possible etiology. Current Visit: Yes Status: Acute Code(s): R50.9 - FEVER, UNSPECIFIED SNOMED Code(s): 341332338 (2) Pancytopenia Narrative/Plan: Due to myelodysplastic syndrome. Case discussed in detail with the admitting service. Patient is receiving 1 unit of PRBC for hemoglobin of 6.3. Her platelets were 17,000. She did have an intracranial bleed in early 10/12, but that was after a specific trauma. Her current CAT scan shows no evidence of bleed, with resolution of prior hematoma. Therefore at this time a target platelet count of 10,000 is felt to be appropriate. -Continue to monitor, and transfuse to keep hemoglobin greater than 7, and platelets greater than 10 -Her ANC is in the 900 range, which is most likely adequate. The patient is not an appropriate candidate for G-CSF, given her underlying marrow condition Current Visit: No Status: Acute Priority: High Code(s): D61.818 - OTHER PANCYTOPENIA SNOMED Code(s): 329247927 (3) MDS (myelodysplastic syndrome) Narrative/Plan: Diagnostic circumstances as per HPI. The patient has not been on specific treatment so far, due to other medical events as described. Her performance status at this time continues to be poor. Current Visit: No Status: Acute Priority: High Code(s): D46.9 - MYELODYSPLASTIC SYNDROME, UNSPECIFIED SNOMED Code(s): 431513503
--- NOTE | 2023-10-21 14:40 | P.PN ---
Subjective Progress Note Date: 10/21/23 Principal diagnosis: Reason for follow-up is fever Patient is a 68-year-old female with a past medical history significant for hyperlipidemia osteomyelitis fibromyalgia COPD patient did have a diffuse large B-cell lymphoma did have a right chest wall Mediport last use about a week ago for infusion patient presenting to the hospital concerning for generalized bodyaches, patient was noted to be febrile prompting this consultation. On today's evaluation that is 10/21/2023 patient did have improvement her fever pattern, last temperature was 100.6 around 4 AM the patient is afebrile since then, the patient is breathing comfortably currently on room air denies any ches t pain or shortness with occasional cough no nausea vomiting no abdominal pain or diarrhea. Patient did have a white count of 1.8 creatinine 0.56 cultures currently pending Objective - Vital Signs Vital signs: Vital Signs Temp 97.7 F 10/21/23 08:00 Pulse 111 H 10/21/23 08:00 Resp 16 10/21/23 08:00 BP 114/67 10/21/23 08:00 Pulse Ox 94 L 10/21/23 08:00 FiO2 Intake & Output 10/20/23 10/21/23 10/21/23 18:59 06:59 18:59 Intake Total 428 Output Total 600 Balance -172 Weight 72.575 kg 72.575 kg Intake: Oral 118 Blood Product 310 Rc As-1 Unit 310 [id number] Output: Urine 600 Other: Voiding Method External Catheter External Catheter - Exam GENERAL DESCRIPTION: An elderly female lying in bed in no distress RESPIRATORY SYSTEM: Unlabored breathing , decreased breath sounds at bases HEART: S1 S2 regular rate and rhythm , ABDOMEN: Soft , no tenderness EXTREMITIES: No edema feet - Labs CBC & Chem 7: 10/21/23 10:15 10/21/23 10:15 Labs: Abnormal Lab Results - Last 24 Hours (Table) 10/20/23 10/20/23 10/20/23 Range/Units 12:48 12:48 12:48 WBC 1.9 L (3.8-10.6) k/uL RBC 2.24 L (3.80-5.40) m/uL Hgb 6.4 L* (11.4-16.0) gm/dL Hct 19.5 L* (34.0-46.0) % Plt Count 19 L* (150-450) k/uL Neutrophils # (Manual) 1.10 L (1.3-7.7) k/uL Lymphocytes # (Manual) 0.68 L (1.0-4.8) k/uL APTT 21.1 L (22.0-30.0) sec Sodium (137-145) mmol/L Chloride (98-107) mmol/L Carbon Dioxide (22-30) mmol/L Glucose (74-99) mg/dL POC Glucose (mg/dL) (70-110) mg/dL Calcium (8.4-10.2) mg/dL Alkaline Phosphatase (38-126) U/L C-Reactive Protein (<1.0) mg/dL Total Protein (6.3-8.2) g/dL Albumin (3.5-5.0) g/dL Urine Protein Trace H (Negative) Urine Glucose (UA) Trace H (Negative) Urine Ketones Trace H (Negative) Crossmatch 10/20/23 10/20/23 10/20/23 Range/Units 12:48 12:56 15:01 WBC (3.8-10.6) k/uL RBC (3.80-5.40) m/uL Hgb (11.4-16.0) gm/dL Hct (34.0-46.0) % Plt Count (150-450) k/uL Neutrophils # (Manual) (1.3-7.7) k/uL Lymphocytes # (Manual) (1.0-4.8) k/uL APTT (22.0-30.0) sec Sodium 132 L (137-145) mmol/L Chloride 97 L (98-107) mmol/L Carbon Dioxide 34 H (22-30) mmol/L Glucose 173 H (74-99) mg/dL POC Glucose (mg/dL) 156 H (70-110) mg/dL Calcium 7.6 L (8.4-10.2) mg/dL Alkaline Phosphatase 193 H (38-126) U/L C-Reactive Protein (<1.0) mg/dL Total Protein 5.4 L (6.3-8.2) g/dL Albumin 3.0 L (3.5-5.0) g/dL Urine Protein (Negative) Urine Glucose (UA) (Negative) Urine Ketones (Negative) Crossmatch See Detail 10/20/23 10/20/23 10/21/23 Range/Units 18:47 20:57 06:05 WBC (3.8-10.6) k/uL RBC (3.80-5.40) m/uL Hgb (11.4-16.0) gm/dL Hct (34.0-46.0) % Plt Count (150-450) k/uL Neutrophils # (Manual) (1.3-7.7) k/uL Lymphocytes # (Manual) (1.0-4.8) k/uL APTT (22.0-30.0) sec Sodium (137-145) mmol/L Chloride (98-107) mmol/L Carbon Dioxide (22-30) mmol/L Glucose (74-99) mg/dL POC Glucose (mg/dL) 240 H 279 H 201 H (70-110) mg/dL Calcium (8.4-10.2) mg/dL Alkaline Phosphatase (38-126) U/L C-Reactive Protein (<1.0) mg/dL Total Protein (6.3-8.2) g/dL Albumin (3.5-5.0) g/dL Urine Protein (Negative) Urine Glucose (UA) (Negative) Urine Ketones (Negative) Crossmatch 10/21/23 10/21/23 10/21/23 Range/Units 10:15 10:15 11:36 WBC 1.8 L (3.8-10.6) k/uL RBC 2.12 L (3.80-5.40) m/uL Hgb 6.3 L* (11.4-16.0) gm/dL Hct 18.8 L* (34.0-46.0) % Plt Count 17 L* (150-450) k/uL Neutrophils # (Manual) 0.92 L (1.3-7.7) k/uL Lymphocytes # (Manual) 0.72 L (1.0-4.8) k/uL APTT (22.0-30.0) sec Sodium 131 L (137-145) mmol/L Chloride (98-107) mmol/L Carbon Dioxide (22-30) mmol/L Glucose 315 H (74-99) mg/dL POC Glucose (mg/dL) 337 H (70-110) mg/dL Calcium 7.2 L (8.4-10.2) mg/dL Alkaline Phosphatase (38-126) U/L C-Reactive Protein 15.1 H (<1.0) mg/dL Total Protein (6.3-8.2) g/dL Albumin (3.5-5.0) g/dL Urine Protein (Negative) Urine Glucose (UA) (Negative) Urine Ketones (Negative) Crossmatch Assessment and Plan (1) Fever Current Visit: Yes Status: Acute Code(s): R50.9 - FEVER, UNSPECIFIED SNOMED Code(s): 058009578 (2) Pancytopenia Current Visit: No Status: Acute Priority: High Code(s): D61.818 - OTHER PANCYTOPENIA SNOMED Code(s): 501601487 Plan: 1patient presented to hospital with sepsis/SIRS and this patient who did have a fever tachycardia leukopenia with initial workup negative including a negative chest x-ray UA has been negative abdominal has been soft medical examination with a source questionably Mediport site infection last was about a week ago. 2 blood cultures has been obtained from the port as well as peripheral results are currently pending 3patient to continue with the vancomycin and cefepime while waiting for the workup to be completed Dictation was produced using [employer] dictation software. please excuse any grammatical, word or spelling errors. Time with Patient: Less than 30
--- NOTE | 2023-10-21 14:45 | P.PN ---
Subjective Progress Note Date: 10/21/23 (delayed charting seen at 1020) Patient is a 68-year-old female with a history of myelodysplastic syndrome, lymphedema, recent subdural hematoma 09/25/2023, COPD, fibromyalgia, and multiple other comorbid conditions who [facility] due to an episode of unresponsiveness. In the ER she underwent an extensive evaluation. Rectal temperature was found to be 102.2. The remainder of her vital signs were normal. Initial laboratory analysis demonstrated white blood cell count 1.9, hemoglobin 6.3, platelets 19, sodium 132. Urinalysis was negative. Influenza A/B/RSV/COVID-[address] head was completed which showed moderate small vessel ischemic disease, no acute intracranial abnormality and ongoing fluid collection within the left mastoid air cells. Chest x-ray demonstrated bilateral pleural effusions consistent with CHF. Patient was admitted due to fevers in the setting of pancytopenia and myelodysplastic syndrome. 1 unit of packed red blood cells was ordered. Patient was started on vancomycin and Zosyn. Infectious disease and hematology oncology were consulted. Patient seen and examined at bedside. She is unsure why she is here in the hospital. She denies any chest pain, shortness of breath, nausea, vomiting, diarrhea, dysuria. She feels as an her normal state of health. She endorses that she has had significant lower extremity edema for the last several months. She is unsure why she is here. Vital signs reviewed General: Nontoxic, no distress, appears at stated age Cardiovascular: S1S2 reg, no murmur Lungs: CTA bilateral, no rhonchi, no rales, no accessory muscle use Abdominal: Soft, nontender to palpation, no guarding Ext: No gross muscle atrophy, 4+ bilateral lower extremity edema, no contrac tures, Mediport evaluated with no signs of erythema or fluctuance Neuro: CN II-XI grossly intact, no focal neuro deficits Psych: Alert, oriented, flat affect Assessment/Plan: Episode of unresponsiveness. -On thorough record review completed patient had similar episode noted on blood transfusion 10/10/2023. -Will consult neurology as there is a concern that this could possibly be related to seizure disorder. -Patient did have subdural hematoma on 09/25/2023 necessitating transfer to [facility] and neurosurgical evaluation -Patient completed echocardiogram on 09/07/2023 which showed ejection fraction 55 to 60% with grade 2 diastolic dysfunction, moderate to severe pulmonary hypertension, moderate tricuspid regurgitation, and severe pulmonary hypertension. - neuro checks q 4 hours, tele - check orthostatic vital signs Fever of unknown etiology/ SIRS Pancytopenia secondary to myelodysplastic syndrome History of large B cell lymphoma -Cefepime 2 g IV piggyback every 8 hours day #2, vancomycin IV piggyback dosing via creatinine and vancomycin trough day #12 -Infectious disease consultation reviewed: It appears patient may have had concerns of possible Mediport infection. -Case discussed with Dr. Pedro given the fact that patient had recent subdural hematoma, this was traumatic induced from a fall. Given that her CT head shows no evidence of continued hematoma appears most appropriate to only transfuse for platelets less than 10. -1 unit of packed red blood cells, and also received 1 unit of packed red blood cells on 10/20/2023 -Urinalysis negative, chest x-ray negative -Blood cultures pending -Patient does have mildly elevated CRP at 15.1. Diabetes mellitus type 2 -A1c 6.8 -Sliding scale insulin -Start Levemir 10 units at night -Follow blood sugars Chronic: Fibromyalgia COPD without exacerbation Imaging: None new Data Review: Labs reviewed from today include CBC which is remarkable for white blood cell count 1.8, hemoglobin 6.3, platelets 17, sodium 131, glucose 315. DVT prophylaxis: SCDs Anticipated discharge date: Pending Clinical Course Anticipated discharge place: Pending Clinical Course This dictation was prepared using [employer] voice recognition software. Though every attempt is made to correct errors during dictation some may still exist. Objective - Vital Signs Vital signs: Vital Signs Temp 98.0 F 10/21/23 13:06 Pulse 112 H 10/21/23 14:00 Resp 14 10/21/23 14:00 BP 117/67 10/21/23 13:06 Pulse Ox 99 10/21/23 13:06 FiO2 Intake & Output 10/20/23 10/21/23 10/21/23 18:59 06:59 18:59 Intake Total 428 1750 Output Total 600 Balance -172 1750 Weight 72.575 kg 72.575 kg Intake: Intake, IV Titration 870 Amount Cefepime 2 gm In Sodium 100 Chloride 0.9% 100 ml @ 25 mls/hr IVPB Q8HR [facility] Rx# :[id number] Sodium Chloride 0.9% 1, 520 000 ml @ 50 mls/hr IV . Q20H [facility] Rx#:[id number] Vancomycin 1,250 mg In 250 Sodium Chloride 0.9% 250 ml @ 125 mls/hr IVPB Q12H [facility] Rx#:[id number] Oral 118 880 Blood Product 310 0 Rc As-1 Unit 0 [id number] Rc As-1 Unit 310 [id number] Output: Urine 600 Other: Voiding Method External Catheter External Catheter - Labs CBC & Chem 7: 10/21/23 10:15 10/21/23 10:15 Labs: Abnormal Lab Results - Last 24 Hours (Table) 10/20/23 10/20/23 10/20/23 Range/Units 12:48 12:48 15:01 WBC (3.8-10.6) k/uL RBC (3.80-5.40) m/uL Hgb (11.4-16.0) gm/dL Hct (34.0-46.0) % Plt Count 19 L* (150-450) k/uL Neutrophils # (Manual) 1.10 L (1.3-7.7) k/uL Lymphocytes # (Manual) 0.68 L (1.0-4.8) k/uL Sodium (137-145) mmol/L Glucose (74-99) mg/dL POC Glucose (mg/dL) (70-110) mg/dL Calcium (8.4-10.2) mg/dL C-Reactive Protein (<1.0) mg/dL Urine Protein Trace H (Negative) Urine Glucose (UA) Trace H (Negative) Urine Ketones Trace H (Negative) Crossmatch See Detail 10/20/23 10/20/23 10/21/23 Range/Units 18:47 20:57 06:05 WBC (3.8-10.6) k/uL RBC (3.80-5.40) m/uL Hgb (11.4-16.0) gm/dL Hct (34.0-46.0) % Plt Count (150-450) k/uL Neutrophils # (Manual) (1.3-7.7) k/uL Lymphocytes # (Manual) (1.0-4.8) k/uL Sodium (137-145) mmol/L Glucose (74-99) mg/dL POC Glucose (mg/dL) 240 H 279 H 201 H (70-110) mg/dL Calcium (8.4-10.2) mg/dL C-Reactive Protein (<1.0) mg/dL Urine Protein (Negative) Urine Glucose (UA) (Negative) Urine Ketones (Negative) Crossmatch 10/21/23 10/21/23 10/21/23 Range/Units 10:15 10:15 11:36 WBC 1.8 L (3.8-10.6) k/uL RBC 2.12 L (3.80-5.40) m/uL Hgb 6.3 L* (11.4-16.0) gm/dL Hct 18.8 L* (34.0-46.0) % Plt Count 17 L* (150-450) k/uL Neutrophils # (Manual) 0.92 L (1.3-7.7) k/uL Lymphocytes # (Manual) 0.72 L (1.0-4.8) k/uL Sodium 131 L (137-145) mmol/L Glucose 315 H (74-99) mg/dL POC Glucose (mg/dL) 337 H (70-110) mg/dL Calcium 7.2 L (8.4-10.2) mg/dL C-Reactive Protein 15.1 H (<1.0) mg/dL Urine Protein (Negative) Urine Glucose (UA) (Negative) Urine Ketones (Negative) Crossmatch
[2023-10-21 16:59] LABS: Glucose,Whole Blood 228 mg/dL (70-110)
[2023-10-21 21:09] LABS: Glucose,Whole Blood 244 mg/dL (70-110)
[2023-10-21] MEDS: INSULIN DETEMIR (LEVEMIR) 100 UNIT/ML SYR SQ SCH (21:09)
[2023-10-22 05:42] LABS: HCT 20.9 % (34.0-46.0); MCH 29.1 pg (25.0-35.0); MCHC 33.4 g/dL (31.0-37.0); MCV 87.3 fL (80.0-100.0); Mean Platelet Volume 8.7; RDW 14.8 % (11.5-15.5); WBC 1.5 k/uL (3.8-10.6)
[2023-10-22 05:57] LABS: Platelet Count 14 k/uL (150-450)
[2023-10-22 05:59] LABS: African American GFR (CKD) >90 (>60 ml/min/1.73 sqM); Non-African American GFR(CKD) >90 (>60 ml/min/1.73 sqM)
[2023-10-22 06:01] LABS: ALT 8 U/L (4-34); AST 18 U/L (14-36); African American GFR (CKD) >90 (>60 ml/min/1.73 sqM); Albumin 2.3 g/dL (3.5-5.0); Alkaline Phosphatase 138 U/L (38-126); Anion Gap 1 mmol/L; Blood Urea Nitrogen 12 mg/dL (7-17); Calcium 7.3 mg/dL (8.4-10.2); Carbon Dioxide 31 mmol/L (22-30); Chloride 100 mmol/L (98-107); Glucose 164 mg/dL (74-99); Non-African American GFR(CKD) >90 (>60 ml/min/1.73 sqM); Potassium 3.5 mmol/L (3.5-5.1); Sodium 132 mmol/L (137-145); Total Bilirubin 0.9 mg/dL (0.2-1.3); Total Protein 4.5 g/dL (6.3-8.2)
[2023-10-22 06:10] LABS: Glucose,Whole Blood 180 mg/dL (70-110)
[2023-10-22 06:17] LABS: Prothrombin Time 11.3 sec (10.0-12.5)
[2023-10-22 06:18] LABS: Partial Thromboplastin Time 24.8 sec (22.0-30.0)
[2023-10-22] MEDS: VANCOMYCIN TROUGH DUE 1 EACH MISC MISCELLANE ONE (06:35)
[2023-10-22] MEDS: ACETAMINOPHEN IV (For NPO) 1,000 MG in EMPTY BAG 1 BAG IVPB ONE (09:37)
[2023-10-22 11:42] LABS: Glucose,Whole Blood 177 mg/dL (70-110)
[2023-10-22] MEDS: FUROSEMIDE 10 MG/ML 4 ML VIAL IV STA (11:53)
--- NOTE | 2023-10-22 14:19 | P.PN ---
Subjective Progress Note Date: 10/22/23 Patient still continues to spike temperatures, without any obvious localizing symptoms for infection. He is continuing on broad-spectrum antibiotics. No obvious bleeding. No change in mental status Objective - Vital Signs Vital signs: Vital Signs Temp 97.9 F 10/22/23 11:50 Pulse 85 10/22/23 11:50 Resp 18 10/22/23 11:50 BP 92/53 10/22/23 11:50 Pulse Ox 98 10/22/23 11:50 FiO2 Intake & Output 10/21/23 10/22/23 10/22/23 18:59 06:59 18:59 Intake Total 2540 480 Output Total 661 052 6562 Balance 1840 -400 -870 Intake: Intake, IV Titration 870 Amount Cefepime 2 gm In Sodium 100 Chloride 0.9% 100 ml @ 25 mls/hr IVPB Q8HR [facility] Rx# :[id number] Sodium Chloride 0.9% 1, 520 000 ml @ 50 mls/hr IV . Q20H [facility] Rx#:[id number] Vancomycin 1,250 mg In 250 Sodium Chloride 0.9% 250 ml @ 125 mls/hr IVPB Q12H [facility] Rx#:[id number] Oral 1360 480 Blood Product 310 Rc As-1 Unit 310 [id number] Output: Urine 858 990 1594 Other: Voiding Method External Catheter External Catheter External Catheter # Voids 2 - Constitutional General appearance: Present: no acute distress - EENT Eyes: Present: EOMI ENT: Present: hearing grossly normal, normal oropharynx - Respiratory Respiratory: bilateral: CTA - Cardiovascular Rhythm: regular Heart sounds: normal: S1, S2 - Gastrointestinal General gastrointestinal: Present: normal bowel sounds, soft - Integumentary Integumentary: Present: normal, pale - Neurologic Neurologic: Present: CNII-XII intact - Musculoskeletal Musculoskeletal: Present: generalized weakness, strength equal bilaterally - Psychiatric Psychiatric: Present: A&O x's 3, appropriate affect - Labs CBC & Chem 7: 10/22/23 05:11 10/22/23 05:11 Labs: Abnormal Lab Results - Last 24 Hours (Table) 10/20/23 10/21/23 10/21/23 Range/Units 15:01 10:14 10:15 WBC (3.8-10.6) k/uL RBC (3.80-5.40) m/uL Hgb (11.4-16.0) gm/dL Hct (34.0-46.0) % Plt Count (150-450) k/uL Sodium (137-145) mmol/L Carbon Dioxide (22-30) mmol/L Glucose (74-99) mg/dL POC Glucose (mg/dL) (70-110) mg/dL Hemoglobin A1c 7.5 H (<=6.0) % Calcium (8.4-10.2) mg/dL Alkaline Phosphatase (38-126) U/L Total Protein (6.3-8.2) g/dL Albumin (3.5-5.0) g/dL Procalcitonin 0.14 H (0.02-0.09) ng/mL Crossmatch See Detail 10/21/23 10/21/23 10/22/23 Range/Units 16:55 21:07 05:11 WBC 1.5 L (3.8-10.6) k/uL RBC 2.40 L (3.80-5.40) m/uL Hgb 7.0 L (11.4-16.0) gm/dL Hct 20.9 L (34.0-46.0) % Plt Count 14 L* (150-450) k/uL Sodium (137-145) mmol/L Carbon Dioxide (22-30) mmol/L Glucose (74-99) mg/dL POC Glucose (mg/dL) 228 H 244 H (70-110) mg/dL Hemoglobin A1c (<=6.0) % Calcium (8.4-10.2) mg/dL Alkaline Phosphatase (38-126) U/L Total Protein (6.3-8.2) g/dL Albumin (3.5-5.0) g/dL Procalcitonin (0.02-0.09) ng/mL Crossmatch 10/22/23 10/22/23 10/22/23 Range/Units 05:11 06:08 11:41 WBC (3.8-10.6) k/uL RBC (3.80-5.40) m/uL Hgb (11.4-16.0) gm/dL Hct (34.0-46.0) % Plt Count (150-450) k/uL Sodium 132 L (137-145) mmol/L Carbon Dioxide 31 H (22-30) mmol/L Glucose 164 H (74-99) mg/dL POC Glucose (mg/dL) 180 H 177 H (70-110) mg/dL Hemoglobin A1c (<=6.0) % Calcium 7.3 L (8.4-10.2) mg/dL Alkaline Phosphatase 138 H (38-126) U/L Total Protein 4.5 L (6.3-8.2) g/dL Albumin 2.3 L (3.5-5.0) g/dL Procalcitonin (0.02-0.09) ng/mL Crossmatch Microbiology - Last 24 Hours (Table) 10/20/23 12:48 Blood Culture - Preliminary Blood Assessment and Plan (1) Fever Narrative/Plan: Cultures are negative so far. As noted previously, based on signs and symptoms, there is no definite source. Patient is continuing on broad-spectrum antibiotics, with antifungal coverage added. -Case discussed with IM. If the cultures remain negative, and patient continues to spike despite 3 to 4 days of appropriate antibiotic coverage, then the possibility of fever related to her underlying marrow condition probably becomes more likely. Current Visit: Yes Status: Acute Code(s): R50.9 - FEVER, UNSPECIFIED SNOMED Code(s): 612905990 (2) Pancytopenia Narrative/Plan: Counts essentially in the same range, with hemoglobin 7 and platelets greater than 10. Transfuse if hemoglobin falls less than 7, and platelets less than 10. Current Visit: No Status: Acute Priority: High Code(s): D61.818 - OTHER PANCYTOPENIA SNOMED Code(s): 533244581 (3) MDS (myelodysplastic syndrome) Narrative/Plan: Her current situation was discussed in detail with the admitting service, and then subsequently with the patient. She had been quite upset and anxious about the fact that she had not started treatment for her MDS yet. The patient was advised that at this time we cannot initiate treatment, because of her poor performance status, that requires ECF stay, as well as her other medical events, including intracranial hemorrhage, and subsequent fever with suspected infection. We discussed the increased risk, versus benefit, of initiating cancer specific treatment in this situation. Her questions were answered in detail. She expressed understanding of the rationale, and the fact that it would be medically appropriate to initiate treatment only when her performance status is felt to be adequate, and other medical issues are controlled. Current Visit: No Status: Acute Priority: High Code(s): D46.9 - MYELODYSPLASTIC SYNDROME, UNSPECIFIED SNOMED Code(s): 950676266
--- NOTE | 2023-10-22 15:35 | P.PN ---
Subjective Progress Note Date: 10/22/23 (delayed charting seen at 0945) Patient is a 68-year-old female with a history of myelodysplastic syndrome, lymphedema, recent subdural hematoma 09/25/2023, COPD, fibromyalgia, and multiple other comorbid conditions who presented to the hospital from [place] [facility] due to an episode of unresponsiveness. In the ER she underwent an extensive evaluation. Rectal temperature was found to be 102.2. The remainder of her vital signs were normal. Initial laboratory analysis demonstrated white blood cell count 1.9, hemoglobin 6.3, platelets 19, sodium 132. Urinalysis was negative. Influenza A/B/RSV/COVID-[address] head was completed which showed moderate small vessel ischemic disease, no acute intracranial abnormality and ongoing fluid collection within the left mastoid air cells. Chest x-ray demonstrated bilateral pleural effusions consistent with CHF. Patient was admitted due to fevers in the setting of pancytopenia and myelodysplastic syndrome. 1 unit of packed red blood cells was ordered. Patient was started on vancomycin and Zosyn. Infectious disease and hematology oncology were consulted. Patient seen and examined at bedside. She is talking about transfer. I explained to her that she does not have a medical condition that requires trans jennifer to a different facility. She feels frustrated that no one is treating her myelodysplastic syndrome. I again explained to her that once she has enough energy and stability to undergo treatment Dr. Muñiz will consider this and if you feel she would benefit from other therapies will refer her for other therapy. She is having pain all over and feels weak. Vital signs reviewed General: Nontoxic, no distress, appears at stated age Cardiovascular: S1S2 reg, no murmur Lungs: CTA bilateral, no rhonchi, no rales, no accessory muscle use Abdominal: Soft, nontender to palpation, no guarding Ext: No gross muscle atrophy, 4+ bilateral lower extremity edema, no contractures, Mediport evaluated with no signs of erythema or fluctuance Neuro: CN II-XI grossly intact, no focal neuro deficits Psych: Alert, oriented, flat affect Assessment/Plan: Episode of unresponsiveness. -On thorough record review completed patient had similar episode noted on blood transfusion 10/10/2023. -Await neurology consult -Patient did have subdural hematoma on 09/25/2023 necessitating transfer to [facility] and neurosurgical evaluation -Patient completed echocardiogram on 09/07/2023 which showed ejection fraction 55 to 60% with grade 2 diastolic dysfunction, moderate to severe pulmonary hypertension, moderate tricuspid regurgitation, and severe pulmonary hypertension. - neuro checks q 4 hours, tele - check orthostatic vital signs Fever of unknown etiology/ SIRS Pancytopenia secondary to myelodysplastic syndrome History of large B cell lymphoma -Case discussed with Dr. Pedro extensively. Due to patient's poor functional status that she is not currently a candidate for chemotherapy, even once this infection resolves. He also did discuss that her continued fevers may be due to worsening her myelodysplastic syndrome and not an acute infectious process. We agreed with continuation of antibiotics until blood cultures are negative for 48 hours and beta D glucan testing is available. -Cefepime 2 g IV piggyback every 8 hours day #3, vancomycin IV piggyback dosing via creatinine and vancomycin trough day #3 - Await further ID recs -Status post 2 units of packed red blood cells -Transfusion cutoffs would be hemoglobin less than 7 or platelets of less than 10 -Urinalysis negative, chest x-ray negative -Blood cultures pending -Patient does have mildly elevated CRP at 15.1. Diabetes mellitus type 2 -A1c 6.8 -Sliding scale insulin -Levemir 10 units at night -Follow blood sugars Chronic: Fibromyalgia COPD without exacerbation Imaging: None new Data Review: Labs reviewed from today include CBC and CMP which are remarkable for white blood cell count 1.5, hemoglobin 7, platelets 14, sodium 132. DVT prophylaxis: SCDs Anticipated discharge date: Pending Clinical Course Anticipated discharge place: Pending Clinical Course This dictation was prepared using Violet voice recognition software. Though every attempt is made to correct errors during dictation some may still exist. Objective - Vital Signs Vital signs: Vital Signs Temp 97.9 F 10/22/23 11:50 Pulse 85 10/22/23 11:50 Resp 18 10/22/23 11:50 BP 92/53 10/22/23 11:50 Pulse Ox 98 10/22/23 11:50 FiO2 Intake & Output 10/21/23 10/22/23 10/22/23 18:59 06:59 18:59 Intake Total 2540 480 Output Total 200 979 1769 Balance 1840 -400 -870 Intake: Intake, IV Titration 870 Amount Cefepime 2 gm In Sodium 100 Chloride 0.9% 100 ml @ 25 mls/hr IVPB Q8HR MARCELO Rx# :[id number] Sodium Chloride 0.9% 1, 520 000 ml @ 50 mls/hr IV . Q20H MARCELO Rx#:[id number] Vancomycin 1,250 mg In 250 Sodium Chloride 0.9% 250 ml @ 125 mls/hr IVPB Q12H MARCELO Rx#:[id number] Oral 1360 480 Blood Product 310 Rc As-1 Unit 310 [id number] Output: Urine 094 283 4855 Other: Voiding Method External Catheter External Catheter External Catheter # Voids 2 - Labs CBC & Chem 7: 10/22/23 05:11 10/22/23 05:11 Labs: Abnormal Lab Results - Last 24 Hours (Table) 10/20/23 10/21/23 10/21/23 Range/Units 15:01 10:14 10:15 WBC (3.8-10.6) k/uL RBC (3.80-5.40) m/uL Hgb (11.4-16.0) gm/dL Hct (34.0-46.0) % Plt Count (150-450) k/uL Sodium (137-145) mmol/L Carbon Dioxide (22-30) mmol/L Glucose (74-99) mg/dL POC Glucose (mg/dL) (70-110) mg/dL Hemoglobin A1c 7.5 H (<=6.0) % Calcium (8.4-10.2) mg/dL Alkaline Phosphatase (38-126) U/L Total Protein (6.3-8.2) g/dL Albumin (3.5-5.0) g/dL Procalcitonin 0.14 H (0.02-0.09) ng/mL Crossmatch See Detail 10/21/23 10/21/23 10/22/23 Range/Units 16:55 21:07 05:11 WBC 1.5 L (3.8-10.6) k/uL RBC 2.40 L (3.80-5.40) m/uL Hgb 7.0 L (11.4-16.0) gm/dL Hct 20.9 L (34.0-46.0) % Plt Count 14 L* (150-450) k/uL Sodium (137-145) mmol/L Carbon Dioxide (22-30) mmol/L Glucose (74-99) mg/dL POC Glucose (mg/dL) 228 H 244 H (70-110) mg/dL Hemoglobin A1c (<=6.0) % Calcium (8.4-10.2) mg/dL Alkaline Phosphatase (38-126) U/L Total Protein (6.3-8.2) g/dL Albumin (3.5-5.0) g/dL Procalcitonin (0.02-0.09) ng/mL Crossmatch 10/22/23 10/22/23 10/22/23 Range/Units 05:11 06:08 11:41 WBC (3.8-10.6) k/uL RBC (3.80-5.40) m/uL Hgb (11.4-16.0) gm/dL Hct (34.0-46.0) % Plt Count (150-450) k/uL Sodium 132 L (137-145) mmol/L Carbon Dioxide 31 H (22-30) mmol/L Glucose 164 H (74-99) mg/dL POC Glucose (mg/dL) 180 H 177 H (70-110) mg/dL Hemoglobin A1c (<=6.0) % Calcium 7.3 L (8.4-10.2) mg/dL Alkaline Phosphatase 138 H (38-126) U/L Total Protein 4.5 L (6.3-8.2) g/dL Albumin 2.3 L (3.5-5.0) g/dL Procalcitonin (0.02-0.09) ng/mL Crossmatch Microbiology - Last 24 Hours (Table) 10/20/23 12:48 Blood Culture - Preliminary Blood
[2023-10-22] MEDS: SENNOSIDES 8.6 MG TAB PO PRN (16:01)
[2023-10-22 16:28] LABS: Glucose,Whole Blood 171 mg/dL (70-110)
--- NOTE | 2023-10-22 16:44 | P.CNNES ---
History of Present Illness Consult date: 10/22/23 Requesting physician: Trisha Haas Reason for Consult: episode of unresponsiveness History of Present Illness: Patient is a 68-year-old right-handed female with history of myelodysplastic syndrome, bipolar disorder, pancytopenia came to the hospital by ambulance 2 days ago, 10/20/2023 at 12:27 PM for near syncopal spell and some focal symptoms. Patient's daughter was present, who is also nurse practitioner. Patient is currently residing at [facility]. Her was with the patient at [facility]. Her called patient's daughter that she is not acting right. Patient's daughter did FaceTime, who did not notice any facial droop. She knew her name and the year but not felt was in the hospital. Her daughter asked her to raise her arms, and the right arm was slightly droopy. She asked her dad to have the nurse call the ambulance and patient was brought to the hospital. As per EMS flowsheet when they arrived, patient was with fire department personnel. Patient's family were visiting her when she developed a blank stare, stopped responding to them and event lasted a few minutes. Patient noticed left arm and leg weakness compared to the right side. Patient has history of generalized muscle weakness. Patient was alert and oriented to the EMS personnel. She just did not feel right. No signs of trauma or distress. EKG shows sinus rhythm. Blood pressure was 146/88, pulse rate 75 respiration 18, blood glucose 197 mg/dL. Blood test shows WBC 1.9 hemoglobin 6.4, platelets 19,000. PT PTT normal. Sodium 132 potassium 4.6, normal renal function and hepatic panel. UA negative. Influenza, RSV and coronavirus PCR negative. CT head showed moderate supratentorial volume loss. Similar mild ventriculomegaly likely is due to central cerebral atrophy. Moderate patchy burden of chronic small vessel ischemic disease. No acute intracranial abnormality. Ongoing fluid within the left mastoid air cells. Correlate for any mass. I personally reviewed CT head, and do not appear to have any significant ventriculomegaly. Amount of ventricular dilation is consistent with amount of cortical atrophy. No evidence of NPH. No acute process. Chest x-ray showed bilateral pleural effusion, correlate for mild venous congestion otherwise consider interstitial pneumonitis. EKG showed supraventricular rhythm. Blood cultures negative for now. Patient had a 2D echo performed 09/07/2023, which revealed normal left ventricular function and cavity size. EF is 55 to 60%. Grade 2 diastolic dysfunction. No obvious regional wall motion abnormalities. Moderate to severe pulmonary hypertension. Moderately increased left atrial volume. Right atrium not well-visualized. Mild to moderate MR. Moderate TR. Moderate to severe coronary hypertension. Patient was diagnosed with non-Hodgkin's lymphoma in 2008. She had undergone CAR-T cell therapy. Patient had 4 relapses in the past. In August 2023 she has been diagnosed with myelodysplastic syndrome. Patient's daughter also mentions that on 09/25/2023 patient suffered from a fall and was found to have right frontal subdural hematoma. Patient was taken to [facility], where she was observed. No craniotomy was needed. Patient also has history of bipolar disorder for which she is on Depakote 500 mg 3 times daily. Review of Systems Constitutional: Reports chills, Reports fever Eyes: denies blurred vision, denies pain, denies loss of peripheral vision Ears: bilateral: decreased hearing (Sometimes), deny: ear discharge Ears, nose, mouth and throat: Reports headache, Denies sore throat, Denies vertigo Cardiovascular: Denies chest pain, Denies shortness of breath Respiratory: Denies cough, Denies excessive sputum Gastrointestinal: Reports constipation, Reports nausea, Denies abdominal pain, Denies diarrhea, Denies vomiting Musculoskeletal: Reports low back pain, Reports neck pain Neurological: Reports as per HPI Psychiatric: Reports anxiety, Reports depression Hematologic/Lymphatic: Reports easy bleeding, Reports easy bruising Past Medical History Past Medical History: Blood Disorder, Cancer, COPD, Fibromyalgia, Hyperlipidemia, Osteoarthritis (OA) Additional Past Medical History / Comment(s): 2009-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 2016-esophageal cancer with surgery. 06/2020 pet scan showed mets to L neck/liver/sacrum-chemo/radiation. 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 Pt states she takes inderal for shakes not BP. 09/12/2023: Pt states last chemo "1 year ago". History of Any Multi-Drug Resistant Organisms: None Reported Past Surgical History: Section, Cholecystectomy, Orthopedic Surgery, Tonsillectomy Additional Past Surgical History / Comment(s): 2009 R groin tumor removed, extensive esophageal surgery/esophagectomy/stomach brought up and attached, R sided port, R elbow fracture/radial head removed, colonoscopy. Past Anesthesia/Blood Transfusion Reactions: No Reported Reaction Additional Past Anesthesia/Blood Transfusion Reaction / Comment(s): Pt received blood with esophagectomy surgery without reaction. Past Psychological History: Bipolar Smoking Status: Former smoker Past Alcohol Use History: None Reported Past Drug Use History: None Reported - Past Family History Mother History Unknown: Yes Additional Family Medical History / Comment(s): patient adopted and does not know family history Medications and Allergies Home Medications Medication Instructions Recorded Confirmed Type Divalproex [Depakote] 500 mg PO TID 07/01/20 10/20/23 History Omeprazole 40 mg PO DAILY 07/01/20 10/20/23 History Propranolol [Inderal] 20 mg PO BID@0800,1600 07/01/20 10/20/23 History Cariprazine HCl [Vraylar] 3 mg PO DAILY@0800 09/05/23 10/20/23 History Acetaminophen Tab [Tylenol] 975 mg PO Q8HR@0500,1300,2100 10/07/23 10/20/23 History Atorvastatin [Lipitor] 20 mg PO HS 10/07/23 10/20/23 History Multivitamins, Thera [Multivitamin 1 tab PO DAILY@0800 10/07/23 10/20/23 History (formulary)] Naloxone HCl [Narcan] 4 mg NASAL DIRECTED PRN 10/07/23 10/20/23 History Ondansetron [Zofran] 4 mg PO Q6H PRN 10/07/23 10/20/23 History Sennosides [Senokot] 17.2 mg PO Q12H PRN 10/07/23 10/20/23 History Albuterol Nebulized [Ventolin 2.5 mg INHALATION RT-Q2H PRN ml 10/10/23 10/20/23 Rx Nebulized] Gabapentin 600 mg PO TID #9 tab 10/10/23 10/20/23 Rx LORazepam [Ativan] 0.5 mg PO TID #9 tab 10/10/23 10/20/23 Rx oxyCODONE HCL [oxyCODONE HCL (IR)] 20 mg PO Q8H PRN #9 tab 10/10/23 10/20/23 Rx INSULIN ASPART (NovoLOG) [NovoLOG See Protocol SQ ACHS 10/20/23 10/20/23 History (formulary)] Allergies Allergy/AdvReac Type Severity Reaction Status Date / Time bendamustine [From [facility]] Allergy Itching Verified 10/20/23 12:36 Physical Examination - Vital Signs Vital Signs: Vital Signs Temp Pulse Pulse Resp BP BP Pulse Ox 10/22/23 11:50 97.9 F 85 18 92/53 98 10/22/23 08:15 98.4 F 84 17 110/56 100 10/22/23 03:21 98.8 F 85 16 111/52 97 10/22/23 02:00 14 10/21/23 23:56 99.4 F 92 16 99/54 98 10/21/23 20:20 101.8 F H 97 16 111/72 96 10/21/23 20:00 14 10/21/23 16:20 98.7 F 110 H 16 122/68 95 10/21/23 16:00 98.7 F 111 H 16 118/58 96 Intake and Output 10/22/23 10/22/23 10/22/23 06:59 14:59 22:59 Intake Total 480 Output Total 400 1350 Balance -400 -870 Intake: Oral 480 Output: Urine 400 1350 Other: Voiding Method External Catheter External Catheter Patient is an elderly female, appears somewhat generalized weak. Patient is alert awake. Speech and language functions are normal. Patient can name and repeat very well. No aphasia or dysarthria. Attention, concentration and fund of knowledge is adequate. On cranial nerve examination, pupils are equal, round and reacting to light, visual dalton are full on confrontation, with no neglect on double simultaneous stimulation. Extraocular muscles are intact with no nystagmus. Face is symmetric, tongue protrudes to the midline. Palatal elevation and sensation normal, hearing and shoulder shrug normal, facial sensation normal. On muscle strength testing, there is no pronator drift and the strength is normal in arms and legs distally and proximally. Deep tendon reflexes are symmetric 1-1+ and plantars downgoing. Sensory to touch is equal with no neglect on double simultaneous stimulation. Cerebellar function showed no ataxia for [id number] testing. No dysdiadochokinesia. Tone and bulk of muscles normal. Gait deferred.. On general examination, there is no carotid bruit or murmur, S1-S2 audible. Chest is clear on consultation. Abdomen is soft nontender. No organomegaly, bowel sounds present. Patient has moderate to severe peripheral edema. Has bandage on the feet. Results - Laboratory Findings CBC and BMP: 10/22/23 05:11 10/22/23 05:11 Abnormal Lab Findings: Abnormal Labs 10/20/23 10/20/23 10/20/23 12:48 12:48 12:48 WBC 1.9 L RBC 2.24 L Hgb 6.4 L* Hct 19.5 L* Plt Count 19 L* Neutrophils # (Manual) 1.10 L Lymphocytes # (Manual) 0.68 L APTT 21.1 L Sodium Chloride Carbon Dioxide Glucose POC Glucose (mg/dL) Hemoglobin A1c Calcium Alkaline Phosphatase C-Reactive Protein Total Protein Albumin Procalcitonin Urine Protein Trace H Urine Glucose (UA) Trace H Urine Ketones Trace H Crossmatch 10/20/23 10/20/23 10/20/23 12:48 12:56 15:01 WBC RBC Hgb Hct Plt Count Neutrophils # (Manual) Lymphocytes # (Manual) APTT Sodium 132 L Chloride 97 L Carbon Dioxide 34 H Glucose 173 H POC Glucose (mg/dL) 156 H Hemoglobin A1c Calcium 7.6 L Alkaline Phosphatase 193 H C-Reactive Protein Total Protein 5.4 L Albumin 3.0 L Procalcitonin Urine Protein Urine Glucose (UA) Urine Ketones Crossmatch See Detail 10/20/23 10/20/23 10/21/23 18:47 20:57 06:05 WBC RBC Hgb Hct Plt Count Neutrophils # (Manual) Lymphocytes # (Manual) APTT Sodium Chloride Carbon Dioxide Glucose POC Glucose (mg/dL) 240 H 279 H 201 H Hemoglobin A1c Calcium Alkaline Phosphatase C-Reactive Protein Total Protein Albumin Procalcitonin Urine Protein Urine Glucose (UA) Urine Ketones Crossmatch 10/21/23 10/21/23 10/21/23 10:14 10:15 10:15 WBC RBC Hgb Hct Plt Count Neutrophils # (Manual) Lymphocytes # (Manual) APTT Sodium 131 L Chloride Carbon Dioxide Glucose 315 H POC Glucose (mg/dL) Hemoglobin A1c 7.5 H Calcium 7.2 L Alkaline Phosphatase C-Reactive Protein 15.1 H Total Protein Albumin Procalcitonin 0.14 H Urine Protein Urine Glucose (UA) Urine Ketones Crossmatch 10/21/23 10/21/23 10/21/23 10:15 11:36 16:55 WBC 1.8 L RBC 2.12 L Hgb 6.3 L* Hct 18.8 L* Plt Count 17 L* Neutrophils # (Manual) 0.92 L Lymphocytes # (Manual) 0.72 L APTT Sodium Chloride Carbon Dioxide Glucose POC Glucose (mg/dL) 337 H 228 H Hemoglobin A1c Calcium Alkaline Phosphatase C-Reactive Protein Total Protein Albumin Procalcitonin Urine Protein Urine Glucose (UA) Urine Ketones Crossmatch 10/21/23 10/22/23 10/22/23 21:07 05:11 05:11 WBC 1.5 L RBC 2.40 L Hgb 7.0 L Hct 20.9 L Plt Count 14 L* Neutrophils # (Manual) Lymphocytes # (Manual) APTT Sodium 132 L Chloride Carbon Dioxide 31 H Glucose 164 H POC Glucose (mg/dL) 244 H Hemoglobin A1c Calcium 7.3 L Alkaline Phosphatase 138 H C-Reactive Protein Total Protein 4.5 L Albumin 2.3 L Procalcitonin Urine Protein Urine Glucose (UA) Urine Ketones Crossmatch 10/22/23 10/22/23 06:08 11:41 WBC RBC Hgb Hct Plt Count Neutrophils # (Manual) Lymphocytes # (Manual) APTT Sodium Chloride Carbon Dioxide Glucose POC Glucose (mg/dL) 180 H 177 H Hemoglobin A1c Calcium Alkaline Phosphatase C-Reactive Protein Total Protein Albumin Procalcitonin Urine Protein Urine Glucose (UA) Urine Ketones Crossmatch Assessment and Plan Assessment: * Episode of unresponsiveness, and with some questionable focal symptoms on the right. Rule out TIA, seizure versus syncope * Myelodysplastic syndrome with pancytopenia * Thrombocytopenia * History of right subdural hematoma 09/25/2023, treated conservatively. * Bipolar disorder * Hypertension * COPD * Fibromyalgia Plan: * Check EEG rule out epileptiform activity * Check carotid Doppler * 2D echo performed 09/07/2023, which revealed normal left ventricular function and cavity size. EF is 55 to 60%. Grade 2 diastolic dysfunction. No obvious regional wall motion abnormalities. Moderate to severe pulmonary hypertension. Moderately increased left atrial volume. Right atrium not well-visualized. Mild to moderate MR. Moderate TR. Moderate to severe coronary hypertension. * Hemoglobin A1c 7.5. Recommend optimize control of diabetes to target A1c <7.0 * Lipid panel with cholesterol 138, LDL 54, HDL 50 and triglycerides 168. Continue Lipitor 20 mg. * Patient's B12 is 334, folate 9.0 and MMA 0.17. We will start B12, folate replacement. * Patient cannot be on antiplatelet medication because of severe thrombocytopenia. * Patient is taking Depakote 500 mg 3 times daily for bipolar disorder. Depakote can be associated with thrombocytopenia. We will decrease Depakote down to 500 mg twice daily. Recommended patient and her daughter to follow-up with psychiatrist, to consider switching to an alternate medication, with less potential hematologic side effects. * Suggest avoid driving for 6 months, climbing ladders, operate dangerous machinery or unsupervised swimming. * Dr. Toni Pruett to follow in the morning. * Thank you for the consult.
--- NOTE | 2023-10-22 17:24 | US ---
EXAMINATION TYPE: US carotid duplex BILAT DATE OF EXAM: 10/22/2023 COMPARISON: NONE CLINICAL INDICATION: Female, 68 years old with history of Syncope vs seizure vs TIA; confusion TECHNIQUE: Carotid duplex ultrasound examination. Indirect Doppler criteria was utilized. 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 Tortuous right ICA. Moderate plaque left bifurcatio n. Increased velocities bilateral ICA's IMPRESSION: Greater than 70% stenosis to near occlusion of the bilateral carotid bifurcations by peak systolic ve locity left greater right. Criteria for Assigning % of Stenosis / Diameter reduction (Estimation based on the indirect measurements of the internal carotid artery velocities (ICA PSV). 1. Normal (no stenosis)=ICA PSV < 125 cm/s: ratio < 2.0: ICA EDV<40 cm/s. 2. Less than 50% stenosis=ICA PSV < 125 cm/s: ratio < 2.0: ICA EDV<40 cm/s. 3. 50 to 69% stenosis=ICA PSV of 125 to 230 cm/s: ration 2.0 ? 4.0: ICA EDV 40-100 cm/s. 4. Greater than 70% stenosis to near occlusion= ICA PSV > 230 cm/s: ratio > 4.0: ICA EDV > 100 cm/s. 5. Near occlusion= ICA PSV velocities may be low or undetectable: variable ratio and ICA EDV. 6. Total occlusion=unable to detect flow.
[2023-10-22] MEDS: FOLIC ACID 1 MG TAB PO SCH (17:26)
[2023-10-22] MEDS: CYANOCOBALAMIN 500 MCG TAB PO SCH (17:27)
[2023-10-22] MEDS: DIVALPROEX 500 MG TABLET.DR PO SCH (20:17)
[2023-10-22 20:37] LABS: Glucose,Whole Blood 159 mg/dL (70-110)
[2023-10-23 06:04] LABS: Glucose,Whole Blood 171 mg/dL (70-110)
[2023-10-23 10:24] LABS: HCT 22.2 % (34.0-46.0); HGB 7.6 gm/dL (11.4-16.0); MCH 29.7 pg (25.0-35.0); MCHC 34.1 g/dL (31.0-37.0); MCV 87.1 fL (80.0-100.0); Mean Platelet Volume 9.7; RBC 2.55 m/uL (3.80-5.40); RDW 14.9 % (11.5-15.5)
[2023-10-23 10:34] LABS: WBC 1.4 k/uL (3.8-10.6)
[2023-10-23 10:35] LABS: Platelet Count 15 k/uL (150-450)
[2023-10-23 10:43] LABS: ALT 9 U/L (4-34); AST 18 U/L (14-36); African American GFR (CKD) >90 (>60 ml/min/1.73 sqM); Albumin 2.5 g/dL (3.5-5.0); Alkaline Phosphatase 154 U/L (38-126); Anion Gap 3 mmol/L; Blood Urea Nitrogen 13 mg/dL (7-17); Calcium 7.7 mg/dL (8.4-10.2); Carbon Dioxide 32 mmol/L (22-30); Chloride 98 mmol/L (98-107); Glucose 198 mg/dL (74-99); Non-African American GFR(CKD) >90 (>60 ml/min/1.73 sqM); Potassium 3.6 mmol/L (3.5-5.1); Sodium 133 mmol/L (137-145); Total Protein 4.8 g/dL (6.3-8.2)
[2023-10-23 11:39] LABS: Glucose,Whole Blood 193 mg/dL (70-110)
--- NOTE | 2023-10-23 14:05 | P.PN ---
Subjective Progress Note Date: 10/23/23 Hospital Course: 68-year-old female with a history of myelodysplastic syndrome, lymphedema, re cent subdural hematoma 09/25/2023, COPD, fibromyalgia, and multiple other comorbid conditions who presented to the hospital from her correction facility due to an episode of unresponsiveness. Rectal temperature was found to be 102.2. The remainder of her vital signs were normal. Initial laboratory analysis demonstrated white blood cell count 1.9, hemoglobin 6.3, platelets 19, sodium 132. Urinalysis was negative. Influenza A/B/RSV/COVID-[address] head was completed which showed moderate small vessel ischemic disease, no acute intracranial abnormality and ongoing fluid collection within the left mastoid air cells. Chest x-ray demonstrated bilateral pleural effusions consistent with CHF. Patient was admitted due to fevers in the setting of pancytopenia and myelodysplastic syndrome. Patient received 2 units of PRBCs. Patient was started on vancomycin and Zosyn. Infectious disease and hematology oncology were consulted. Cultures have been negative growth to date. Neurology consulted for altered mentation. Per nurse showed greater than 70% stenosis near occlusion of bilateral carotid bifurcations. Subjective: Patient seen and examined at bedside. No acute events overnight. Complaining of significant overall body aches. Claims that she will be taking less than recommended Depakote as she thinks it might be affecting her blood counts. Pertinent positives and negatives as discussed above, a complete review of systems was performed and all other systems are negative. Vitals Signs Reviewed. General: Nontoxic, no distress, appears at stated age Derm: Warm, dry, lower extremities wrapped in Lamonte bandages Head: Atraumatic, normocephalic, symmetric Eyes: EOMI, no lid lag, anicteric sclera Mouth: No lip lesion, mucus membranes moist Cardiovascular: S1S2 reg, no murmur Lungs: CTA bilateral, no rhonchi, no rales, no accessory muscle use Abdominal: Soft, nontender to palpation, no guarding, no appreciable organomegaly Ext: No gross muscle atrophy, 2+ edema, no contractures Neuro: CN II-XI grossly intact, no focal neuro deficits Psych: Alert, oriented, appropriate affect Data Reviewed Today: Pertinent Labs: WBC 1.4, hemoglobin 7.6, platelet 15, sodium 133, creatinine 0.56, glucose range between 1 59-1 98 Imaging: No new imaging Assessment and Plan: Episode of unresponsiveness, possibly related to blood transfusion which has happened previously Acute encephalopathy, resolved Carotid artery stenosis Bipolar disorder -Discussed management with neurology, pending EEG, and vascular surgery consult -Depakote has been decreased from 500 3 times daily to 500 twice daily, patient continued on cariprazine 3 mg daily, gabapentin 600 mg 3 times daily -Patient did have subdural hematoma on 09/25/2023 necessitating transfer to [facility] and neurosurgical evaluation -Patient completed echocardiogram on 09/07/2023 which showed ejection fraction 55 to 60% with grade 2 diastolic dysfunction, moderate to severe pulmonary hypertension, moderate tricuspid regurgitation, and severe pulmonary hypertension. -Telemetry - check orthostatic vital signs Fever of unknown etiology/ SIRS Pancytopenia secondary to myelodysplastic syndrome History of large B cell lymphoma -Case was discussed with Dr. Pedro extensively during this admission. Due to patient's poor functional status that she is not currently a candidate for chemotherapy, even once this infection resolves. He also did discuss that her continued fevers may be due to worsening her myelodysplastic syndrome and not an acute infectious process. Agreed with continuation of antibiotics until blood cultures are negative for 48 hours and beta D glucan testing is available. -Cefepime 2 g IV piggyback every 8 hours day #4, vancomycin IV piggyback dosing via creatinine and vancomycin trough day #4, monitor for renal toxicity -ID following -Status post 2 units of packed red blood cells -Transfusion cutoffs would be hemoglobin less than 7 or platelets of less than 10 -Urinalysis negative, chest x-ray negative -Blood cultures negative growth to date -Patient does have mildly elevated CRP at 15.1. Diabetes mellitus type 2 -A1c 6.8 -Sliding scale insulin, monitor for hypoglycemia -Levemir 10 units at night Chronic: Fibromyalgia COPD without exacerbation DVT ppx: Not indicated Code status: Full code Anticipated discharge place: Pending clinical course Anticipated discharge time: pending clinical course Objective - Vital Signs Vital signs: Vital Signs Temp 98.1 F 10/23/23 08:27 Pulse 77 10/23/23 13:51 Resp 18 10/23/23 13:51 BP 113/72 10/23/23 12:08 Pulse Ox 94 L 10/23/23 12:08 FiO2 Intake & Output 06/02/24 06/03/24 06/03/24 18:59 06:59 18:59 Intake Total 836 180 Output Total 1350 900 Balance -514 -720 Intake: Oral 836 180 Output: Urine 1350 900 Other: Voiding Method External Catheter External Catheter External Catheter # Voids 2 1 # Bowel Movements 0 - Labs CBC & Chem 7: 10/23/23 10:15 10/23/23 10:15 Labs: Abnormal Lab Results - Last 24 Hours (Table) 10/22/23 10/22/23 10/23/23 Range/Units 16:23 20:37 06:01 WBC (3.8-10.6) k/uL RBC (3.80-5.40) m/uL Hgb (11.4-16.0) gm/dL Hct (34.0-46.0) % Plt Count (150-450) k/uL Sodium (137-145) mmol/L Carbon Dioxide (22-30) mmol/L Glucose (74-99) mg/dL POC Glucose (mg/dL) 171 H 159 H 171 H (70-110) mg/dL Calcium (8.4-10.2) mg/dL Alkaline Phosphatase (38-126) U/L Total Protein (6.3-8.2) g/dL Albumin (3.5-5.0) g/dL 10/23/23 10/23/23 10/23/23 Range/Units 10:15 10:15 11:37 WBC 1.4 L* (3.8-10.6) k/uL RBC 2.55 L (3.80-5.40) m/uL Hgb 7.6 L (11.4-16.0) gm/dL Hct 22.2 L (34.0-46.0) % Plt Count 15 L* (150-450) k/uL Sodium 133 L (137-145) mmol/L Carbon Dioxide 32 H (22-30) mmol/L Glucose 198 H (74-99) mg/dL POC Glucose (mg/dL) 193 H (70-110) mg/dL Calcium 7.7 L (8.4-10.2) mg/dL Alkaline Phosphatase 154 H (38-126) U/L Total Protein 4.8 L (6.3-8.2) g/dL Albumin 2.5 L (3.5-5.0) g/dL Microbiology - Last 24 Hours (Table) 05/31/24 12:48 Blood Culture - Preliminary Blood
--- NOTE | 2023-10-23 14:13 | P.PN ---
Subjective Progress Note Date: 10/23/23 No acute events. Patient resting comfortably in bedside chair. Patient has remained afebrile for the last 36 hours. Continues on IV antibiotics. BC negative thus far. She reports she is feeling improved today. CBC reviewed, WBC 1.4, hemoglobin 7.6, platelets 15,000. Patient denies any episodes of acute bleeding. Objective - Vital Signs Vital signs: Vital Signs Temp 98.1 F 10/23/23 08:27 Pulse 82 10/23/23 10:55 Resp 18 10/23/23 10:55 BP 101/61 10/23/23 08:27 Pulse Ox 97 10/23/23 08:27 FiO2 Intake & Output 10/22/23 10/23/23 10/23/23 18:59 06:59 18:59 Intake Total 836 180 Output Total 1350 900 Balance -514 -720 Intake: Oral 836 180 Output: Urine 1350 900 Other: Voiding Method External Catheter External Catheter External Catheter # Voids 2 1 # Bowel Movements 0 - Constitutional General appearance: Present: average body habitus, no acute distress - EENT Eyes: Present: anicteric sclerae, EOMI ENT: Present: hearing grossly normal - Respiratory Details: breathing is even and unlabored - Cardiovascular Details: skin warm and dry - Integumentary Integumentary Comment(s): bruising to BUE - Musculoskeletal Musculoskeletal: Present: generalized weakness - Psychiatric Psychiatric: Present: A&O x's 3 - Labs CBC & Chem 7: 10/23/23 10:15 10/23/23 10:15 Labs: Abnormal Lab Results - Last 24 Hours (Table) 10/22/23 10/22/23 10/23/23 Range/Units 16:23 20:37 06:01 WBC (3.8-10.6) k/uL RBC (3.80-5.40) m/uL Hgb (11.4-16.0) gm/dL Hct (34.0-46.0) % Plt Count (150-450) k/uL Sodium (137-145) mmol/L Carbon Dioxide (22-30) mmol/L Glucose (74-99) mg/dL POC Glucose (mg/dL) 171 H 159 H 171 H (70-110) mg/dL Calcium (8.4-10.2) mg/dL Alkaline Phosphatase (38-126) U/L Total Protein (6.3-8.2) g/dL Albumin (3.5-5.0) g/dL 10/23/23 10/23/23 10/23/23 Range/Units 10:15 10:15 11:37 WBC 1.4 L* (3.8-10.6) k/uL RBC 2.55 L (3.80-5.40) m/uL Hgb 7.6 L (11.4-16.0) gm/dL Hct 22.2 L (34.0-46.0) % Plt Count 15 L* (150-450) k/uL Sodium 133 L (137-145) mmol/L Carbon Dioxide 32 H (22-30) mmol/L Glucose 198 H (74-99) mg/dL POC Glucose (mg/dL) 193 H (70-110) mg/dL Calcium 7.7 L (8.4-10.2) mg/dL Alkaline Phosphatase 154 H (38-126) U/L Total Protein 4.8 L (6.3-8.2) g/dL Albumin 2.5 L (3.5-5.0) g/dL Microbiology - Last 24 Hours (Table) 10/20/23 12:48 Blood Culture - Preliminary Blood Assessment and Plan (1) Fever Current Visit: Yes Status: Acute Priority: High Code(s): R50.9 - FEVER, UNSPECIFIED SNOMED Code(s): 639535775 (2) MDS (myelodysplastic syndrome) Current Visit: Yes Status: Acute Priority: High Code(s): D46.9 - MYELODYSPLASTIC SYNDROME, UNSPECIFIED SNOMED Code(s): 906633546 (3) Pancytopenia Current Visit: Yes Status: Acute Priority: High Code(s): D61.818 - OTHER PANCYTOPENIA SNOMED Code(s): 644355614 Plan: Fever: Cultures are negative so far. As noted previously, based on signs and symptoms, there is no definite source. Patient is continuing on broad-spectrum antibiotics, with antifungal coverage added. -Case discussed with IM. If the cultures remain negative, and patient continues to spike despite 3 to 4 days of appropriate antibiotic coverage, then the possibility of fever related to her underlying marrow condition probably becomes more likely. -No fevers noted last 36 hours, pt feeling improved -Continue IV abx recommendations per ID Pancytopenia: Counts essentially in the same range, with hemoglobin 7 range and platelets greater than 10. Transfuse if hemoglobin falls less than 7, and platelets less than 10 or if symptomatic MDS: Her current situation was discussed in detail with the admitting service, and then subsequently with the patient. She had been quite upset and anxious about the fact that she had not started treatment for her MDS yet. The patient was advised that at this time we cannot initiate treatment, because of her poor performance status, that requires ECF stay, as well as her other medical events, including intracranial hemorrhage, and subsequent fever with suspected infection. We discussed the increased risk, versus benefit, of initiating cancer specific treatment in this situation. Her questions were answered in det ail. She expressed understanding of the rationale, and the fact that it would be medically appropriate to initiate treatment only when her performance status is felt to be adequate, and other medical issues are controlled. -Plan to return to rehab upon discharge. F/u with Dr. Muñiz on 10/22 will be r escheduled
--- NOTE | 2023-10-23 14:57 | P.GSCN ---
History of Present Illness Consult date: 10/23/23 Reason for Consult: Bilateral carotid stenosis Requesting physician: Toni Pruett History of present illness: This is a pleasant 68-year-old female with a past medical history including large B-cell lymphoma, myelodysplasia requiring multiple transfusions, recent intracranial hemorrhage, esophageal cancer, fibromyalgia, COPD and hyperlipidemia who presented to the emergency department by EMS after being found unresponsive at subacute rehab. Apparently patient was reportedly found by staff just staring off into space and not responding. Patient was brought into the emergency department with a max temp of 102.2. She follows with Dr. Muñiz from oncology. Last fever was 2 days ago with a max temp of 101.8. She was started on antibiotics and consulted to oncology and infectious disease. Blood cultures are negative to date at 48 hours. Patient is pancytopenic and required 2 units of blood this admission. Currently WBC 1.4 hemoglobin 7.6 platelet count 15,000 sodium 133 potassium 3.6 BUN 13 creatinine 0.5 total protein 4.8 albumin 2.5. Patient states she does not have any focal deficits. She never had any change in her vision, difficulty with speech or swallowing, no weakness in her upper or lower extremities. She did have a CT of the brain and consultation to neurology during this admission. Brain CT showed no acute intracranial abnormality. Carotid duplex reported greater than 70% stenosis to near occlusion of bilateral carotid bifurcation. Neurosurgery was consulted for the above. Patient denies any previous history of known carotid disease. Again patient is currently asymptomatic with any focal deficits. She denies any chest pain or shortness of breath. She was going down for EEG. Review of Systems A 14 point review systems was completed all pertinent positives and negatives as stated in the HPI. 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 2016-esophageal cancer with surgery. 06/2020 pet scan showed mets to L neck/liver/sacrum-chemo/radiation. 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 Pt states she takes inderal for shakes not BP. 09/12/2023: Pt states last chemo "1 year ago". History of Any Multi-Drug Resistant Organisms: None Reported Past Surgical History: Section, Cholecystectomy, Orthopedic Surgery, Tonsillectomy Additional Past Surgical History / Comment(s): 2008 R groin tumor removed, extensive esophageal surgery/esophagectomy/stomach brought up and attached, R sided port, R elbow fracture/radial head removed, colonoscopy. Past Anesthesia/Blood Transfusion Reactions: No Reported Reaction Additional Past Anesthesia/Blood Transfusion Reaction / Comm: Pt received blood with esophagectomy surgery without reaction. Past Psychological History: Bipolar Smoking Status: Former smoker Past Alcohol Use History: None Reported Past Drug Use History: None Reported - Past Family History Mother History Unknown: Yes Additional Family Medical History / Comment(s): patient adopted and does not know family history Medications and Allergies Home Medications Medication Instructions Recorded Confirmed Type Divalproex [Depakote] 500 mg PO TID 07/01/20 10/20/23 History Omeprazole 40 mg PO DAILY 07/01/20 10/20/23 History Propranolol [Inderal] 20 mg PO BID@0800,1600 07/01/20 10/20/23 History Cariprazine HCl [Vraylar] 3 mg PO DAILY@0800 09/05/23 10/20/23 History Acetaminophen Tab [Tylenol] 975 mg PO Q8HR@0500,1300,2100 10/07/23 10/20/23 Hist ory Atorvastatin [Lipitor] 20 mg PO HS 10/07/23 10/20/23 History Multivitamins, Thera [Multivitamin 1 tab PO DAILY@0800 10/07/23 10/20/23 History (formulary)] Naloxone HCl [Narcan] 4 mg NASAL DIRECTED PRN 10/07/23 10/20/23 History Ondansetron [Zofran] 4 mg PO Q6H PRN 10/07/23 10/20/23 History Sennosides [Senokot] 17.2 mg PO Q12H PRN 10/07/23 10/20/23 History Albuterol Nebulized [Ventolin 2.5 mg INHALATION RT-Q2H PRN ml 10/10/23 10/20/23 Rx Nebulized] Gabapentin 600 mg PO TID #9 tab 10/10/23 10/20/23 Rx LORazepam [Ativan] 0.5 mg PO TID #9 tab 10/10/23 10/20/23 Rx oxyCODONE HCL [oxyCODONE HCL (IR)] 20 mg PO Q8H PRN #9 tab 10/10/23 10/20/23 Rx INSULIN ASPART (NovoLOG) [NovoLOG See Protocol SQ ACHS 10/20/23 10/20/23 History (formulary)] Allergies Allergy/AdvReac Type Severity Reaction Status Date / Time bendamustine [From [facility]] Allergy Itching Verified 10/20/23 12:36 Surgical - Exam Vital Signs Temp Pulse Resp BP Pulse Ox 99.0 F 78 16 104/68 98 10/20/23 12:29 10/20/23 12:29 10/20/23 12:29 10/20/23 12:10/20/23 12:29 General appearance: The patient is alert, oriented, appears in no acute distress. HET: Head is normocephalic and atraumatic. Pupils are equal and reactive. Neck: Supple. Bilateral carotid bruit. Heart: Regular. Lungs: Equal expansion, normal respiratory effort. Abdomen: Soft, nontender, nondistended. Extremities: Normal skin color and turgor. Neurological: No focal deficits. Strength and sensation are grossly intact. Results - Labs 10/23/23 10:15 10/23/23 10:15 Abnormal Lab Results - Last 24 Hours (Table) 10/22/23 10/22/23 10/23/23 Range/Units 16:23 20:37 06:01 WBC (3.8-10.6) k/uL RBC (3.80-5.40) m/uL Hgb (11.4-16.0) gm/dL Hct (34.0-46.0) % Plt Count (150-450) k/uL Sodium (137-145) mmol/L Carbon Dioxide (22-30) mmol/L Glucose (74-99) mg/dL POC Glucose (mg/dL) 171 H 159 H 171 H (70-110) mg/dL Calcium (8.4-10.2) mg/dL Alkaline Phosphatase (38-126) U/L Total Protein (6.3-8.2) g/dL Albumin (3.5-5.0) g/dL 10/23/23 10/23/23 10/23/23 Range/Units 10:15 10:15 11:37 WBC 1.4 L* (3.8-10.6) k/uL RBC 2.55 L (3.80-5.40) m/uL Hgb 7.6 L (11.4-16.0) gm/dL Hct 22.2 L (34.0-46.0) % Plt Count 15 L* (150-450) k/uL Sodium 133 L (137-145) mmol/L Carbon Dioxide 32 H (22-30) mmol/L Glucose 198 H (74-99) mg/dL POC Glucose (mg/dL) 193 H (70-110) mg/dL Calcium 7.7 L (8.4-10.2) mg/dL Alkaline Phosphatase 154 H (38-126) U/L Total Protein 4.8 L (6.3-8.2) g/dL Albumin 2.5 L (3.5-5.0) g/dL Microbiology - Last 24 Hours (Table) 10/20/23 12:48 Blood Culture - Preliminary Blood Diabetes panel 10/23/23 Range/Units 10:15 Sodium 133 L (137-145) mmol/L Potassium 3.6 (3.5-5.1) mmol/L Chloride 98 (98-107) mmol/L Carbon Dioxide 32 H (22-30) mmol/L BUN 13 (7-17) mg/dL Creatinine 0.56 (0.52-1.04) mg/dL Glucose 198 H (74-99) mg/dL Calcium 7.7 L (8.4-10.2) mg/dL AST 18 (14-36) U/L ALT 9 (4-34) U/L Alkaline Phosphatase 154 H (38-126) U/L Total Protein 4.8 L (6.3-8.2) g/dL Albumin 2.5 L (3.5-5.0) g/dL Calcium panel 10/23/23 Range/Units 10:15 Calcium 7.7 L (8.4-10.2) mg/dL Albumin 2.5 L (3.5-5.0) g/dL Pituitary panel 10/23/23 Range/Units 10:15 Sodium 133 L (137-145) mmol/L Potassium 3.6 (3.5-5.1) mmol/L Chloride 98 (98-107) mmol/L Carbon Dioxide 32 H (22-30) mmol/L BUN 13 (7-17) mg/dL Creatinine 0.56 (0.52-1.04) mg/dL Glucose 198 H (74-99) mg/dL Calcium 7.7 L (8.4-10.2) mg/dL Adrenal panel 10/23/23 Range/Units 10:15 Sodium 133 L (137-145) mmol/L Potassium 3.6 (3.5-5.1) mmol/L Chloride 98 (98-107) mmol/L Carbon Dioxide 32 H (22-30) mmol/L BUN 13 (7-17) mg/dL Creatinine 0.56 (0.52-1.04) mg/dL Glucose 198 H (74-99) mg/dL Calcium 7.7 L (8.4-10.2) mg/dL Total Bilirubin 1.0 (0.2-1.3) mg/dL AST 18 (14-36) U/L ALT 9 (4-34) U/L Alkaline Phosphatase 154 H (38-126) U/L Total Protein 4.8 L (6.3-8.2) g/dL Albumin 2.5 L (3.5-5.0) g/dL - Imaging Comments: Carotid duplex Right ICA PSV 238, ICA/CCA ratio 2.02 Left ICA PSV 263, ICA/CCA ratio 2.33 Impression reports greater than 70% stenosis to near occlusion of the bilateral carotid bifurcations by peak systolic velocity left greater than right. Brain CT Moderate supra tendon choreal volume loss. Similar mild ventricular megaly likely due to central cerebral atrophy. Moderate patchy burden of chronic small vessel ischemic disease. No acute intracranial abnormality seen. Ongoing fluid within the left mastoid air cells. Correlate for any mass or gauge exclude mastoiditis. Assessment and Plan Assessment: 1. Asymptomatic bilateral internal carotid artery stenosis, more likely closer to 70% by PSV, ICA/CCA ratio 2. Fever 3. Myelodysplastic syndrome 4. Pancytopenia 5. History large B-cell lymphoma 6. Recent subdural hematoma status post fall Plan: 1. CT angiogram head and neck ordered 2. Patient is asymptomatic, no plans for any surgical intervention at this time for ICA stenosis. Patient is a poor surgical candidate at this time. Can follow-up in the outpatient setting for continued surveillance. 3. Continue with workup and recommendations from oncology 4. Continue with recommendations from neurology 5. Rest of medical management per primary medical team Thank you for this consultation, we will continue to follow. The impression and plan of care has been dictated as directed. Dr. Dumont I performed a history and examination of this patient, discussed the same with the dictator. I agree with the dictator's note ,documented as a scribe. Any additional findings or plans will be noted.
[2023-10-23 16:06] LABS: Glucose,Whole Blood 138 mg/dL (70-110)
--- NOTE | 2023-10-23 16:15 | P.PN ---
Subjective Progress Note Date: 10/23/23 I am seeing the patient for the first time during this admission. Please refer to Dr. Wright's notes for further details. Patient's daughter (Amanda) is on the phone provide history. According to the daughter she was over in [place] and was not answering questions correctly and seems that she had a right arm drift that was felt. She had new onset fever when she presented to our facility of 102. She is doing much better per the daughter as well as the patient feels doing better. Objective - Vital Signs Vital signs: Vital Signs Temp 98.1 F 10/23/23 08:27 Pulse 77 10/23/23 13:51 Resp 18 10/23/23 13:51 BP 113/72 10/23/23 12:08 Pulse Ox 94 L 10/23/23 12:08 FiO2 Intake & Output 10/22/23 10/23/23 10/23/23 18:59 06:59 18:59 Intake Total 836 360 Output Total 1350 900 Balance -514 -540 Intake: Oral 836 360 Output: Urine 1350 900 Other: Voiding Method External Catheter External Catheter External Catheter # Voids 2 1 # Bowel Movements 0 - Exam General: Sitting up in a chair and is not in acute distress. Neuro: Patient is awake alert oriented to self place and time. Is following simple commands. No aphasia no neglect. Pupils are round equal reactive to light. Visual [place] are full to confrontation. Extraocular wounds intact no nystagmus. No facial weakness No dysarthria Motor is lifting all extremities above gravity equally - Labs CBC & Chem 7: 10/23/23 10:15 10/23/23 10:15 Labs: Abnormal Lab Results - Last 24 Hours (Table) 10/22/23 10/22/23 10/23/23 Range/Units 16:23 20:37 06:01 WBC (3.8-10.6) k/uL RBC (3.80-5.40) m/uL Hgb (11.4-16.0) gm/dL Hct (34.0-46.0) % Plt Count (150-450) k/uL Sodium (137-145) mmol/L Carbon Dioxide (22-30) mmol/L Glucose (74-99) mg/dL POC Glucose (mg/dL) 171 H 159 H 171 H (70-110) mg/dL Calcium (8.4-10.2) mg/dL Alkaline Phosphatase (38-126) U/L Total Protein (6.3-8.2) g/dL Albumin (3.5-5.0) g/dL 10/23/23 10/23/23 10/23/23 Range/Units 10:15 10:15 11:37 WBC 1.4 L* (3.8-10.6) k/uL RBC 2.55 L (3.80-5.40) m/uL Hgb 7.6 L (11.4-16.0) gm/dL Hct 22.2 L (34.0-46.0) % Plt Count 15 L* (150-450) k/uL Sodium 133 L (137-145) mmol/L Carbon Dioxide 32 H (22-30) mmol/L Glucose 198 H (74-99) mg/dL POC Glucose (mg/dL) 193 H (70-110) mg/dL Calcium 7.7 L (8.4-10.2) mg/dL Alkaline Phosphatase 154 H (38-126) U/L Total Protein 4.8 L (6.3-8.2) g/dL Albumin 2.5 L (3.5-5.0) g/dL Microbiology - Last 24 Hours (Table) 10/20/23 12:48 Blood Culture - Preliminary Blood Assessment and Plan Assessment: * Episode of unresponsiveness, and with some questionable focal symptoms on the right. Rule out TIA, seizure versus syncope * Significant bilateral Carotid stenosis >70% to near occlusion, left >right on carotid duplex. * Myelodysplastic syndrome with pancytopenia * Thrombocytopenia * History of right subdural hematoma 09/25/2023, treated conservatively. * Bipolar disorder * Hypertension * COPD * Fibromyalgia Plan: * Check EEG rule out epileptiform activity * Carotid Doppler: Significant bilateral Carotid stenosis >70% to near occlusion, left >right on carotid duplex. * I consulted vascular surgery team. They ordered CTA. * I ordered MRI Brain w/ and w/o. * 2D echo performed 09/07/2023, which revealed normal left ventricular function and cavity size. EF is 55 to 60%. Grade 2 diastolic dysfunction. No obvious regional wall motion abnormalities. Moderate to severe pulmonary hypertension. Moderately increased left atrial volume. Right atrium not well-visualized. Mild to moderate MR. Moderate TR. Moderate to severe coronary hypertension. * Hemoglobin A1c 7.5. Recommend optimize control of diabetes to target A1c <7.0 * Lipid panel with cholesterol 138, LDL 54, HDL 50 and triglycerides 168. Continue Lipitor 20 mg. * Patient's B12 is 334, folate 9.0 and MMA 0.17. We will start B12, folate replacement. * Patient cannot be on antiplatelet medication because of severe thrombo cytopenia. * Patient is taking Depakote 500 mg 3 times daily for bipolar disorder. Depakote can be associated with thrombocytopenia. Per Dr. Wright he decreased Depakote down to 500 mg twice daily. Recommended patient and her daughter to follow-up with psychiatrist, to consider switching to an alternate medication, with less potential hematologic side effects. * Patient's daughter wants to pursue inpatient psychiatry consultation. * Dr. Wright suggested avoid driving for 6 months, climbing ladders, operate dangerous machinery or unsupervised swimming. * Will defer the rest of medical management to primary and other specialist. The plan is discussed with patient, her daughter (Amanda) and primary team. Will continue to follow Time with Patient: Less than 30
[2023-10-23 20:14] LABS: Glucose,Whole Blood 219 mg/dL (70-110)
--- NOTE | 2023-10-24 00:51 | EEG ---
ELECTROENCEPHALOGRAM REPORT CLINICAL HISTORY: This is a 68-year-old woman with episode of unresponsiveness. The video EEG is obtained to evaluate for seizure epileptiform activity. RELEVANT MEDICATION: Depakote. EEG TYPE: A routine 21-channel EEG with video using the 10/20 electrode placement system. DESCRIPTION: Wakefulness is obtained. During awake state, the posterior-dominant rhythm consists of [id number] voltage of 8.5 to 9 hertz activity that is well modulated and well sustained. There is no physiological stage 2 sleep architecture. There is right hemispheric delta/theta slowing. Interictal and ictal is none. ACTIVATION PROCEDURE: Photic stimulation did not evoke a posterior driving response. There is no abnormality during the photic stimulation. Hyperventilation is not performed. CLINICAL INTERPRETATION: This is an abnormal routine EEG. The slowing over the right hemisphere is suggestive of cerebral dysfunction in the involved region. Otherwise, the background is normal. There is no epileptiform discharges or seizure on the EEG. Clinical correlation is recommended. GRACIELA / GUILLE: [id number] /
[2023-10-24 05:57] LABS: HCT 21.3 % (34.0-46.0); MCH 28.3 pg (25.0-35.0); MCHC 32.2 g/dL (31.0-37.0); MCV 87.7 fL (80.0-100.0); Mean Platelet Volume 9.2; RBC 2.43 m/uL (3.80-5.40); RDW 14.8 % (11.5-15.5)
[2023-10-24 05:58] LABS: HGB 6.9 gm/dL (11.4-16.0); Platelet Count 16 k/uL (150-450); WBC 1.3 k/uL (3.8-10.6)
--- NOTE | 2023-10-24 06:00 | CT ---
EXAMINATION TYPE: CT angio head neck DATE OF EXAM: 10/23/2023 HISTORY: DIZZY COMPARISON: Carotid ultrasound one day earlier CT DLP: 1454.2 mGycm. Automated Exposure Control for Dose Reduction was Utilized. TECHNIQUE: CTA scan of the head and neck is performed with IV Contrast, patient injected with 65ml m L of Isovue 370, axial images are obtained, coronal and sagittal reformatted images are reviewed. 3D reconstructed images are created on an independent workstation and reviewed. FINDINGS: Carotid/Vascular Structures: Normal three-vessel origin from the aortic arch without hemodynamically significant stenosis. No significant stenosis in the common carotid arteries bilaterally. No signific ant plaque or stenosis in the right internal carotid artery. Focal severe calcified plaque left carot id bulb. Significant stenosis difficult to accurately measure at origin of the left internal carotid artery is felt present correlating with recent ultrasound. Remainder of internal carotid artery shows mild calcified plaque distally. Patent external carotid arteries bilaterally. Vertebral arteries are codominant and patent to the basilar junction. No large vessel occlusion or an eurysm in the posterior circulation. Patent anterior communicating artery. No large vessel occlusion or aneurysm in the anterior circulation. Other: Noncontrast CT shows moderate diffuse cerebral atrophy and mild to moderate probable chronic s mall vessel ischemic change. Bilateral aphakia is present. Partially opacified left-sided mastoid air cells. Surgical changes from esophagectomy and gastric pull-up is partially imaged. IMPRESSION: 1. No large vessel occlusion or aneurysm at the level of the [place]. 2. Confirmation of severe focal calcified plaque left carotid bulb causing hemodynamically significan t stenosis difficult to accurately measure. No hemodynamically significant stenosis in the right comm on or internal carotid artery. NASCET criteria was used in interpretation of this exam?
[2023-10-24 06:09] LABS: Glucose,Whole Blood 93 mg/dL (70-110)
[2023-10-24] MEDS: VANCOMYCIN TROUGH DUE 1 EACH MISC MISCELLANE ONE (06:15)
[2023-10-24 06:21] LABS: African American GFR (CKD) >90 (>60 ml/min/1.73 sqM); Anion Gap 2 mmol/L; Blood Urea Nitrogen 12 mg/dL (7-17); Calcium 7.8 mg/dL (8.4-10.2); Carbon Dioxide 32 mmol/L (22-30); Chloride 98 mmol/L (98-107); Glucose 102 mg/dL (74-99); Non-African American GFR(CKD) >90 (>60 ml/min/1.73 sqM); Potassium 3.2 mmol/L (3.5-5.1); Sodium 132 mmol/L (137-145)
[2023-10-24 07:23] LABS: Band Neutrophils % 13 %; Lymphocytes # (M) 0.56 k/uL (1.0-4.8); Metamyelocytes # (M) 0.01 k/uL (0); Metamyelocytes % 1 %; Monocytes # (M) 0.13 k/uL (0-1.0); Neutrophils % (M) 33 %; Nucleated Red Blood Cells 0 /100 WBC (0-0); Total Cells Counted 100
[2023-10-24 07:24] LABS: Anisocytosis (M) Present; Hypochromasia (M) Present
[2023-10-24] MEDS: POTASSIUM CHLORIDE ER 20 MEQ TAB.ER PO STA (09:30)
[2023-10-24 11:37] LABS: Glucose,Whole Blood 134 mg/dL (70-110)
--- NOTE | 2023-10-24 13:15 | P.PN ---
Subjective Progress Note Date: 10/24/23 Hospital Course: 68-year-old female with a history of myelodysplastic syndrome, lymphedema, rec ent subdural hematoma 09/25/2023, COPD, fibromyalgia, and multiple other comorbid conditions who presented to the hospital [facility] her [facility] due to an episode of unresponsiveness. Rectal temperature was found to be 102.2. The remainder of her vital signs were normal. Initial laboratory analysis demonstrated white blood cell count 1.9, hemoglobin 6.3, platelets 19, sodium 132. Urinalysis was negative. Influenza A/B/RSV/COVID-[address] head was completed which showed moderate small vessel ischemic disease, no acute intracranial abnormality and ongoing fluid collection within the left mastoid air cells. Chest x-ray demonstrated bilateral pleural effusions c onsistent with CHF. Patient was admitted due to fevers in the setting of pancytopenia and myelodysplastic syndrome. Patient received 2 units of PRBCs. Patient was started on vancomycin and Zosyn. Infectious disease and hematology oncology were consulted. Cultures have been negative growth to date. Neurology consulted for altered mentation. Ultrasound showed greater than 70% stenosis near occlusion of bilateral carotid bifurcations. Vascular surgery not recommending any interventions, outpatient surveillance and follow-up. Subjective: Patient seen and examined at bedside. No acute events overnight. Complaining of significant overall body aches. Afebrile Pertinent positives and negatives as discussed above, a complete review of systems was performed and all other systems are negative. Vitals Signs Reviewed. General: Nontoxic, no distress, appears at stated age Derm: Warm, dry, lower extremities wrapped in [place] bandages Head: Atraumatic, normocephalic, symmetric Eyes: EOMI, no lid lag, anicteric sclera Mouth: No lip lesion, mucus membranes moist Cardiovascular: S1S2 reg, no murmur Lungs: CTA bilateral, no rhonchi, no rales, no accessory muscle use Abdominal: Soft, nontender to palpation, no guarding, no appreciable organomegaly Ext: No gross muscle atrophy, 2+ edema, no contractures Neuro: CN II-XI grossly intact, no focal neuro deficits Psych: Alert, oriented, appropriate affect Data Reviewed Today: Pertinent Labs: WBC 1.3, hemoglobin 6.9, platelet 16, potassium 3.2, sodium 132, creatinine 0.61, blood sugars range between 93-2 19 Imaging: CTA head and neck showed severe focal calcified plaque left carotid bulb causing hemodynamically significant stenosis difficult to accurately measure, no hemodynamically significant stenosis on the right: Or internal carotid artery. Assessment and Plan: Episode of unresponsiveness, possibly related to blood transfusion which has happened previously Acute encephalopathy, resolved Asymptomatic bilateral carotid artery stenosis Bipolar disorder -Discussed management with neurology, MRI brain pending -EEG did not show any epileptiform discharges, shows cerebral dysfunction involving right hemisphere. -Depakote has been decreased from 500 3 times daily to 500 twice daily during this admission, patient continued on cariprazine 3 mg daily, gabapentin 600 mg 3 times daily -Patient did have subdural hematoma on 09/25/2023 necessitating transfer to [facility] and neurosurgical evaluation -Patient completed echocardiogram on 09/07/2023 which showed ejection fraction 55 to 60% with grade 2 diastolic dysfunction, moderate to severe pulmonary hypertension, moderate tricuspid regurgitation, and severe pulmonary h ypertension. -Telemetry - check orthostatic vital signs Fever of unknown etiology/ SIRS Pancytopenia secondary to myelodysplastic syndrome History of large B cell lymphoma -Case was discussed with Dr. Pedro extensively during this admission. Due to patient's poor functional status that she is not currently a candidate for chemotherapy, even once this infection resolves. He also did discuss that her continued fevers may be due to worsening her myelodysplastic syndrome and not an acute infectious process. Agreed with continuation of antibiotics until blood cultures are negative for 48 hours and beta D glucan testing is available. -Discussed management with ID, will de-escalate antibiotics, started on ceftriaxone 1 g every 24 hours -Status post 2 units of packed red blood cells, pending another unit today -Transfusion cutoffs would be hemoglobin less than 7 or platelets of less than 10 -Urinalysis negative, chest x-ray negative -Blood cultures negative growth to date -Patient does have mildly elevated CRP at 15.1. Diabetes mellitus type 2 -A1c 6.8 -Sliding scale insulin, monitor for hypoglycemia -Levemir 10 units at night Chronic: Fibromyalgia COPD without exacerbation DVT ppx: Not indicated Code status: Full code Anticipated discharge place: Pending clinical course Anticipated discharge time: pending clinical course Objective - Vital Signs Vital signs: Vital Signs Temp 97.6 F 10/24/23 03:35 Pulse 70 10/24/23 11:49 Resp 17 10/24/23 11:49 BP 115/62 10/24/23 11:49 Pulse Ox 100 10/24/23 11:49 FiO2 Intake & Output 10/23/23 10/24/23 10/24/23 18:59 06:59 18:59 Intake Total 360 350 240 Output Total 900 Balance -540 350 240 Intake: Intake, IV Titration 350 Amount Cefepime 2 gm In Sodium 100 Chloride 0.9% 100 ml @ 25 mls/hr IVPB Q8HR [facility] Rx# :[id number] Vancomycin 1,250 mg In 250 Sodium Chloride 0.9% 250 ml @ 125 mls/hr IVPB Q12H [facility] Rx#:[id number] Oral 360 240 Output: Urine 900 Other: Voiding Method External Catheter Toilet Toilet Diaper Diaper # Voids 1 1 2 - Labs CBC & Chem 7: 10/24/23 05:29 10/24/23 05:29 Labs: Abnormal Lab Results - Last 24 Hours (Table) 10/23/23 10/23/23 10/24/23 Range/Units 16:04 20:13 05:29 WBC (3.8-10.6) k/uL RBC (3.80-5.40) m/uL Hgb (11.4-16.0) gm/dL Hct (34.0-46.0) % Plt Count (150-450) k/uL Neutrophils # (Manual) (1.3-7.7) k/uL Lymphocytes # (Manual) (1.0-4.8) k/uL Metamyelocytes # (Man) (0) k/uL Sodium 132 L (137-145) mmol/L Potassium 3.2 L (3.5-5.1) mmol/L Carbon Dioxide 32 H (22-30) mmol/L Glucose 102 H (74-99) mg/dL POC Glucose (mg/dL) 138 H 219 H (70-110) mg/dL Calcium 7.8 L (8.4-10.2) mg/dL 10/24/23 10/24/23 Range/Units 05:29 11:35 WBC 1.3 L* (3.8-10.6) k/uL RBC 2.43 L (3.80-5.40) m/uL Hgb 6.9 L* (11.4-16.0) gm/dL Hct 21.3 L (34.0-46.0) % Plt Count 16 L* (150-450) k/uL Neutrophils # (Manual) 0.50 L (1.3-7.7) k/uL Lymphocytes # (Manual) 0.56 L (1.0-4.8) k/uL Metamyelocytes # (Man) 0.01 H (0) k/uL Sodium (137-145) mmol/L Potassium (3.5-5.1) mmol/L Carbon Dioxide (22-30) mmol/L Glucose (74-99) mg/dL POC Glucose (mg/dL) 134 H (70-110) mg/dL Calcium (8.4-10.2) mg/dL Microbiology - Last 24 Hours (Table) 10/20/23 12:48 Blood Culture - Preliminary Blood
--- NOTE | 2023-10-24 13:34 | P.PN ---
Subjective Progress Note Date: 10/24/23 Principal diagnosis: Carotid stenosis Patient seen and examined today as a follow-up. She denies any focal deficits. Yesterday she underwent CT angiogram head and neck which reported no large vessel occlusion or aneurysm at the level of the [place]. Confirmation of severe focal calcified plaque left carotid bulb causing hemodynamically significant stenosis difficult to accurately measure. No hemodynamically significant stenosis in the right common or internal carotid artery. Patient had abnormal EEG. Slowing over the right hemisphere suggestive of cerebral dysfunction in the involved region. Otherwise background normal. No elliptic form discharges or seizure on EEG. Objective - Vital Signs Vital signs: Vital Signs Temp 97.6 F 10/24/23 03:35 Pulse 83 10/24/23 03:35 Resp 17 10/24/23 03:35 BP 104/66 10/24/23 03:35 Pulse Ox 99 10/24/23 03:35 FiO2 Intake & Output 10/23/23 10/24/23 10/24/23 18:59 06:59 18:59 Intake Total 360 350 240 Output Total 900 Balance -540 350 240 Intake: Intake, IV Titration 350 Amount Cefepime 2 gm In Sodium 100 Chloride 0.9% 100 ml @ 25 mls/hr IVPB Q8HR [facility] Rx# :[id number] Vancomycin 1,250 mg In 250 Sodium Chloride 0.9% 250 ml @ 125 mls/hr IVPB Q12H [facility]O Rx#:[id number] Oral 360 240 Output: Urine 900 Other: Voiding Method External Catheter Toilet Diaper # Voids 1 1 - Exam General appearance: The patient is alert, oriented, appears in no acute distress. HET: Head is normocephalic and atraumatic. Pupils are equal and reactive. Neck: Supple. Heart: Regular. Lungs: Equal expansion, normal respiratory effort. Abdomen: Soft, nontender, nondistended. Extremities: Normal skin color and turgor. Neurological: No focal deficits. Alert and oriented. - Labs CBC & Chem 7: 10/24/23 05:29 10/24/23 05:29 Labs: Abnormal Lab Results - Last 24 Hours (Table) 10/23/23 10/23/23 10/23/23 Range/Units 10:15 10:15 11:37 WBC 1.4 L* (3.8-10.6) k/uL RBC 2.55 L (3.80-5.40) m/uL Hgb 7.6 L (11.4-16.0) gm/dL Hct 22.2 L (34.0-46.0) % Plt Count 15 L* (150-450) k/uL Neutrophils # (Manual) (1.3-7.7) k/uL Lymphocytes # (Manual) (1.0-4.8) k/uL Metamyelocytes # (Man) (0) k/uL Sodium 133 L (137-145) mmol/L Potassium (3.5-5.1) mmol/L Carbon Dioxide 32 H (22-30) mmol/L Glucose 198 H (74-99) mg/dL POC Glucose (mg/dL) 193 H (70-110) mg/dL Calcium 7.7 L (8.4-10.2) mg/dL Alkaline Phosphatase 154 H (38-126) U/L Total Protein 4.8 L (6.3-8.2) g/dL Albumin 2.5 L (3.5-5.0) g/dL 10/23/23 10/23/23 10/24/23 Range/Units 16:04 20:13 05:29 WBC (3.8-10.6) k/uL RBC (3.80-5.40) m/uL Hgb (11.4-16.0) gm/dL Hct (34.0-46.0) % Plt Count (150-450) k/uL Neutrophils # (Manual) (1.3-7.7) k/uL Lymphocytes # (Manual) (1.0-4.8) k/uL Metamyelocytes # (Man) (0) k/uL Sodium 132 L (137-145) mmol/L Potassium 3.2 L (3.5-5.1) mmol/L Carbon Dioxide 32 H (22-30) mmol/L Glucose 102 H (74-99) mg/dL POC Glucose (mg/dL) 138 H 219 H (70-110) mg/dL Calcium 7.8 L (8.4-10.2) mg/dL Alkaline Phosphatase (38-126) U/L Total Protein (6.3-8.2) g/dL Albumin (3.5-5.0) g/dL 10/24/23 Range/Units 05:29 WBC 1.3 L* (3.8-10.6) k/uL RBC 2.43 L (3.80-5.40) m/uL Hgb 6.9 L* (11.4-16.0) gm/dL Hct 21.3 L (34.0-46.0) % Plt Count 16 L* (150-450) k/uL Neutrophils # (Manual) 0.50 L (1.3-7.7) k/uL Lymphocytes # (Manual) 0.56 L (1.0-4.8) k/uL Metamyelocytes # (Man) 0.01 H (0) k/uL Sodium (137-145) mmol/L Potassium (3.5-5.1) mmol/L Carbon Dioxide (22-30) mmol/L Glucose (74-99) mg/dL POC Glucose (mg/dL) (70-110) mg/dL Calcium (8.4-10.2) mg/dL Alkaline Phosphatase (38-126) U/L Total Protein (6.3-8.2) g/dL Albumin (3.5-5.0) g/dL Microbiology - Last 24 Hours (Table) 10/20/23 12:48 Blood Culture - Preliminary Blood Assessment and Plan Assessment: 1. Asymptomatic left internal carotid artery stenosis. CTA independently reviewed by Dr. Dumont right internal carotid artery with tortuosity, no hemodynamically significant stenosis, however likely near 70% stenosis of the left ICA. 2. Fever 3. Myelodysplastic syndrome 4. Pancytopenia 5. History large B-cell lymphoma 6. Recent subdural hematoma status post fall Plan: 1. CT angiogram head and neck ordered and independently reviewed by Dr. Dumont 2. Patient is asymptomatic, no plans for any surgical intervention at this time for ICA stenosis. Patient is a poor surgical candidate at this time. Can follow-up in the outpatient setting for continued surveillance. 3. Continue with workup and recommendations from oncology 4. Brain MRI pending, continue with recommendations from neurology 5. Rest of medical management per primary medical team Thank you for this consultation, recommend outpatient follow-up after discharge. The impression and plan of care has been dictated as directed. Dr. Dumont I performed a history and examination of this patient, discussed the same with the dictator. I agree with the dictator's note ,documented as a scribe. Any additional findings or plans will be noted.
--- NOTE | 2023-10-24 14:27 | CDI ---
Documentation Clarification Form Date: 10/24/2023 From: Ysabel Clancy Phone: [phone] Admit Date: 10/20/2023 03:52:00 PM Patient Name: Gege Malik Visit Number: [id number] Discharge Date: ATTENTION: The Clinical Documentation Specialists (CDI) and [facility] Coding Staff appreciate your assistance in clarifying documentation. Please respond to the clarification below the line at the bottom and electronically sign. The CDI & [facility] Coding staff will review the response and follow-up if needed. Please note: Queries are made part of the Legal Health Record. If you have any questions, please contact the author of this message via ITS. Dr. Agustin Resendiz: Encephalopathy is documented in the IM progress note 10/22 and 10/23. Additional clarification regarding the type of encephalopathy is requested. History/Risk Factors: 68-year-old female with a history of lymphoma, MDS, who presents after an episode of unresponsiveness Clinical Indicators: 10/19 Triage VS: 104/68, 99.0, 78, 16, 98% on 2liters nasal cannula 10/19-10/23 Temperature max: 102.2 on 10/19 10/19 H&P, Physical Exam: "General: Alert and oriented, well nourished, no acute distress, ill-appearing and chronically debilitated." Assessment and Plan: "Syncope episode. This was reported by EMS. I suspect this is due to infection as well as patient chronic debility" 10/22 IM PN, Assessment and Plan: "Acute encephalopathy, resolved." 10/19- 10/23 Sodium: 132, 131, 132, 133, 132 Calcium: 7.6, 7.2, 7.3, 7.7, 7.8 10/19-10/23 WBC: 1.9, 1.8, 1.5, 1.4, 1.3 HGB: 6.4, 6.3, 7.0, 7.6, 6.9 10/19 Blood culture: No growth after 72 hours Urinalysis: Trace protein, glucose and ketones 10/19 CT Brain, Impression: "2. No acute intracranial abnormality seen." 10/23 EEG, Clinical Interpretation: "This is an abnormal routine EEG. The slowing over the right hemisphere is suggestive of cerebral dysfunction in the involved region. Otherwise, the background is normal. There is no epileptiform discharges or seizure on the EEG." Treatment: Consult Neurology Normal Saline [id number]/hour 10/19, then 50 cc/hour start 10/20 (not given 10/21-10/23) Ativan 0.5mg oral TID PRN - no doses given Cefepime 2gram IV [id number] 10/20-10/23 Vancomycin 1250mg IV Q12 hours 10/20-10/23 Please clarify the type of encephalopathy, if known: [ ] Metabolic Encephalopathy due abnormal sodium, calcium and hemoglobin levels [ x ] Other, please specify unknown etiology [ ] Unable to determine MTDD
--- NOTE | 2023-10-24 15:38 | P.PN ---
Subjective Progress Note Date: 10/24/23 I am following-up with patient and she feels she is doing well and is hoping to go home today. Denies any new neurological issues. Objective - Vital Signs Vital signs: Vital Signs Temp 98.1 F 10/24/23 15:27 Pulse 79 10/24/23 15:27 Resp 17 10/24/23 15:27 BP 102/54 10/24/23 15:27 Pulse Ox 97 10/24/23 15:27 FiO2 Intake & Output 10/23/23 10/24/23 10/24/23 18:59 06:59 18:59 Intake Total 360 350 420 Output Total 900 Balance -540 350 420 Intake: Intake, IV Titration 350 Amount Cefepime 2 gm In Sodium 100 Chloride 0.9% 100 ml @ 25 mls/hr IVPB Q8HR [facility] Rx# :[id number] Vancomycin 1,250 mg In 250 Sodium Chloride 0.9% 250 ml @ 125 mls/hr IVPB Q12H [facility] Rx#:[id number] Oral 360 420 Blood Product 0 Rc As-1 Unit 0 [id number] Output: Urine 900 Other: Voiding Method External Catheter Toilet Toilet Diaper Diaper # Voids 1 1 1 # Bowel Movements 1 - Exam General: Sitting up in a chair and is not in acute distress. Neuro: Patient is awake alert oriented to self place and time. Is following simple commands. No aphasia no neglect. Pupils are round equal reactive to light. Visual dalton are full to confrontation. Extraocular wounds intact no nystagmus. No facial weakness No dysarthria Motor is lifting all extremities above gravity equally - Labs CBC & Chem 7: 10/24/23 05:29 10/24/23 05:29 Labs: Abnormal Lab Results - Last 24 Hours (Table) 10/23/23 10/23/23 10/24/23 Range/Units 16:04 20:13 05:29 WBC (3.8-10.6) k/uL RBC (3.80-5.40) m/uL Hgb (11.4-16.0) gm/dL Hct (34.0-46.0) % Plt Count (150-450) k/uL Neutrophils # (Manual) (1.3-7.7) k/uL Lymphocytes # (Manual) (1.0-4.8) k/uL Metamyelocytes # (Man) (0) k/uL Sodium 132 L (137-145) mmol/L Potassium 3.2 L (3.5-5.1) mmol/L Carbon Dioxide 32 H (22-30) mmol/L Glucose 102 H (74-99) mg/dL POC Glucose (mg/dL) 138 H 219 H (70-110) mg/dL Calcium 7.8 L (8.4-10.2) mg/dL Crossmatch 10/24/23 10/24/23 10/24/23 Range/Units 05:29 11:35 12:26 WBC 1.3 L* (3.8-10.6) k/uL RBC 2.43 L (3.80-5.40) m/uL Hgb 6.9 L* (11.4-16.0) gm/dL Hct 21.3 L (34.0-46.0) % Plt Count 16 L* (150-450) k/uL Neutrophils # (Manual) 0.50 L (1.3-7.7) k/uL Lymphocytes # (Manual) 0.56 L (1.0-4.8) k/uL Metamyelocytes # (Man) 0.01 H (0) k/uL Sodium (137-145) mmol/L Potassium (3.5-5.1) mmol/L Carbon Dioxide (22-30) mmol/L Glucose (74-99) mg/dL POC Glucose (mg/dL) 134 H (70-110) mg/dL Calcium (8.4-10.2) mg/dL Crossmatch See Detail Microbiology - Last 24 Hours (Table) 10/20/23 12:48 Blood Culture - Preliminary Blood Assessment and Plan Assessment: * Episode of unresponsiveness, and with some questionable focal symptoms on the right. Rule out TIA, seizure versus syncope * Significant bilateral Carotid stenosis >70% to near occlusion, left >right on carotid duplex. * Myelodysplastic syndrome with pancytopenia * Thrombocytopenia * History of right subdural hematoma 09/25/2023, treated conservatively. * Bipolar disorder * Hypertension * COPD * Fibromyalgia Plan: * EEG: Is abnormal. The slowing over the right hemisphere is suggestive of cerebral dysfunction in the involved region. Otherwise, the background is normal. There is no epileptiform discharge or seizure on the EEG. * Carotid Doppler: Significant bilateral Carotid stenosis >70% to near occlusion, left >right on carotid duplex. * I consulted vascular surgery team. They ordered CTA is reported as no large vessel occlusion or aneurysm at the level scarless. Confirmation of severe focal calcified plaque left carotid bulb causing hemodynamic significant stenosis difficult to accurately measure. No hemodynamic significant stenosis in the right common or internal carotid artery. Vascular surgery team felt the left ICA is asymptomatic as well as patient is a poor surgical candidate and patient to follow-up as an outpatient with vascular surgery team. * MRI Brain w/ and w/o: pending. * 2D echo performed 09/07/2023, which revealed normal left ventricular function and cavity size. EF is 55 to 60%. Grade 2 diastolic dysfunction. No obvious regional wall motion abnormalities. Moderate to severe pulmonary hypertension. Moderately increased left atrial volume. Right atrium not well-visualized. Mild to moderate MR. Moderate TR. Moderate to severe coronary hypertension. * Hemoglobin A1c 7.5. Recommend optimize control of diabetes to target A1c <7.0 * Lipid panel with cholesterol 138, LDL 54, HDL 50 and triglycerides 168. Continue Lipitor 20 mg. * Patient's B12 is 334, folate 9.0 and MMA 0.17. We will start B12, folate replacement. * Patient cannot be on antiplatelet medication because of severe th rombocytopenia. * Patient is taking Depakote 500 mg 3 times daily for bipolar disorder. Depakote can be associated with thrombocytopenia. Per Dr. Wright he decreased Depakote down to 500 mg twice daily. Recommended patient and her daughter to follow-up with psychiatrist, to consider switching to an alternate medication, with less potential hematologic side effects. * Patient's daughter wants to pursue inpatient psychiatry consultation. * Dr. Wright suggested avoid driving for 6 months, climbing ladders, operate dangerous machinery or unsupervised swimming. * Will defer the rest of medical management to primary and other specialist. The plan is discussed with patient and primary team. Will continue to follow. Time with Patient: Less than 30
[2023-10-24 16:15] LABS: Glucose,Whole Blood 191 mg/dL (70-110)
--- NOTE | 2023-10-24 18:14 | P.PN ---
Subjective Progress Note Date: 10/24/23 Principal diagnosis: fever, MDS Pt feels better today, no recent fevers, she is going back to rehab on DC. Her legs are swollen, she ambulates with assistance. Objective - Vital Signs Vital signs: Vital Signs Temp 97.6 F 10/24/23 03:35 Pulse 70 10/24/23 11:49 Resp 17 10/24/23 11:49 BP 115/62 10/24/23 11:49 Pulse Ox 100 10/24/23 11:49 FiO2 Intake & Output 10/23/23 10/24/23 10/24/23 18:59 06:59 18:59 Intake Total 360 350 240 Output Total 900 Balance -540 350 240 Intake: Intake, IV Titration 350 Amount Cefepime 2 gm In Sodium 100 Chloride 0.9% 100 ml @ 25 mls/hr IVPB Q8HR [facility] Rx# :[id number] Vancomycin 1,250 mg In 250 Sodium Chloride 0.9% 250 ml @ 125 mls/hr IVPB Q12H [facility] Rx#:[id number] Oral 360 240 Output: Urine 900 Other: Voiding Method External Catheter Toilet Toilet Diaper Diaper # Voids 1 1 2 - Constitutional General appearance: Present: average body habitus, cooperative, no acute distress - EENT Eyes: Present: anicteric sclerae, EOMI ENT: Present: hearing grossly normal - Respiratory Respiratory: bilateral: CTA - Cardiovascular Rhythm: regular - Peripheral edema leg Peripheral Edema: bilateral: 3+, Pitting - Integumentary Integumentary: Present: pale - Neurologic Neurologic: Present: CNII-XII intact - Musculoskeletal Musculoskeletal: Present: generalized weakness, strength equal bilaterally - Psychiatric Psychiatric: Present: A&O x's 3, appropriate affect, intact judgment & insight - Labs CBC & Chem 7: 10/24/23 05:29 10/24/23 05:29 Labs: Abnormal Lab Results - Last 24 Hours (Table) 10/23/23 10/23/23 10/24/23 Range/Units 16:04 20:13 05:29 WBC (3.8-10.6) k/uL RBC (3.80-5.40) m/uL Hgb (11.4-16.0) gm/dL Hct (34.0-46.0) % Plt Count (150-450) k/uL Neutrophils # (Manual) (1.3-7.7) k/uL Lymphocytes # (Manual) (1.0-4.8) k/uL Metamyelocytes # (Man) (0) k/uL Sodium 132 L (137-145) mmol/L Potassium 3.2 L (3.5-5.1) mmol/L Carbon Dioxide 32 H (22-30) mmol/L Glucose 102 H (74-99) mg/dL POC Glucose (mg/dL) 138 H 219 H (70-110) mg/dL Calcium 7.8 L (8.4-10.2) mg/dL 10/24/23 10/24/23 Range/Units 05:29 11:35 WBC 1.3 L* (3.8-10.6) k/uL RBC 2.43 L (3.80-5.40) m/uL Hgb 6.9 L* (11.4-16.0) gm/dL Hct 21.3 L (34.0-46.0) % Plt Count 16 L* (150-450) k/uL Neutrophils # (Manual) 0.50 L (1.3-7.7) k/uL Lymphocytes # (Manual) 0.56 L (1.0-4.8) k/uL Metamyelocytes # (Man) 0.01 H (0) k/uL Sodium (137-145) mmol/L Potassium (3.5-5.1) mmol/L Carbon Dioxide (22-30) mmol/L Glucose (74-99) mg/dL POC Glucose (mg/dL) 134 H (70-110) mg/dL Calcium (8.4-10.2) mg/dL Microbiology - Last 24 Hours (Table) 10/20/23 12:48 Blood Culture - Preliminary Blood Assessment and Plan (1) Fever Current Visit: Yes Status: Resolved Priority: High Code(s): R50.9 - FEVER, UNSPECIFIED SNOMED Code(s): 412428087 (2) MDS (myelodysplastic syndrome) Current Visit: Yes Status: Acute Priority: High Code(s): D46.9 - MYELODYSPLASTIC SYNDROME, UNSPECIFIED SNOMED Code(s): 416766173 (3) Pancytopenia Current Visit: Yes Status: Acute Priority: High Code(s): D61.818 - OTHER PANCYTOPENIA SNOMED Code(s): 612494106 Plan: Fever, resolved -ID following pt -Cult all neg -plan for short course of oral abx on DC MDS/pancytopenia -no treatment initiated, poor PS and pt is in rehab. No treatment will be started until pt has completed rehab and has been evaluated by Oncologist to see if PS improved -Cont supportive transfusions. Transfuse for Hgb < 7 or if symptomatic, one unit ordered for Hgb of 6.9 today. Transfuse for plt<10,000 or if symptomatic, plt 16,000 today. NO asa, NSAIDs, anticoagulation or antiplatelet medications -Pt reports going to a different rehab and that the new facility will accept transfusion parameters. Will check with CM. -F/U Dr. Muñiz in 5-6 weeks
[2023-10-24 20:05] LABS: Glucose,Whole Blood 163 mg/dL (70-110)
[2023-10-25 05:51] LABS: Glucose,Whole Blood 182 mg/dL (70-110)
[2023-10-25 08:23] VITALS: RESP 18; TEMP 98.3
--- NOTE | 2023-10-25 08:50 | P.PN ---
Subjective Progress Note Date: 10/22/23 Principal diagnosis: Reason for follow-up is fever Patient is a 68-year-old female with a past medical history significant for hyperlipidemia osteomyelitis fibromyalgia COPD patient did have a diffuse large B-cell lymphoma did have a right chest wall Mediport last use about a week ago for infusion patient presenting to the hospital concerning for generalized bodyaches, patient was noted to be febrile prompting this consultation. On today's evaluation that is 10/22/2023, patient did have resolution of her fever and has been afebrile today, patient is breathing comfortably and is currently on room air, patient denies having any significant cough no chest pain shortness of breath, patient denies nausea vomiting or diarrhea and no abdominal pain. Patient white count is 1.5 creatinine 0.58 cultures are pending Objective - Vital Signs Vital signs: Vital Signs Temp 97.9 F 10/22/23 11:50 Pulse 85 10/22/23 11:50 Resp 18 10/22/23 11:50 BP 92/53 10/22/23 11:50 Pulse Ox 98 10/22/23 11:50 FiO2 Intake & Output 10/21/23 10/22/23 10/22/23 18:59 06:59 18:59 Intake Total 2540 480 Output Total 110 090 2931 Balance 1840 -400 -870 Intake: Intake, IV Titration 870 Amount Cefepime 2 gm In Sodium 100 Chloride 0.9% 100 ml @ 25 mls/hr IVPB Q8HR [facility] Rx# :[id number] Sodium Chloride 0.9% 1, 520 000 ml @ 50 mls/hr IV . Q20H [facility] Rx#:[id number] Vancomycin 1,250 mg In 250 Sodium Chloride 0.9% 250 ml @ 125 mls/hr IVPB Q12H [facility] Rx#:[id number] Oral 1360 480 Blood Product 310 Rc As-1 Unit 310 [id number] Output: Urine 232 983 1225 Other: Voiding Method External Catheter External Catheter External Catheter # Voids 2 - Exam GENERAL DESCRIPTION: An elderly female lying in bed in no distress RESPIRATORY SYSTEM: Unlabored breathing , decreased breath sounds at bases HEART: S1 S2 regular rate and rhythm , ABDOMEN: Soft , no tenderness EXTREMITIES: No edema feet - Labs CBC & Chem 7: 10/24/23 05:29 10/24/23 05:29 Labs: Abnormal Lab Results - Last 24 Hours (Table) 10/20/23 10/21/23 10/21/23 Range/Units 15:01 10:14 10:15 WBC (3.8-10.6) k/uL RBC (3.80-5.40) m/uL Hgb (11.4-16.0) gm/dL Hct (34.0-46.0) % Plt Count (150-450) k/uL Sodium (137-145) mmol/L Carbon Dioxide (22-30) mmol/L Glucose (74-99) mg/dL POC Glucose (mg/dL) (70-110) mg/dL Hemoglobin A1c 7.5 H (<=6.0) % Calcium (8.4-10.2) mg/dL Alkaline Phosphatase (38-126) U/L Total Protein (6.3-8.2) g/dL Albumin (3.5-5.0) g/dL Procalcitonin 0.14 H (0.02-0.09) ng/mL Crossmatch See Detail 10/21/23 10/21/23 10/22/23 Range/Units 16:55 21:07 05:11 WBC 1.5 L (3.8-10.6) k/uL RBC 2.40 L (3.80-5.40) m/uL Hgb 7.0 L (11.4-16.0) gm/dL Hct 20.9 L (34.0-46.0) % Plt Count 14 L* (150-450) k/uL Sodium (137-145) mmol/L Carbon Dioxide (22-30) mmol/L Glucose (74-99) mg/dL POC Glucose (mg/dL) 228 H 244 H (70-110) mg/dL Hemoglobin A1c (<=6.0) % Calcium (8.4-10.2) mg/dL Alkaline Phosphatase (38-126) U/L Total Protein (6.3-8.2) g/dL Albumin (3.5-5.0) g/dL Procalcitonin (0.02-0.09) ng/mL Crossmatch 10/22/23 10/22/23 10/22/23 Range/Units 05:11 06:08 11:41 WBC (3.8-10.6) k/uL RBC (3.80-5.40) m/uL Hgb (11.4-16.0) gm/dL Hct (34.0-46.0) % Plt Count (150-450) k/uL Sodium 132 L (137-145) mmol/L Carbon Dioxide 31 H (22-30) mmol/L Glucose 164 H (74-99) mg/dL POC Glucose (mg/dL) 180 H 177 H (70-110) mg/dL Hemoglobin A1c (<=6.0) % Calcium 7.3 L (8.4-10.2) mg/dL Alkaline Phosphatase 138 H (38-126) U/L Total Protein 4.5 L (6.3-8.2) g/dL Albumin 2.3 L (3.5-5.0) g/dL Procalcitonin (0.02-0.09) ng/mL Crossmatch Microbiology - Last 24 Hours (Table) 10/20/23 12:48 Blood Culture - Preliminary Blood Assessment and Plan (1) Fever Current Visit: Yes Status: Resolved Priority: High Code(s): R50.9 - FEVER, UNSPECIFIED SNOMED Code(s): 101271399 (2) Pancytopenia Current Visit: Yes Status: Acute Priority: High Code(s): D61.818 - OTHER PANCYTOPENIA SNOMED Code(s): 024234508 Plan: 1patient presented to hospital with sepsis/SIRS and this patient who did have a fever tachycardia leukopenia with initial workup negative including a negative chest x-ray UA has been negative abdominal has been soft medical examination with a source questionably Mediport site infection last was about a week ago. 2 blood cultures has been obtained from the port as well as peripheral results are currently pending 3patient did have resolution of her fever and will continue with the vancomycin and cefepime while waiting for the workup to be completed Dictation was produced using [employer] dictation software. please excuse any grammatical, word or spelling errors. Time with Patient: Less than 30
--- NOTE | 2023-10-25 08:51 | P.PN ---
Subjective Progress Note Date: 10/23/23 Principal diagnosis: Reason for follow-up is fever Patient is a 68-year-old female with a past medical history significant for hyperlipidemia osteomyelitis fibromyalgia COPD patient did have a diffuse large B-cell lymphoma did have a right chest wall Mediport last use about a week ago for infusion patient presenting to the hospital concerning for generalized bodyaches, patient was noted to be febrile prompting this consultation. On today's evaluation that is 10/23/2023,the patient denies any fever or any chills, patient is breathing comfortably on room air, the patient denies chest pain shortness of breath and no significant cough, patient denies abdominal dixon n, no nausea vomiting or diarrhea. Patient white count is 1.4 creatinine 0.56 Objective - Vital Signs Vital signs: Vital Signs Temp 98.1 F 10/23/23 08:27 Pulse 77 10/23/23 13:51 Resp 18 10/23/23 13:51 BP 113/72 10/23/23 12:08 Pulse Ox 94 L 10/23/23 12:08 FiO2 Intake & Output 10/22/23 10/23/23 10/23/23 18:59 06:59 18:59 Intake Total 836 360 Output Total 1350 900 Balance -514 -540 Intake: Oral 836 360 Output: Urine 1350 900 Other: Voiding Method External Catheter External Catheter External Catheter # Voids 2 1 # Bowel Movements 0 - Exam GENERAL DESCRIPTION: An elderly female lying in bed in no distress RESPIRATORY SYSTEM: Unlabored breathing , decreased breath sounds at bases HEART: S1 S2 regular rate and rhythm , ABDOMEN: Soft , no tenderness EXTREMITIES: No edema feet - Labs CBC & Chem 7: 10/24/23 05:29 10/24/23 05:29 Labs: Abnormal Lab Results - Last 24 Hours (Table) 10/22/23 10/22/23 10/23/23 Range/Units 16:23 20:37 06:01 WBC (3.8-10.6) k/uL RBC (3.80-5.40) m/uL Hgb (11.4-16.0) gm/dL Hct (34.0-46.0) % Plt Count (150-450) k/uL Sodium (137-145) mmol/L Carbon Dioxide (22-30) mmol/L Glucose (74-99) mg/dL POC Glucose (mg/dL) 171 H 159 H 171 H (70-110) mg/dL Calcium (8.4-10.2) mg/dL Alkaline Phosphatase (38-126) U/L Total Protein (6.3-8.2) g/dL Albumin (3.5-5.0) g/dL 10/23/23 10/23/23 10/23/23 Range/Units 10:15 10:15 11:37 WBC 1.4 L* (3.8-10.6) k/uL RBC 2.55 L (3.80-5.40) m/uL Hgb 7.6 L (11.4-16.0) gm/dL Hct 22.2 L (34.0-46.0) % Plt Count 15 L* (150-450) k/uL Sodium 133 L (137-145) mmol/L Carbon Dioxide 32 H (22-30) mmol/L Glucose 198 H (74-99) mg/dL POC Glucose (mg/dL) 193 H (70-110) mg/dL Calcium 7.7 L (8.4-10.2) mg/dL Alkaline Phosphatase 154 H (38-126) U/L Total Protein 4.8 L (6.3-8.2) g/dL Albumin 2.5 L (3.5-5.0) g/dL Microbiology - Last 24 Hours (Table) 10/20/23 12:48 Blood Culture - Preliminary Blood Assessment and Plan (1) Fever Current Visit: Yes Status: Resolved Priority: High Code(s): R50.9 - FEVER, UNSPECIFIED SNOMED Code(s): 013854651 (2) Pancytopenia Current Visit: Yes Status: Acute Priority: High Code(s): D61.818 - OTHER PANCYTOPENIA SNOMED Code(s): 540012141 Plan: 1patient presented to hospital with sepsis/SIRS and this patient who did have a fever tachycardia leukopenia with initial workup negative including a negative chest x-ray UA has been negative abdominal has been soft medical examination with a source questionably Mediport site infection last was about a week ago. 2 blood cultures has been obtained from the port as well as peripheral results are currently pending 3patient remains to be afebrile however the patient white count is still low patient to continue with the vancomycin and cefepime while waiting for the workup to be completed Dictation was produced using [employer] dictation software. please excuse any grammatical, word or spelling errors. Time with Patient: Less than 30
--- NOTE | 2023-10-25 08:51 | P.PN ---
Subjective Progress Note Date: 10/24/23 Principal diagnosis: Reason for follow-up is fever Patient is a 68-year-old female with a past medical history significant for hyperlipidemia osteomyelitis fibromyalgia COPD patient did have a diffuse large B-cell lymphoma did have a right chest wall Mediport last use about a week ago for infusion patient presenting to the hospital concerning for generalized bodyaches, patient was noted to be febrile prompting this consultation. On today's evaluation that is 10/24/2023,the patient remains to be afebrile, patient is on room air not requiring supplemental oxygen and denies any shortness of breath no chest pain or cough.Patient denies having any nausea or vomiting, no abdominal pain and no diarrhea has been reported Patient white count is 1.3 creatinine 0.61 culture remain to be negative so far Objective - Vital Signs Vital signs: Vital Signs Temp 97.6 F 10/24/23 03:35 Pulse 70 10/24/23 11:49 Resp 17 10/24/23 11:49 BP 115/62 10/24/23 11:49 Pulse Ox 100 10/24/23 11:49 FiO2 Intake & Output 10/23/23 10/24/23 10/24/23 18:59 06:59 18:59 Intake Total 360 350 240 Output Total 900 Balance -540 350 240 Intake: Intake, IV Titration 350 Amount Cefepime 2 gm In Sodium 100 Chloride 0.9% 100 ml @ 25 mls/hr IVPB Q8HR [facility] Rx# :[id number] Vancomycin 1,250 mg In 250 Sodium Chloride 0.9% 250 ml @ 125 mls/hr IVPB Q12H [facility] Rx#:[id number] Oral 360 240 Output: Urine 900 Other: Voiding Method External Catheter Toilet Toilet Diaper Diaper # Voids 1 1 2 - Exam GENERAL DESCRIPTION: An elderly female lying in bed in no distress RESPIRATORY SYSTEM: Unlabored breathing , decreased breath sounds at bases HEART: S1 S2 regular rate and rhythm , ABDOMEN: Soft , no tenderness EXTREMITIES: No edema feet - Labs CBC & Chem 7: 10/24/23 05:29 10/24/23 05:29 Labs: Abnormal Lab Results - Last 24 Hours (Table) 10/23/23 10/23/23 10/24/23 Range/Units 16:04 20:13 05:29 WBC (3.8-10.6) k/uL RBC (3.80-5.40) m/uL Hgb (11.4-16.0) gm/dL Hct (34.0-46.0) % Plt Count (150-450) k/uL Neutrophils # (Manual) (1.3-7.7) k/uL Lymphocytes # (Manual) (1.0-4.8) k/uL Metamyelocytes # (Man) (0) k/uL Sodium 132 L (137-145) mmol/L Potassium 3.2 L (3.5-5.1) mmol/L Carbon Dioxide 32 H (22-30) mmol/L Glucose 102 H (74-99) mg/dL POC Glucose (mg/dL) 138 H 219 H (70-110) mg/dL Calcium 7.8 L (8.4-10.2) mg/dL 10/24/23 10/24/23 Range/Units 05:29 11:35 WBC 1.3 L* (3.8-10.6) k/uL RBC 2.43 L (3.80-5.40) m/uL Hgb 6.9 L* (11.4-16.0) gm/dL Hct 21.3 L (34.0-46.0) % Plt Count 16 L* (150-450) k/uL Neutrophils # (Manual) 0.50 L (1.3-7.7) k/uL Lymphocytes # (Manual) 0.56 L (1.0-4.8) k/uL Metamyelocytes # (Man) 0.01 H (0) k/uL Sodium (137-145) mmol/L Potassium (3.5-5.1) mmol/L Carbon Dioxide (22-30) mmol/L Glucose (74-99) mg/dL POC Glucose (mg/dL) 134 H (70-110) mg/dL Calcium (8.4-10.2) mg/dL Microbiology - Last 24 Hours (Table) 10/20/23 12:48 Blood Culture - Preliminary Blood Assessment and Plan (1) Fever Current Visit: Yes Status: Resolved Priority: High Code(s): R50.9 - FEVER, UNSPECIFIED SNOMED Code(s): 090202380 (2) Pancytopenia Current Visit: Yes Status: Acute Priority: High Code(s): D61.818 - OTHER PANCYTOPENIA SNOMED Code(s): 394691711 Plan: 1patient presented to hospital with sepsis/SIRS and this patient who did have a fever tachycardia leukopenia with initial workup negative including a negative chest x-ray UA has been negative abdominal has been soft medical examination w ith a source questionably Mediport site infection last was about a week ago. 2 blood cultures has been obtained from the port as well as peripheral cultures are so far negative 3patient remains to be afebrile and culture has been negative so far discussed with admitting team to discontinue cefepime and vancomycin start Rocephin and if remains to be afebrile short course of Ceftin on discharge Dictation was produced using [employer] dictation software. please excuse any grammatical, word or spelling errors. Time with Patient: Less than 30
[2023-10-25 11:41] LABS: Glucose,Whole Blood 186 mg/dL (70-110)
[2023-10-25 12:38] LABS: HCT 23.2 % (34.0-46.0); HGB 7.9 gm/dL (11.4-16.0); MCH 29.8 pg (25.0-35.0); MCV 87.7 fL (80.0-100.0); Mean Platelet Volume 9.2; RBC 2.64 m/uL (3.80-5.40); RDW 15.4 % (11.5-15.5)
[2023-10-25 12:41] LABS: Platelet Count 13 k/uL (150-450); WBC 1.3 k/uL (3.8-10.6)
[2023-10-25 13:13] LABS: African American GFR (CKD) >90 (>60 ml/min/1.73 sqM); Anion Gap 4 mmol/L; Blood Urea Nitrogen 10 mg/dL (7-17); Calcium 7.5 mg/dL (8.4-10.2); Carbon Dioxide 29 mmol/L (22-30); Chloride 98 mmol/L (98-107); Glucose 203 mg/dL (74-99); Magnesium 1.7 mg/dL (1.6-2.3); Non-African American GFR(CKD) >90 (>60 ml/min/1.73 sqM); Potassium 3.3 mmol/L (3.5-5.1); Sodium 131 mmol/L (137-145)
[2023-10-25 13:46] LABS: Lymphocytes # (M) 0.68 k/uL (1.0-4.8); Monocytes # (M) 0.08 k/uL (0-1.0); Neutrophils # (M) 0.55 k/uL (1.3-7.7); Neutrophils % (M) 42 %; Nucleated Red Blood Cells 0 /100 WBC (0-0); Total Cells Counted 50
--- NOTE | 2023-10-25 14:09 | P.DS ---
Providers Date of admission: 10/20/23 15:52 Expected date of discharge: 10/25/23 Attending physician: Kelly Sanchez MD Consults: 10/20/23 15:51 Consult Physician Routine Consulting Provider: Riley Bourgeois Consult Reason/Comments: MDS Do you want consulting provider notified?: Yes Consult Physician Routine Consulting Provider: Salima Swanson Consult Reason/Comments: sirs Do you want consulting provider notified?: Yes 10/21/23 14:33 Consult Physician Routine Consulting Provider: Tiffanie Wright Consult Reason/Comments: episode of unresponsiveness Do you want consulting provider notified?: Yes 10/23/23 10:27 Consult Physician Routine Consulting Provider: Mary Dumont Consult Reason/Comments: ica stenosis Do you want consulting provider notified?: Yes [facility] care physician: [facility] Course: Discharge Diagnosis: Episode of unresponsiveness, possibly related to blood transfusion which has happened previously Acute encephalopathy Asymptomatic bilateral carotid artery stenosis Bipolar disorder Fever of unknown etiology/ SIRS Pancytopenia secondary to myelodysplastic syndrome History of large B cell lymphoma Diabetes mellitus type 2 Fibromyalgia COPD without exacerbation Hospital Course: 68-year-old female with a history of myelodysplastic syndrome, lymphedema, recent subdural hematoma 09/25/2023, COPD, fibromyalgia, and multiple other comorbid conditions who presented to the hospital from her senior living facility due to an episode of unresponsiveness. Rectal temperature was found to be 102.2. The remainder of her vital signs were normal. Initial laboratory analysis demonstrated white blood cell count 1.9, hemoglobin 6.3, platelets 19, sodium 132. Urinalysis was negative. Influenza A/B/RSV/COVID-[address] head was completed which showed moderate small vessel ischemic disease, no acute intracranial abnormality and ongoing fluid collection within the left mastoid air cells. Chest x-ray demonstrated bilateral pleural effusions consistent with CHF. Patient was admitted due to fevers in the setting of pancytopenia and myelodysplastic syndrome. Patient received 3 units of PRBCs. Patient was started on vancomycin and Zosyn. Infectious disease and hematology oncology were consulted. Cultures have been negative growth to date. Being discharged on short course of Ceftin oral. Neurology consulted for altered mentation. Ultrasound showed greater than 70% stenosis near occlusion of bilateral carotid bifurcations. Vascular surgery not recommending any interventions, outpatient surveillance and follow-up. Patient refusing brain MRI. Mental status within normal limits at the time of discharge. She will follow-up outpatient with neurology. Patient seen and examined at bedside. Vital signs reviewed and stable. General: Nontoxic, no distress, appears at stated age Derm: Warm, dry, lower extremities wrapped in Lamonte bandages Head: Atraumatic, normocephalic, symmetric Eyes: EOMI, no lid lag, anicteric sclera Mouth: No lip lesion, mucus membranes moist Cardiovascular: S1S2 reg, no murmur Lungs: CTA bilateral, no rhonchi, no rales, no accessory muscle use Abdominal: Soft, nontender to palpation, no guarding, no appreciable organomegaly Ext: No gross muscle atrophy, 2+ edema, no contractures Neuro: CN II-XI grossly intact, no focal neuro deficits Psych: Alert, oriented, appropriate affect A total of 33 minutes of time were spent preparing this complex discharge summary. Patient was discharged on 10/25/2023 at 1406. Patient Condition at Discharge: Stable Plan - Discharge Summary Discharge Rx Participant: No New Discharge Prescriptions: New Insulin Detemir (Levemir) [Levemir] 10 unit SQ HS each cefUROXime axetiL [Ceftin] 500 mg PO BID 5 Days #10 tab Folic Acid 1 mg PO DAILY tab Cyanocobalamin [Vitamin B-12] 1,000 mcg PO DAILY tab Continue Propranolol [Inderal] 20 mg PO BID@0800,1600 Omeprazole 40 mg PO DAILY Divalproex [Depakote] 500 mg PO TID Cariprazine HCl [Vraylar] 3 mg PO DAILY@0800 Naloxone HCl [Narcan] 4 mg NASAL DIRECTED PRN PRN Reason: Opioid Reversal Acetaminophen Tab [Tylenol] 975 mg PO Q8HR@0500,1300,2100 Atorvastatin [Lipitor] 20 mg PO HS Sennosides [Senokot] 17.2 mg PO Q12H PRN PRN Reason: Constipation Albuterol Nebulized [Ventolin Nebulized] 2.5 mg INHALATION RT-Q2H PRN ml PRN Reason: Shortness Of Breath Or Wheezing LORazepam [Ativan] 0.5 mg PO TID #9 tab Gabapentin 600 mg PO TID #9 tab oxyCODONE HCL [oxyCODONE HCL (IR)] 20 mg PO Q8H PRN #9 tab PRN Reason: Pain INSULIN ASPART (NovoLOG) [NovoLOG (formulary)] See Protocol SQ ACHS Ondansetron [Zofran] 4 mg PO Q6H PRN PRN Reason: Nausea And Vomiting Multivitamins, Thera [Multivitamin (formulary)] 1 tab PO DAILY@0800 Discharge Medication List Divalproex [Depakote] 500 mg PO TID 07/01/20 [History] Omeprazole 40 mg PO DAILY 07/01/20 [History] Propranolol [Inderal] 20 mg PO BID@0800,1600 07/01/20 [History] Cariprazine HCl [Vraylar] 3 mg PO DAILY@0800 09/05/23 [History] Acetaminophen Tab [Tylenol] 975 mg PO Q8HR@0500,1300,2100 10/07/23 [History] Atorvastatin [Lipitor] 20 mg PO HS 10/07/23 [History] Multivitamins, Thera [Multivitamin (formulary)] 1 tab PO DAILY@0800 10/07/23 [History] Naloxone HCl [Narcan] 4 mg NASAL DIRECTED PRN 10/07/23 [History] Ondansetron [Zofran] 4 mg PO Q6H PRN 10/07/23 [History] Sennosides [Senokot] 17.2 mg PO Q12H PRN 10/07/23 [History] Albuterol Nebulized [Ventolin Nebulized] 2.5 mg INHALATION RT-Q2H PRN ml 10/10/23 [Rx] Gabapentin 600 mg PO TID #9 tab 10/10/23 [Rx] LORazepam [Ativan] 0.5 mg PO TID #9 tab 10/10/23 [Rx] oxyCODONE HCL [oxyCODONE HCL (IR)] 20 mg PO Q8H PRN #9 tab 10/10/23 [Rx] INSULIN ASPART (NovoLOG) [NovoLOG (formulary)] See Protocol SQ ACHS 10/20/23 [History] Cyanocobalamin [Vitamin B-12] 1,000 mcg PO DAILY tab 10/25/23 [Rx] Folic Acid 1 mg PO DAILY tab 10/25/23 [Rx] Insulin Detemir (Levemir) [Levemir] 10 unit SQ HS each 10/25/23 [Rx] cefUROXime axetiL [Ceftin] 500 mg PO BID 5 Days #10 tab 10/25/23 [Rx] Follow up Appointment(s)/Referral(s): Mary Dumont DO [STAFF PHYSICIAN] - 2 Weeks Yari Valverde MD [Primary Care Provider] - 1-2 days Yvonne Muñiz MD [STAFF PHYSICIAN] - 6 Weeks Elton Roper MD [REFERRING] - 1 Week Patient Instructions/Handouts: Myelodysplastic Syndromes (DC) Activity/Diet/Wound Care/Special Instructions: Transfusion parameters: Transfuse for Hgb < 7 or if symptomatic. Transfuse for plt<10,000 or if symptomatic. NO asa, NSAIDs, anticoagulation or antiplatelet medications Discharge Disposition: TRANSFER TO SNF/ECF
[2023-10-25] MEDS: POTASSIUM CHLORIDE ER 20 MEQ TAB.ER PO STA (14:11)
[2023-10-25 16:41] LABS: Glucose,Whole Blood 156 mg/dL (70-110)
[2023-10-25 17:01] VITALS: BP 134/99; PULSE 91
--- NOTE | 2023-10-26 14:31 | P.PN ---
Subjective Progress Note Date: 10/25/23 Principal diagnosis: Reason for follow-up is fever Patient is a 68-year-old female with a past medical history significant for hyperlipidemia osteomyelitis fibromyalgia COPD patient did have a diffuse large B-cell lymphoma did have a right chest wall Mediport last use about a week ago for infusion patient presenting to the hospital concerning for generalized bodyaches, patient was noted to be febrile prompting this consultation. On today's evaluation that is 10/25/2023, the patient continues to be afebrile, the patient is on room air and breathing comfortably, the Pt denies having any chest pain or cough, the patient denies having any abdominal pain no vomiting or any diarrhea has been reported by the nursing staff, patient feeling better wants to go home. Patient white count is 1.3, creatinine 0.51 culture has been negative Objective - Vital Signs Vital signs: Vital Signs Temp 98.3 F 10/25/23 11:16 Pulse 81 10/25/23 11:16 Resp 18 10/25/23 11:16 BP 114/74 10/25/23 11:16 Pulse Ox 99 10/25/23 11:16 FiO2 Intake & Output 10/24/23 10/25/23 10/25/23 18:59 06:59 18:59 Intake Total 730 40 440 Balance 730 40 440 Intake: IV 40 20 Invasive Line 1 20 10 Invasive Line 2 20 10 Oral 420 0 420 Blood Product 310 Rc As-1 Unit 310 [id number] Other: Voiding Method Toilet Toilet Toilet Diaper Diaper Diaper # Voids 1 0 # Bowel Movements 1 0 - Exam GENERAL DESCRIPTION: An elderly female lying in bed in no distress RESPIRATORY SYSTEM: Unlabored breathing , decreased breath sounds at bases HEART: S1 S2 regular rate and rhythm , ABDOMEN: Soft , no tenderness EXTREMITIES: No edema feet - Labs CBC & Chem 7: 10/25/23 10:42 10/25/23 10:42 Labs: Abnormal Lab Results - Last 24 Hours (Table) 10/24/23 10/24/23 10/24/23 Range/Units 12:26 16:13 20:03 POC Glucose (mg/dL) 191 H 163 H (70-110) mg/dL Crossmatch See Detail 10/25/23 10/25/23 Range/Units 05:49 11:38 POC Glucose (mg/dL) 182 H 186 H (70-110) mg/dL Crossmatch Assessment and Plan (1) Fever Status: Resolved Priority: High Code(s): R50.9 - FEVER, UNSPECIFIED SNOMED Code(s): 674187199 (2) Pancytopenia Status: Acute Priority: High Code(s): D61.818 - OTHER PANCYTOPENIA SNOMED Code(s): 994445717 Plan: 1patient presented to hospital with sepsis/SIRS and this patient who did have a fever tachycardia leukopenia with initial workup negative including a negative chest x-ray UA has been negative abdominal has been soft medical examination with a source questionably Mediport site infection last was about a week ago. 2 blood cultures has been obtained from the port as well as peripheral cultures are so far negative 3patient remains to be afebrile and culture has been negative so far, will consider short course of Ceftin on discharge and close outpatient follow-up Dictation was produced using [employer] dictation software. please excuse any grammatical, word or spelling errors. Time with Patient: Less than 30
== END 2023-10-25 16:55 | DRG 884 ==
LOC: EC 12:27 → 3SCARD 15:52
PROVIDERS: ADMIT Internal Medicine; ATTEND Internal Medicine
PROC: 30233N1 Transfusion of Nonautologous Red Blood Cells into Peripheral Vein, Percutaneous Approach (ICD-10-PCS; principal; 2023-10-20)
PROC: 4A10X4Z Monitoring of Central Nervous Electrical Activity, External Approach (ICD-10-PCS; 2023-10-23)
DX: R40.4 Transient alteration of awareness (principal); D61.818 Other pancytopenia; R65.10 Systemic inflammatory response syndrome (SIRS) of non-infectious origin without acute organ dysfunction; R50.9 Fever, unspecified; T80.89XA Other complications following infusion, transfusion and therapeutic injection, initial encounter; D46.9 Myelodysplastic syndrome, unspecified; F31.9 Bipolar disorder, unspecified; I27.20 Pulmonary hypertension, unspecified; M79.7 Fibromyalgia; I65.23 Occlusion and stenosis of bilateral carotid arteries; Z88.8 Allergy status to other drugs, medicaments and biological substances; E78.5 Hyperlipidemia, unspecified; F41.9 Anxiety disorder, unspecified; G93.89 Other specified disorders of brain; I07.1 Rheumatic tricuspid insufficiency; Z91.81 History of falling; Z79.899 Other long term (current) drug therapy; Z79.4 Long term (current) use of insulin; Z11.52 Encounter for screening for COVID-19; Z85.01 Personal history of malignant neoplasm of esophagus; Z85.72 Personal history of non-Hodgkin lymphomas; Z87.891 Personal history of nicotine dependence; M19.90 Unspecified osteoarthritis, unspecified site; E11.42 Type 2 diabetes mellitus with diabetic polyneuropathy; J44.9 Chronic obstructive pulmonary disease, unspecified; Z92.21 Personal history of antineoplastic chemotherapy; Z92.3 Personal history of irradiation; R00.0 Tachycardia, unspecified; E88.09 Other disorders of plasma-protein metabolism, not elsewhere classified; E87.70 Fluid overload, unspecified; M85.88 Other specified disorders of bone density and structure, other site; Y84.8 Other medical procedures as the cause of abnormal reaction of the patient, or of later complication, without mention of misadventure at the time of the procedure
CPT/HCPCS: 36415; 36430; 70450; 70496; 70498; 71046; 80048; 80053; 80202; 81003; 82565; 83036; 83605; 83735; 84145; 84484; 85025; 85027; 85610; 85730; 86140; 86850; 86900; 86901; 86920; 87040; 87636; 93005; 93880; 95816; 96361; 96365; 96366; 96375; 99291